=== PATIENT | male | born 1965 | race Caucasian/White ===

== ENCOUNTER → 2016-07-13 | Outpatient (CLI) | payer MEDICARE ==
[2015-09-27 09:08] VITALS: BP 156/98
[~2016-07-13] MED LIST: ALPR2TAB2 PO; CILO100T PO; GABA-586 PO; INSU100I17 SQ; INSU100V13 SQ; LISI1TAB3 PO; insulin
--- NOTE | 2016-07-13 16:10 | RAD ---
Bilateral lower extremity arterial ultrasound with ankle-brachial indices, 07/13/2016: History: Peripheral arterial disease Duplex evaluation of the major arteries in both lower extremities was performed including grayscale, color-flow and spectral Doppler analysis. On the right, the common femoral Doppler waveform is monophasic. There are mild scattered atherosclerotic plaques in the femoral and popliteal arteries. The superficial femoral and popliteal Doppler waveforms are monophasic. No significant focal velocity elevation is seen to suggest high-grade femoral-popliteal stenosis. Patent posterior tibial, anterior tibial and peroneal arteries were identified in the right lower leg demonstrating monophasic Doppler waveforms. The right dorsalis pedis Doppler waveform is also monophasic. Resting VINICIUS measurements were obtained. The right VINICIUS is moderately decreased at 0.7. On the left, the common femoral Doppler waveform is monophasic, similar to that seen on the right. This suggests aortoiliac inflow disease. The superficial femoral Doppler waveforms in the left upper and mid thigh are monophasic. In the distal left thigh the superficial femoral artery appears occluded. A small collateral artery is noted. There is reconstitution of blood flow in the left popliteal artery, although the blood flow is markedly dampened and monophasic. In the left lower leg the anterior tibial, posterior and peroneal arteries are patent demonstrating monophasic Doppler waveforms. The left dorsalis pedis waveform is dampened and monophasic. VINICIUS measurement could not be obtained on the left at this time due to the weak distal pulses. IMPRESSION: 1. Abnormal common femoral Doppler waveforms bilaterally suggesting aortoiliac inflow disease. 2. Occlusion of the left superficial femoral artery in the distal thigh with reconstitution at the popliteal artery level. 3. No evidence of significant occlusive disease in the right femoral or popliteal arteries. 4. Three-vessel runoff in both lower legs demonstrating degraded Doppler waveforms, worse on the left. 5. Abnormal right VINICIUS measurement of 0.7. 6. A left resting VINICIUS measurement could not be obtained due to the poor distal pulses.
== END | disposition home or self-care (01) ==
LOC: US 13:18
PROVIDERS: ATTEND Physician Assistant Medical
DX: I73.9 Peripheral vascular disease, unspecified (principal); I74.3 Embolism and thrombosis of arteries of the lower extremities
CPT/HCPCS: 93922; 93925

== ENCOUNTER 2016-08-08 09:06 | Observation (INO) | payer MEDICARE ==
[2016-08-08] VITALS (17 sets, daily range): BP systolic 140–175; BP diastolic 80–111
[~2016-08-08] VITALS: Ht 177.8 cm; Wt 83.0 kg
[2016-08-08] MEDS ORDERED: ASPIRIN 325 MG TABLET ONE (09:16)
[2016-08-08 09:25] LABS: HEMATOCRIT 41.8 % (39.0-53.0); HEMOGLOBIN 14.4 g/dL (13.0-17.5); RED BLOOD COUNT 4.62 x10^6/uL (4.30-5.70); RED CELL DISTRIBUTION WIDTH 13.7 % (11.5-14.5); WHITE BLOOD COUNT 9.3 x10^3/uL (4.0-11.0)
[2016-08-08 09:35] LABS: INR 0.9 (0.8-1.1); PROTHROMBIN TIME PATIENT 11.5 SEC (11.7-14.0)
[2016-08-08 09:48] LABS: GFR 79.4; POTASSIUM 4.4 mmol/L (3.5-5.1)
[2016-08-08] MEDS ORDERED: LIDOCAINE 2% 20 ML VIAL. ONE (10:31)
[2016-08-08] MEDS ORDERED: IODIXANOL 320 MG/ML 100 ML VIAL. ONE ×2 (10:32→12:34)
[2016-08-08] MEDS ORDERED: LISI-334 PO (11:00)
[2016-08-08] MEDS ORDERED: ONDANSETRON PF 4 MG/2 ML VIAL. ONE (11:05)
[2016-08-08] MEDS ORDERED: fentaNYL PF VIAL 250 MCG/5 ML VIAL ONE (11:06)
[2016-08-08] MEDS ORDERED: MIDAZOLAM HCL/PF 5 MG/5 ML VIAL. ONE (11:06)
[2016-08-08] MEDS ORDERED: HEPARIN for IV BOLUS 10,000 UNIT/10 ML VIAL. ONE (11:29)
[2016-08-08] MEDS ORDERED: MIDAZOLAM HCL/PF 5 MG/5 ML VIAL. IV ONE (11:30)
[2016-08-08] MEDS ORDERED: fentaNYL PF VIAL 250 MCG/5 ML VIAL IV ONE (11:30)
[2016-08-08] MEDS ORDERED: LIDOCAINE 2% 20 ML VIAL. IJ ONE (11:30)
[2016-08-08] MEDS ORDERED: ONDANSETRON PF 4 MG/2 ML VIAL. IV ONE (11:30)
[2016-08-08] MEDS ORDERED: IODIXANOL 320 MG/ML 100 ML VIAL. IART ONE (11:30)
[2016-08-08] MEDS ORDERED: CONTRAST GIVEN MC PRN (11:45)
[2016-08-08] MEDS ORDERED: HEPARIN for IV BOLUS 10,000 UNIT/10 ML VIAL. IV ONE (12:45)
[2016-08-08] MEDS ORDERED: CLOPIDOGREL BISULFATE 75 MG TABLET ONE (12:46)
[2016-08-08] MEDS ORDERED: CLOPIDOGREL BISULFATE 75 MG TABLET PO ONE (13:00)
[2016-08-08] MEDS: GABAPENTIN 400 MG CAPSULE. PO SCH ×2 (16:00→20:57)
[2016-08-08] MEDS ORDERED: NICOTINE 14MG PATCH. TD PRN (16:00)
[2016-08-08] MEDS ORDERED: LISINOPRIL 20 MG TABLET PO ONE (16:30)
[2016-08-08] MEDS: INSULIN ASPART 300 UNITS/3 ML INSULN.PEN SQ SCH (16:35)
--- NOTE | 2016-08-08 17:32 | CARD ---
APPROVED REPORT Patient StatusOUT-PATIENT Charter Coordinator: RT Keyonna (R) Procedure(s) performed: Abdominal aortogram with ileofemoral run-off [employer] REP of the LSFA chronic total occlusion. HISTORY The patient is a 51 year-old male with a history of : diabetes mellitus with treatment, tobacco histo ry() , hypertension, dyslipidemia. INDICATION FOR PROCEDURE The indication(s) include : Bilateral claudication. PROCEDURE NARRATIVE After appropriate informed consent the patient was brought to the catheterization laboratory and laid in the supine position. The right groin was prepped and draped in usual sterile fashion. Under 2% li docaine local anesthesia and after ministration of conscious sedation a 6 Peruvian introducer sheath wa s placed into the right common femoral artery via the modified Seldinger technique using an 18-gauge needle and a J-tipped guidewire. Next a 5 [place]uvian Omni Flush catheter was advanced to the distal abdom inal aorta and digital subtraction angiography images were obtained from the abdominal aorta with yong ofemoral runoff to the feet. Findings: Aorta: No significant disease. RCIA: Mild atherosclerotic plaque of up to 30%. REIA: Mild diffuse disease of up to 40%. RIIA: Moderate diffuse disease. RCFA: No significant disease. RPROF: No significant disease. RSFA: No significant disease with diffuse negative remodeling. RPOP: No significant disease. RTP trunk: No significant disease. RAT: No significant disease. LCIA: No significant disease. GABBY: Mild diffuse disease of up to 30%. LIIA: Moderate diffuse disease. LCFA: No significant disease. LPROF: No significant disease. LSFA: Distal occlusion with diffuse negative remodeling. There are robust collaterals near the adduct or canal. LPOP: No significant disease. LTP trunk: No significant disease. LAT: Moderate diffuse disease of up to 60%. INTERVENTIONAL TECHNIQUE: Based upon the present symptoms of claudication left greater than right and angiographic findings of a distal SFA subtotal occlusion at intervention was planned. Heparin was used for anticoagulation. Th e Omni Flush catheter was used to direct a J-tipped guidewire into the left common femoral artery. Ne xt a 6 Peruvian Phil sheath was inserted and placed in the proximal common femoral artery. Next a Glid ewire and a angled glide catheter were used to navigate the proximal aspect of the occlusion. Subsequ ently at the distal segment of the occlusion a connect 250T wire was used to cross the distal occlusi on. A Fine Cross catheter was then used to cross the lesion and intraluminal placement was confirmed distally with limited contrast injection. Next a [place] core wire was placed in the distal posterior tibial vessel and a 5.0 x 100 mm balloon was used to perform angioplasty for 2 minutes. Next, a 5.0 x 120 mm paclitaxel eluting balloon was used to angioplasty the lesion for 3 minutes. Subsequent post angioplasty angiography revealed excellent flow and 0% residual stenosis. There was no evidence of di ssection. No distal vessel occlusion was noted. In this setting further intervention was deferred and a stent was not placed. The patient tolerated the procedure well and at case completion the right si ded Phil sheath was removed and a Angio-Seal product was placed for hemostasis. The patient received 600 mg of Plavix at case completion. Conclusion 1. Spivey category 3 claudication 2. 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 Recommendations ASA 81mg daily indefinitely Plavix 75mg daily for 3 months Smoking cessation counseling provided.
[2016-08-08] MEDS ORDERED: ACETAMINOPHEN 325 MG TABLET. PO PRN (19:30)
[2016-08-08] MEDS ORDERED: INSULIN DETEMIR 300 UNITS/3 ML INSULN.PEN. SQ SCH (21:00)
[2016-08-08] MEDS ORDERED: oxyCODONE/APAP 5/325 1 TAB TABLET PO PRN ×2 (21:00)
[2016-08-08] MEDS: ALPRAZolam 1 MG TABLET PO PRN (21:08)
[2016-08-08] MEDS ORDERED: ALPRAZolam 1 MG TABLET PO ONE (23:15)
[2016-08-09 03:20] VITALS: BP 127/95
[2016-08-09 07:20] VITALS: BP 145/84
[2016-08-09] MEDS ORDERED: CLOPIDOGREL BISULFATE 75 MG TABLET PO SCH (08:00)
[2016-08-09 08:56] VITALS: BP 145/84
[2016-08-09] MEDS: GABAPENTIN 400 MG CAPSULE. PO SCH (08:56)
[2016-08-09] MEDS: INSULIN ASPART 300 UNITS/3 ML INSULN.PEN SQ SCH ×2 (08:59→11:30)
[2016-08-09] MEDS: ALPRAZolam 1 MG TABLET PO PRN (08:59)
[2016-08-09] MEDS ORDERED: LISINOPRIL 20 MG TABLET PO SCH (09:00)
[2016-08-09] MEDS ORDERED: ASPIRIN 325 MG TABLET PO ONE (09:30)
[2016-08-09] MEDS ORDERED: CLOP75TA PO ×3 (10:38→11:04)
[2016-08-09] MEDS ORDERED: ASPI-612 PO ×2 (10:38→10:55)
--- NOTE | 2016-08-09 10:48 | PDOC3 ---
VALERIANO PINON CHIEF STRATEGY OFFICER 08/09/16 1048: Discharge Summary Visit Information Date of Admission: August 08, 2016 Date of Discharge: August 09, 2016 Admitting Diagnosis Comment: 1. PVD with claudication 2. DM, II with peripheral neuropathy 3. hypertension, benign essential 4. tobacco abuse 5. anxiety and depression Final Diagnosis 1. 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 DM, II with peripheral neuropathy 3. hypertension, benign essential 4. tobacco abuse 5. anxiety and depression Brief Hospital Course Allergies Allergies Coded Allergies Type Severity Reaction Last Updated Verified No Known Drug Allergies 09/05/13 No Vital Signs Vital Signs Date Time Temp Pulse Resp B/P (MAP) Pulse Ox O2 Delivery O2 Flow Rate FiO2 08/09/16 08:56 99 145/84 08/09/16 08:00 Room Air 08/09/16 07:20 97.7 18 99 97.7 Lab Results Laboratory Tests Test 08/08/16 09:20 08/08/16 12:21 08/08/16 16:20 08/08/16 20:45 White Blood Count 9.3 x10^3/uL (4.0-11.0) Red Blood Count 4.62 x10^6/uL (4.30-5.70) Hemoglobin 14.4 g/dL (13.0-17.5) Hematocrit 41.8 % (39.0-53.0) Mean Corpuscular Volume 91 fL (79-100) Mean Corpuscular Hemoglobin 31 pg (25-35) Mean Corpuscular Hemoglobin Concent 35 g/dL (31-37) Red Cell Distribution Width 13.7 % (11.5-14.5) Platelet Count 238 x10^3/uL (140-400) Prothrombin Time 11.5 SEC (11.7-14.0) Prothromb Time International Ratio 0.9 (0.8-1.1) Sodium Level 137 mmol/L (136-145) Potassium Level 4.4 mmol/L (3.5-5.1) Chloride Level 99 mmol/L (98-107) Carbon Dioxide Level 31 mmol/L (21-32) Anion Gap 7 (6-14) Blood Urea Nitrogen 18 mg/dL (8-26) Creatinine 1.0 mg/dL (0.7-1.3) Estimated GFR (Cockcroft-Gault) 79.4 Glucose Level 292 mg/dL (70-99) Calcium Level 9.0 mg/dL (8.5-10.1) Activated Clotting Time 223 sec (92-181) Glucose (Fingerstick) 323 mg/dL (70-99) 277 mg/dL (70-99) Test 08/09/16 07:40 Glucose (Fingerstick) 171 mg/dL (70-99) Laboratory Tests Test 08/08/16 12:21 08/08/16 16:20 08/08/16 20:45 08/09/16 07:40 Activated Clotting Time 223 sec (92-181) Glucose (Fingerstick) 323 mg/dL (70-99) 277 mg/dL (70-99) 171 mg/dL (70-99) Brief Hospital Course Mr. Sharp is a 51 old male who presented with claudication symptoms for years. Diagnosed with Lenoir class 3 symptoms, and without ulcers. Angiography recommended due to DM and tobacco abuse. Underwent angiography on with findings of a chronic total occlusion of the left distal SFA with drug eluting balloon. Monitored overnight without symptoms. Notes resolution of left calf symptoms with walking overnight. DP and PT on left 1+; 2+ on right. Right hospitality manager arteriotomy C/D/I without erythema, edema or ecchymosis; no bruit auscultated at site. Discharge with DAPT X 3 months. Smoking cessation discussed again today and patient encouraged to walk daily gradually increasing distance. Discharge Information Follow Up: Weeks (4 weeks with cardiology; 7-10 days with PCP) Disposition/Orders: D/C to Home Scheduled Clopidogrel Bisulfate (Clopidogrel), 75 MG PO DAILYWBKFT Clopidogrel Bisulfate (Clopidogrel), 75 MG PO DAILYWBKFT Gabapentin (Gabapentin), 1,200 MG PO TID, (Reported) Insulin Aspart (Novolog Flexpen), 10 UNIT SQ TIDAC, (Reported) Insulin Detemir (Levemir), 50 UNIT SQ HS, (Reported) Lisinopril (Lisinopril), 1 TAB PO DAILY, (Reported) Scheduled PRN Alprazolam (Xanax), 1 TAB PO TID PRN for ANXIETY / AGITATION, (Reported) Discontinued Medications Lisinopril/Hydrochlorothiazide (Lisinopril-Hctz 10-12.5 Mg Tab), 1 TAB PO DAILY, (Reported) Patient Instructions Patient Instructions GENERAL INSTRUCTIONS: 1. Your dressing should be removed prior to leaving the hospital. 2. It is OK to shower the day after your procedure. 3. If you received stents, be sure to carry your stent information card with you in your wallet/purse at all times. 4. Call the office immediately at [phone] if you notice any fever or if there is redness, worsening tenderness/pain, increased bruising, or drainage from the puncture site. 5. Should you have bleeding from the site, lie down immediately & put pressure on the site. The pressure should be hard enough to stop the bleeding. Have the nearest person call 911. DO NOT try to drive to the ER with active bleeding. 6. If you notice a change in color, coolness to touch, or loss of feeling in the affected extremity, come to the emergency room. Please have someone drive you or call 911 if no one is available. DO NOT drive yourself. 7. If you normally take glucophage (metformin), please do not take this medicine for 48 hours following your procedure. 8. DO NOT STOP TAKING YOUR PLAVIX OR ASPIRIN UNLESS IT IS CLEARED BY A INFANT TEACHER OF YOUR FUEL CELL DESIGNER AT OUR OFFICE. 9. QUIT SMOKING: the [place] [employer], [employer], & [employer] have cessation resources available on their websites 10. Please have someone available to drive you home from the hospital as you may be limited by sedation medications given during the procedure. Femoral (Groin) access: 1. Do no lifting, pushing, pulling, bending, stooping, or recurrent stair climbing for 3 days following your procedure. 2. Once past the first 3 days, do not do any HEAVY exertion or lifting for one week following the procedure. No gym workouts, running, lifting greater than a gallon of milk, etc 3. Do not submerge in bath or pool for one week. OK to drive 3 days following your procedure, but if going long distance, do not go alone & take hourly breaks to get out of car and walk around. Call the office at [phone] for any questions or concerns. IVETTE ALATORRE MD 08/09/16 1330: Discharge Summary Brief Hospital Course Brief Hospital Course Pt. seen and examined. Agree with above OTR OWNER OPERATOR note. No acute events overnight. This a.m. blood sugar ~42. Will recheck after meals. No groin issues. f/u in 4 weeks. ASA,Plavix for 3 months. Discharge Information Scheduled Clopidogrel Bisulfate (Clopidogrel), 75 MG PO DAILYWBKFT Clopidogrel Bisulfate (Clopidogrel), 75 MG PO DAILYWBKFT Gabapentin (Gabapentin), 1,200 MG PO TID, (Reported) Insulin Aspart (Novolog Flexpen), 10 UNIT SQ TIDAC, (Reported) Insulin Detemir (Levemir), 50 UNIT SQ HS, (Reported) Lisinopril (Lisinopril), 1 TAB PO DAILY, (Reported) Scheduled PRN Alprazolam (Xanax), 1 TAB PO TID PRN for ANXIETY / AGITATION, (Reported) Discontinued Medications Lisinopril/Hydrochlorothiazide (Lisinopril-Hctz 10-12.5 Mg Tab), 1 TAB PO DAILY, (Reported) VALERIANO PINON APRN August 09, 2016 10:48 IVETTE ALATORRE MD August 09, 2016 13:30
== END 2016-08-09 14:00 | disposition home or self-care (01) ==
LOC: CCL 09:06 → INTOOBSV 12:15 → UNDOADMOB 12:15 → 2 SOUTH 12:15
PROVIDERS: ADMIT Internal Medicine Cardiovascular Disease; ATTEND Internal Medicine Cardiovascular Disease
DX: E11.51 Type 2 diabetes mellitus with diabetic peripheral angiopathy without gangrene (principal); F32.9 Major depressive disorder, single episode, unspecified; F41.9 Anxiety disorder, unspecified; I10 Essential (primary) hypertension; Z72.0 Tobacco use
CPT/HCPCS: 36415; 37224; 75630; 80048; 82962; 85027; 85347; 85610; 96372; 96374; 99406; C1725; C1769; C1771; C1892; G0269; G0378; G0379; J1644; J1815; J2250; J2405; J3010; 99152; 99153

== ENCOUNTER → 2018-03-15 | Outpatient (CLI) | payer MEDICARE ==
[2018-03-12 11:12] VITALS: BP 146/78
[~2018-03-15] MED LIST changes: +ALPR1TAB2 PO; +AMLO5TAB7 PO; +ASPI-612 PO; +CLOP75TA PO; +DICL100G18 TP; -GABA-586 PO; +GABA-689 PO; +GABA300C18 PO; +LISI-334 PO; +LISI40TA2 PO; +NICO1PAT25 TP; +OMEP40CA5 PO; +PEG1POWD PO; +POLY17PO29 PO
--- NOTE | 2018-03-15 08:10 | RAD ---
Indication:ABD PAIN TECHNIQUE: Grayscale, color Doppler and spectral waveform is of the abdomen obtained. COMPARISON:CT from 03/12/2018 FINDINGS:Single gallstone is seen measuring 1 cm in longest dimension. No pericholecystic fluid or gallbladder wall thickening. Visualized pancreas is within normal limits. Diffuse atherosclerotic disease of the abdominal aorta without aneurysm. IVC is patent. Liver is mildly enlarged in size measuring 19 cm with normal echogenicity. Trace amount of right pleural effusion. Main portal vein is patent with hepatopedal flow. CBD measures 3 mm in diameter and is within normal limits. Right kidney measures 13.8 cm in length without hydronephrosis. Spleen measures 11 cm in longest dimension and is normal in size. Left kidney measures 12.5 cm in length without hydronephrosis. IMPRESSION: 1. Nonshadowing single stone versus polyp in the gallbladder. No sonographic evidence of acute cholecystitis. 2. Mild hepatomegaly. Electronically signed by: Jt Romero DO (03/15/2018 8:06 AM) [facility]
== END | disposition home or self-care (01) ==
LOC: US 07:25
PROVIDERS: ATTEND Physician Assistant Medical
DX: R16.0 Hepatomegaly, not elsewhere classified (principal); I70.0 Atherosclerosis of aorta; F17.210 Nicotine dependence, cigarettes, uncomplicated; F12.90 Cannabis use, unspecified, uncomplicated
CPT/HCPCS: 76700

== ENCOUNTER 2018-06-12 21:00 | Inpatient (IN) | payer MEDICARE ==
[~2018-06-12] VITALS: Ht 177.8 cm; Wt 66.7 kg
[~2018-06-12 21:00] MED LIST changes: +AMLO10TA8 PO; +AMLO5TAB10 PO; -AMLO5TAB7 PO; +ASPI-630 PO; +ATOR20TA58 PO; +CARV12.5 PO; +CARV25TA PO; +FURO-68 PO; +GABA600T7 PO; +INSU100V12 SQ; +MELA3TAB2 PO; +PANT20TA2 PO; +POTA10TA12 PO; +SPIR25TA5 PO; +SUCR1TAB35 PO; +VARE0.5T PO
[2018-06-12 21:34] LABS: BASO # 0.1 x10^3/uL (0.0-0.2); BASO % 1 % (0-3); EOS # 0.4 x10^3/uL (0.0-0.7); EOS % 4 % (0-3); HEMATOCRIT 35.3 % (39.0-53.0); HEMOGLOBIN 11.8 g/dL (13.0-17.5); LYMPH # 2.3 x10^3/uL (1.0-4.8); LYMPH % 24 % (24-48); MEAN CORPUSCULAR HEMOGLOBIN 29 pg (25-35); MEAN CORPUSCULAR HGB CONC 33 g/dL (31-37); MEAN CORPUSCULAR VOLUME 88 fL (79-100); MONO # 0.7 x10^3/uL (0.0-1.1); MONO % 7 % (0-9); NEUT # 6.4 x10^3uL (1.8-7.7); NEUT % 65 % (31-73); PLATELET COUNT 350 x10^3/uL (140-400); RED BLOOD COUNT 4.02 x10^6/uL (4.30-5.70); RED CELL DISTRIBUTION WIDTH 13.4 % (11.5-14.5); WHITE BLOOD COUNT 9.9 x10^3/uL (4.0-11.0)
[2018-06-12 21:45] LABS: CALCIUM 9.6 mg/dL (8.5-10.1); CREATININE 1.4 mg/dL (0.7-1.3); GFR 53.4; POTASSIUM 3.7 mmol/L (3.5-5.1)
[2018-06-12 21:50] LABS: ALBUMIN 2.6 g/dL (3.4-5.0); ALBUMIN/GLOBULIN RATIO 0.5 (1.0-1.7); MAGNESIUM 1.8 mg/dL (1.8-2.4); TOTAL BILIRUBIN 0.3 mg/dL (0.2-1.0)
[2018-06-12] MEDS ORDERED: ASPIRIN CHEWABLE 81 MG TABLET. PO ONE (22:00)
[2018-06-12] MEDS ORDERED: IV NORMAL SALINE 1000ML BAG 1,000 ML IV SCH (22:00)
[2018-06-12] MEDS ORDERED: ONDANSETRON PF 4 MG/2 ML VIAL. ONE (22:03)
--- NOTE | 2018-06-12 22:07 | PHYS DOC ---
Past Medical History Past Medical History: Diabetes-Type II, Hypertension, Other Additional Past Medical Histor: PAD Past Surgical History: Other Additional Past Surgical Histo: BILATERAL EYES Alcohol Use: Occasionally Drug Use: Marijuana Adult General Chief Complaint Chief Complaint: CHEST PAIN HPI HPI Patient is a 53-year-old male who presents with complaint of chest pain that has been intermittent since around Sunday. He describes pain as sharp in nature at times and sometimes is just like a deep ache. Patient also indicates that he has had abdominal pain and back pain for the last few weeks. Patient states that he was recently diagnosed with esophageal cancer and has not yet seen oncologist. Patient rates his pain to be a 10 out of 10. He states that this pain is not been managed at all. He does indicate the pain is worsened with exertion. He states that nothing improves his pain. Patient does indicate that he has been very nauseated. He also indicates that he has had some vomiting. Patient also reports cough that is been productive of sputum. He denies any fever. Review of Systems Review of Systems Constitutional: Denies fever or chills [] Respiratory: Complains of cough and exertional shortness of breath [] Cardiovascular: No additional information not addressed in HPI [] GI: Complains of abdominal pain with nausea and vomiting. Denies diarrhea [] Musculoskeletal: Complains of mid to lower thoracic back pain [] Integument: Denies rash or skin lesions [] All other systems were reviewed and found to be within normal limits, except as documented in this note. Current Medications Current Medications Current Medications Medications (Trade) Dose Ordered Sig/Adrien Start Time Stop Time Status Last Admin Dose Admin Aspirin (Children'S Aspirin) 324 mg 1X ONCE 06/12/18 22:00 06/12/18 22:01 DC 06/12/18 22:02 324 MG Fentanyl Citrate (Fentanyl 2ml Vial) 50 mcg PRN Q1HR PRN 06/12/18 22:15 06/13/18 22:14 Hydromorphone HCl (Dilaudid) 0.5 mg PRN Q15MIN PRN 06/12/18 21:30 06/13/18 21:29 06/12/18 22:08 0.5 MG Ondansetron HCl (Zofran) 4 mg PRN Q8HRS PRN 06/12/18 22:15 06/13/18 22:14 Sodium Chloride 1,000 ml @ 125 mls/hr Q8H 06/12/18 22:30 06/13/18 22:29 Allergies Allergies Allergies Coded Allergies Type Severity Reaction Last Updated Verified No Known Drug Allergies 09/05/13 No Physical Exam Physical Exam Constitutional: Well developed, well nourished, in mild distress. [] HENT: Normocephalic, atraumatic, bilateral external ears normal, oropharynx moist, no oral exudates, nose normal. [] Eyes: PERRLA, EOMI, conjunctiva normal, no discharge. [] Neck: Normal range of motion, no tenderness, supple, no stridor. [] Cardiovascular: Regular rate and rhythm or[] Lungs & Thorax: Fine rhonchi bilaterally to auscultation [] Abdomen: Bowel sounds normal, soft, with epigastric tenderness. [] Skin: Warm, dry, no erythema, no rash. [] Extremities: No tenderness, no cyanosis, no clubbing, ROM intact, no edema. [] Neurologic: Alert and oriented X 3, normal motor function, normal sensory function, no focal deficits noted. [] Current Patient Data Vital Signs Vital Signs Date Time Temp Pulse Resp B/P (MAP) Pulse Ox O2 Delivery O2 Flow Rate FiO2 06/12/18 22:08 5 95 Room Air Lab Values Laboratory Tests Test 06/12/18 21:15 White Blood Count 9.9 x10^3/uL (4.0-11.0) Red Blood Count 4.02 x10^6/uL (4.30-5.70) L Hemoglobin 11.8 g/dL (13.0-17.5) L Hematocrit 35.3 % (39.0-53.0) L Mean Corpuscular Volume 88 fL (79-100) Mean Corpuscular Hemoglobin 29 pg (25-35) Mean Corpuscular Hemoglobin Concent 33 g/dL (31-37) Red Cell Distribution Width 13.4 % (11.5-14.5) Platelet Count 350 x10^3/uL (140-400) Neutrophils (%) (Auto) 65 % (31-73) Lymphocytes (%) (Auto) 24 % (24-48) Monocytes (%) (Auto) 7 % (0-9) Eosinophils (%) (Auto) 4 % (0-3) H Basophils (%) (Auto) 1 % (0-3) Neutrophils # (Auto) 6.4 x10^3uL (1.8-7.7) Lymphocytes # (Auto) 2.3 x10^3/uL (1.0-4.8) Monocytes # (Auto) 0.7 x10^3/uL (0.0-1.1) Eosinophils # (Auto) 0.4 x10^3/uL (0.0-0.7) Basophils # (Auto) 0.1 x10^3/uL (0.0-0.2) Sodium Level 135 mmol/L (136-145) L Potassium Level 3.7 mmol/L (3.5-5.1) Chloride Level 96 mmol/L (98-107) L Carbon Dioxide Level 32 mmol/L (21-32) Anion Gap 7 (6-14) Blood Urea Nitrogen 14 mg/dL (8-26) Creatinine 1.4 mg/dL (0.7-1.3) H Estimated GFR (Cockcroft-Gault) 53.4 BUN/Creatinine Ratio 10 (6-20) Glucose Level 186 mg/dL (70-99) H Calcium Level 9.6 mg/dL (8.5-10.1) Magnesium Level 1.8 mg/dL (1.8-2.4) Total Bilirubin 0.3 mg/dL (0.2-1.0) Aspartate Amino Transferase (AST) 13 U/L (15-37) L Alanine Aminotransferase (ALT) 15 U/L (16-63) L Alkaline Phosphatase 176 U/L (46-116) H Troponin I Quantitative < 0.017 ng/mL (0.000-0.055) EH-Alp-A-Type Natriuretic Peptide 4458 pg/mL (0-124) H Total Protein 8.0 g/dL (6.4-8.2) Albumin 2.6 g/dL (3.4-5.0) L Albumin/Globulin Ratio 0.5 (1.0-1.7) L Lipase 55 U/L (73-393) L Laboratory Tests 06/12/18 21:15 Laboratory Tests 06/12/18 21:15 EKG EKG [] Interpretation Time: EKG demonstrates normal sinus rhythm with rate of 92. Radiology/Procedures Radiology/Procedures [] Impressions: Chest x-ray demonstrates increased vascularity suggesting mild CHF Course & Med Decision Making Course & Med Decision Making Pertinent Labs and Imaging studies reviewed. (See chart for details) [] Dragon Disclaimer Dragon Disclaimer This electronic medical record was generated, in whole or in part, using a voice recognition dictation system. Departure Departure Impression: Primary Impression: Chest pain Additional Impressions: CHF (congestive heart failure) Intractable abdominal pain Disposition: ADMITTED INPATIENT Admitting Physician: Uma Barry Condition: GOOD Referrals: NATALIO HAYES PA-C (PCP) Problem Qualifiers Primary Impression: Chest pain Chest pain type: unspecified Qualified Codes: R07.9 - Chest pain, unspecified Additional Impressions: CHF (congestive heart failure) Heart failure type: unspecified Heart failure chronicity: unspecified Qualified Codes: I50.9 - Heart failure, unspecified USHA RIVERA Jr. DO Jun 12, 2018 22:07
[2018-06-12] MEDS: HYDROmorphone 2 MG/ML VIAL IV/SQ PRN ×3 (22:08→22:55)
[2018-06-12] MEDS ORDERED: ONDANSETRON PF 4 MG/2 ML VIAL. IV PRN (22:15)
[2018-06-12] MEDS ORDERED: fentaNYL PF VIAL 100 MCG/2 ML VIAL IV PRN (22:15)
[2018-06-12] MEDS ORDERED: ONDANSETRON PF 4 MG/2 ML VIAL. IV ONE (22:30)
[2018-06-13] VITALS (7 sets, daily range): BP systolic 113–148; BP diastolic 65–81
--- NOTE | 2018-06-13 00:11 | RAD ---
Indication:CHEST PAIN TECHNIQUE:Portable AP chest X-ray COMPARISON:05/19/2018 FINDINGS: Heart is normal in size. Lungs are clear. No pneumothorax or pleural effusion. Visualized bony thorax within normal limits. IMPRESSION: No acute pulmonary process. Electronically signed by: Jt Romero DO (06/13/2018 12:08 AM) [facility]
--- NOTE | 2018-06-13 02:36 | EKG ---
[facility] [address] [place] [id number] Test Date: 2018-06-12 Test Time: 21:08:24 Pat Name: DANIELITO MONTANA Department: Room: 250 1 Gender: M Ophthalmic Technician: : 1965 Requested By: USHA RIVERA Order Number: [id number] Reading MD: Sukhdeep Armstrong MD Measurements Intervals [place] Rate: 91 P: 45 OK: 130 QRS: 47 QRSD: 86 T: 36 QT: 338 QTc: 422 Interpretive Statements SINUS RHYTHM Electronically Signed On 06-20-2018 9:50:46 CDT by Sukhdeep Armstrong MD
[2018-06-13] MEDS: HYDROmorphone 2 MG/ML VIAL IV/SQ PRN (02:55)
[2018-06-13 04:48] LABS: BASO # 0.1 x10^3/uL (0.0-0.2); BASO % 1 % (0-3); EOS # 0.4 x10^3/uL (0.0-0.7); EOS % 4 % (0-3); HEMATOCRIT 32.1 % (39.0-53.0); HEMOGLOBIN 10.5 g/dL (13.0-17.5); LYMPH # 2.3 x10^3/uL (1.0-4.8); LYMPH % 20 % (24-48); MEAN CORPUSCULAR HEMOGLOBIN 29 pg (25-35); MEAN CORPUSCULAR HGB CONC 33 g/dL (31-37); MEAN CORPUSCULAR VOLUME 90 fL (79-100); MONO # 0.9 x10^3/uL (0.0-1.1); MONO % 8 % (0-9); NEUT # 7.6 x10^3uL (1.8-7.7); NEUT % 67 % (31-73); PLATELET COUNT 325 x10^3/uL (140-400); RED BLOOD COUNT 3.58 x10^6/uL (4.30-5.70); RED CELL DISTRIBUTION WIDTH 13.6 % (11.5-14.5); WHITE BLOOD COUNT 11.3 x10^3/uL (4.0-11.0)
[2018-06-13 05:08] LABS: CALCIUM 8.9 mg/dL (8.5-10.1); CREATININE 1.5 mg/dL (0.7-1.3); GFR 49.3; POTASSIUM 4.1 mmol/L (3.5-5.1)
[2018-06-13] MEDS: IV NORMAL SALINE 1000ML BAG 1,000 ML IV SCH ×3 (06:01→14:28)
[2018-06-13] MEDS: NICOTINE 21MG PATCH. TD SCH (08:23)
[2018-06-13] MEDS ORDERED: IBUP-1060 PO (08:32)
[2018-06-13] MEDS: GABAPENTIN 300 MG CAPSULE. PO SCH ×3 (09:39→20:47)
[2018-06-13] MEDS: LISINOPRIL 20 MG TABLET PO SCH (09:39)
[2018-06-13] MEDS: SPIRONOLACTONE 25 MG TABLET PO SCH (09:39)
[2018-06-13] MEDS: CARVEDILOL 12.5 MG TABLET. PO SCH ×2 (09:39→17:26)
[2018-06-13] MEDS: amLODIPine BESYLATE 10 MG TABLET PO SCH (09:40)
--- NOTE | 2018-06-13 10:05 | PDOC2 ---
HARPREET HERRERA CNC MACHINE SETTER 06/13/18 1005: CARDIAC CONSULT DATE OF CONSULT Date of Consult DATE: 06/13/18 TIME: 10:00 REASON FOR CONSULT Reason for Consult: CP, CHF REFERRING PHYSICIAN Referring Physician: Hemanth SOURCE Source: Chart review, Patient HISTORY OF PRESENT ILLNESS HISTORY OF PRESENT ILLNESS This is a 53 yo male admitted for complains of nausea and vomiting and abdominal pain. Verbalized chest pain but this mainly more on the epigastric region as sharp started after nausea. He is a poor historian. He told me that he was seen by a specialist yesterday and was told that he may have esophageal CA. Denies any significant SOA and no peripheral edema. No fever or chills or cough and no recent falls or injury. PAST MEDICAL HISTORY Past Medical History Cardiovascular: HTN, PAD, HLP Pulmonary: No pertinent hx CENTRAL NERVOUS SYSTEM: Peripheral neuropathy GI: GERD Heme/Onc: Anemia Hepatobiliary: No pertinent hx Psych: Anxiety, Depression Musculoskeletal: Osteoarthritis Rheumatologic: No pertinent hx Infectious disease: No pertinent hx ENT: No pertinent hx Renal/: L LESLIE Endocrine: Diabetes (2) Dermatology: None PAST SURGICAL HISTORY Past Surgical History LFA surgery, [facility] FAMILY HISTORY Family History Coronary Artery Disease (mother in her 40s) SOCIAL HISTORY Social History Smoke: <1 pack per day (>30 years) ALCOHOL: occasional Drugs: None Lives: alone Domestic Violence: Neg CURRENT MEDICATIONS CURRENT MEDICATIONS Current Medications Medications (Trade) Dose Ordered Sig/Adrien Route PRN Reason Start Time Stop Time Status Last Admin Dose Admin Aspirin (Children'S Aspirin) 324 mg 1X ONCE PO 06/12/18 22:00 06/12/18 22:01 DC 06/12/18 22:02 Hydromorphone HCl (Dilaudid) 0.5 mg PRN Q15MIN PRN IV/SQ PAIN GREATER THAN 06/0906/12/18 21:30 06/13/18 21:29 06/12/18 22:55 Sodium Chloride 1,000 ml @ 1,000 mls/hr Q1H IV 06/12/18 22:00 06/12/18 22:59 DC 06/12/18 22:08 Ondansetron HCl (Zofran) 4 mg 1X ONCE IV 06/12/18 22:30 06/12/18 22:31 DC 06/12/18 22:05 Sodium Chloride 1,000 ml @ 125 mls/hr Q8H IV 06/12/18 22:30 06/13/18 22:29 06/13/18 06:01 Nicotine (Nicoderm Cq 21mg) 1 patch DAILY TD 06/13/18 09:00 06/13/18 08:23 Amlodipine Besylate (Norvasc) 10 mg DAILY PO 06/13/18 10:00 06/13/18 09:40 Carvedilol (Coreg) 12.5 mg BIDWMEALS PO 06/13/18 10:00 06/13/18 09:39 Gabapentin (Neurontin) 900 mg TID PO 06/13/18 10:00 06/13/18 09:39 Lisinopril (Prinivil) 40 mg DAILY PO 06/13/18 10:00 06/13/18 09:39 Spironolactone (Aldactone) 25 mg DAILY PO 06/13/18 10:00 06/13/18 09:39 ALLERGIES ALLERGIES: Coded Allergies: No Known Drug Allergies (Unverified , 09/05/13) ROS Review of System limited, poor historian PHYSICAL EXAM General: Alert, Oriented X3, Cooperative, No acute distress HEENT: Atraumatic, Mucous membr. moist/pink Lungs: Clear to auscultation, Normal air movement Heart: Regular rate (SR), Normal S1, Normal S2, No murmurs Abdomen: Soft, Other (epigastric tenderness) Extremities: No cyanosis, No edema Skin: No breakdown, No significant lesion Neuro: Normal speech, Sensation intact Psych/Mental Status: Mental status NL, Mood NL MUSCULOSKELETAL: Osteoarthritic changes both hands VITALS VITALS Vital Signs Date Time Temp Pulse Resp B/P (MAP) Pulse Ox O2 Delivery O2 Flow Rate FiO2 06/13/18 09:40 95 06/13/18 08:05 Nasal Cannula 2.0 06/13/18 07:00 98.2 18 148/81 (103) 93 98.2 LABS Lab: Laboratory Tests Test 06/12/18 21:15 06/13/18 01:10 06/13/18 04:00 06/13/18 09:11 White Blood Count 9.9 x10^3/uL (4.0-11.0) 11.3 x10^3/uL (4.0-11.0) Red Blood Count 4.02 x10^6/uL (4.30-5.70) 3.58 x10^6/uL (4.30-5.70) Hemoglobin 11.8 g/dL (13.0-17.5) 10.5 g/dL (13.0-17.5) Hematocrit 35.3 % (39.0-53.0) 32.1 % (39.0-53.0) Mean Corpuscular Volume 88 fL (79-100) 90 fL (79-100) Mean Corpuscular Hemoglobin 29 pg (25-35) 29 pg (25-35) Mean Corpuscular Hemoglobin Concent 33 g/dL (31-37) 33 g/dL (31-37) Red Cell Distribution Width 13.4 % (11.5-14.5) 13.6 % (11.5-14.5) Platelet Count 350 x10^3/uL (140-400) 325 x10^3/uL (140-400) Neutrophils (%) (Auto) 65 % (31-73) 67 % (31-73) Lymphocytes (%) (Auto) 24 % (24-48) 20 % (24-48) Monocytes (%) (Auto) 7 % (0-9) 8 % (0-9) Eosinophils (%) (Auto) 4 % (0-3) 4 % (0-3) Basophils (%) (Auto) 1 % (0-3) 1 % (0-3) Neutrophils # (Auto) 6.4 x10^3uL (1.8-7.7) 7.6 x10^3uL (1.8-7.7) Lymphocytes # (Auto) 2.3 x10^3/uL (1.0-4.8) 2.3 x10^3/uL (1.0-4.8) Monocytes # (Auto) 0.7 x10^3/uL (0.0-1.1) 0.9 x10^3/uL (0.0-1.1) Eosinophils # (Auto) 0.4 x10^3/uL (0.0-0.7) 0.4 x10^3/uL (0.0-0.7) Basophils # (Auto) 0.1 x10^3/uL (0.0-0.2) 0.1 x10^3/uL (0.0-0.2) Sodium Level 135 mmol/L (136-145) 138 mmol/L (136-145) Potassium Level 3.7 mmol/L (3.5-5.1) 4.1 mmol/L (3.5-5.1) Chloride Level 96 mmol/L (98-107) 99 mmol/L (98-107) Carbon Dioxide Level 32 mmol/L (21-32) 32 mmol/L (21-32) Anion Gap 7 (6-14) 7 (6-14) Blood Urea Nitrogen 14 mg/dL (8-26) 15 mg/dL (8-26) Creatinine 1.4 mg/dL (0.7-1.3) 1.5 mg/dL (0.7-1.3) Estimated GFR (Cockcroft-Gault) 53.4 49.3 BUN/Creatinine Ratio 10 (6-20) Glucose Level 186 mg/dL (70-99) 183 mg/dL (70-99) Calcium Level 9.6 mg/dL (8.5-10.1) 8.9 mg/dL (8.5-10.1) Magnesium Level 1.8 mg/dL (1.8-2.4) Total Bilirubin 0.3 mg/dL (0.2-1.0) Aspartate Amino Transf (AST/SGOT) 13 U/L (15-37) Alanine Aminotransferase (ALT/SGPT) 15 U/L (16-63) Alkaline Phosphatase 176 U/L (46-116) Troponin I Quantitative < 0.017 ng/mL (0.000-0.055) < 0.017 ng/mL (0.000-0.055) < 0.017 ng/mL (0.000-0.055) VP-Rgy-R-Type Natriuretic Peptide 4458 pg/mL (0-124) Total Protein 8.0 g/dL (6.4-8.2) Albumin 2.6 g/dL (3.4-5.0) Albumin/Globulin Ratio 0.5 (1.0-1.7) Lipase 55 U/L (73-393) Glucose (Fingerstick) 193 mg/dL (70-99) ECHOCARDIOGRAM ECHOCARDIOGRAM <Conclusion> The left ventricle is normal size. The left ventricular systolic function is normal. The ejection fraction is 55-60%. There is mild concentric left ventricular hypertrophy. There is no significant aortic valvular stenosis. Doppler and Color Flow revealed no significant aortic regurgitation. Doppler and Color-flow revealed trace to mild mitral regurgitation. Doppler and Color Flow revealed trace tricuspid regurgitation with an estimated PAP of 40 mmHg. There is a trace pericardial effusion with no hemodynamic significance. DATE: 05/13/18 1603 HEART CATH HEART CATH LEFT VENTRICULOGRAM: Deferred due to CKD and known EF. CORONARY ANGIOGRAPHY: LM is a large caliber vessel with normal angiographic appearance. LAD is a large caliber vessel with ap roximal 50% stenosis that is unchanged from prior. Ramus is a small caliber vessel with mild luminal irregularities. D1 is a small caliber vessel with mild luminal irregularities. LCx is a moderate caliber co-dominant vessel with mild diffuse irregularities of up to 40-50%. OM1 is a small caliber vessel with normal angiographic appearance. LPL is a small caliber vessel with mild luminal irregularities. RCA is a moderate caliber vessel known to be occluded proximally previously, not injected. Robust left to right collaterals noted. Conclusion 1. Mildly elevated left ventricular filling pressures. LVEDP 16 mm Hg 2. Three vessel coronary disease, unchanged from 2017 Recommendations Aggressive Medical Therapy DATE: 05/20/18 1228 ASSESSMENT/PLAN ASSESSMENT/PLAN 1. Abd pain/nausea: Esophageal CA? reported per pt 2. Atypical CP: suspect GI 3. CAD: Recent LHC as noted above no intervention 4. PAD: scheduled for staged PVI of the [facility] next week 5. Chronic diastolic CHF: compensated. 6. HTN: to this point he has not been checking his BP at home, but currently controlled 7. DM2/HLP Recommendations 1. Restart secondary prevention measures. ASA 2. Continue with PVI as planned. Await GI eval. 3. Smoking cessation IVETTE ALATORRE MD 06/13/18 1849: CARDIAC CONSULT ASSESSMENT/PLAN ASSESSMENT/PLAN Pt. seen and examined. Agree with above Manager Recruitment note. 53 y.o presenting with non-cardiac CP. He is euvolemic and has no angina with good BP control. Defer PaD treatment now as if he does have leg intervention, he would need dual anti-platelet therapy and will await until esophageal cancer staging and treatment is done prior to proceeding with elective PAD intervention. thanks Will follow along peripherally. HARPREET HERRERA APRN Jun 13, 2018 10:05 IVETTE ALATORRE MD Jun 13, 2018 22:47
--- NOTE | 2018-06-13 10:49 | PDOC1 ---
History and Physical Date of Admission Date of Admission DATE: 06/13/18 TIME: 10:49 Identification/Chief Complaint Chief Complaint seen in er with complaint of chest pain that has been intermittent since around Sunday. He describes pain as sharp in nature at times 10/10 and sometimes is just like a deep ache. indicates that he has had abdominal pain and back pain for the last few weeks. Patient states that he was recently diagnosed with esophageal cancer and has not yet seen oncologist. Referred to to see Dr. Renner for EUS and Dr. Lorie Nicole YESTERDAY, NOT YET ACCOMPLISHED states he needs phone # for [facility] Past Medical History Past Medical History Past Medical History Past Medical History: Diabetes-Type II, Hypertension, Other Additional Past Medical Histor: PAD Past Surgical History: Other Additional Past Surgical Histo: BILATERAL EYES Alcohol Use: Occasionally Drug Use: Marijuana FAMILY HX HTN Chest pain, elevated troponin related to demand ischemia Uncontrolled DM2 Chronic diastolic CHF HTN Severe PAD with left LESLIE CAD HLD Nicotine dependence Cardiovascular: HTN, Other Pulmonary: No pertinent hx CENTRAL NERVOUS SYSTEM: Periperal neuropathy GI: No pertinent hx Heme/Onc: No pertinent hx Hepatobiliary: No pertinent hx Psych: Anxiety, Depression Musculoskeletal: Osteoarthritis Rheumatologic: No pertinent hx Infectious disease: No pertinent hx Renal/: No pertinent hx Endocrine: Diabetes Past Surgical History Past Surgical History: Other Family History Family History: Coronary Artery Disease, Hypertension Social History Smoke: <1 pack per day ALCOHOL: social Drugs: Marijuana Current Problem List Problem List Problems Medical Problems: (1) Chest pain Status: Acute (2) Intractable abdominal pain Status: Acute Current Medications Current Medications Current Medications Aspirin (Children'S Aspirin) 324 mg 1X ONCE PO Last administered on 06/12/18at 22:02; Start 06/12/18 at 22:00; Stop 06/12/18 at 22:01; Status DC Hydromorphone HCl (Dilaudid) 0.5 mg PRN Q15MIN PRN IV/SQ PAIN GREATER THAN 3/ 10 Last administered on 06/12/18at 22:55; Start 06/12/18 at 21:30; Stop 06/13/18 at 21:29 Sodium Chloride 1,000 ml @ 1,000 mls/hr Q1H IV Last administered on 06/12/18at 22:08; Start 06/12/18 at 22:00; Stop 06/12/18 at 22:59; Status DC Ondansetron HCl (Zofran) 4 mg 1X ONCE IV Last administered on 06/12/18at 22:05 ; Start 06/12/18 at 22:30; Stop 06/12/18 at 22:31; Status DC Ondansetron HCl (Zofran) 4 mg STK-MED ONCE .ROUTE ; Start 06/12/18 at 22:03; Stop 06/12/18 at 22:04; Status DC Ondansetron HCl (Zofran) 4 mg PRN Q8HRS PRN IV NAUSEA/VOMITING 1ST CHOICE; Start 06/12/18 at 22:15; Stop 06/13/18 at 22:14 Fentanyl Citrate (Fentanyl 2ml Vial) 50 mcg PRN Q1HR PRN IV SEVERE PAIN; Start 06/12/18 at 22:15; Stop 06/13/18 at 22:14 Sodium Chloride 1,000 ml @ 125 mls/hr Q8H IV Last administered on 06/13/18at 06 :01; Start 06/12/18 at 22:30; Stop 06/13/18 at 22:29 Nicotine (Nicoderm Cq 21mg) 1 patch DAILY TD Last administered on 06/13/18 08: 23; Start 06/13/18 at 09:00 Amlodipine Besylate (Norvasc) 10 mg DAILY PO Last administered on 06/13/18at 09: 40; Start 06/13/18 at 10:00 Atorvastatin Calcium (Lipitor) 20 mg HS PO ; Start 06/13/18 at 21:00 Carvedilol (Coreg) 12.5 mg BIDWMEALS PO Last administered on 06/13/18at 09:39; Start 06/13/18 at 10:00 Alprazolam (Xanax) 2 mg PRN TID PRN PO ANXIETY / AGITATION; Start 06/13/18 at 09:30 Gabapentin (Neurontin) 900 mg TID PO Last administered on 06/13/18at 09:39; Start 06/13/18 at 10:00 Lisinopril (Prinivil) 40 mg DAILY PO Last administered on 06/13/18at 09:39; Start 06/13/18 at 10:00 Non-Formulary Medication (Melatonin ) 1 tab QHS PO ; Start 06/13/18 at 21:00; Status UNV Spironolactone (Aldactone) 25 mg DAILY PO Last administered on 06/13/18at 09:39 ; Start 06/13/18 at 10:00 Aspirin (Children'S Aspirin) 81 mg DAILY PO ; Start 06/13/18 at 10:00 Active Scripts Active Reported Ibuprofen 800 Mg Tablet 800 Mg PO BID PRN Gabapentin 600 Mg Tablet 900 Mg PO TID Aspirin 81 Mg Tab.chew 81 Mg PO DAILY Spironolactone 25 Mg Tablet 25 Mg PO DAILY Amlodipine Besylate 10 Mg Tablet 10 Mg PO DAILY Coreg (Carvedilol) 12.5 Mg Tablet 12.5 Mg PO BIDWMEALS Atorvastatin Calcium 20 Mg Tablet 20 Mg PO HS Melatonin 3 Mg Tablet 1 Tab PO QHS Novolog Mix 70-30 Vial (Insuln Asp Prt/Insulin Aspart) 100 Unit/1 Ml Vial 0 SQ BIDAC Lisinopril 40 Mg Tablet 40 Mg PO DAILY Xanax (Alprazolam) 2 Mg Tablet 1 Tab PO TID PRN Allergies Allergies: Coded Allergies: No Known Drug Allergies (Unverified , 09/05/13) ROS Review of System Review of Systems Review of Systems Constitutional: Denies fever or chills [] Respiratory: Complains of cough and exertional shortness of breath [] Cardiovascular: No additional information not addressed in HPI [] GI: Complains of abdominal pain with nausea and vomiting. Denies diarrhea [] Musculoskeletal: Complains of mid to lower thoracic back pain [] Integument: Denies rash or skin lesions [] 14 pt systems were reviewed and found to be within normal limits, except as documented PSYCHOLOGICAL ROS: YES: Anxiety Hematological and Lymphatic: No: Bleeding Problems, Blood Clots, Blood Transfusions, Brusing, Night Sweats, Pallor, Swollen Lymph Nodes, Other Gastrointestinal: Yes Nausea, Yes Vomiting, Yes Abdominal Pain Musculoskeletal: Yes Joint Stiffness Skin: No Dry Skin, No Eczema, No Hair Changes, No Lumps, No Mole Changes, No Mottling, No Nail Changes, No Pruritus, No Rash, No Skin Lesion Changes, No Other, No Acne Physical Exam Physical Exam Physical Exam Physical Exam Constitutional: Well developed, well nourished, in mod distress. [] HENT: Normocephalic, atraumatic, bilateral external ears normal, oropharynx moist, no oral exudates, nose normal. [] Eyes: PERRLA, EOMI, conjunctiva normal, no discharge. [] Neck: Normal range of motion, no tenderness, supple, no stridor. [] Cardiovascular: Regular rate and rhythm or[] Lungs & Thorax: Fine rhonchi bilaterally to auscultation [] Abdomen: Bowel sounds normal, soft, with epigastric tenderness. [] Skin: Warm, dry, no erythema, no rash. [] Extremities: No tenderness, no cyanosis, no clubbing, ROM intact, no edema. [] Neurologic: Alert and oriented X 3, normal motor function, normal sensory function, no focal deficits noted. [] General: Alert, Oriented X3, Cooperative, moderate distress HEENT: Atraumatic, PERRLA, EOMI Heart: RRR, no thrills, no rubs Cardiovascular: S1 Abdomen: Normal bowel sounds, Soft Rectal Exam: not examined PELVIC: Examination not indicated Neuro: Normal speech, Cranial nerves 3-12 NL Psych/Mental Status: Mental status NL, Mood NL Vitals Vitals Vital Signs Date Time Temp Pulse Resp B/P (MAP) Pulse Ox O2 Delivery O2 Flow Rate FiO2 06/13/18 09:40 95 06/13/18 08:05 Nasal Cannula 2.0 06/13/18 07:00 98.2 18 148/81 (103) 93 98.2 Labs Labs Laboratory Tests Test 06/12/18 21:15 06/13/18 01:10 06/13/18 04:00 06/13/18 09:11 White Blood Count 9.9 x10^3/uL (4.0-11.0) 11.3 x10^3/uL (4.0-11.0) Red Blood Count 4.02 x10^6/uL (4.30-5.70) 3.58 x10^6/uL (4.30-5.70) Hemoglobin 11.8 g/dL (13.0-17.5) 10.5 g/dL (13.0-17.5) Hematocrit 35.3 % (39.0-53.0) 32.1 % (39.0-53.0) Mean Corpuscular Volume 88 fL (79-100) 90 fL (79-100) Mean Corpuscular Hemoglobin 29 pg (25-35) 29 pg (25-35) Mean Corpuscular Hemoglobin Concent 33 g/dL (31-37) 33 g/dL (31-37) Red Cell Distribution Width 13.4 % (11.5-14.5) 13.6 % (11.5-14.5) Platelet Count 350 x10^3/uL (140-400) 325 x10^3/uL (140-400) Neutrophils (%) (Auto) 65 % (31-73) 67 % (31-73) Lymphocytes (%) (Auto) 24 % (24-48) 20 % (24-48) Monocytes (%) (Auto) 7 % (0-9) 8 % (0-9) Eosinophils (%) (Auto) 4 % (0-3) 4 % (0-3) Basophils (%) (Auto) 1 % (0-3) 1 % (0-3) Neutrophils # (Auto) 6.4 x10^3uL (1.8-7.7) 7.6 x10^3uL (1.8-7.7) Lymphocytes # (Auto) 2.3 x10^3/uL (1.0-4.8) 2.3 x10^3/uL (1.0-4.8) Monocytes # (Auto) 0.7 x10^3/uL (0.0-1.1) 0.9 x10^3/uL (0.0-1.1) Eosinophils # (Auto) 0.4 x10^3/uL (0.0-0.7) 0.4 x10^3/uL (0.0-0.7) Basophils # (Auto) 0.1 x10^3/uL (0.0-0.2) 0.1 x10^3/uL (0.0-0.2) Sodium Level 135 mmol/L (136-145) 138 mmol/L (136-145) Potassium Level 3.7 mmol/L (3.5-5.1) 4.1 mmol/L (3.5-5.1) Chloride Level 96 mmol/L (98-107) 99 mmol/L (98-107) Carbon Dioxide Level 32 mmol/L (21-32) 32 mmol/L (21-32) Anion Gap 7 (6-14) 7 (6-14) Blood Urea Nitrogen 14 mg/dL (8-26) 15 mg/dL (8-26) Creatinine 1.4 mg/dL (0.7-1.3) 1.5 mg/dL (0.7-1.3) Estimated GFR (Cockcroft-Gault) 53.4 49.3 BUN/Creatinine Ratio 10 (6-20) Glucose Level 186 mg/dL (70-99) 183 mg/dL (70-99) Calcium Level 9.6 mg/dL (8.5-10.1) 8.9 mg/dL (8.5-10.1) Magnesium Level 1.8 mg/dL (1.8-2.4) Total Bilirubin 0.3 mg/dL (0.2-1.0) Aspartate Amino Transf (AST/SGOT) 13 U/L (15-37) Alanine Aminotransferase (ALT/SGPT) 15 U/L (16-63) Alkaline Phosphatase 176 U/L (46-116) Troponin I Quantitative < 0.017 ng/mL (0.000-0.055) < 0.017 ng/mL (0.000-0.055) < 0.017 ng/mL (0.000-0.055) QP-Jod-L-Type Natriuretic Peptide 4458 pg/mL (0-124) Total Protein 8.0 g/dL (6.4-8.2) Albumin 2.6 g/dL (3.4-5.0) Albumin/Globulin Ratio 0.5 (1.0-1.7) Lipase 55 U/L (73-393) Glucose (Fingerstick) 193 mg/dL (70-99) Laboratory Tests Test 06/12/18 21:15 06/13/18 01:10 06/13/18 04:00 06/13/18 09:11 White Blood Count 9.9 x10^3/uL (4.0-11.0) 11.3 x10^3/uL (4.0-11.0) Red Blood Count 4.02 x10^6/uL (4.30-5.70) 3.58 x10^6/uL (4.30-5.70) Hemoglobin 11.8 g/dL (13.0-17.5) 10.5 g/dL (13.0-17.5) Hematocrit 35.3 % (39.0-53.0) 32.1 % (39.0-53.0) Mean Corpuscular Volume 88 fL (79-100) 90 fL (79-100) Mean Corpuscular Hemoglobin 29 pg (25-35) 29 pg (25-35) Mean Corpuscular Hemoglobin Concent 33 g/dL (31-37) 33 g/dL (31-37) Red Cell Distribution Width 13.4 % (11.5-14.5) 13.6 % (11.5-14.5) Platelet Count 350 x10^3/uL (140-400) 325 x10^3/uL (140-400) Neutrophils (%) (Auto) 65 % (31-73) 67 % (31-73) Lymphocytes (%) (Auto) 24 % (24-48) 20 % (24-48) Monocytes (%) (Auto) 7 % (0-9) 8 % (0-9) Eosinophils (%) (Auto) 4 % (0-3) 4 % (0-3) Basophils (%) (Auto) 1 % (0-3) 1 % (0-3) Neutrophils # (Auto) 6.4 x10^3uL (1.8-7.7) 7.6 x10^3uL (1.8-7.7) Lymphocytes # (Auto) 2.3 x10^3/uL (1.0-4.8) 2.3 x10^3/uL (1.0-4.8) Monocytes # (Auto) 0.7 x10^3/uL (0.0-1.1) 0.9 x10^3/uL (0.0-1.1) Eosinophils # (Auto) 0.4 x10^3/uL (0.0-0.7) 0.4 x10^3/uL (0.0-0.7) Basophils # (Auto) 0.1 x10^3/uL (0.0-0.2) 0.1 x10^3/uL (0.0-0.2) Sodium Level 135 mmol/L (136-145) 138 mmol/L (136-145) Potassium Level 3.7 mmol/L (3.5-5.1) 4.1 mmol/L (3.5-5.1) Chloride Level 96 mmol/L (98-107) 99 mmol/L (98-107) Carbon Dioxide Level 32 mmol/L (21-32) 32 mmol/L (21-32) Anion Gap 7 (6-14) 7 (6-14) Blood Urea Nitrogen 14 mg/dL (8-26) 15 mg/dL (8-26) Creatinine 1.4 mg/dL (0.7-1.3) 1.5 mg/dL (0.7-1.3) Estimated GFR (Cockcroft-Gault) 53.4 49.3 BUN/Creatinine Ratio 10 (6-20) Glucose Level 186 mg/dL (70-99) 183 mg/dL (70-99) Calcium Level 9.6 mg/dL (8.5-10.1) 8.9 mg/dL (8.5-10.1) Magnesium Level 1.8 mg/dL (1.8-2.4) Total Bilirubin 0.3 mg/dL (0.2-1.0) Aspartate Amino Transf (AST/SGOT) 13 U/L (15-37) Alanine Aminotransferase (ALT/SGPT) 15 U/L (16-63) Alkaline Phosphatase 176 U/L (46-116) Troponin I Quantitative < 0.017 ng/mL (0.000-0.055) < 0.017 ng/mL (0.000-0.055) < 0.017 ng/mL (0.000-0.055) LV-Etw-G-Type Natriuretic Peptide 4458 pg/mL (0-124) Total Protein 8.0 g/dL (6.4-8.2) Albumin 2.6 g/dL (3.4-5.0) Albumin/Globulin Ratio 0.5 (1.0-1.7) Lipase 55 U/L (73-393) Glucose (Fingerstick) 193 mg/dL (70-99) Images Images PATIENT: DANIELITO MONTANA ACCOUNT: [id number] : 1965 LOCATION: [address] [place] [address] AGE: 52 SEX: M EXAM STATUS: ADM IN ORD. PHYSICIAN: TERRELL MCCALL APRN REASON: femoral arteriotomy site bleeding/nurse will bring later when stable PROCEDURE: CT ABDOMEN PELVIS WO CONTRAST CT of the abdomen and pelvis without contrast, 05/20/2018: HISTORY: Bleeding at femoral artery arteriotomy site Noncontrast scans were obtained as requested. Comparison is made to a study from 03/12/2018. There are small to moderate sized bilateral pleural effusions, right greater than left which have increased in size. There is mild underlying atelectasis posteriorly in both lower lobes. A trace amount of pericardial fluid is present. Coronary artery calcifications are present. There is a persistent mass effect in the region of the distal esophagus. While this may represent a hiatal hernia containing medium density fluid and debris, mural thickening due to tumor cannot be excluded. A similar appearance was present on the previous study. The unopacified liver is unremarkable. There is radiopaque material within the gallbladder. This is likely due to vicarious excretion of IV contrast, although gallstones cannot be excluded. No pancreatic abnormality is seen. The spleen is of normal size. The kidneys show no evidence of obstruction. A 1.2 cm low-density lesion in the posterior aspect of the left kidney demonstrates a higher CT number than a simple cyst. This is likely a complicated cyst. A solid mass is less likely. There is moderate calcific plaquing of the abdominal aorta and its branches without evidence of aneurysm. Prominent calcifications are seen in both renal artery origins. Small periaortic lymph nodes are seen without evidence of pathologic enlargement. No iliac adenopathy is seen. No significant hematoma is seen in either groin level or the retroperitoneum. A Aparicio catheter is present in the collapsed urinary bladder. The bowel loops are not dilated. There is a moderate amount stool throughout colon. No free fluid or free air is evident in the abdomen or pelvis. IMPRESSION: 1. Increasing small to moderate size bilateral pleural effusions, right greater than left with mild underlying bibasilar atelectasis. 2. Possible mural thickening involving the distal esophagus or a hiatal hernia. A neoplastic etiology cannot be excluded. 3. Stable small left renal mass, likely a complicated cyst. Sonographic evaluation may be useful for confirmation. 4. No evidence of groin or pelvic hemorrhage. PQRS Compliance Statement: One or more of the following individualized dose reduction techniques were utilized for this examination: 1. Automated exposure control 2. Adjustment of the mA and/or kV according to patient size 3. Use of iterative reconstruction technique Electronically signed by: Jas Loya MD (05/21/2018 8:14 AM) [facility] Indication:CHEST PAIN TECHNIQUE:Portable AP chest X-ray COMPARISON:05/19/2018 FINDINGS: Heart is normal in size. Lungs are clear. No pneumothorax or pleural effusion. Visualized bony thorax within normal limits. IMPRESSION: No acute pulmonary process. 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 Mural thickening involving the distal esophagus or a hiatal hernia. A neoplastic etiology cannot be excluded. There is a persistent mass effect in the region of the distal esophagus. Chest pain, Uncontrolled DM2 Chronic diastolic CHF HTN Severe PAD with left LESLIE CAD HLD Nicotine dependence plan cvc admit cardiology consult GI CONSULT SERIAL TROPONIN I DVT PROPHYLAXIS IV PROTONIX HOME MEDS GI COCTAIL FULL LIQ DIET SONALI MARTINEZ MD Jun 13, 2018 10:49
[2018-06-13] MEDS: ASPIRIN CHEWABLE 81 MG TABLET. PO SCH (12:22)
--- NOTE | 2018-06-13 12:59 | NUR ---
SS following for discharge planning. SS reviewed pt chart. Pt is from home. SS received referral stating pt unable to afford food and Chantix. Pt has Medicare A&B insurance. SS will follow up with pt and provide resources.
--- NOTE | 2018-06-13 13:49 | PDOC ---
Subjective: Subjective: Please see GI consult from 05/14/18. EGD for dysphagia on 05/15/18 for GERD, dysphagia, and weight loss showed esophagitis, retained food in the esophagus, and gastritis. Distal esophageal biopsies showed high grade dysplasia with focal changes highly suspicious for invasive adenocarcinoma. He saw Dr. Rivera in the office yesterday. Outpt CT chest/abd/pelv was ordered and he was referred to [facility] to see Dr. Renner for EUS and Dr. Lorie Nicole (oncology). CT A/P w/o contrast on 05/20/18 showed possible mural thickening involving the distal esophagus or a hiatal hernia. CT A/P w/o contrast on 03/19/18 showed circumferential wall thickening of the stomach. He came to the ER last night for chest/abd/back pain and dysphagia/vomiting. Tried to eat jello - it went down but came back up - no vomiting, just wouldn't stay down. Currently w/o pain. Objective: Vital Signs: Vital Signs Date Time Temp Pulse Resp B/P (MAP) Pulse Ox O2 Delivery O2 Flow Rate FiO2 06/13/18 11:00 98.0 90 18 147/75 (99) 95 Room Air 98.0 06/13/18 08:05 2.0 Labs: Laboratory Tests Test 06/12/18 21:15 06/13/18 01:10 06/13/18 04:00 06/13/18 09:11 White Blood Count 9.9 x10^3/uL 11.3 x10^3/uL Red Blood Count 4.02 x10^6/uL 3.58 x10^6/uL Hemoglobin 11.8 g/dL 10.5 g/dL Hematocrit 35.3 % 32.1 % Mean Corpuscular Volume 88 fL 90 fL Mean Corpuscular Hemoglobin 29 pg 29 pg Mean Corpuscular Hemoglobin Concent 33 g/dL 33 g/dL Red Cell Distribution Width 13.4 % 13.6 % Platelet Count 350 x10^3/uL 325 x10^3/uL Neutrophils (%) (Auto) 65 % 67 % Lymphocytes (%) (Auto) 24 % 20 % Monocytes (%) (Auto) 7 % 8 % Eosinophils (%) (Auto) 4 % 4 % Basophils (%) (Auto) 1 % 1 % Neutrophils # (Auto) 6.4 x10^3uL 7.6 x10^3uL Lymphocytes # (Auto) 2.3 x10^3/uL 2.3 x10^3/uL Monocytes # (Auto) 0.7 x10^3/uL 0.9 x10^3/uL Eosinophils # (Auto) 0.4 x10^3/uL 0.4 x10^3/uL Basophils # (Auto) 0.1 x10^3/uL 0.1 x10^3/uL Sodium Level 135 mmol/L 138 mmol/L Potassium Level 3.7 mmol/L 4.1 mmol/L Chloride Level 96 mmol/L 99 mmol/L Carbon Dioxide Level 32 mmol/L 32 mmol/L Anion Gap 7 7 Blood Urea Nitrogen 14 mg/dL 15 mg/dL Creatinine 1.4 mg/dL 1.5 mg/dL Estimated GFR (Cockcroft-Gault) 53.4 49.3 BUN/Creatinine Ratio 10 Glucose Level 186 mg/dL 183 mg/dL Calcium Level 9.6 mg/dL 8.9 mg/dL Magnesium Level 1.8 mg/dL Total Bilirubin 0.3 mg/dL Aspartate Amino Transf (AST/SGOT) 13 U/L Alanine Aminotransferase (ALT/SGPT) 15 U/L Alkaline Phosphatase 176 U/L Troponin I Quantitative < 0.017 ng/mL < 0.017 ng/mL < 0.017 ng/mL [id number]-Type Natriuretic Peptide 4458 pg/mL Total Protein 8.0 g/dL Albumin 2.6 g/dL Albumin/Globulin Ratio 0.5 Lipase 55 U/L Glucose (Fingerstick) 193 mg/dL Test 06/13/18 12:11 Glucose (Fingerstick) 281 mg/dL Imaging: CXR IMPRESSION: No acute pulmonary process. PE: GEN: pale LUNGS: clear anteriorly HEART: RRR ABD: S/ND/NT NEURO/PSYCH: A & O 3 A/P: Dysphagia/regurg, abd/chest/back pain - recent biopsies from the distal esophageal w/ high grade dysplasia highly suspicious for invasive adenocarcinoma CAD, CHF, CKD, PAD, left LESLIE Anemia - iron, B12, retic ok 05/2018 Elevated Alk Phos CRC screen - none -- CT chest/abd/pelv. Will ask Dr. Nicole to see. Referral done for EUS at [facility]. EDE SCHMIDT Jun 13, 2018 13:49
[2018-06-13] MEDS: ALPRAZolam 1 MG TABLET PO PRN ×2 (14:26→20:47)
[2018-06-13] MEDS ORDERED: IOHEXOL 240 MG/ML 50ML VIAL. PO ONE (14:30)
[2018-06-13] MEDS ORDERED: CONTRAST GIVEN. MC PRN (14:30)
[2018-06-13] MEDS ORDERED: IOHEXOL 300 MG/ML 100ML VIAL. IV ONE (14:30)
[2018-06-13] MEDS: LIDO:MAALOX 1:1 20 ML SINGLE DOSE. PO PRN ×2 (15:01→20:48)
[2018-06-13] MEDS ORDERED: DEXTROSE 50% 25 GM / 50ML DISP.SYRIN. IV PRN (16:00)
[2018-06-13] MEDS ORDERED: INSULIN LISPRO 300 UNITS/3 ML INSULN.PEN. SQ SCH (17:00)
--- NOTE | 2018-06-13 17:05 | RAD ---
CT of the chest, abdomen and pelvis with contrast, 06/13/2018: HISTORY: Esophageal cancer Multidetector CT imaging was performed following oral and IV administration of contrast. Comparison is made to a CT abdomen and pelvis exam from 05/20/2018. The upper and mid esophagus are distended and contain a moderate amount retained food as well as some of the ingested oral contrast. There is diffuse mural thickening involving the distal esophagus extending over a distance of approximately 9 cm. Several small mediastinal lymph nodes are seen without definite evidence of pathologic enlargement. There is calcific plaquing of the thoracic aorta without evidence of aneurysm. Moderate scattered coronary artery calcifications are present. The heart is not enlarged. There is a small pericardial effusion which has increased in size since the previous study. There is a moderate volume of right-sided pleural fluid similar to that seen on the previous exam. There is mild underlying atelectasis posteriorly in the right lower lobe. There is a small left pleural effusion which has decreased in size since the previous study. There is mild residual atelectasis posteriorly in the left lower lobe. A calcified granuloma is present in the left lower lobe. No pulmonary mass is seen. Contrast was injected into the right arm. Multiple chest wall and lower neck collateral veins are opacified. The appearance suggests right subclavian vein narrowing or occlusion. No hepatic mass is identified. A tiny radiopacity along the posterior wall of the gallbladder could be a small calculus. The pancreas is unremarkable. There are calcified splenic granulomata. A calcification at the right renal hilar level is probably vascular. There is a small unchanged low-density lesion in the posterior aspect of the left kidney which may be a cyst. It cannot be definitively characterized on these scans. The kidneys show no evidence of obstruction. No adrenal abnormality is detected. There is moderate aortoiliac calcific plaquing without evidence of aneurysm. Several small periaortic and pericaval lymph nodes are seen without definite pathologic enlargement. No abdominal or pelvic adenopathy is seen. There is mild diffuse bladder wall thickening, probably related to borderline prostatic enlargement. The bowel loops are not dilated. No free fluid or free air is evident in the abdomen or pelvis. Scattered degenerative changes are present in the spine. IMPRESSION: 1. Diffuse mural thickening involving the distal esophagus compatible with the history of esophageal malignancy. 2. Dilatation of the thoracic esophagus superior to this level, with a moderate amount retained food in the esophagus. 3. Unchanged moderate sized right pleural effusion with underlying right basilar atelectasis. 4. Decreasing small left pleural effusion. 5. Increasing small pericardial effusion. 6. Additional chronic findings as described above. PQRS Compliance Statement: One or more of the following individualized dose reduction techniques were utilized for this examination: 1. Automated exposure control 2. Adjustment of the mA and/or kV according to patient size 3. Use of iterative reconstruction technique Electronically signed by: Jas Loya MD (06/13/2018 5:02 PM) [facility]
[2018-06-13] MEDS: ENOXAPARIN 40 MG/0.4 ML SYRINGE. SQ SCH (17:25)
[2018-06-13] MEDS: PANTOPRAZOLE IV PUSH 40 MG VIAL. IVP SCH (17:26)
[2018-06-13] MEDS: SUCRALFATE 1 GM/10 ML ORAL.SUSP. PEG SCH (20:46)
[2018-06-13] MEDS: ATORVASTATIN CALCIUM 20 MG TABLET PO SCH (20:48)
[2018-06-13] MEDS ORDERED: NON FORMULARY ITEM (Melatonin 1 TAB) PO SCH (21:00)
[2018-06-14] MEDS ORDERED: DEXTROSE 50% 25 GM / 50ML DISP.SYRIN. IV PRN ×3 (00:15→00:30)
[2018-06-14] MEDS ORDERED: BENZOCAINE/MENTHOL LOZENGE. PO PRN (00:45)
[2018-06-14] MEDS: fentaNYL PF VIAL 100 MCG/2 ML VIAL IV PRN ×3 (00:53→19:47)
[2018-06-14] MEDS: INSULIN LISPRO 300 UNITS/3 ML INSULN.PEN. SQ SCH ×8 (00:57→21:17)
[2018-06-14] MEDS ORDERED: INSULIN GLARGINE 300 UNITS/3 ML INSULN.PEN. SQ ONE (01:00)
[2018-06-14 03:10] VITALS: BP 135/67
[2018-06-14 07:00] VITALS: BP 137/75
[2018-06-14 07:01] LABS: BASO % 0 % (0-3); EOS # 0.2 x10^3/uL (0.0-0.7); EOS % 3 % (0-3); HEMATOCRIT 28.9 % (39.0-53.0); HEMOGLOBIN 9.4 g/dL (13.0-17.5); LYMPH # 1.3 x10^3/uL (1.0-4.8); LYMPH % 15 % (24-48); MEAN CORPUSCULAR HEMOGLOBIN 29 pg (25-35); MEAN CORPUSCULAR HGB CONC 33 g/dL (31-37); MEAN CORPUSCULAR VOLUME 90 fL (79-100); MONO # 0.6 x10^3/uL (0.0-1.1); MONO % 7 % (0-9); NEUT # 6.7 x10^3uL (1.8-7.7); NEUT % 75 % (31-73); PLATELET COUNT 262 x10^3/uL (140-400); RED BLOOD COUNT 3.22 x10^6/uL (4.30-5.70); RED CELL DISTRIBUTION WIDTH 13.2 % (11.5-14.5); WHITE BLOOD COUNT 8.9 x10^3/uL (4.0-11.0)
[2018-06-14 07:28] LABS: ALBUMIN/GLOBULIN RATIO 0.4 (1.0-1.7); CALCIUM 8.3 mg/dL (8.5-10.1); CREATININE 1.5 mg/dL (0.7-1.3); GFR 49.3; POTASSIUM 3.9 mmol/L (3.5-5.1); TOTAL BILIRUBIN 0.2 mg/dL (0.2-1.0); TOTAL PROTEIN 6.5 g/dL (6.4-8.2)
[2018-06-14] MEDS: CARVEDILOL 12.5 MG TABLET. PO SCH ×2 (07:47→17:36)
[2018-06-14] MEDS: amLODIPine BESYLATE 10 MG TABLET PO SCH (07:47)
[2018-06-14] MEDS: ASPIRIN CHEWABLE 81 MG TABLET. PO SCH (07:47)
[2018-06-14] MEDS: SPIRONOLACTONE 25 MG TABLET PO SCH (07:47)
[2018-06-14] MEDS: GABAPENTIN 300 MG CAPSULE. PO SCH ×3 (07:47→20:20)
[2018-06-14] MEDS: LISINOPRIL 20 MG TABLET PO SCH (07:48)
[2018-06-14] MEDS: PANTOPRAZOLE IV PUSH 40 MG VIAL. IVP SCH (07:48)
[2018-06-14] MEDS: NICOTINE 21MG PATCH. TD SCH (07:49)
[2018-06-14] MEDS: ENOXAPARIN 40 MG/0.4 ML SYRINGE. SQ SCH (07:49)
[2018-06-14] MEDS ORDERED: INSULIN LISPRO 300 UNITS/3 ML INSULN.PEN. SQ SCH (08:00)
[2018-06-14] MEDS: SUCRALFATE 1 GM/10 ML ORAL.SUSP. PEG SCH ×2 (08:01→21:14)
[2018-06-14] MEDS ORDERED: POLYETHYLENE GLYCOL 3350 17 GM PACKET. PO PRN (09:45)
[2018-06-14] MEDS ORDERED: DOCUSATE SODIUM 100 MG CAPSULE. PO PRN (09:45)
--- NOTE | 2018-06-14 09:47 | PDOC2 ---
CONSULT Date of Consult Date of Consult DATE: 06/14/18 TIME: 09:34 Reason for consultation: Clinical esophageal cancer Consult: Hematology oncology, Dr. Corey Nicole History of present illness: He is a 53-year-old male admitted with chest and abdominal and back pain with nausea and vomiting and dysphagia, also with weight loss, on disability due to depression and anxiety, peripheral artery disease and other comorbidities, EGD showed biopsies reported consistent with high-grade dysplasia suspicious for adenocarcinoma, and on CT scan he is noted to have diffuse mild thickening of the distal esophagus with right pleural effusion and pain is chronic, worsening over time, up to 10/10, constant, initially noted before Thanksgiving, associated with dysphagia and weight loss, and improved with fentanyl and at the epigastric region radiating up the esophagus. Past medical history: Retinal detachment Dysphagia GERD, gastritis Weight loss Diabetes mellitus 2 Hypertension hyperlipidemia Peripheral arterial disease Coronary artery disease Diastolic CHF Peripheral neuropathy Osteoarthritis Reported history of seizures Left renal artery stenosis COPD Clinical esophageal cancer Past surgical history: EGD Left knee surgery Left forearm surgery Cardiac catheterization Cataract surgery Allergies: No known drug allergies, states him and morphine don't get along well Medications: See attached list Social history: On disability, does have Medicare, less than one pack per day tobacco, positive marijuana and social alcohol Family history: Hypertension and coronary artery disease Review of systems: Cough, shortness of breath, anxiety, depression, arthralgias , urinary retention, left eye blindness, numbness, constipation, abdominal pain and chest pain and back pain and nausea and vomiting and GERD otherwise 10 pt review of systems is negative. Physical exam: Vitals reviewed Gen.: Thin man looks older than stated age in no acute distress HEENT: mucous membranes dry, head normocephalic atraumatic Neck: Supple, no lymphadenopathy Lymph nodes: No palpable lymphadenopathy neck or axilla Lungs: Breathing comfortably, no evidence of respiratory distress Heart: Regular rate and rhythm Abdomen: Soft, tender to palp epigastric, no rebound, slight guarding Extremities: No cyanosis or edema Skin: No obvious rashes or skin breakdown Neuro: Alert and oriented 3 Psych: Normal mood and affect Lab reviewed: Hemoglobin 9.4 otherwise CBC normal with creatinine 1.5 Rads reviewed: CT chest abdomen and pelvis 13 June diffuse mural thickening of distal esophagus, right pleural effusion moderate, decreased left pleural effusion, increased small pericardial effusion Case discussed with: Pt, records reviewed in [facility], including labs and radiology, please see note for summary details. Assessment and Plan: He is a 53-year-old male with clinical esophageal cancer, bx was suspicious for but not diagnostic based on EGD, pending EUS, admitted for pain Pain: Improved with fentanyl, will begin OxyContin twice a day, can add OxyIR as needed as outpt, currently has fentanyl when necessary as well, with bowel regimen as needed, also on GI cocktail, PPI, GI cardiology are involved, liquid diet as well Concern for esophageal cancer: Pending EUS, also has a moderate right pleural effusion visible on CT, will see if we can potentially get cytology, IR consult placed for thoracentesis today as able, if cytology positive for cancer would not need PET, if too small to tap or cytology is negative could consider PET scan and further treatment recommendations would be made after potential PET scan and EUS substance abuse: Recommend no tobacco, alcohol, marijuana, or any other substance abuse at this time Peripheral arterial disease: Consider elective intervention after treatment of esophagus Prophylaxis: Lovenox Dysphagia: Consider feeding tube prior to potential treatment as needed? dispo: per others, will f/u as outpt prn Thank you kindly for this consultation, and please don't hesitate to call with any further questions. Past Medical History Cardiovascular: HTN, Other Pulmonary: No pertinent hx CENTRAL NERVOUS SYSTEM: Periperal neuropathy GI: No pertinent hx Heme/Onc: No pertinent hx Hepatobiliary: No pertinent hx Psych: Anxiety, Depression Musculoskeletal: Osteoarthritis Rheumatologic: No pertinent hx Infectious disease: No pertinent hx Renal/: No pertinent hx Endocrine: Diabetes Past Surgical History Past Surgical History: Other Family History Family History: Coronary Artery Disease, Hypertension Social History <1 pack per day ALCOHOL: social Drugs: Marijuana Lives: with Family Domestic Violence: Neg Current Problem List Problem List Problems Medical Problems: (1) Chest pain Status: Acute (2) Intractable abdominal pain Status: Acute Current Medications Current Medications Current Medications Aspirin (Children'S Aspirin) 324 mg 1X ONCE PO Last administered on 06/12/18at 22:02; Start 06/12/18 at 22:00; Stop 06/12/18 at 22:01; Status DC Hydromorphone HCl (Dilaudid) 0.5 mg PRN Q15MIN PRN IV/SQ PAIN GREATER THAN 3/ 10 Last administered on 06/12/18at 22:55; Start 06/12/18 at 21:30; Stop 06/13/18 at 12:44; Status DC Sodium Chloride 1,000 ml @ 1,000 mls/hr Q1H IV Last administered on 06/12/18at 22:08; Start 06/12/18 at 22:00; Stop 06/12/18 at 22:59; Status DC Ondansetron HCl (Zofran) 4 mg 1X ONCE IV Last administered on 06/12/18at 22:05 ; Start 06/12/18 at 22:30; Stop 06/12/18 at 22:31; Status DC Ondansetron HCl (Zofran) 4 mg STK-MED ONCE .ROUTE ; Start 06/12/18 at 22:03; Stop 06/12/18 at 22:04; Status DC Ondansetron HCl (Zofran) 4 mg PRN Q8HRS PRN IV NAUSEA/VOMITING 1ST CHOICE Last administered on 06/13/18at 12:24; Start 06/12/18 at 22:15; Stop 06/13/18 at 18:17 ; Status DC Fentanyl Citrate (Fentanyl 2ml Vial) 50 mcg PRN Q1HR PRN IV SEVERE PAIN Last administered on 06/13/18 17:37; Start 06/12/18 at 22:15; Stop 06/13/18 at 18:17 ; Status DC Sodium Chloride 1,000 ml @ 125 mls/hr Q8H IV Last administered on 06/13/18 14 :28; Start 06/12/18 at 22:30; Stop 06/13/18 at 22:29; Status DC Nicotine (Nicoderm Cq 21mg) 1 patch DAILY TD Last administered on 06/14/18 07: 49; Start 06/13/18 at 09:00 Amlodipine Besylate (Norvasc) 10 mg DAILY PO Last administered on 06/14/18 07: 47; Start 06/13/18 at 10:00 Atorvastatin Calcium (Lipitor) 20 mg HS PO Last administered on 06/13/18at 20:48 ; Start 06/13/18 at 21:00 Carvedilol (Coreg) 12.5 mg BIDWMEALS PO Last administered on 06/14/18 07:47; Start 06/13/18 at 10:00 Alprazolam (Xanax) 2 mg PRN TID PRN PO ANXIETY / AGITATION Last administered on 06/13/18 20:47; Start 06/13/18 at 09:30 Gabapentin (Neurontin) 900 mg TID PO Last administered on 06/14/18 07:47; Start 06/13/18 at 10:00 Lisinopril (Prinivil) 40 mg DAILY PO Last administered on 06/14/18 07:48; Start 06/13/18 at 10:00 Non-Formulary Medication (Melatonin ) 1 tab QHS PO ; Start 06/13/18 at 21:00; Status UNV Spironolactone (Aldactone) 25 mg DAILY PO Last administered on 06/14/18 07:47 ; Start 06/13/18 at 10:00 Aspirin (Children'S Aspirin) 81 mg DAILY PO Last administered on 06/14/18 07: 47; Start 06/13/18 at 10:00 Pantoprazole Sodium (PROTONIX VIAL for IV PUSH) 40 mg DAILYAC IVP Last administered on 06/14/18 07:48; Start 06/13/18 at 16:30 Multi-Ingredient Mouthwash/Gargle (Gi Cocktail) 20 ml PRN QID PRN PO CHEST PAIN Last administered on 06/13/18 20:48; Start 06/13/18 at 13:45 Sucralfate (Carafate) 1 gm BID PEG Last administered on 06/14/18 08:01; Start 06/13/18 at 21:00 Iohexol (Omnipaque 300 Mg/ml) 60 ml 1X ONCE IV Last administered on 06/13/18 15:23; Start 06/13/18 at 14:30; Stop 06/13/18 at 14:31; Status DC Iohexol (Omnipaque 240 Mg/ml) 30 ml 1X ONCE PO Last administered on 06/13/18 14:30; Start 06/13/18 at 14:30; Stop 06/13/18 at 14:31; Status DC Info (CONTRAST GIVEN -- Rx MONITORING) 1 each PRN DAILY PRN MC SEE COMMENTS; Start 06/13/18 at 14:30; Stop 06/15/18 at 14:29 Enoxaparin Sodium (Lovenox 40mg Syringe) 40 mg Q24H SQ Last administered on 3/ 15/19at 07:49; Start 06/13/18 at 16:00 Insulin Human Lispro (HumaLOG) 0-5 UNITS TIDWMEALS SQ Last administered on 06/13at 17:33; Start 06/13/18 at 17:00; Stop 06/14/18 at 00:14; Status DC Dextrose (Dextrose 50%-Water Syringe) 12.5 gm PRN Q15MIN PRN IV SEE COMMENTS; Start 06/13/18 at 16:00; Stop 06/14/18 at 00:16; Status DC Fentanyl Citrate (Fentanyl 2ml Vial) 50 mcg PRN Q2HR PRN IV PAIN Last administered on 06/14/18at 07:48; Start 06/13/18 at 18:15 Ondansetron HCl (Zofran) 4 mg PRN Q6HRS PRN IV NAUSEA/VOMITING; Start 06/13/18 at 18:15 Insulin Human Lispro (HumaLOG) 0-9 UNITS TIDWMEALHC SQ ; Start 06/14/18 at 08:00 ; Status Cancel Dextrose (Dextrose 50%-Water Syringe) 12.5 gm PRN Q15MIN PRN IV SEE COMMENTS; Start 06/14/18 at 00:15; Stop 06/14/18 at 00:35; Status DC Dextrose (Dextrose 50%-Water Syringe) 12.5 gm PRN Q15MIN PRN IV SEE COMMENTS; Start 06/14/18 at 00:15; Status UNV Insulin Human Lispro (HumaLOG) 0-9 UNITS TIDWMEALHC SQ Last administered on at 08:00; Start 06/14/18 at 01:00 Dextrose (Dextrose 50%-Water Syringe) 12.5 gm PRN Q15MIN PRN IV SEE COMMENTS; Start 06/14/18 at 00:30 Insulin Human Lispro (HumaLOG) 5 units TIDAC SQ ; Start 06/14/18 at 07:30 Throat Lozenges (Cepacol Sore Throat Lozenge) 1 josé miguel PRN Q2HRS PRN PO SORE THROAT Last administered on 06/14/18at 00:52; Start 06/14/18 at 00:45 Insulin Glargine (Lantus) 5 units 1X ONCE SQ Last administered on 06/14/18at 00 :58; Start 06/14/18 at 01:00; Stop 06/14/18 at 01:01; Status DC Active Scripts Active Reported Ibuprofen 800 Mg Tablet 800 Mg PO BID PRN Gabapentin 600 Mg Tablet 900 Mg PO TID Aspirin 81 Mg Tab.chew 81 Mg PO DAILY Spironolactone 25 Mg Tablet 25 Mg PO DAILY Amlodipine Besylate 10 Mg Tablet 10 Mg PO DAILY Coreg (Carvedilol) 12.5 Mg Tablet 12.5 Mg PO BIDWMEALS Atorvastatin Calcium 20 Mg Tablet 20 Mg PO HS Melatonin 3 Mg Tablet 1 Tab PO QHS Novolog Mix 70-30 Vial (Insuln Asp Prt/Insulin Aspart) 100 Unit/1 Ml Vial 0 SQ BIDAC Lisinopril 40 Mg Tablet 40 Mg PO DAILY Xanax (Alprazolam) 2 Mg Tablet 1 Tab PO TID PRN Allergies Allergies: Coded Allergies: No Known Drug Allergies (Unverified , 09/05/13) Vitals VITALS Vital Signs Date Time Temp Pulse Resp B/P (MAP) Pulse Ox O2 Delivery O2 Flow Rate FiO2 06/14/18 07:48 95 06/14/18 07:00 98.3 18 137/75 (95) 97 Room Air 98.3 06/13/18 23:10 2.0 Labs Labs Laboratory Tests Test 06/12/18 21:15 06/13/18 01:10 06/13/18 04:00 06/13/18 09:11 White Blood Count 9.9 x10^3/uL (4.0-11.0) 11.3 x10^3/uL (4.0-11.0) Red Blood Count 4.02 x10^6/uL (4.30-5.70) 3.58 x10^6/uL (4.30-5.70) Hemoglobin 11.8 g/dL (13.0-17.5) 10.5 g/dL (13.0-17.5) Hematocrit 35.3 % (39.0-53.0) 32.1 % (39.0-53.0) Mean Corpuscular Volume 88 fL (79-100) 90 fL (79-100) Mean Corpuscular Hemoglobin 29 pg (25-35) 29 pg (25-35) Mean Corpuscular Hemoglobin Concent 33 g/dL (31-37) 33 g/dL (31-37) Red Cell Distribution Width 13.4 % (11.5-14.5) 13.6 % (11.5-14.5) Platelet Count 350 x10^3/uL (140-400) 325 x10^3/uL (140-400) Neutrophils (%) (Auto) 65 % (31-73) 67 % (31-73) Lymphocytes (%) (Auto) 24 % (24-48) 20 % (24-48) Monocytes (%) (Auto) 7 % (0-9) 8 % (0-9) Eosinophils (%) (Auto) 4 % (0-3) 4 % (0-3) Basophils (%) (Auto) 1 % (0-3) 1 % (0-3) Neutrophils # (Auto) 6.4 x10^3uL (1.8-7.7) 7.6 x10^3uL (1.8-7.7) Lymphocytes # (Auto) 2.3 x10^3/uL (1.0-4.8) 2.3 x10^3/uL (1.0-4.8) Monocytes # (Auto) 0.7 x10^3/uL (0.0-1.1) 0.9 x10^3/uL (0.0-1.1) Eosinophils # (Auto) 0.4 x10^3/uL (0.0-0.7) 0.4 x10^3/uL (0.0-0.7) Basophils # (Auto) 0.1 x10^3/uL (0.0-0.2) 0.1 x10^3/uL (0.0-0.2) Sodium Level 135 mmol/L (136-145) 138 mmol/L (136-145) Potassium Level 3.7 mmol/L (3.5-5.1) 4.1 mmol/L (3.5-5.1) Chloride Level 96 mmol/L (98-107) 99 mmol/L (98-107) Carbon Dioxide Level 32 mmol/L (21-32) 32 mmol/L (21-32) Anion Gap 7 (6-14) 7 (6-14) Blood Urea Nitrogen 14 mg/dL (8-26) 15 mg/dL (8-26) Creatinine 1.4 mg/dL (0.7-1.3) 1.5 mg/dL (0.7-1.3) Estimated GFR (Cockcroft-Gault) 53.4 49.3 BUN/Creatinine Ratio 10 (6-20) Glucose Level 186 mg/dL (70-99) 183 mg/dL (70-99) Calcium Level 9.6 mg/dL (8.5-10.1) 8.9 mg/dL (8.5-10.1) Magnesium Level 1.8 mg/dL (1.8-2.4) Total Bilirubin 0.3 mg/dL (0.2-1.0) Aspartate Amino Transf (AST/SGOT) 13 U/L (15-37) Alanine Aminotransferase (ALT/SGPT) 15 U/L (16-63) Alkaline Phosphatase 176 U/L (46-116) Troponin I Quantitative < 0.017 ng/mL (0.000-0.055) < 0.017 ng/mL (0.000-0.055) < 0.017 ng/mL (0.000-0.055) XQ-Pmg-Z-Type Natriuretic Peptide 4458 pg/mL (0-124) Total Protein 8.0 g/dL (6.4-8.2) Albumin 2.6 g/dL (3.4-5.0) Albumin/Globulin Ratio 0.5 (1.0-1.7) Lipase 55 U/L (73-393) Glucose (Fingerstick) 193 mg/dL (70-99) Test 06/13/18 12:11 06/13/18 16:14 06/13/18 20:55 06/14/18 06:15 Glucose (Fingerstick) 281 mg/dL (70-99) 310 mg/dL (70-99) 289 mg/dL (70-99) White Blood Count 8.9 x10^3/uL (4.0-11.0) Red Blood Count 3.22 x10^6/uL (4.30-5.70) Hemoglobin 9.4 g/dL (13.0-17.5) Hematocrit 28.9 % (39.0-53.0) Mean Corpuscular Volume 90 fL (79-100) Mean Corpuscular Hemoglobin 29 pg (25-35) Mean Corpuscular Hemoglobin Concent 33 g/dL (31-37) Red Cell Distribution Width 13.2 % (11.5-14.5) Platelet Count 262 x10^3/uL (140-400) Neutrophils (%) (Auto) 75 % (31-73) Lymphocytes (%) (Auto) 15 % (24-48) Monocytes (%) (Auto) 7 % (0-9) Eosinophils (%) (Auto) 3 % (0-3) Basophils (%) (Auto) 0 % (0-3) Neutrophils # (Auto) 6.7 x10^3uL (1.8-7.7) Lymphocytes # (Auto) 1.3 x10^3/uL (1.0-4.8) Monocytes # (Auto) 0.6 x10^3/uL (0.0-1.1) Eosinophils # (Auto) 0.2 x10^3/uL (0.0-0.7) Basophils # (Auto) 0.0 x10^3/uL (0.0-0.2) Sodium Level 136 mmol/L (136-145) Potassium Level 3.9 mmol/L (3.5-5.1) Chloride Level 99 mmol/L (98-107) Carbon Dioxide Level 29 mmol/L (21-32) Anion Gap 8 (6-14) Blood Urea Nitrogen 19 mg/dL (8-26) Creatinine 1.5 mg/dL (0.7-1.3) Estimated GFR (Cockcroft-Gault) 49.3 BUN/Creatinine Ratio 13 (6-20) Glucose Level 363 mg/dL (70-99) Calcium Level 8.3 mg/dL (8.5-10.1) Total Bilirubin 0.2 mg/dL (0.2-1.0) Aspartate Amino Transf (AST/SGOT) 14 U/L (15-37) Alanine Aminotransferase (ALT/SGPT) 14 U/L (16-63) Alkaline Phosphatase 143 U/L (46-116) Total Protein 6.5 g/dL (6.4-8.2) Albumin 2.0 g/dL (3.4-5.0) Albumin/Globulin Ratio 0.4 (1.0-1.7) Test 06/14/18 07:20 Glucose (Fingerstick) 339 mg/dL (70-99) Laboratory Tests Test 06/13/18 12:11 06/13/18 16:14 06/13/18 20:55 06/14/18 06:15 Glucose (Fingerstick) 281 mg/dL (70-99) 310 mg/dL (70-99) 289 mg/dL (70-99) White Blood Count 8.9 x10^3/uL (4.0-11.0) Red Blood Count 3.22 x10^6/uL (4.30-5.70) Hemoglobin 9.4 g/dL (13.0-17.5) Hematocrit 28.9 % (39.0-53.0) Mean Corpuscular Volume 90 fL (79-100) Mean Corpuscular Hemoglobin 29 pg (25-35) Mean Corpuscular Hemoglobin Concent 33 g/dL (31-37) Red Cell Distribution Width 13.2 % (11.5-14.5) Platelet Count 262 x10^3/uL (140-400) Neutrophils (%) (Auto) 75 % (31-73) Lymphocytes (%) (Auto) 15 % (24-48) Monocytes (%) (Auto) 7 % (0-9) Eosinophils (%) (Auto) 3 % (0-3) Basophils (%) (Auto) 0 % (0-3) Neutrophils # (Auto) 6.7 x10^3uL (1.8-7.7) Lymphocytes # (Auto) 1.3 x10^3/uL (1.0-4.8) Monocytes # (Auto) 0.6 x10^3/uL (0.0-1.1) Eosinophils # (Auto) 0.2 x10^3/uL (0.0-0.7) Basophils # (Auto) 0.0 x10^3/uL (0.0-0.2) Sodium Level 136 mmol/L (136-145) Potassium Level 3.9 mmol/L (3.5-5.1) Chloride Level 99 mmol/L (98-107) Carbon Dioxide Level 29 mmol/L (21-32) Anion Gap 8 (6-14) Blood Urea Nitrogen 19 mg/dL (8-26) Creatinine 1.5 mg/dL (0.7-1.3) Estimated GFR (Cockcroft-Gault) 49.3 BUN/Creatinine Ratio 13 (6-20) Glucose Level 363 mg/dL (70-99) Calcium Level 8.3 mg/dL (8.5-10.1) Total Bilirubin 0.2 mg/dL (0.2-1.0) Aspartate Amino Transf (AST/SGOT) 14 U/L (15-37) Alanine Aminotransferase (ALT/SGPT) 14 U/L (16-63) Alkaline Phosphatase 143 U/L (46-116) Total Protein 6.5 g/dL (6.4-8.2) Albumin 2.0 g/dL (3.4-5.0) Albumin/Globulin Ratio 0.4 (1.0-1.7) Test 06/14/18 07:20 Glucose (Fingerstick) 339 mg/dL (70-99) COREY NICOLE MD Jun 14, 2018 09:47
[2018-06-14] MEDS: oxyCODONE ER 10 MG TAB.ER.12H PO SCH ×2 (10:25→20:21)
--- NOTE | 2018-06-14 10:53 | PDOC ---
PROGRESS NOTES History of Present Illness History of Present Illness Assessment/Plan Assessment/Plan IMPRESSION INTRACTABLE SEVERE PAIN Distal esophageal biopsies showed high grade dysplasia with focal changes highly suspicious for invasive adenocarcinoma. Mural thickening involving the distal esophagus or a hiatal hernia. A neoplastic etiology cannot be excluded. There is a persistent mass effect in the region of the distal esophagus. Diffuse mural thickening involving the distal esophagus compatible with the history of esophageal malignancy. Dilatation of the thoracic esophagus superior to this level, with a moderate amount retained food in the esophagus. Unchanged moderate sized right pleural effusion with underlying right basilar atelectasis. Decreasing small left pleural effusion. Increasing small pericardial effusion., NEW Chest pain, Uncontrolled DM2 Chronic diastolic CHF HTN Severe PAD with left LESLIE CAD HLD Nicotine dependence anemia with drop in hgb 06/14 plan cvc admit cardiology consult GI FOLLOWING SERIAL TROPONIN I DVT PROPHYLAXIS IV PROTONIX HOME MEDS GI COCTAIL FULL LIQ DIET PULM CONSULT HIGH RISK OF COMPLICATIONS DUE TO noncompliance per my chart review Vitals Vitals Vital Signs Date Time Temp Pulse Resp B/P (MAP) Pulse Ox O2 Delivery O2 Flow Rate FiO2 06/14/18 08:05 Nasal Cannula 2.0 06/14/18 07:48 95 06/14/18 07:00 98.3 18 137/75 (95) 97 98.3 Physical Exam General: Alert, Oriented X3, Cooperative, mild distress, moderate distress Heart: Regular rate (SR), Normal S1, Normal S2, No murmurs Abdomen: Normal bowel sounds, Soft Extremities: No cyanosis, No edema Skin: No breakdown, No significant lesion Labs LABS CT of the chest, abdomen and pelvis with contrast, 06/13/2018: HISTORY: Esophageal cancer Multidetector CT imaging was performed following oral and IV administration of contrast. Comparison is made to a CT abdomen and pelvis exam from 05/20/2018. The upper and mid esophagus are distended and contain a moderate amount retained food as well as some of the ingested oral contrast. There is diffuse mural thickening involving the distal esophagus extending over a distance of approximately 9 cm. Several small mediastinal lymph nodes are seen without definite evidence of pathologic enlargement. There is calcific plaquing of the thoracic aorta without evidence of aneurysm. Moderate scattered coronary artery calcifications are present. The heart is not enlarged. There is a small pericardial effusion which has increased in size since the previous study. There is a moderate volume of right-sided pleural fluid similar to that seen on the previous exam. There is mild underlying atelectasis posteriorly in the right lower lobe. There is a small left pleural effusion which has decreased in size since the previous study. There is mild residual atelectasis posteriorly in the left lower lobe. A calcified granuloma is present in the left lower lobe. No pulmonary mass is seen. Contrast was injected into the right arm. Multiple chest wall and lower neck collateral veins are opacified. The appearance suggests right subclavian vein narrowing or occlusion. No hepatic mass is identified. A tiny radiopacity along the posterior wall of the gallbladder could be a small calculus. The pancreas is unremarkable. There are calcified splenic granulomata. A calcification at the right renal hilar level is probably vascular. There is a small unchanged low-density lesion in the posterior aspect of the left kidney which may be a cyst. It cannot be definitively characterized on these scans. The kidneys show no evidence of obstruction. No adrenal abnormality is detected. There is moderate aortoiliac calcific plaquing without evidence of aneurysm. Several small periaortic and pericaval lymph nodes are seen without definite pathologic enlargement. No abdominal or pelvic adenopathy is seen. There is mild diffuse bladder wall thickening, probably related to borderline prostatic enlargement. The bowel loops are not dilated. No free fluid or free air is evident in the abdomen or pelvis. Scattered degenerative changes are present in the spine. IMPRESSION: 1. Diffuse mural thickening involving the distal esophagus compatible with the history of esophageal malignancy. 2. Dilatation of the thoracic esophagus superior to this level, with a moderate amount retained food in the esophagus. 3. Unchanged moderate sized right pleural effusion with underlying right basilar atelectasis. 4. Decreasing small left pleural effusion. 5. Increasing small pericardial effusion. 6. Additional chronic findings as described above. Laboratory Tests Test 06/13/18 12:11 06/13/18 16:14 06/13/18 20:55 06/14/18 06:15 Glucose (Fingerstick) 281 mg/dL (70-99) 310 mg/dL (70-99) 289 mg/dL (70-99) White Blood Count 8.9 x10^3/uL (4.0-11.0) Red Blood Count 3.22 x10^6/uL (4.30-5.70) Hemoglobin 9.4 g/dL (13.0-17.5) Hematocrit 28.9 % (39.0-53.0) Mean Corpuscular Volume 90 fL (79-100) Mean Corpuscular Hemoglobin 29 pg (25-35) Mean Corpuscular Hemoglobin Concent 33 g/dL (31-37) Red Cell Distribution Width 13.2 % (11.5-14.5) Platelet Count 262 x10^3/uL (140-400) Neutrophils (%) (Auto) 75 % (31-73) Lymphocytes (%) (Auto) 15 % (24-48) Monocytes (%) (Auto) 7 % (0-9) Eosinophils (%) (Auto) 3 % (0-3) Basophils (%) (Auto) 0 % (0-3) Neutrophils # (Auto) 6.7 x10^3uL (1.8-7.7) Lymphocytes # (Auto) 1.3 x10^3/uL (1.0-4.8) Monocytes # (Auto) 0.6 x10^3/uL (0.0-1.1) Eosinophils # (Auto) 0.2 x10^3/uL (0.0-0.7) Basophils # (Auto) 0.0 x10^3/uL (0.0-0.2) Sodium Level 136 mmol/L (136-145) Potassium Level 3.9 mmol/L (3.5-5.1) Chloride Level 99 mmol/L (98-107) Carbon Dioxide Level 29 mmol/L (21-32) Anion Gap 8 (6-14) Blood Urea Nitrogen 19 mg/dL (8-26) Creatinine 1.5 mg/dL (0.7-1.3) Estimated GFR (Cockcroft-Gault) 49.3 BUN/Creatinine Ratio 13 (6-20) Glucose Level 363 mg/dL (70-99) Calcium Level 8.3 mg/dL (8.5-10.1) Total Bilirubin 0.2 mg/dL (0.2-1.0) Aspartate Amino Transf (AST/SGOT) 14 U/L (15-37) Alanine Aminotransferase (ALT/SGPT) 14 U/L (16-63) Alkaline Phosphatase 143 U/L (46-116) Total Protein 6.5 g/dL (6.4-8.2) Albumin 2.0 g/dL (3.4-5.0) Albumin/Globulin Ratio 0.4 (1.0-1.7) Test 06/14/18 07:20 Glucose (Fingerstick) 339 mg/dL (70-99) Assessment and Plan Assessmemt and Plan Problems Medical Problems: (1) Chest pain Status: Acute (2) Intractable abdominal pain Status: Acute Comment Review of Relevant I have reviewed the following items tasneem (where applicable) has been applied. Labs Laboratory Tests Test 06/12/18 21:15 06/13/18 01:10 06/13/18 04:00 06/13/18 09:11 White Blood Count 9.9 x10^3/uL (4.0-11.0) 11.3 x10^3/uL (4.0-11.0) Red Blood Count 4.02 x10^6/uL (4.30-5.70) 3.58 x10^6/uL (4.30-5.70) Hemoglobin 11.8 g/dL (13.0-17.5) 10.5 g/dL (13.0-17.5) Hematocrit 35.3 % (39.0-53.0) 32.1 % (39.0-53.0) Mean Corpuscular Volume 88 fL (79-100) 90 fL (79-100) Mean Corpuscular Hemoglobin 29 pg (25-35) 29 pg (25-35) Mean Corpuscular Hemoglobin Concent 33 g/dL (31-37) 33 g/dL (31-37) Red Cell Distribution Width 13.4 % (11.5-14.5) 13.6 % (11.5-14.5) Platelet Count 350 x10^3/uL (140-400) 325 x10^3/uL (140-400) Neutrophils (%) (Auto) 65 % (31-73) 67 % (31-73) Lymphocytes (%) (Auto) 24 % (24-48) 20 % (24-48) Monocytes (%) (Auto) 7 % (0-9) 8 % (0-9) Eosinophils (%) (Auto) 4 % (0-3) 4 % (0-3) Basophils (%) (Auto) 1 % (0-3) 1 % (0-3) Neutrophils # (Auto) 6.4 x10^3uL (1.8-7.7) 7.6 x10^3uL (1.8-7.7) Lymphocytes # (Auto) 2.3 x10^3/uL (1.0-4.8) 2.3 x10^3/uL (1.0-4.8) Monocytes # (Auto) 0.7 x10^3/uL (0.0-1.1) 0.9 x10^3/uL (0.0-1.1) Eosinophils # (Auto) 0.4 x10^3/uL (0.0-0.7) 0.4 x10^3/uL (0.0-0.7) Basophils # (Auto) 0.1 x10^3/uL (0.0-0.2) 0.1 x10^3/uL (0.0-0.2) Sodium Level 135 mmol/L (136-145) 138 mmol/L (136-145) Potassium Level 3.7 mmol/L (3.5-5.1) 4.1 mmol/L (3.5-5.1) Chloride Level 96 mmol/L (98-107) 99 mmol/L (98-107) Carbon Dioxide Level 32 mmol/L (21-32) 32 mmol/L (21-32) Anion Gap 7 (6-14) 7 (6-14) Blood Urea Nitrogen 14 mg/dL (8-26) 15 mg/dL (8-26) Creatinine 1.4 mg/dL (0.7-1.3) 1.5 mg/dL (0.7-1.3) Estimated GFR (Cockcroft-Gault) 53.4 49.3 BUN/Creatinine Ratio 10 (6-20) Glucose Level 186 mg/dL (70-99) 183 mg/dL (70-99) Calcium Level 9.6 mg/dL (8.5-10.1) 8.9 mg/dL (8.5-10.1) Magnesium Level 1.8 mg/dL (1.8-2.4) Total Bilirubin 0.3 mg/dL (0.2-1.0) Aspartate Amino Transf (AST/SGOT) 13 U/L (15-37) Alanine Aminotransferase (ALT/SGPT) 15 U/L (16-63) Alkaline Phosphatase 176 U/L (46-116) Troponin I Quantitative < 0.017 ng/mL (0.000-0.055) < 0.017 ng/mL (0.000-0.055) < 0.017 ng/mL (0.000-0.055) IU-Qrp-F-Type Natriuretic Peptide 4458 pg/mL (0-124) Total Protein 8.0 g/dL (6.4-8.2) Albumin 2.6 g/dL (3.4-5.0) Albumin/Globulin Ratio 0.5 (1.0-1.7) Lipase 55 U/L (73-393) Glucose (Fingerstick) 193 mg/dL (70-99) Test 06/13/18 12:11 06/13/18 16:14 06/13/18 20:55 06/14/18 06:15 Glucose (Fingerstick) 281 mg/dL (70-99) 310 mg/dL (70-99) 289 mg/dL (70-99) White Blood Count 8.9 x10^3/uL (4.0-11.0) Red Blood Count 3.22 x10^6/uL (4.30-5.70) Hemoglobin 9.4 g/dL (13.0-17.5) Hematocrit 28.9 % (39.0-53.0) Mean Corpuscular Volume 90 fL (79-100) Mean Corpuscular Hemoglobin 29 pg (25-35) Mean Corpuscular Hemoglobin Concent 33 g/dL (31-37) Red Cell Distribution Width 13.2 % (11.5-14.5) Platelet Count 262 x10^3/uL (140-400) Neutrophils (%) (Auto) 75 % (31-73) Lymphocytes (%) (Auto) 15 % (24-48) Monocytes (%) (Auto) 7 % (0-9) Eosinophils (%) (Auto) 3 % (0-3) Basophils (%) (Auto) 0 % (0-3) Neutrophils # (Auto) 6.7 x10^3uL (1.8-7.7) Lymphocytes # (Auto) 1.3 x10^3/uL (1.0-4.8) Monocytes # (Auto) 0.6 x10^3/uL (0.0-1.1) Eosinophils # (Auto) 0.2 x10^3/uL (0.0-0.7) Basophils # (Auto) 0.0 x10^3/uL (0.0-0.2) Sodium Level 136 mmol/L (136-145) Potassium Level 3.9 mmol/L (3.5-5.1) Chloride Level 99 mmol/L (98-107) Carbon Dioxide Level 29 mmol/L (21-32) Anion Gap 8 (6-14) Blood Urea Nitrogen 19 mg/dL (8-26) Creatinine 1.5 mg/dL (0.7-1.3) Estimated GFR (Cockcroft-Gault) 49.3 BUN/Creatinine Ratio 13 (6-20) Glucose Level 363 mg/dL (70-99) Calcium Level 8.3 mg/dL (8.5-10.1) Total Bilirubin 0.2 mg/dL (0.2-1.0) Aspartate Amino Transf (AST/SGOT) 14 U/L (15-37) Alanine Aminotransferase (ALT/SGPT) 14 U/L (16-63) Alkaline Phosphatase 143 U/L (46-116) Total Protein 6.5 g/dL (6.4-8.2) Albumin 2.0 g/dL (3.4-5.0) Albumin/Globulin Ratio 0.4 (1.0-1.7) Test 06/14/18 07:20 Glucose (Fingerstick) 339 mg/dL (70-99) Laboratory Tests Test 06/13/18 12:11 06/13/18 16:14 06/13/18 20:55 06/14/18 06:15 Glucose (Fingerstick) 281 mg/dL (70-99) 310 mg/dL (70-99) 289 mg/dL (70-99) White Blood Count 8.9 x10^3/uL (4.0-11.0) Red Blood Count 3.22 x10^6/uL (4.30-5.70) Hemoglobin 9.4 g/dL (13.0-17.5) Hematocrit 28.9 % (39.0-53.0) Mean Corpuscular Volume 90 fL (79-100) Mean Corpuscular Hemoglobin 29 pg (25-35) Mean Corpuscular Hemoglobin Concent 33 g/dL (31-37) Red Cell Distribution Width 13.2 % (11.5-14.5) Platelet Count 262 x10^3/uL (140-400) Neutrophils (%) (Auto) 75 % (31-73) Lymphocytes (%) (Auto) 15 % (24-48) Monocytes (%) (Auto) 7 % (0-9) Eosinophils (%) (Auto) 3 % (0-3) Basophils (%) (Auto) 0 % (0-3) Neutrophils # (Auto) 6.7 x10^3uL (1.8-7.7) Lymphocytes # (Auto) 1.3 x10^3/uL (1.0-4.8) Monocytes # (Auto) 0.6 x10^3/uL (0.0-1.1) Eosinophils # (Auto) 0.2 x10^3/uL (0.0-0.7) Basophils # (Auto) 0.0 x10^3/uL (0.0-0.2) Sodium Level 136 mmol/L (136-145) Potassium Level 3.9 mmol/L (3.5-5.1) Chloride Level 99 mmol/L (98-107) Carbon Dioxide Level 29 mmol/L (21-32) Anion Gap 8 (6-14) Blood Urea Nitrogen 19 mg/dL (8-26) Creatinine 1.5 mg/dL (0.7-1.3) Estimated GFR (Cockcroft-Gault) 49.3 BUN/Creatinine Ratio 13 (6-20) Glucose Level 363 mg/dL (70-99) Calcium Level 8.3 mg/dL (8.5-10.1) Total Bilirubin 0.2 mg/dL (0.2-1.0) Aspartate Amino Transf (AST/SGOT) 14 U/L (15-37) Alanine Aminotransferase (ALT/SGPT) 14 U/L (16-63) Alkaline Phosphatase 143 U/L (46-116) Total Protein 6.5 g/dL (6.4-8.2) Albumin 2.0 g/dL (3.4-5.0) Albumin/Globulin Ratio 0.4 (1.0-1.7) Test 06/14/18 07:20 Glucose (Fingerstick) 339 mg/dL (70-99) Medications Current Medications Aspirin (Children'S Aspirin) 324 mg 1X ONCE PO Last administered on 06/12/18 22:02; Start 06/12/18 at 22:00; Stop 06/12/18 at 22:01; Status DC Hydromorphone HCl (Dilaudid) 0.5 mg PRN Q15MIN PRN IV/SQ PAIN GREATER THAN 3/ 10 Last administered on 06/12/18at 22:55; Start 06/12/18 at 21:30; Stop 06/13/18 at 12:44; Status DC Sodium Chloride 1,000 ml @ 1,000 mls/hr Q1H IV Last administered on 06/12/18at 22:08; Start 06/12/18 at 22:00; Stop 06/12/18 at 22:59; Status DC Ondansetron HCl (Zofran) 4 mg 1X ONCE IV Last administered on 06/12/18at 22:05 ; Start 06/12/18 at 22:30; Stop 06/12/18 at 22:31; Status DC Ondansetron HCl (Zofran) 4 mg STK-MED ONCE .ROUTE ; Start 06/12/18 at 22:03; Stop 06/12/18 at 22:04; Status DC Ondansetron HCl (Zofran) 4 mg PRN Q8HRS PRN IV NAUSEA/VOMITING 1ST CHOICE Last administered on 06/13/18at 12:24; Start 06/12/18 at 22:15; Stop 06/13/18 at 18:17 ; Status DC Fentanyl Citrate (Fentanyl 2ml Vial) 50 mcg PRN Q1HR PRN IV SEVERE PAIN Last administered on 06/13/18at 17:37; Start 06/12/18 at 22:15; Stop 06/13/18 at 18:17 ; Status DC Sodium Chloride 1,000 ml @ 125 mls/hr Q8H IV Last administered on 06/13/18at 14 :28; Start 06/12/18 at 22:30; Stop 06/13/18 at 22:29; Status DC Nicotine (Nicoderm Cq 21mg) 1 patch DAILY TD Last administered on 06/14/18at 07: 49; Start 06/13/18 at 09:00 Amlodipine Besylate (Norvasc) 10 mg DAILY PO Last administered on 06/14/18 07: 47; Start 06/13/18 at 10:00 Atorvastatin Calcium (Lipitor) 20 mg HS PO Last administered on 06/13/18 20:48 ; Start 06/13/18 at 21:00 Carvedilol (Coreg) 12.5 mg BIDWMEALS PO Last administered on 06/14/18 07:47; Start 06/13/18 at 10:00 Alprazolam (Xanax) 2 mg PRN TID PRN PO ANXIETY / AGITATION Last administered on 06/13/18 20:47; Start 06/13/18 at 09:30 Gabapentin (Neurontin) 900 mg TID PO Last administered on 06/14/18 07:47; Start 06/13/18 at 10:00 Lisinopril (Prinivil) 40 mg DAILY PO Last administered on 06/14/18 07:48; Start 06/13/18 at 10:00 Non-Formulary Medication (Melatonin ) 1 tab QHS PO ; Start 06/13/18 at 21:00; Status UNV Spironolactone (Aldactone) 25 mg DAILY PO Last administered on 06/14/18 07:47 ; Start 06/13/18 at 10:00 Aspirin (Children'S Aspirin) 81 mg DAILY PO Last administered on 06/14/18 07: 47; Start 06/13/18 at 10:00 Pantoprazole Sodium (PROTONIX VIAL for IV PUSH) 40 mg DAILYAC IVP Last administered on 06/14/18 07:48; Start 06/13/18 at 16:30 Multi-Ingredient Mouthwash/Gargle (Gi Cocktail) 20 ml PRN QID PRN PO CHEST PAIN Last administered on 06/13/18 20:48; Start 06/13/18 at 13:45 Sucralfate (Carafate) 1 gm BID PEG Last administered on 06/14/18 08:01; Start 06/13/18 at 21:00 Iohexol (Omnipaque 300 Mg/ml) 60 ml 1X ONCE IV Last administered on 06/13/18 15:23; Start 06/13/18 at 14:30; Stop 06/13/18 at 14:31; Status DC Iohexol (Omnipaque 240 Mg/ml) 30 ml 1X ONCE PO Last administered on 06/13/18at 14:30; Start 06/13/18 at 14:30; Stop 06/13/18 at 14:31; Status DC Info (CONTRAST GIVEN -- Rx MONITORING) 1 each PRN DAILY PRN MC SEE COMMENTS; Start 06/13/18 at 14:30; Stop 06/15/18 at 14:29 Enoxaparin Sodium (Lovenox 40mg Syringe) 40 mg Q24H SQ Last administered on at 07:49; Start 06/13/18 at 16:00 Insulin Human Lispro (HumaLOG) 0-5 UNITS TIDWMEALS SQ Last administered on 06/13at 17:33; Start 06/13/18 at 17:00; Stop 06/14/18 at 00:14; Status DC Dextrose (Dextrose 50%-Water Syringe) 12.5 gm PRN Q15MIN PRN IV SEE COMMENTS; Start 06/13/18 at 16:00; Stop 06/14/18 at 00:16; Status DC Fentanyl Citrate (Fentanyl 2ml Vial) 50 mcg PRN Q2HR PRN IV PAIN Last administered on 06/14/18at 07:48; Start 06/13/18 at 18:15 Ondansetron HCl (Zofran) 4 mg PRN Q6HRS PRN IV NAUSEA/VOMITING; Start 06/13/18 at 18:15 Insulin Human Lispro (HumaLOG) 0-9 UNITS TIDWMEALHC SQ ; Start 06/14/18 at 08:00 ; Status Cancel Dextrose (Dextrose 50%-Water Syringe) 12.5 gm PRN Q15MIN PRN IV SEE COMMENTS; Start 06/14/18 at 00:15; Stop 06/14/18 at 00:35; Status DC Dextrose (Dextrose 50%-Water Syringe) 12.5 gm PRN Q15MIN PRN IV SEE COMMENTS; Start 06/14/18 at 00:15; Status UNV Insulin Human Lispro (HumaLOG) 0-9 UNITS TIDWMEALHC SQ Last administered on at 08:00; Start 06/14/18 at 01:00 Dextrose (Dextrose 50%-Water Syringe) 12.5 gm PRN Q15MIN PRN IV SEE COMMENTS; Start 06/14/18 at 00:30 Insulin Human Lispro (HumaLOG) 5 units TIDAC SQ ; Start 06/14/18 at 07:30 Throat Lozenges (Cepacol Sore Throat Lozenge) 1 josé miguel PRN Q2HRS PRN PO SORE THROAT Last administered on 06/14/18at 00:52; Start 06/14/18 at 00:45 Insulin Glargine (Lantus) 5 units 1X ONCE SQ Last administered on 06/14/18at 00 :58; Start 06/14/18 at 01:00; Stop 06/14/18 at 01:01; Status DC Oxycodone HCl (OxyCONTIN) 10 mg Q12HR PO Last administered on 06/14/18at 10:25; Start 06/14/18 at 10:00 Docusate Sodium (Colace) 100 mg PRN DAILY PRN PO HARD STOOLS; Start 06/14/18 at 09:45 Polyethylene Glycol (miraLAX PACKET) 17 gm PRN DAILY PRN PO CONSTIPATION; Start 06/14/18 at 09:45 Active Scripts Active Reported Ibuprofen 800 Mg Tablet 800 Mg PO BID PRN Gabapentin 600 Mg Tablet 900 Mg PO TID Aspirin 81 Mg Tab.chew 81 Mg PO DAILY Spironolactone 25 Mg Tablet 25 Mg PO DAILY Amlodipine Besylate 10 Mg Tablet 10 Mg PO DAILY Coreg (Carvedilol) 12.5 Mg Tablet 12.5 Mg PO BIDWMEALS Atorvastatin Calcium 20 Mg Tablet 20 Mg PO HS Melatonin 3 Mg Tablet 1 Tab PO QHS Novolog Mix 70-30 Vial (Insuln Asp Prt/Insulin Aspart) 100 Unit/1 Ml Vial 0 SQ BIDAC Lisinopril 40 Mg Tablet 40 Mg PO DAILY Xanax (Alprazolam) 2 Mg Tablet 1 Tab PO TID PRN Vitals/I & O Vital Sign - Last 24 Hours 06/13/18 06/13/18 06/13/18 06/13/18 11:00 15:00 17:26 19:35 Temp 98.0 98.2 97.9 98.0 98.2 97.9 Pulse 90 91 89 84 Resp 18 18 18 B/P (MAP) 147/75 (99) 132/72 (92) 145/77 (99) Pulse Ox 95 96 96 O2 Delivery Room Air Room Air Room Air 06/13/18 06/13/18 06/14/1819 20:00 23:10 03:10 07:00 Temp 97.9 98.1 98.3 97.9 98.1 98.3 Pulse 84 86 90 Resp 17 17 18 B/P (MAP) 136/65 (88) 135/67 (89) 137/75 (95) Pulse Ox 96 94 97 O2 Delivery Room Air Nasal Cannula Room Air Room Air O2 Flow Rate 2.0 06/14/18 06/14/18 06/14/18 06/14/18 07:47 07:47 07:48 08:05 Pulse 92 95 95 O2 Delivery Nasal Cannula O2 Flow Rate 2.0 Intake and Output 06/13/18 06/13/18 06/14/18 15:00 23:00 07:00 Intake Total 300 ml Output Total 300 ml 400 ml Balance -300 ml -100 ml Nutrition Consultation Dietary Evaluation: Recommendations by RD: Increase Calorie Intake, Protein supplementation Comments: ensure clear tid while on clear liquids Expected Outcomes/Goals: diet adv/ tolerance to meet > 75% est nutr needs Interpretation of weight loss: >7.5% in 3 months Malnutrition Findings: Food and Nutrition Intake (Sev: <50% est energy req 5days Body Fat Depletion (Non Severe: Mild Depletion Weight Status: Underweight SONALI MARTINEZ MD Jun 14, 2018 10:53
[2018-06-14 11:00] VITALS: BP 128/72
--- NOTE | 2018-06-14 11:39 | PDOC ---
Subjective: Subjective: Hangin' in there. Able to swallow liquids, would like to try pudding. Objective: Objective: Reviewed chart - plans for thoracentesis. Vital Signs: Vital Signs Date Time Temp Pulse Resp B/P (MAP) Pulse Ox O2 Delivery O2 Flow Rate FiO2 06/14/18 11:00 98.4 87 18 128/72 (90) 96 Room Air 98.4 06/14/18 08:05 2.0 Labs: Laboratory Tests Test 06/13/18 12:11 06/13/18 16:14 06/13/18 20:55 06/14/18 06:15 Glucose (Fingerstick) 281 mg/dL 310 mg/dL 289 mg/dL White Blood Count 8.9 x10^3/uL Red Blood Count 3.22 x10^6/uL Hemoglobin 9.4 g/dL Hematocrit 28.9 % Mean Corpuscular Volume 90 fL Mean Corpuscular Hemoglobin 29 pg Mean Corpuscular Hemoglobin Concent 33 g/dL Red Cell Distribution Width 13.2 % Platelet Count 262 x10^3/uL Neutrophils (%) (Auto) 75 % Lymphocytes (%) (Auto) 15 % Monocytes (%) (Auto) 7 % Eosinophils (%) (Auto) 3 % Basophils (%) (Auto) 0 % Neutrophils # (Auto) 6.7 x10^3uL Lymphocytes # (Auto) 1.3 x10^3/uL Monocytes # (Auto) 0.6 x10^3/uL Eosinophils # (Auto) 0.2 x10^3/uL Basophils # (Auto) 0.0 x10^3/uL Sodium Level 136 mmol/L Potassium Level 3.9 mmol/L Chloride Level 99 mmol/L Carbon Dioxide Level 29 mmol/L Anion Gap 8 Blood Urea Nitrogen 19 mg/dL Creatinine 1.5 mg/dL Estimated GFR (Cockcroft-Gault) 49.3 BUN/Creatinine Ratio 13 Glucose Level 363 mg/dL Calcium Level 8.3 mg/dL Total Bilirubin 0.2 mg/dL Aspartate Amino Transf (AST/SGOT) 14 U/L Alanine Aminotransferase (ALT/SGPT) 14 U/L Alkaline Phosphatase 143 U/L Total Protein 6.5 g/dL Albumin 2.0 g/dL Albumin/Globulin Ratio 0.4 Test 06/14/18 07:20 Glucose (Fingerstick) 339 mg/dL Imaging: C/A/P CT IMPRESSION: 1. Diffuse mural thickening involving the distal esophagus compatible with the history of esophageal malignancy. 2. Dilatation of the thoracic esophagus superior to this level, with a moderate amount retained food in the esophagus. 3. Unchanged moderate sized right pleural effusion with underlying right basilar atelectasis. 4. Decreasing small left pleural effusion. 5. Increasing small pericardial effusion. 6. Additional chronic findings. PE: GEN: pale LUNGS: NC HEART: RRR ABD: S/ND/NT NEURO/PSYCH: A & O 3 A/P: Suspected esophageal cancer, dysphagia Pleural effusion Anemia -- Oncology following, plans for EUS at . Supportive care. EDE SCHMIDT Jun 14, 2018 11:39
--- NOTE | 2018-06-14 14:11 | CONS ---
DATE OF CONSULTATION: PULMONARY CONSULTATION ATTENDING PHYSICIAN: Dr. Barry. REASON FOR CONSULTATION: Pleural effusion, suspected esophageal cancer. HISTORY OF PRESENT ILLNESS: The patient is a 53-year-old male who has been a smoker for 30 years. He has dysphagia and ongoing weight loss for quite some time. He has multiple comorbid conditions including peripheral vascular disease, depression, anxiety, COPD. His previous EGD showed high-grade dysplasia and suspicious for adenocarcinoma. The patient underwent CT of the chest, abdomen and pelvis, which was reviewed by me. He has a moderate unchanged right lower lobe pleural effusion. He has diffuse mural thickening involving the distal esophagus compatible with esophageal malignancy. There was also dilatation of thoracic esophagus as well with moderate amount of retained food in the esophagus. The patient has a small left pleural effusion, which is less than before. I have been asked to see him for further evaluation. He does have a mild cough. He does have nausea and has vomiting. No diarrhea. PAST MEDICAL HISTORY: Significant for history of dysphagia, ongoing weight loss, retinal detachment, GERD, type 2 diabetes, hypertension, hyperlipidemia, suspected COPD with ongoing tobaccoism, diastolic CHF, peripheral neuropathy, history of seizures, left renal artery stenosis and clinical esophageal cancer. PAST SURGICAL HISTORY: Left knee surgery, EGD, cardiac catheterization and cataract surgery. REVIEW OF SYSTEMS: Twelve-point system obtained. Pertinent positives discussed in my history of present illness, otherwise noncontributory. All systems that were negative were reviewed as well. ALLERGIES: None. MEDICATIONS: All reviewed as listed in the [facility]AD. FAMILY HISTORY: Noncontributory to lungs. PHYSICAL EXAMINATION: VITAL SIGNS: Reviewed. Blood pressure stable, pulse ox 96% on room air, afebrile. NECK: Supple. LUNGS: Clear. CARDIOVASCULAR: Regular rate. ABDOMEN: Soft, nontender. EXTREMITIES: With no pitting edema. LABORATORY DATA: Reviewed. White cell count 8.9, hemoglobin 9.4 and platelets are 262. BUN 19 and creatinine of 1.5. IMPRESSION: 1. The patient with progressive dysphagia and ongoing weight loss and abnormal CT chest, suggesting esophageal malignancy. His previous EGD showed high-grade dysplasia suspicious for adenocarcinoma. He now has unchanged moderate right pleural effusion and a small left pleural effusion. This could be related to malignancy versus related to low oncotic pressure from hypoalbuminemia. He would benefit from thoracentesis for diagnosis. 2. Ongoing tobaccoism, suspect underlying chronic obstructive pulmonary disease. 3. Abnormal CT chest with moderate stable right lower lobe pleural effusion along with diffuse mural thickening involving the distal esophagus compatible with esophageal malignancy and dilatation of the thoracic esophagus. He has a small left pleural effusion. 4. Mild renal insufficiency. 5. Severe protein-calorie malnutrition. Albumin level is 2.0. RECOMMENDATIONS: 1. I would recommend to have IR-guided right thoracentesis for diagnosis. 2. If the effusion is not malignant, then he would require another EGD or EUS to confirm a diagnosis of esophageal cancer. 3. Follow Oncology recommendations. 4. Follow GI recommendations. 5. Smoking cessation counseling provided. 6. P.r.n. oxygen. 7. P.r.n. bronchodilators. 8. Discussed with RN and the patient's and we will follow along with you. JULITO BLOOM MD DR: JOSH/jennifer JOB#: [id number] / [id number]
[2018-06-14] MEDS: ALPRAZolam 1 MG TABLET PO PRN ×2 (14:30→21:19)
[2018-06-14 15:00] VITALS: BP 140/90
[2018-06-14 19:15] VITALS: BP 136/74
[2018-06-14] MEDS: ATORVASTATIN CALCIUM 20 MG TABLET PO SCH (20:21)
[2018-06-14 23:18] VITALS: BP 129/66
[2018-06-15] VITALS (7 sets, daily range): BP systolic 97–141; BP diastolic 56–81
[2018-06-15 06:00] LABS: CREATININE 1.8 mg/dL (0.7-1.3); POTASSIUM 4.1 mmol/L (3.5-5.1)
[2018-06-15 07:18] LABS: BASO # 0.1 x10^3/uL (0.0-0.2); BASO % 1 % (0-3); EOS # 0.2 x10^3/uL (0.0-0.7); EOS % 2 % (0-3); HEMATOCRIT 26.2 % (39.0-53.0); HEMOGLOBIN 8.6 g/dL (13.0-17.5); LYMPH # 1.8 x10^3/uL (1.0-4.8); LYMPH % 17 % (24-48); MEAN CORPUSCULAR HEMOGLOBIN 29 pg (25-35); MEAN CORPUSCULAR HGB CONC 33 g/dL (31-37); MEAN CORPUSCULAR VOLUME 89 fL (79-100); MONO # 0.8 x10^3/uL (0.0-1.1); MONO % 7 % (0-9); NEUT # 8.1 x10^3uL (1.8-7.7); NEUT % 74 % (31-73); PLATELET COUNT 246 x10^3/uL (140-400); RED BLOOD COUNT 2.96 x10^6/uL (4.30-5.70); RED CELL DISTRIBUTION WIDTH 13.5 % (11.5-14.5)
--- NOTE | 2018-06-15 07:38 | PDOC ---
PULMONARY PROGRESS NOTES Subjective has sob, cough, no cp Vitals Vital Signs Date Time Temp Pulse Resp B/P (MAP) Pulse Ox O2 Delivery O2 Flow Rate FiO2 06/15/18 05:10 99.4 99.4 06/15/18 03:59 92 22 141/70 (93) 92 Nasal Cannula 3.0 ROS: No Nausea General: Alert HEENT: Other (nc at perrl) Lungs: Other (a few end exp wheezing, dull r base) Cardiovascular: S1, S2 Abdomen: Soft, Non-tender Neuro Exam: Alert Extremities: No Edema Skin: Warm Labs Laboratory Tests Test 06/13/18 09:11 06/13/18 12:11 06/13/18 16:14 06/13/18 20:55 Glucose (Fingerstick) 193 mg/dL (70-99) 281 mg/dL (70-99) 310 mg/dL (70-99) 289 mg/dL (70-99) Test 06/14/18 06:15 06/14/18 07:20 06/14/18 12:07 06/14/18 16:59 White Blood Count 8.9 x10^3/uL (4.0-11.0) Red Blood Count 3.22 x10^6/uL (4.30-5.70) Hemoglobin 9.4 g/dL (13.0-17.5) Hematocrit 28.9 % (39.0-53.0) Mean Corpuscular Volume 90 fL (79-100) Mean Corpuscular Hemoglobin 29 pg (25-35) Mean Corpuscular Hemoglobin Concent 33 g/dL (31-37) Red Cell Distribution Width 13.2 % (11.5-14.5) Platelet Count 262 x10^3/uL (140-400) Neutrophils (%) (Auto) 75 % (31-73) Lymphocytes (%) (Auto) 15 % (24-48) Monocytes (%) (Auto) 7 % (0-9) Eosinophils (%) (Auto) 3 % (0-3) Basophils (%) (Auto) 0 % (0-3) Neutrophils # (Auto) 6.7 x10^3uL (1.8-7.7) Lymphocytes # (Auto) 1.3 x10^3/uL (1.0-4.8) Monocytes # (Auto) 0.6 x10^3/uL (0.0-1.1) Eosinophils # (Auto) 0.2 x10^3/uL (0.0-0.7) Basophils # (Auto) 0.0 x10^3/uL (0.0-0.2) Sodium Level 136 mmol/L (136-145) Potassium Level 3.9 mmol/L (3.5-5.1) Chloride Level 99 mmol/L (98-107) Carbon Dioxide Level 29 mmol/L (21-32) Anion Gap 8 (6-14) Blood Urea Nitrogen 19 mg/dL (8-26) Creatinine 1.5 mg/dL (0.7-1.3) Estimated GFR (Cockcroft-Gault) 49.3 BUN/Creatinine Ratio 13 (6-20) Glucose Level 363 mg/dL (70-99) Calcium Level 8.3 mg/dL (8.5-10.1) Total Bilirubin 0.2 mg/dL (0.2-1.0) Aspartate Amino Transf (AST/SGOT) 14 U/L (15-37) Alanine Aminotransferase (ALT/SGPT) 14 U/L (16-63) Alkaline Phosphatase 143 U/L (46-116) Total Protein 6.5 g/dL (6.4-8.2) Albumin 2.0 g/dL (3.4-5.0) Albumin/Globulin Ratio 0.4 (1.0-1.7) Glucose (Fingerstick) 339 mg/dL (70-99) 322 mg/dL (70-99) 64 mg/dL (70-99) Test 06/14/18 20:15 06/15/18 04:55 06/15/18 06:00 Glucose (Fingerstick) 235 mg/dL (70-99) Sodium Level 131 mmol/L (136-145) Potassium Level 4.1 mmol/L (3.5-5.1) Chloride Level 97 mmol/L (98-107) Carbon Dioxide Level 26 mmol/L (21-32) Anion Gap 8 (6-14) Blood Urea Nitrogen 17 mg/dL (8-26) Creatinine 1.8 mg/dL (0.7-1.3) Estimated GFR (Cockcroft-Gault) 40.0 Glucose Level 275 mg/dL (70-99) Calcium Level 8.0 mg/dL (8.5-10.1) White Blood Count 11.0 x10^3/uL (4.0-11.0) Red Blood Count 2.96 x10^6/uL (4.30-5.70) Hemoglobin 8.6 g/dL (13.0-17.5) Hematocrit 26.2 % (39.0-53.0) Mean Corpuscular Volume 89 fL (79-100) Mean Corpuscular Hemoglobin 29 pg (25-35) Mean Corpuscular Hemoglobin Concent 33 g/dL (31-37) Red Cell Distribution Width 13.5 % (11.5-14.5) Platelet Count 246 x10^3/uL (140-400) Neutrophils (%) (Auto) 74 % (31-73) Lymphocytes (%) (Auto) 17 % (24-48) Monocytes (%) (Auto) 7 % (0-9) Eosinophils (%) (Auto) 2 % (0-3) Basophils (%) (Auto) 1 % (0-3) Neutrophils # (Auto) 8.1 x10^3uL (1.8-7.7) Lymphocytes # (Auto) 1.8 x10^3/uL (1.0-4.8) Monocytes # (Auto) 0.8 x10^3/uL (0.0-1.1) Eosinophils # (Auto) 0.2 x10^3/uL (0.0-0.7) Basophils # (Auto) 0.1 x10^3/uL (0.0-0.2) Laboratory Tests Test 06/14/18 12:07 06/14/18 16:59 06/14/18 20:15 06/15/18 04:55 Glucose (Fingerstick) 322 mg/dL (70-99) 64 mg/dL (70-99) 235 mg/dL (70-99) Sodium Level 131 mmol/L (136-145) Potassium Level 4.1 mmol/L (3.5-5.1) Chloride Level 97 mmol/L (98-107) Carbon Dioxide Level 26 mmol/L (21-32) Anion Gap 8 (6-14) Blood Urea Nitrogen 17 mg/dL (8-26) Creatinine 1.8 mg/dL (0.7-1.3) Estimated GFR (Cockcroft-Gault) 40.0 Glucose Level 275 mg/dL (70-99) Calcium Level 8.0 mg/dL (8.5-10.1) Test 06/15/18 06:00 White Blood Count 11.0 x10^3/uL (4.0-11.0) Red Blood Count 2.96 x10^6/uL (4.30-5.70) Hemoglobin 8.6 g/dL (13.0-17.5) Hematocrit 26.2 % (39.0-53.0) Mean Corpuscular Volume 89 fL (79-100) Mean Corpuscular Hemoglobin 29 pg (25-35) Mean Corpuscular Hemoglobin Concent 33 g/dL (31-37) Red Cell Distribution Width 13.5 % (11.5-14.5) Platelet Count 246 x10^3/uL (140-400) Neutrophils (%) (Auto) 74 % (31-73) Lymphocytes (%) (Auto) 17 % (24-48) Monocytes (%) (Auto) 7 % (0-9) Eosinophils (%) (Auto) 2 % (0-3) Basophils (%) (Auto) 1 % (0-3) Neutrophils # (Auto) 8.1 x10^3uL (1.8-7.7) Lymphocytes # (Auto) 1.8 x10^3/uL (1.0-4.8) Monocytes # (Auto) 0.8 x10^3/uL (0.0-1.1) Eosinophils # (Auto) 0.2 x10^3/uL (0.0-0.7) Basophils # (Auto) 0.1 x10^3/uL (0.0-0.2) Medications Active Scripts Medications Dose Route/Sig Max Daily Dose Days Date Category Ibuprofen 800 Mg Tablet 800 Mg PO BID PRN 06/13/18 Reported Gabapentin 600 Mg Tablet 900 Mg PO TID 05/16/18 Reported Aspirin 81 Mg Tab.chew 81 Mg PO DAILY 05/16/18 Reported Spironolactone 25 Mg Tablet 25 Mg PO DAILY 05/16/18 Reported Amlodipine Besylate 10 Mg Tablet 10 Mg PO DAILY 05/16/18 Reported Coreg (Carvedilol) 12.5 Mg Tablet 12.5 Mg PO BIDWMEALS 05/16/18 Reported Atorvastatin Calcium 20 Mg Tablet 20 Mg PO HS 05/16/18 Reported Melatonin 3 Mg Tablet 1 Tab PO QHS 05/13/18 Reported Novolog Mix 70-30 Vial (Insuln Asp Prt/Insulin Aspart) 100 Unit/1 Ml Vial 0 SQ BIDAC 05/13/18 Reported Lisinopril 40 Mg Tablet 40 Mg PO DAILY 03/12/18 Reported Xanax (Alprazolam) 2 Mg Tablet 1 Tab PO TID PRN 04/04/14 Reported Impression . IMPRESSION: 1. The patient with progressive dysphagia and ongoing weight loss and abnormal CT chest, suggesting esophageal malignancy. His previous EGD showed high-grade dysplasia suspicious for adenocarcinoma. He now has unchanged moderate right pleural effusion and a small left pleural effusion. This could be related to malignancy versus related to low oncotic pressure from hypoalbuminemia. He would benefit from thoracentesis for diagnosis. 2. Ongoing tobaccoism, suspect underlying chronic obstructive pulmonary disease. 3. Abnormal CT chest with moderate stable right lower lobe pleural effusion along with diffuse mural thickening involving the distal esophagus compatible with esophageal malignancy and dilatation of the thoracic esophagus. He has a small left pleural effusion. 4. Mild renal insufficiency. 5. Severe protein-calorie malnutrition. Albumin level is 2.0. Plan . RECOMMENDATIONS: 1. recommend to have IR-guided right thoracentesis for diagnosis. will be done 06/17 2. If the effusion is not malignant, then he would require another EGD or EUS to confirm a diagnosis of esophageal cancer. 3. Follow Oncology recommendations. 4. Follow GI recommendations. 5. Smoking cessation counseling provided. 6. oxygen titration 7. start bronchodilators. discussed w BRANDO Pompa MD Jun 15, 2018 07:38
[2018-06-15] MEDS: IPRATRPIUM/ALBUTEROL 0.5/2.5MG 3 ML NEBU. NEB SCH ×5 (08:00→22:55)
[2018-06-15] MEDS: GABAPENTIN 300 MG CAPSULE. PO SCH ×3 (08:24→20:55)
[2018-06-15] MEDS: PANTOPRAZOLE IV PUSH 40 MG VIAL. IVP SCH (08:24)
[2018-06-15] MEDS: SUCRALFATE 1 GM/10 ML ORAL.SUSP. PEG SCH ×2 (08:24→20:58)
[2018-06-15] MEDS: ASPIRIN CHEWABLE 81 MG TABLET. PO SCH (08:24)
[2018-06-15] MEDS: SPIRONOLACTONE 25 MG TABLET PO SCH (08:25)
[2018-06-15] MEDS: CARVEDILOL 12.5 MG TABLET. PO SCH ×2 (08:25→17:13)
[2018-06-15] MEDS: NICOTINE 21MG PATCH. TD SCH (08:26)
[2018-06-15] MEDS: amLODIPine BESYLATE 10 MG TABLET PO SCH (08:26)
[2018-06-15] MEDS: LISINOPRIL 20 MG TABLET PO SCH (08:27)
[2018-06-15] MEDS: oxyCODONE ER 10 MG TAB.ER.12H PO SCH ×2 (08:28→20:56)
[2018-06-15] MEDS: INSULIN LISPRO 300 UNITS/3 ML INSULN.PEN. SQ SCH ×7 (08:39→21:00)
[2018-06-15] MEDS: ONDANSETRON PF 4 MG/2 ML VIAL. IV PRN (10:32)
--- NOTE | 2018-06-15 11:11 | PDOC ---
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 Mural thickening involving the distal esophagus or a hiatal hernia. A neoplastic etiology cannot be excluded. There is a persistent mass effect in the region of the distal esophagus. Diffuse mural thickening involving the distal esophagus compatible with the history of esophageal malignancy. Dilatation of the thoracic esophagus superior to this level, with a moderate amount retained food in the esophagus. Unchanged moderate sized right pleural effusion with underlying right basilar atelectasis. Decreasing small left pleural effusion. Increasing small pericardial effusion., NEW Chest pain, Uncontrolled DM2 Chronic diastolic CHF HTN Severe PAD with left LESLIE ckd/ ARF CAD HLD Nicotine dependence anemia with drop in hgb 06/14/ 06/15 CONT TO MONITOR plan cvc admit cardiology consult GI FOLLOWING SERIAL TROPONIN I DVT PROPHYLAXIS IV PROTONIX HOME MEDS GI COCTAIL FULL LIQ DIET PULM CONSULT CONSIDER [employer] TRANSFER SOON PO NUTRITION ss insulin 06/15. NOT ABLE TO TAKE SOLIDS PO DUE TO PERSISTENT REGURGITATION, is trying soups and ensure HIGH RISK OF COMPLICATIONS DUE TO noncompliance per my chart review Vitals Vitals Vital Signs Date Time Temp Pulse Resp B/P (MAP) Pulse Ox O2 Delivery O2 Flow Rate FiO2 06/15/18 08:28 18 92 Nasal Cannula 3.0 06/15/18 08:27 96 123/66 06/15/18 07:00 99.4 99.4 Physical Exam General: Alert, Oriented X3, Cooperative, mild distress Heart: Regular rate (SR), Normal S1, Normal S2, No murmurs Lungs: Clear, Other (a few end exp wheezing, dull r base) Abdomen: Normal bowel sounds, Soft Extremities: No cyanosis, No edema Skin: No breakdown, No significant lesion Labs LABS Laboratory Tests Test 06/14/18 12:07 06/14/18 16:59 06/14/18 20:15 06/15/18 04:55 Glucose (Fingerstick) 322 mg/dL (70-99) 64 mg/dL (70-99) 235 mg/dL (70-99) Sodium Level 131 mmol/L (136-145) Potassium Level 4.1 mmol/L (3.5-5.1) Chloride Level 97 mmol/L (98-107) Carbon Dioxide Level 26 mmol/L (21-32) Anion Gap 8 (6-14) Blood Urea Nitrogen 17 mg/dL (8-26) Creatinine 1.8 mg/dL (0.7-1.3) Estimated GFR (Cockcroft-Gault) 40.0 Glucose Level 275 mg/dL (70-99) Calcium Level 8.0 mg/dL (8.5-10.1) Test 06/15/18 06:00 White Blood Count 11.0 x10^3/uL (4.0-11.0) Red Blood Count 2.96 x10^6/uL (4.30-5.70) Hemoglobin 8.6 g/dL (13.0-17.5) Hematocrit 26.2 % (39.0-53.0) Mean Corpuscular Volume 89 fL (79-100) Mean Corpuscular Hemoglobin 29 pg (25-35) Mean Corpuscular Hemoglobin Concent 33 g/dL (31-37) Red Cell Distribution Width 13.5 % (11.5-14.5) Platelet Count 246 x10^3/uL (140-400) Neutrophils (%) (Auto) 74 % (31-73) Lymphocytes (%) (Auto) 17 % (24-48) Monocytes (%) (Auto) 7 % (0-9) Eosinophils (%) (Auto) 2 % (0-3) Basophils (%) (Auto) 1 % (0-3) Neutrophils # (Auto) 8.1 x10^3uL (1.8-7.7) Lymphocytes # (Auto) 1.8 x10^3/uL (1.0-4.8) Monocytes # (Auto) 0.8 x10^3/uL (0.0-1.1) Eosinophils # (Auto) 0.2 x10^3/uL (0.0-0.7) Basophils # (Auto) 0.1 x10^3/uL (0.0-0.2) Assessment and Plan Assessmemt and Plan Problems Medical Problems: (1) Chest pain Status: Acute (2) Intractable abdominal pain Status: Acute Comment Review of Relevant I have reviewed the following items tasneem (where applicable) has been applied. Labs Laboratory Tests Test 06/13/18 12:11 06/13/18 16:14 06/13/18 20:55 06/14/18 06:15 Glucose (Fingerstick) 281 mg/dL (70-99) 310 mg/dL (70-99) 289 mg/dL (70-99) White Blood Count 8.9 x10^3/uL (4.0-11.0) Red Blood Count 3.22 x10^6/uL (4.30-5.70) Hemoglobin 9.4 g/dL (13.0-17.5) Hematocrit 28.9 % (39.0-53.0) Mean Corpuscular Volume 90 fL (79-100) Mean Corpuscular Hemoglobin 29 pg (25-35) Mean Corpuscular Hemoglobin Concent 33 g/dL (31-37) Red Cell Distribution Width 13.2 % (11.5-14.5) Platelet Count 262 x10^3/uL (140-400) Neutrophils (%) (Auto) 75 % (31-73) Lymphocytes (%) (Auto) 15 % (24-48) Monocytes (%) (Auto) 7 % (0-9) Eosinophils (%) (Auto) 3 % (0-3) Basophils (%) (Auto) 0 % (0-3) Neutrophils # (Auto) 6.7 x10^3uL (1.8-7.7) Lymphocytes # (Auto) 1.3 x10^3/uL (1.0-4.8) Monocytes # (Auto) 0.6 x10^3/uL (0.0-1.1) Eosinophils # (Auto) 0.2 x10^3/uL (0.0-0.7) Basophils # (Auto) 0.0 x10^3/uL (0.0-0.2) Sodium Level 136 mmol/L (136-145) Potassium Level 3.9 mmol/L (3.5-5.1) Chloride Level 99 mmol/L (98-107) Carbon Dioxide Level 29 mmol/L (21-32) Anion Gap 8 (6-14) Blood Urea Nitrogen 19 mg/dL (8-26) Creatinine 1.5 mg/dL (0.7-1.3) Estimated GFR (Cockcroft-Gault) 49.3 BUN/Creatinine Ratio 13 (6-20) Glucose Level 363 mg/dL (70-99) Calcium Level 8.3 mg/dL (8.5-10.1) Total Bilirubin 0.2 mg/dL (0.2-1.0) Aspartate Amino Transf (AST/SGOT) 14 U/L (15-37) Alanine Aminotransferase (ALT/SGPT) 14 U/L (16-63) Alkaline Phosphatase 143 U/L (46-116) Total Protein 6.5 g/dL (6.4-8.2) Albumin 2.0 g/dL (3.4-5.0) Albumin/Globulin Ratio 0.4 (1.0-1.7) Test 06/14/18 07:20 06/14/18 12:07 06/14/18 16:59 06/14/18 20:15 Glucose (Fingerstick) 339 mg/dL (70-99) 322 mg/dL (70-99) 64 mg/dL (70-99) 235 mg/dL (70-99) Test 06/15/18 04:55 06/15/18 06:00 Sodium Level 131 mmol/L (136-145) Potassium Level 4.1 mmol/L (3.5-5.1) Chloride Level 97 mmol/L (98-107) Carbon Dioxide Level 26 mmol/L (21-32) Anion Gap 8 (6-14) Blood Urea Nitrogen 17 mg/dL (8-26) Creatinine 1.8 mg/dL (0.7-1.3) Estimated GFR (Cockcroft-Gault) 40.0 Glucose Level 275 mg/dL (70-99) Calcium Level 8.0 mg/dL (8.5-10.1) White Blood Count 11.0 x10^3/uL (4.0-11.0) Red Blood Count 2.96 x10^6/uL (4.30-5.70) Hemoglobin 8.6 g/dL (13.0-17.5) Hematocrit 26.2 % (39.0-53.0) Mean Corpuscular Volume 89 fL (79-100) Mean Corpuscular Hemoglobin 29 pg (25-35) Mean Corpuscular Hemoglobin Concent 33 g/dL (31-37) Red Cell Distribution Width 13.5 % (11.5-14.5) Platelet Count 246 x10^3/uL (140-400) Neutrophils (%) (Auto) 74 % (31-73) Lymphocytes (%) (Auto) 17 % (24-48) Monocytes (%) (Auto) 7 % (0-9) Eosinophils (%) (Auto) 2 % (0-3) Basophils (%) (Auto) 1 % (0-3) Neutrophils # (Auto) 8.1 x10^3uL (1.8-7.7) Lymphocytes # (Auto) 1.8 x10^3/uL (1.0-4.8) Monocytes # (Auto) 0.8 x10^3/uL (0.0-1.1) Eosinophils # (Auto) 0.2 x10^3/uL (0.0-0.7) Basophils # (Auto) 0.1 x10^3/uL (0.0-0.2) Laboratory Tests Test 06/14/18 12:07 06/14/18 16:59 06/14/18 20:15 06/15/18 04:55 Glucose (Fingerstick) 322 mg/dL (70-99) 64 mg/dL (70-99) 235 mg/dL (70-99) Sodium Level 131 mmol/L (136-145) Potassium Level 4.1 mmol/L (3.5-5.1) Chloride Level 97 mmol/L (98-107) Carbon Dioxide Level 26 mmol/L (21-32) Anion Gap 8 (6-14) Blood Urea Nitrogen 17 mg/dL (8-26) Creatinine 1.8 mg/dL (0.7-1.3) Estimated GFR (Cockcroft-Gault) 40.0 Glucose Level 275 mg/dL (70-99) Calcium Level 8.0 mg/dL (8.5-10.1) Test 06/15/18 06:00 White Blood Count 11.0 x10^3/uL (4.0-11.0) Red Blood Count 2.96 x10^6/uL (4.30-5.70) Hemoglobin 8.6 g/dL (13.0-17.5) Hematocrit 26.2 % (39.0-53.0) Mean Corpuscular Volume 89 fL (79-100) Mean Corpuscular Hemoglobin 29 pg (25-35) Mean Corpuscular Hemoglobin Concent 33 g/dL (31-37) Red Cell Distribution Width 13.5 % (11.5-14.5) Platelet Count 246 x10^3/uL (140-400) Neutrophils (%) (Auto) 74 % (31-73) Lymphocytes (%) (Auto) 17 % (24-48) Monocytes (%) (Auto) 7 % (0-9) Eosinophils (%) (Auto) 2 % (0-3) Basophils (%) (Auto) 1 % (0-3) Neutrophils # (Auto) 8.1 x10^3uL (1.8-7.7) Lymphocytes # (Auto) 1.8 x10^3/uL (1.0-4.8) Monocytes # (Auto) 0.8 x10^3/uL (0.0-1.1) Eosinophils # (Auto) 0.2 x10^3/uL (0.0-0.7) Basophils # (Auto) 0.1 x10^3/uL (0.0-0.2) Medications Current Medications Aspirin (Children'S Aspirin) 324 mg 1X ONCE PO Last administered on 06/12/18at 22:02; Start 06/12/18 at 22:00; Stop 06/12/18 at 22:01; Status DC Hydromorphone HCl (Dilaudid) 0.5 mg PRN Q15MIN PRN IV/SQ PAIN GREATER THAN 3/ 10 Last administered on 06/12/18at 22:55; Start 06/12/18 at 21:30; Stop 06/13/18 at 12:44; Status DC Sodium Chloride 1,000 ml @ 1,000 mls/hr Q1H IV Last administered on 06/12/18at 22:08; Start 06/12/18 at 22:00; Stop 06/12/18 at 22:59; Status DC Ondansetron HCl (Zofran) 4 mg 1X ONCE IV Last administered on 06/12/18at 22:05 ; Start 06/12/18 at 22:30; Stop 06/12/18 at 22:31; Status DC Ondansetron HCl (Zofran) 4 mg STK-MED ONCE .ROUTE ; Start 06/12/18 at 22:03; Stop 06/12/18 at 22:04; Status DC Ondansetron HCl (Zofran) 4 mg PRN Q8HRS PRN IV NAUSEA/VOMITING 1ST CHOICE Last administered on 06/13/18 12:24; Start 06/12/18 at 22:15; Stop 06/13/18 at 18:17 ; Status DC Fentanyl Citrate (Fentanyl 2ml Vial) 50 mcg PRN Q1HR PRN IV SEVERE PAIN Last administered on 06/13/18 17:37; Start 06/12/18 at 22:15; Stop 06/13/18 at 18:17 ; Status DC Sodium Chloride 1,000 ml @ 125 mls/hr Q8H IV Last administered on 06/13/18 14 :28; Start 06/12/18 at 22:30; Stop 06/13/18 at 22:29; Status DC Nicotine (Nicoderm Cq 21mg) 1 patch DAILY TD Last administered on 06/15/18 08: 26; Start 06/13/18 at 09:00 Amlodipine Besylate (Norvasc) 10 mg DAILY PO Last administered on 06/15/18 08: 26; Start 06/13/18 at 10:00 Atorvastatin Calcium (Lipitor) 20 mg HS PO Last administered on 06/14/18 20:21 ; Start 06/13/18 at 21:00 Carvedilol (Coreg) 12.5 mg BIDWMEALS PO Last administered on 06/15/18 08:25; Start 06/13/18 at 10:00 Alprazolam (Xanax) 2 mg PRN TID PRN PO ANXIETY / AGITATION Last administered on 06/14/18 21:19; Start 06/13/18 at 09:30 Gabapentin (Neurontin) 900 mg TID PO Last administered on 06/15/18 08:24; Start 06/13/18 at 10:00 Lisinopril (Prinivil) 40 mg DAILY PO Last administered on 06/15/18 08:27; Start 06/13/18 at 10:00 Non-Formulary Medication (Melatonin ) 1 tab QHS PO ; Start 06/13/18 at 21:00; Status UNV Spironolactone (Aldactone) 25 mg DAILY PO Last administered on 06/15/18 08:25 ; Start 06/13/18 at 10:00 Aspirin (Children'S Aspirin) 81 mg DAILY PO Last administered on 06/15/18 08: 24; Start 06/13/18 at 10:00 Pantoprazole Sodium (PROTONIX VIAL for IV PUSH) 40 mg DAILYAC IVP Last administered on 06/15/18 08:24; Start 06/13/18 at 16:30 Multi-Ingredient Mouthwash/Gargle (Gi Cocktail) 20 ml PRN QID PRN PO CHEST PAIN Last administered on 06/13/18 20:48; Start 06/13/18 at 13:45 Sucralfate (Carafate) 1 gm BID PEG Last administered on 06/15/18 08:24; Start 06/13/18 at 21:00 Iohexol (Omnipaque 300 Mg/ml) 60 ml 1X ONCE IV Last administered on 06/13/18 15:23; Start 06/13/18 at 14:30; Stop 06/13/18 at 14:31; Status DC Iohexol (Omnipaque 240 Mg/ml) 30 ml 1X ONCE PO Last administered on 06/13/18 14:30; Start 06/13/18 at 14:30; Stop 06/13/18 at 14:31; Status DC Info (CONTRAST GIVEN -- Rx MONITORING) 1 each PRN DAILY PRN MC SEE COMMENTS; Start 06/13/18 at 14:30; Stop 06/15/18 at 14:29 Enoxaparin Sodium (Lovenox 40mg Syringe) 40 mg Q24H SQ Last administered on 07:49; Start 06/13/18 at 16:00 Insulin Human Lispro (HumaLOG) 0-5 UNITS TIDWMEALS SQ Last administered on 06/13 17:33; Start 06/13/18 at 17:00; Stop 06/14/18 at 00:14; Status DC Dextrose (Dextrose 50%-Water Syringe) 12.5 gm PRN Q15MIN PRN IV SEE COMMENTS; Start 06/13/18 at 16:00; Stop 06/14/18 at 00:16; Status DC Fentanyl Citrate (Fentanyl 2ml Vial) 50 mcg PRN Q2HR PRN IV PAIN Last administered on 06/14/18 19:47; Start 06/13/18 at 18:15 Ondansetron HCl (Zofran) 4 mg PRN Q6HRS PRN IV NAUSEA/VOMITING Last administered on 06/15/18at 10:32; Start 06/13/18 at 18:15 Insulin Human Lispro (HumaLOG) 0-9 UNITS TIDWMEALHC SQ ; Start 06/14/18 at 08:00 ; Status Cancel Dextrose (Dextrose 50%-Water Syringe) 12.5 gm PRN Q15MIN PRN IV SEE COMMENTS; Start 06/14/18 at 00:15; Stop 06/14/18 at 00:35; Status DC Dextrose (Dextrose 50%-Water Syringe) 12.5 gm PRN Q15MIN PRN IV SEE COMMENTS; Start 06/14/18 at 00:15; Status UNV Insulin Human Lispro (HumaLOG) 0-9 UNITS TIDWMEALHC SQ Last administered on at 08:41; Start 06/14/18 at 01:00 Dextrose (Dextrose 50%-Water Syringe) 12.5 gm PRN Q15MIN PRN IV SEE COMMENTS; Start 06/14/18 at 00:30 Insulin Human Lispro (HumaLOG) 5 units TIDAC SQ Last administered on 06/15/18at 08:39; Start 06/14/18 at 07:30 Throat Lozenges (Cepacol Sore Throat Lozenge) 1 josé miguel PRN Q2HRS PRN PO SORE THROAT Last administered on 06/14/18at 00:52; Start 06/14/18 at 00:45 Insulin Glargine (Lantus) 5 units 1X ONCE SQ Last administered on 06/14/18at 00 :58; Start 06/14/18 at 01:00; Stop 06/14/18 at 01:01; Status DC Oxycodone HCl (OxyCONTIN) 10 mg Q12HR PO Last administered on 06/15/18at 08:28; Start 06/14/18 at 10:00 Docusate Sodium (Colace) 100 mg PRN DAILY PRN PO HARD STOOLS; Start 06/14/18 at 09:45 Polyethylene Glycol (miraLAX PACKET) 17 gm PRN DAILY PRN PO CONSTIPATION; Start 06/14/18 at 09:45 Albuterol/ Ipratropium (Duoneb) 3 ml RTQID NEB ; Start 06/15/18 at 08:00 Active Scripts Active Reported Ibuprofen 800 Mg Tablet 800 Mg PO BID PRN Gabapentin 600 Mg Tablet 900 Mg PO TID Aspirin 81 Mg Tab.chew 81 Mg PO DAILY Spironolactone 25 Mg Tablet 25 Mg PO DAILY Amlodipine Besylate 10 Mg Tablet 10 Mg PO DAILY Coreg (Carvedilol) 12.5 Mg Tablet 12.5 Mg PO BIDWMEALS Atorvastatin Calcium 20 Mg Tablet 20 Mg PO HS Melatonin 3 Mg Tablet 1 Tab PO QHS Novolog Mix 70-30 Vial (Insuln Asp Prt/Insulin Aspart) 100 Unit/1 Ml Vial 0 SQ BIDAC Lisinopril 40 Mg Tablet 40 Mg PO DAILY Xanax (Alprazolam) 2 Mg Tablet 1 Tab PO TID PRN Vitals/I & O Vital Sign - Last 24 Hours 06/14/18 06/14/18 06/14/18 06/14/18 15:00 17:36 19:15 19:20 Temp 98.8 98.2 98.8 98.2 Pulse 92 100 92 Resp B/P (MAP) 140/90 (107) 136/74 (94) Pulse Ox 97 91 O2 Delivery Room Air Room Air Nasal Cannula O2 Flow Rate 3.0 06/14/18 06/14/18 06/14/18 06/14/18 19:47 20:17 20:21 23:18 Temp 100.1 100.1 Pulse 86 Resp 24 B/P (MAP) 129/66 (87) Pulse Ox 96 O2 Delivery Nasal Cannula Room Air Room Air Nasal Cannula O2 Flow Rate 2.0 3.0 06/15/18 06/15/18 06/15/18 06/15/18 00:21 03:59 05:10 07:00 Temp 100.6 99.4 99.4 100.6 99.4 99.4 Pulse 92 93 Resp 16 B/P (MAP) 141/70 (93) 123/66 (85) Pulse Ox 96 92 93 O2 Delivery Nasal Cannula Nasal Cannula Nasal Cannula O2 Flow Rate 3.0 3.0 3.0 06/15/18 06/15/18 06/15/18 06/15/18 08:25 08:26 08:27 08:28 Pulse 96 96 96 Resp 18 B/P (MAP) 123/66 123/66 123/66 Pulse Ox 92 O2 Delivery Nasal Cannula O2 Flow Rate 3.0 Intake and Output 06/14/18 06/14/18 06/15/18 15:00 23:00 07:00 Intake Total 1080 ml 240 ml 740 ml Output Total 250 ml 250 ml Balance 830 ml -10 ml 740 ml Nutrition Consultation Dietary Evaluation: Recommendations by RD: Increase Calorie Intake, Protein supplementation Comments: ensure clear tid while on clear liquids Expected Outcomes/Goals: diet adv/ tolerance to meet > 75% est nutr needs Interpretation of weight loss: >7.5% in 3 months Malnutrition Findings: Food and Nutrition Intake (Sev: <50% est energy req 5days Body Fat Depletion (Non Severe: Mild Depletion Weight Status: Underweight SONALI MARTINEZ MD Jun 15, 2018 11:11
--- NOTE | 2018-06-15 13:14 | PDOC ---
Subjective: Subjective: Tolerating soup and yogurt Objective: Vital Signs: Vital Signs Date Time Temp Pulse Resp B/P (MAP) Pulse Ox O2 Delivery O2 Flow Rate FiO2 06/15/18 12:35 95 Nasal Cannula 3.0 06/15/18 11:55 98.5 91 16 118/61 (80) 98.5 Labs: Laboratory Tests Test 06/14/18 16:59 06/14/18 20:15 06/15/18 04:55 06/15/18 06:00 Glucose (Fingerstick) 64 mg/dL (70-99) 235 mg/dL (70-99) Sodium Level 131 mmol/L (136-145) Potassium Level 4.1 mmol/L (3.5-5.1) Chloride Level 97 mmol/L (98-107) Carbon Dioxide Level 26 mmol/L (21-32) Anion Gap 8 (6-14) Blood Urea Nitrogen 17 mg/dL (8-26) Creatinine 1.8 mg/dL (0.7-1.3) Estimated GFR (Cockcroft-Gault) 40.0 Glucose Level 275 mg/dL (70-99) Calcium Level 8.0 mg/dL (8.5-10.1) White Blood Count 11.0 x10^3/uL (4.0-11.0) Red Blood Count 2.96 x10^6/uL (4.30-5.70) Hemoglobin 8.6 g/dL (13.0-17.5) Hematocrit 26.2 % (39.0-53.0) Mean Corpuscular Volume 89 fL (79-100) Mean Corpuscular Hemoglobin 29 pg (25-35) Mean Corpuscular Hemoglobin Concent 33 g/dL (31-37) Red Cell Distribution Width 13.5 % (11.5-14.5) Platelet Count 246 x10^3/uL (140-400) Neutrophils (%) (Auto) 74 % (31-73) Lymphocytes (%) (Auto) 17 % (24-48) Monocytes (%) (Auto) 7 % (0-9) Eosinophils (%) (Auto) 2 % (0-3) Basophils (%) (Auto) 1 % (0-3) Neutrophils # (Auto) 8.1 x10^3uL (1.8-7.7) Lymphocytes # (Auto) 1.8 x10^3/uL (1.0-4.8) Monocytes # (Auto) 0.8 x10^3/uL (0.0-1.1) Eosinophils # (Auto) 0.2 x10^3/uL (0.0-0.7) Basophils # (Auto) 0.1 x10^3/uL (0.0-0.2) Test 06/15/18 08:13 06/15/18 10:57 Glucose (Fingerstick) 298 mg/dL (70-99) 179 mg/dL (70-99) Physical Exam: Physical Exam: E: GEN: pale LUNGS: NC HEART: RRR ABD: S/ND/NT NEURO/PSYCH: A & O 3 Assessment & Plan: Assessment : A/P: Suspected esophageal cancer, dysphagia Pleural effusion Anemia Plan: -- Oncology following, plans for EUS at . Supportive care. ID HERNADEZ MD Jun 15, 2018 13:13
[2018-06-15] MEDS: ENOXAPARIN 40 MG/0.4 ML SYRINGE. SQ SCH (15:17)
[2018-06-15] MEDS: LIDO:MAALOX 1:1 20 ML SINGLE DOSE. PO PRN (15:18)
[2018-06-15] MEDS: ATORVASTATIN CALCIUM 20 MG TABLET PO SCH (20:56)
[2018-06-15] MEDS ORDERED: PIP/TAZO PER PHARMACY MC PRN (22:00)
[2018-06-15] MEDS ORDERED: BUDESONIDE 0.5 MG/2 ML NEBU. NEB ONE (22:00)
[2018-06-15] MEDS ORDERED: ACET325T9 PO (22:11)
--- NOTE | 2018-06-15 22:36 | RAD ---
Chest AP portable at 2210: Reason for examination: Sepsis with infection and fever. Comparison is made to previous study dated 06/12/2018 and 05/19/2018. The heart size is normal. Mediastinum is unremarkable. Lung mirza show presence of bibasilar infiltrates, left greater than right. There is suggestion of some blunting of the right costophrenic angle consistent with a small pleural effusion. No acute bony abnormalities are seen. IMPRESSION: Bibasilar infiltrates, left greater than right. Probable small right pleural effusion. Electronically signed by: Darling Adkins MD (06/15/2018 10:33 PM) [facility] [id number]
[2018-06-15] MEDS: ACETAMINOPHEN 325 MG TABLET. PO PRN (22:39)
[2018-06-15 22:42] LABS: INFLUENZA A PATIENT NEGATIVE (NEGATIVE); INFLUENZA B PATIENT NEGATIVE (NEGATIVE)
[2018-06-15] MEDS: PIPERACILLIN/TAZOBACTAM 3.375 GM in IV NORMAL SALINE 50ML 50 ML IV SCH (22:47)
[2018-06-15 22:48] LABS: BASO % 1 % (0-3); EOS % 1 % (0-3); HEMATOCRIT 27.7 % (39.0-53.0); HEMOGLOBIN 9.2 g/dL (13.0-17.5); LYMPH # 0.6 x10^3/uL (1.0-4.8); LYMPH % 7 % (24-48); MEAN CORPUSCULAR HEMOGLOBIN 29 pg (25-35); MEAN CORPUSCULAR HGB CONC 33 g/dL (31-37); MEAN CORPUSCULAR VOLUME 88 fL (79-100); MONO # 0.4 x10^3/uL (0.0-1.1); MONO % 5 % (0-9); NEUT % 88 % (31-73); PLATELET COUNT 246 x10^3/uL (140-400); RED BLOOD COUNT 3.15 x10^6/uL (4.30-5.70); RED CELL DISTRIBUTION WIDTH 13.5 % (11.5-14.5); WHITE BLOOD COUNT 9.1 x10^3/uL (4.0-11.0)
[2018-06-15 22:49] LABS: BILIRUBIN,URINE NEGATIVE (NEG); CLARITY,URINE CLEAR; COLOR,URINE YELLOW; NITRITE,URINE NEGATIVE (NEG); PH,URINE 5.5; PROTEIN,URINE 100 mg/dL (NEG-TRACE); UROBILINOGEN,URINE 0.2 mg/dL (0.2 mg/dL)
[2018-06-15 22:56] LABS: BACTERIA,URINE 0 /HPF (0-FEW)
[2018-06-15 22:57] LABS: AMORPHOUS SEDIMENT,UR PRESENT /HPF; CALCIUM 7.9 mg/dL (8.5-10.1); CREATININE 2.1 mg/dL (0.7-1.3); GFR 33.5; HYALINE CASTS, URINE MANY /HPF; POTASSIUM 4.7 mmol/L (3.5-5.1)
[2018-06-15] MEDS ORDERED: VANCOMYCIN 1.75 GM in IV NORMAL SALINE 500ML BAG 500 ML IV ONE (23:00)
[2018-06-15 23:13] LABS: BASE EXCESS COOX -3 mmol/L (-3-3); CORRECTED PCO2 COOX 42 mmHg; CORRECTED PH COOX 7.35; CORRECTED PO2 COOX 72 mmHg; HCO3 COOX 22 mmol/L (21-28); METHEMOGLOBIN 0.5 % (0.0-1.9); SAT O2 COOX 90 % (92-99)
[2018-06-15 23:14] LABS: PCO2 COOX 38 mmHg (35-46); PO2 COOX 61 mmHg (75-108)
[2018-06-16] MEDS: VANCOMYCIN PER PHARMACY MC PRN ×2 (00:01→00:03)
--- NOTE | 2018-06-16 00:01 | NUR ---
Pharmacy Vancomycin Dosing Note S:Consulted to monitor and dose vancomycin started 06/15/18. O:DANIELITO MONTANA is a 53 year old M with Sepsis . Height: 5 feet, 10 inches Weight: 68.066721 kg [place] Body Weight: 73.00 Adjusted Body Weight: 71.32 Dosing Weight: Actual Other Antibiotics: ZOSYN 3.375 GM Q6H LABS: Last BUN: 25 Last Creatinine: 2.1 Creatinine Clearance: 40 mL/min Last WBC: 9.1 Last Procalcitonin: Tmax (past 24 hours): Microbiology: I/O: Drug Levels: Last level: on at Last dose given 06/15/18 at 2300 Vancomycin Dosing: Loading Dose: 1750 mg x1 Dosing Weight: Actual Target Trough: 15-20 A: Based on: WT AND CRCL P: 1. Begin Vancomycin 1000 mg IV q24h 2. Follow up Trough level on 06/17/18 at 2230 3. Pharmacy will continue to monitor, follow and adjust therapy as needed. KACI CONNELL RPH, 06/16/18 0001 Signed: 06/16/18 at 0001 by KACI CONNELL RPH PHA
--- NOTE | 2018-06-16 00:09 | NUR ---
At approx 2114, this nurse rechecked on pt VS due to pt HR increasing from 90's the last few days to 110. Pt temp was 103.6, all blankets removed from pt, temp in room turned down. Pt SPO2 was 70% on 1L NC, R 26. Pt increased to 6L NC sating 90%. Dayshift nurse reported to this nurse that pt had become more drowsy today and thought it was due to new pain medication added. Pt stated "my butt hurts, it's from playing baseball yesterday and falling on the ball" (admit since 06/12). Pt coccyx assessed by this nurse and was noted to be red blanchable. Q2 turns will be started to prevent breakdown. Pt asked many repeat questions and couldn't hold phone and speak to on the phone. This nurse updated pt's and family on condition. Dr. Barry was in house and orders were received. Labs were drawn including cultures, lactic, and antibiotics started. Tylenol was given for fever. A medellin cath was inserted for strict I/O. Pt put out approx 700ml of clear/yellow urine. Sample was drawn. ABG's were drawn by respiratory. Pt currently on 50% venti-mask sating 90%. Pt sleeping. ICU was called for possible (+) sepsis screen. Will continue to monitor this pt very closely and continue his plan of care.
[2018-06-16 02:13] VITALS: BP 101/58
[2018-06-16 04:49] LABS: BASO % 0 % (0-3); EOS % 0 % (0-3); HEMATOCRIT 24.2 % (39.0-53.0); LYMPH % 8 % (24-48); MEAN CORPUSCULAR HEMOGLOBIN 30 pg (25-35); MEAN CORPUSCULAR HGB CONC 33 g/dL (31-37); MEAN CORPUSCULAR VOLUME 90 fL (79-100); MONO # 0.7 x10^3/uL (0.0-1.1); MONO % 5 % (0-9); NEUT # 11.3 x10^3uL (1.8-7.7); NEUT % 87 % (31-73); PLATELET COUNT 233 x10^3/uL (140-400); RED CELL DISTRIBUTION WIDTH 13.2 % (11.5-14.5)
[2018-06-16] MEDS: ACETAMINOPHEN 325 MG TABLET. PO PRN ×2 (05:03→20:50)
[2018-06-16] MEDS: PIPERACILLIN/TAZOBACTAM 3.375 GM in IV NORMAL SALINE 50ML 50 ML IV SCH ×4 (05:05→23:46)
[2018-06-16 05:12] LABS: ALBUMIN 1.7 g/dL (3.4-5.0); ALBUMIN/GLOBULIN RATIO 0.4 (1.0-1.7); CALCIUM 7.6 mg/dL (8.5-10.1); CREATININE 2.6 mg/dL (0.7-1.3); GFR 26.2; POTASSIUM 4.7 mmol/L (3.5-5.1); TOTAL BILIRUBIN 0.3 mg/dL (0.2-1.0); TOTAL PROTEIN 5.8 g/dL (6.4-8.2)
[2018-06-16 05:37] LABS: % BANDS 30 % (0-9); % LYMPHS 6 % (24-48); % MONOS 3 % (0-10); % SEGS 61 % (35-66); PLT ESTIMATE ADEQUATE (ADEQUATE)
[2018-06-16] MEDS: fentaNYL PF VIAL 100 MCG/2 ML VIAL IV PRN (05:47)
[2018-06-16 07:00] VITALS: BP 91/52
--- NOTE | 2018-06-16 07:10 | PDOC ---
PULMONARY PROGRESS NOTES Subjective need more 02, t max, 103.6, on abx. weak. no pain, has cough Vitals Vital Signs Date Time Temp Pulse Resp B/P (MAP) Pulse Ox O2 Delivery O2 Flow Rate FiO2 06/16/18 05:52 90 Venturi Mask 06/16/18 05:47 22 06/16/18 05:27 4.0 06/16/18 05:00 98.1 85 98.1 06/16/18 02:13 101/58 (72) ROS: No Nausea General: Alert HEENT: Other (nc at perrl) Lungs: Crackles, Other (dull r base) Cardiovascular: S1, S2 Abdomen: Soft, Non-tender Neuro Exam: Alert Extremities: No Edema Skin: Warm Labs Laboratory Tests Test 06/14/18 07:20 06/14/18 12:07 06/14/18 16:59 06/14/18 20:15 Glucose (Fingerstick) 339 mg/dL (70-99) 322 mg/dL (70-99) 64 mg/dL (70-99) 235 mg/dL (70-99) Test 06/15/18 04:55 06/15/18 06:00 06/15/18 08:13 06/15/18 10:57 Sodium Level 131 mmol/L (136-145) Potassium Level 4.1 mmol/L (3.5-5.1) Chloride Level 97 mmol/L (98-107) Carbon Dioxide Level 26 mmol/L (21-32) Anion Gap 8 (6-14) Blood Urea Nitrogen 17 mg/dL (8-26) Creatinine 1.8 mg/dL (0.7-1.3) Estimated GFR (Cockcroft-Gault) 40.0 Glucose Level 275 mg/dL (70-99) Calcium Level 8.0 mg/dL (8.5-10.1) White Blood Count 11.0 x10^3/uL (4.0-11.0) Red Blood Count 2.96 x10^6/uL (4.30-5.70) Hemoglobin 8.6 g/dL (13.0-17.5) Hematocrit 26.2 % (39.0-53.0) Mean Corpuscular Volume 89 fL (79-100) Mean Corpuscular Hemoglobin 29 pg (25-35) Mean Corpuscular Hemoglobin Concent 33 g/dL (31-37) Red Cell Distribution Width 13.5 % (11.5-14.5) Platelet Count 246 x10^3/uL (140-400) Neutrophils (%) (Auto) 74 % (31-73) Lymphocytes (%) (Auto) 17 % (24-48) Monocytes (%) (Auto) 7 % (0-9) Eosinophils (%) (Auto) 2 % (0-3) Basophils (%) (Auto) 1 % (0-3) Neutrophils # (Auto) 8.1 x10^3uL (1.8-7.7) Lymphocytes # (Auto) 1.8 x10^3/uL (1.0-4.8) Monocytes # (Auto) 0.8 x10^3/uL (0.0-1.1) Eosinophils # (Auto) 0.2 x10^3/uL (0.0-0.7) Basophils # (Auto) 0.1 x10^3/uL (0.0-0.2) Glucose (Fingerstick) 298 mg/dL (70-99) 179 mg/dL (70-99) Test 06/15/18 17:15 06/15/18 20:44 06/15/18 21:55 06/15/18 22:30 Glucose (Fingerstick) 123 mg/dL (70-99) 197 mg/dL (70-99) Influenza Type A Antigen Negative (NEGATIVE) Influenza Type B Antigen Negative (NEGATIVE) White Blood Count 9.1 x10^3/uL (4.0-11.0) Red Blood Count 3.15 x10^6/uL (4.30-5.70) Hemoglobin 9.2 g/dL (13.0-17.5) Hematocrit 27.7 % (39.0-53.0) Mean Corpuscular Volume 88 fL (79-100) Mean Corpuscular Hemoglobin 29 pg (25-35) Mean Corpuscular Hemoglobin Concent 33 g/dL (31-37) Red Cell Distribution Width 13.5 % (11.5-14.5) Platelet Count 246 x10^3/uL (140-400) Neutrophils (%) (Auto) 88 % (31-73) Lymphocytes (%) (Auto) 7 % (24-48) Monocytes (%) (Auto) 5 % (0-9) Eosinophils (%) (Auto) 1 % (0-3) Basophils (%) (Auto) 1 % (0-3) Neutrophils # (Auto) 8.0 x10^3uL (1.8-7.7) Lymphocytes # (Auto) 0.6 x10^3/uL (1.0-4.8) Monocytes # (Auto) 0.4 x10^3/uL (0.0-1.1) Eosinophils # (Auto) 0.0 x10^3/uL (0.0-0.7) Basophils # (Auto) 0.0 x10^3/uL (0.0-0.2) Urine Collection Type U cath Urine Color Yellow Urine Clarity Clear Urine pH 5.5 Urine Specific [place] 1.020 Urine Protein 100 mg/dL (NEG-TRACE) Urine Glucose (UA) 250 mg/dL (NEG) Urine Ketones (Stick) Negative mg/dL (NEG) Urine Blood Small (NEG) Urine Nitrite Negative (NEG) Urine Bilirubin Negative (NEG) Urine Urobilinogen Dipstick 0.2 mg/dL (0.2 mg/dL) Urine Leukocyte Esterase Moderate (NEG) Urine RBC 3-5 /HPF (0-2) Urine WBC 11-20 /HPF (0-4) Urine Squamous Epithelial Cells None /LPF Urine Amorphous Sediment Present /HPF Urine Bacteria 0 /HPF (0-FEW) Urine Hyaline Casts Many /HPF Urine Mucus Marked /LPF Sodium Level 129 mmol/L (136-145) Potassium Level 4.7 mmol/L (3.5-5.1) Chloride Level 94 mmol/L (98-107) Carbon Dioxide Level 26 mmol/L (21-32) Anion Gap 9 (6-14) Blood Urea Nitrogen 25 mg/dL (8-26) Creatinine 2.1 mg/dL (0.7-1.3) Estimated GFR (Cockcroft-Gault) 33.5 Glucose Level 245 mg/dL (70-99) Lactic Acid Level 0.9 mmol/L (0.4-2.0) Calcium Level 7.9 mg/dL (8.5-10.1) Test 06/15/18 22:48 06/16/18 04:20 O2 Saturation 90 % (92-99) Arterial Blood pH 7.38 (7.35-7.45) Arterial Blood pH (Temp corrected) 7.35 Arterial Blood pCO2 at Patient Temp 38 mmHg (35-46) Arterial Blood pCO2 (Temp correct) 42 mmHg Arterial Blood pO2 at Patient Temp 61 mmHg (75-108) Arterial Blood pO2 (Temp corrected) 72 mmHg Arterial Blood HCO3 22 mmol/L (21-28) Arterial Blood Base Excess -3 mmol/L (-3-3) Methemoglobin 0.5 % (0.0-1.9) Carbon Monoxide, Quantitative 0.4 % (0.0-1.9) FiO2 48 White Blood Count 13.0 x10^3/uL (4.0-11.0) Red Blood Count 2.70 x10^6/uL (4.30-5.70) Hemoglobin 8.0 g/dL (13.0-17.5) Hematocrit 24.2 % (39.0-53.0) Mean Corpuscular Volume 90 fL (79-100) Mean Corpuscular Hemoglobin 30 pg (25-35) Mean Corpuscular Hemoglobin Concent 33 g/dL (31-37) Red Cell Distribution Width 13.2 % (11.5-14.5) Platelet Count 233 x10^3/uL (140-400) Neutrophils (%) (Auto) 87 % (31-73) Lymphocytes (%) (Auto) 8 % (24-48) Monocytes (%) (Auto) 5 % (0-9) Eosinophils (%) (Auto) 0 % (0-3) Basophils (%) (Auto) 0 % (0-3) Neutrophils # (Auto) 11.3 x10^3uL (1.8-7.7) Lymphocytes # (Auto) 1.0 x10^3/uL (1.0-4.8) Monocytes # (Auto) 0.7 x10^3/uL (0.0-1.1) Eosinophils # (Auto) 0.0 x10^3/uL (0.0-0.7) Basophils # (Auto) 0.0 x10^3/uL (0.0-0.2) Segmented Neutrophils % 61 % (35-66) Band Neutrophils % 30 % (0-9) Lymphocytes % 6 % (24-48) Monocytes % 3 % (0-10) Platelet Estimate Adequate (ADEQUATE) Sodium Level 130 mmol/L (136-145) Potassium Level 4.7 mmol/L (3.5-5.1) Chloride Level 96 mmol/L (98-107) Carbon Dioxide Level 22 mmol/L (21-32) Anion Gap 12 (6-14) Blood Urea Nitrogen 26 mg/dL (8-26) Creatinine 2.6 mg/dL (0.7-1.3) Estimated GFR (Cockcroft-Gault) 26.2 BUN/Creatinine Ratio 10 (6-20) Glucose Level 290 mg/dL (70-99) Calcium Level 7.6 mg/dL (8.5-10.1) Total Bilirubin 0.3 mg/dL (0.2-1.0) Aspartate Amino Transf (AST/SGOT) 12 U/L (15-37) Alanine Aminotransferase (ALT/SGPT) 11 U/L (16-63) Alkaline Phosphatase 114 U/L (46-116) Total Protein 5.8 g/dL (6.4-8.2) Albumin 1.7 g/dL (3.4-5.0) Albumin/Globulin Ratio 0.4 (1.0-1.7) Laboratory Tests Test 06/15/18 08:13 06/15/18 10:57 06/15/18 17:15 06/15/18 20:44 Glucose (Fingerstick) 298 mg/dL (70-99) 179 mg/dL (70-99) 123 mg/dL (70-99) 197 mg/dL (70-99) Test 06/15/18 21:55 06/15/18 22:30 06/15/18 22:48 06/16/18 04:20 Influenza Type A Antigen Negative (NEGATIVE) Influenza Type B Antigen Negative (NEGATIVE) White Blood Count 9.1 x10^3/uL (4.0-11.0) 13.0 x10^3/uL (4.0-11.0) Red Blood Count 3.15 x10^6/uL (4.30-5.70) 2.70 x10^6/uL (4.30-5.70) Hemoglobin 9.2 g/dL (13.0-17.5) 8.0 g/dL (13.0-17.5) Hematocrit 27.7 % (39.0-53.0) 24.2 % (39.0-53.0) Mean Corpuscular Volume 88 fL (79-100) 90 fL (79-100) Mean Corpuscular Hemoglobin 29 pg (25-35) 30 pg (25-35) Mean Corpuscular Hemoglobin Concent 33 g/dL (31-37) 33 g/dL (31-37) Red Cell Distribution Width 13.5 % (11.5-14.5) 13.2 % (11.5-14.5) Platelet Count 246 x10^3/uL (140-400) 233 x10^3/uL (140-400) Neutrophils (%) (Auto) 88 % (31-73) 87 % (31-73) Lymphocytes (%) (Auto) 7 % (24-48) 8 % (24-48) Monocytes (%) (Auto) 5 % (0-9) 5 % (0-9) Eosinophils (%) (Auto) 1 % (0-3) 0 % (0-3) Basophils (%) (Auto) 1 % (0-3) 0 % (0-3) Neutrophils # (Auto) 8.0 x10^3uL (1.8-7.7) 11.3 x10^3uL (1.8-7.7) Lymphocytes # (Auto) 0.6 x10^3/uL (1.0-4.8) 1.0 x10^3/uL (1.0-4.8) Monocytes # (Auto) 0.4 x10^3/uL (0.0-1.1) 0.7 x10^3/uL (0.0-1.1) Eosinophils # (Auto) 0.0 x10^3/uL (0.0-0.7) 0.0 x10^3/uL (0.0-0.7) Basophils # (Auto) 0.0 x10^3/uL (0.0-0.2) 0.0 x10^3/uL (0.0-0.2) Urine Collection Type U cath Urine Color Yellow Urine Clarity Clear Urine pH 5.5 Urine Specific [place] 1.020 Urine Protein 100 mg/dL (NEG-TRACE) Urine Glucose (UA) 250 mg/dL (NEG) Urine Ketones (Stick) Negative mg/dL (NEG) Urine Blood Small (NEG) Urine Nitrite Negative (NEG) Urine Bilirubin Negative (NEG) Urine Urobilinogen Dipstick 0.2 mg/dL (0.2 mg/dL) Urine Leukocyte Esterase Moderate (NEG) Urine RBC 3-5 /HPF (0-2) Urine WBC 11-20 /HPF (0-4) Urine Squamous Epithelial Cells None /LPF Urine Amorphous Sediment Present /HPF Urine Bacteria 0 /HPF (0-FEW) Urine Hyaline Casts Many /HPF Urine Mucus Marked /LPF Sodium Level 129 mmol/L (136-145) 130 mmol/L (136-145) Potassium Level 4.7 mmol/L (3.5-5.1) 4.7 mmol/L (3.5-5.1) Chloride Level 94 mmol/L (98-107) 96 mmol/L (98-107) Carbon Dioxide Level 26 mmol/L (21-32) 22 mmol/L (21-32) Anion Gap 9 (6-14) 12 (6-14) Blood Urea Nitrogen 25 mg/dL (8-26) 26 mg/dL (8-26) Creatinine 2.1 mg/dL (0.7-1.3) 2.6 mg/dL (0.7-1.3) Estimated GFR (Cockcroft-Gault) 33.5 26.2 Glucose Level 245 mg/dL (70-99) 290 mg/dL (70-99) Lactic Acid Level 0.9 mmol/L (0.4-2.0) Calcium Level 7.9 mg/dL (8.5-10.1) 7.6 mg/dL (8.5-10.1) O2 Saturation 90 % (92-99) Arterial Blood pH 7.38 (7.35-7.45) Arterial Blood pH (Temp corrected) 7.35 Arterial Blood pCO2 at Patient Temp 38 mmHg (35-46) Arterial Blood pCO2 (Temp correct) 42 mmHg Arterial Blood pO2 at Patient Temp 61 mmHg (75-108) Arterial Blood pO2 (Temp corrected) 72 mmHg Arterial Blood HCO3 22 mmol/L (21-28) Arterial Blood Base Excess -3 mmol/L (-3-3) Methemoglobin 0.5 % (0.0-1.9) Carbon Monoxide, Quantitative 0.4 % (0.0-1.9) FiO2 48 Segmented Neutrophils % 61 % (35-66) Band Neutrophils % 30 % (0-9) Lymphocytes % 6 % (24-48) Monocytes % 3 % (0-10) Platelet Estimate Adequate (ADEQUATE) BUN/Creatinine Ratio 10 (6-20) Total Bilirubin 0.3 mg/dL (0.2-1.0) Aspartate Amino Transf (AST/SGOT) 12 U/L (15-37) Alanine Aminotransferase (ALT/SGPT) 11 U/L (16-63) Alkaline Phosphatase 114 U/L (46-116) Total Protein 5.8 g/dL (6.4-8.2) Albumin 1.7 g/dL (3.4-5.0) Albumin/Globulin Ratio 0.4 (1.0-1.7) Medications Active Scripts Medications Dose Route/Sig Max Daily Dose Days Date Category Ibuprofen 800 Mg Tablet 800 Mg PO BID PRN 06/13/18 Reported Gabapentin 600 Mg Tablet 900 Mg PO TID 05/16/18 Reported Aspirin 81 Mg Tab.chew 81 Mg PO DAILY 05/16/18 Reported Spironolactone 25 Mg Tablet 25 Mg PO DAILY 05/16/18 Reported Amlodipine Besylate 10 Mg Tablet 10 Mg PO DAILY 05/16/18 Reported Coreg (Carvedilol) 12.5 Mg Tablet 12.5 Mg PO BIDWMEALS 05/16/18 Reported Atorvastatin Calcium 20 Mg Tablet 20 Mg PO HS 05/16/18 Reported Melatonin 3 Mg Tablet 1 Tab PO QHS 05/13/18 Reported Novolog Mix 70-30 Vial (Insuln Asp Prt/Insulin Aspart) 100 Unit/1 Ml Vial 0 SQ BIDAC 05/13/18 Reported Lisinopril 40 Mg Tablet 40 Mg PO DAILY 03/12/18 Reported Xanax (Alprazolam) 2 Mg Tablet 1 Tab PO TID PRN 04/04/14 Reported Comments reviewed cxr, Bibasilar infiltrates, left greater than right. small right pleural effusion. Impression . IMPRESSION: 1. The patient with progressive dysphagia and ongoing weight loss and abnormal CT chest, suggesting esophageal malignancy. His previous EGD showed high-grade dysplasia suspicious for adenocarcinoma. He now has unchanged moderate right pleural effusion and a small left pleural effusion. This could be related to malignancy versus related to low oncotic pressure from hypoalbuminemia. He would benefit from thoracentesis for diagnosis. 2. Ongoing tobaccoism, suspect underlying chronic obstructive pulmonary disease. 3. Abnormal CT chest, cxr, has new infilt, fever, hypoxemia, suspect pneumonia , aspiration. has dysphagia 4. Mild renal insufficiency. 5. Severe protein-calorie malnutrition. Albumin level is 2.0. 6. sepsis Plan . RECOMMENDATIONS: 1. us-guided right thoracentesis for diagnosis. will be done 06/17 2. If the effusion is not malignant, then he would require another EGD or EUS to confirm a diagnosis of esophageal cancer. 3. Follow Oncology recommendations. 4. Follow GI recommendations. 5. Smoking cessation counseling provided. 6. oxygen titration 7. bronchodilators. cont abx, fu blood cx, aspiration precaution discussed w BRANDO Díaz MD Jun 16, 2018 07:10
[2018-06-16] MEDS: BUDESONIDE 0.5 MG/2 ML NEBU. NEB SCH ×2 (07:43→20:13)
[2018-06-16] MEDS: IPRATRPIUM/ALBUTEROL 0.5/2.5MG 3 ML NEBU. NEB SCH ×4 (07:43→20:12)
[2018-06-16] MEDS: NICOTINE 21MG PATCH. TD SCH (07:50)
[2018-06-16] MEDS: PANTOPRAZOLE IV PUSH 40 MG VIAL. IVP SCH (07:50)
[2018-06-16] MEDS: SUCRALFATE 1 GM/10 ML ORAL.SUSP. PEG SCH ×2 (07:50→23:46)
[2018-06-16] MEDS: oxyCODONE ER 10 MG TAB.ER.12H PO SCH ×2 (07:51→20:59)
[2018-06-16] MEDS: ASPIRIN CHEWABLE 81 MG TABLET. PO SCH (07:51)
[2018-06-16] MEDS: SPIRONOLACTONE 25 MG TABLET PO SCH (07:52)
[2018-06-16] MEDS: CARVEDILOL 12.5 MG TABLET. PO SCH ×2 (08:00→15:46)
[2018-06-16] MEDS: INSULIN LISPRO 300 UNITS/3 ML INSULN.PEN. SQ SCH ×7 (08:03→20:59)
[2018-06-16] MEDS: LISINOPRIL 20 MG TABLET PO SCH (09:00)
[2018-06-16] MEDS: amLODIPine BESYLATE 10 MG TABLET PO SCH (09:00)
--- NOTE | 2018-06-16 10:12 | PDOC ---
Infectious Disease Note Vital Sign Vital Signs Vital Signs Date Time Temp Pulse Resp B/P (MAP) Pulse Ox O2 Delivery O2 Flow Rate FiO2 06/16/18 07:45 90 Venturi Mask 15.0 06/16/18 07:00 97.5 79 18 91/52 (65) 97.5 Labs Lab Laboratory Tests Test 06/15/18 10:57 06/15/18 17:15 06/15/18 20:44 06/15/18 21:55 Glucose (Fingerstick) 179 mg/dL (70-99) 123 mg/dL (70-99) 197 mg/dL (70-99) Influenza Type A Antigen Negative (NEGATIVE) Influenza Type B Antigen Negative (NEGATIVE) Test 06/15/18 22:30 06/15/18 22:48 06/16/18 04:20 06/16/18 07:26 White Blood Count 9.1 x10^3/uL (4.0-11.0) 13.0 x10^3/uL (4.0-11.0) Red Blood Count 3.15 x10^6/uL (4.30-5.70) 2.70 x10^6/uL (4.30-5.70) Hemoglobin 9.2 g/dL (13.0-17.5) 8.0 g/dL (13.0-17.5) Hematocrit 27.7 % (39.0-53.0) 24.2 % (39.0-53.0) Mean Corpuscular Volume 88 fL (79-100) 90 fL (79-100) Mean Corpuscular Hemoglobin 29 pg (25-35) 30 pg (25-35) Mean Corpuscular Hemoglobin Concent 33 g/dL (31-37) 33 g/dL (31-37) Red Cell Distribution Width 13.5 % (11.5-14.5) 13.2 % (11.5-14.5) Platelet Count 246 x10^3/uL (140-400) 233 x10^3/uL (140-400) Neutrophils (%) (Auto) 88 % (31-73) 87 % (31-73) Lymphocytes (%) (Auto) 7 % (24-48) 8 % (24-48) Monocytes (%) (Auto) 5 % (0-9) 5 % (0-9) Eosinophils (%) (Auto) 1 % (0-3) 0 % (0-3) Basophils (%) (Auto) 1 % (0-3) 0 % (0-3) Neutrophils # (Auto) 8.0 x10^3uL (1.8-7.7) 11.3 x10^3uL (1.8-7.7) Lymphocytes # (Auto) 0.6 x10^3/uL (1.0-4.8) 1.0 x10^3/uL (1.0-4.8) Monocytes # (Auto) 0.4 x10^3/uL (0.0-1.1) 0.7 x10^3/uL (0.0-1.1) Eosinophils # (Auto) 0.0 x10^3/uL (0.0-0.7) 0.0 x10^3/uL (0.0-0.7) Basophils # (Auto) 0.0 x10^3/uL (0.0-0.2) 0.0 x10^3/uL (0.0-0.2) Urine Collection Type U cath Urine Color Yellow Urine Clarity Clear Urine pH 5.5 Urine Specific [place] 1.020 Urine Protein 100 mg/dL (NEG-TRACE) Urine Glucose (UA) 250 mg/dL (NEG) Urine Ketones (Stick) Negative mg/dL (NEG) Urine Blood Small (NEG) Urine Nitrite Negative (NEG) Urine Bilirubin Negative (NEG) Urine Urobilinogen Dipstick 0.2 mg/dL (0.2 mg/dL) Urine Leukocyte Esterase Moderate (NEG) Urine RBC 3-5 /HPF (0-2) Urine WBC 11-20 /HPF (0-4) Urine Squamous Epithelial Cells None /LPF Urine Amorphous Sediment Present /HPF Urine Bacteria 0 /HPF (0-FEW) Urine Hyaline Casts Many /HPF Urine Mucus Marked /LPF Sodium Level 129 mmol/L (136-145) 130 mmol/L (136-145) Potassium Level 4.7 mmol/L (3.5-5.1) 4.7 mmol/L (3.5-5.1) Chloride Level 94 mmol/L (98-107) 96 mmol/L (98-107) Carbon Dioxide Level 26 mmol/L (21-32) 22 mmol/L (21-32) Anion Gap 9 (6-14) 12 (6-14) Blood Urea Nitrogen 25 mg/dL (8-26) 26 mg/dL (8-26) Creatinine 2.1 mg/dL (0.7-1.3) 2.6 mg/dL (0.7-1.3) Estimated GFR (Cockcroft-Gault) 33.5 26.2 Glucose Level 245 mg/dL (70-99) 290 mg/dL (70-99) Lactic Acid Level 0.9 mmol/L (0.4-2.0) Calcium Level 7.9 mg/dL (8.5-10.1) 7.6 mg/dL (8.5-10.1) O2 Saturation 90 % (92-99) Arterial Blood pH 7.38 (7.35-7.45) Arterial Blood pH (Temp corrected) 7.35 Arterial Blood pCO2 at Patient Temp 38 mmHg (35-46) Arterial Blood pCO2 (Temp correct) 42 mmHg Arterial Blood pO2 at Patient Temp 61 mmHg (75-108) Arterial Blood pO2 (Temp corrected) 72 mmHg Arterial Blood HCO3 22 mmol/L (21-28) Arterial Blood Base Excess -3 mmol/L (-3-3) Methemoglobin 0.5 % (0.0-1.9) Carbon Monoxide, Quantitative 0.4 % (0.0-1.9) FiO2 48 Segmented Neutrophils % 61 % (35-66) Band Neutrophils % 30 % (0-9) Lymphocytes % 6 % (24-48) Monocytes % 3 % (0-10) Platelet Estimate Adequate (ADEQUATE) BUN/Creatinine Ratio 10 (6-20) Total Bilirubin 0.3 mg/dL (0.2-1.0) Aspartate Amino Transf (AST/SGOT) 12 U/L (15-37) Alanine Aminotransferase (ALT/SGPT) 11 U/L (16-63) Alkaline Phosphatase 114 U/L (46-116) Total Protein 5.8 g/dL (6.4-8.2) Albumin 1.7 g/dL (3.4-5.0) Albumin/Globulin Ratio 0.4 (1.0-1.7) Glucose (Fingerstick) 343 mg/dL (70-99) Objective Assessment Sepsis Fever Tmax 103.6,,,influenza neg Right pleural effusion LENNOX on CKD Dysphagia, s/p EGD 05/15 w/bx concerning for invasive adenocarcinoma of esophagus CAD s/p cardiac cath on 05/30/2018 Chronic diastolic HF Type 2 DM Tobacco dependency Plan Plan of Care D/c vancomycin, last dose 06/15 Continue Zosyn, dose adjusted for renal function, d/w pharmacy add Sputum culture Urine and blood cultures pending Repeat labs in am Supportive care d/w nursing Thank you [id number] Patient seen and examined. Chart reviewed in detail. 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 Agree with above plan. GALLO HIGH APRN Jun 16, 2018 10:12 AYAKA ZURITA MD Jun 16, 2018 21:00
--- NOTE | 2018-06-16 10:27 | PDOC ---
PROGRESS NOTES Chief Complaint Chief Complaint 1. 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 2. Ongoing tobaccoism, suspect underlying chronic obstructive pulmonary disease. 3. sepsis, fevers 4. Mild renal insufficiency. 5. Severe protein-calorie malnutrition. Albumin level is 2.0. 6. Right pleural effusion 7. CAD s/p cardiac cath on 05/30/2018 8. Chronic diastolic HF 9. Type 2 DM 10. 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 For IR thoracentesis tomorrow Discussed with RN Vitals Vitals Vital Signs Date Time Temp Pulse Resp B/P (MAP) Pulse Ox O2 Delivery O2 Flow Rate FiO2 06/16/18 07:45 90 Venturi Mask 15.0 06/16/18 07:00 97.5 79 18 91/52 (65) 97.5 Physical Exam General: Alert, Oriented X3, Cooperative, mild distress Heart: Regular rate (SR), Normal S1, Normal S2, No murmurs Lungs: Clear, Crackles, Other (dull r base) Abdomen: Normal bowel sounds, Soft Extremities: No cyanosis, No edema Skin: No breakdown, No significant lesion Labs LABS Laboratory Tests Test 06/15/18 10:57 06/15/18 17:15 06/15/18 20:44 06/15/18 21:55 Glucose (Fingerstick) 179 mg/dL (70-99) 123 mg/dL (70-99) 197 mg/dL (70-99) Influenza Type A Antigen Negative (NEGATIVE) Influenza Type B Antigen Negative (NEGATIVE) Test 06/15/18 22:30 06/15/18 22:48 06/16/18 04:20 06/16/18 07:26 White Blood Count 9.1 x10^3/uL (4.0-11.0) 13.0 x10^3/uL (4.0-11.0) Red Blood Count 3.15 x10^6/uL (4.30-5.70) 2.70 x10^6/uL (4.30-5.70) Hemoglobin 9.2 g/dL (13.0-17.5) 8.0 g/dL (13.0-17.5) Hematocrit 27.7 % (39.0-53.0) 24.2 % (39.0-53.0) Mean Corpuscular Volume 88 fL (79-100) 90 fL (79-100) Mean Corpuscular Hemoglobin 29 pg (25-35) 30 pg (25-35) Mean Corpuscular Hemoglobin Concent 33 g/dL (31-37) 33 g/dL (31-37) Red Cell Distribution Width 13.5 % (11.5-14.5) 13.2 % (11.5-14.5) Platelet Count 246 x10^3/uL (140-400) 233 x10^3/uL (140-400) Neutrophils (%) (Auto) 88 % (31-73) 87 % (31-73) Lymphocytes (%) (Auto) 7 % (24-48) 8 % (24-48) Monocytes (%) (Auto) 5 % (0-9) 5 % (0-9) Eosinophils (%) (Auto) 1 % (0-3) 0 % (0-3) Basophils (%) (Auto) 1 % (0-3) 0 % (0-3) Neutrophils # (Auto) 8.0 x10^3uL (1.8-7.7) 11.3 x10^3uL (1.8-7.7) Lymphocytes # (Auto) 0.6 x10^3/uL (1.0-4.8) 1.0 x10^3/uL (1.0-4.8) Monocytes # (Auto) 0.4 x10^3/uL (0.0-1.1) 0.7 x10^3/uL (0.0-1.1) Eosinophils # (Auto) 0.0 x10^3/uL (0.0-0.7) 0.0 x10^3/uL (0.0-0.7) Basophils # (Auto) 0.0 x10^3/uL (0.0-0.2) 0.0 x10^3/uL (0.0-0.2) Urine Collection Type U cath Urine Color Yellow Urine Clarity Clear Urine pH 5.5 Urine Specific [place] 1.020 Urine Protein 100 mg/dL (NEG-TRACE) Urine Glucose (UA) 250 mg/dL (NEG) Urine Ketones (Stick) Negative mg/dL (NEG) Urine Blood Small (NEG) Urine Nitrite Negative (NEG) Urine Bilirubin Negative (NEG) Urine Urobilinogen Dipstick 0.2 mg/dL (0.2 mg/dL) Urine Leukocyte Esterase Moderate (NEG) Urine RBC 3-5 /HPF (0-2) Urine WBC 11-20 /HPF (0-4) Urine Squamous Epithelial Cells None /LPF Urine Amorphous Sediment Present /HPF Urine Bacteria 0 /HPF (0-FEW) Urine Hyaline Casts Many /HPF Urine Mucus Marked /LPF Sodium Level 129 mmol/L (136-145) 130 mmol/L (136-145) Potassium Level 4.7 mmol/L (3.5-5.1) 4.7 mmol/L (3.5-5.1) Chloride Level 94 mmol/L (98-107) 96 mmol/L (98-107) Carbon Dioxide Level 26 mmol/L (21-32) 22 mmol/L (21-32) Anion Gap 9 (6-14) 12 (6-14) Blood Urea Nitrogen 25 mg/dL (8-26) 26 mg/dL (8-26) Creatinine 2.1 mg/dL (0.7-1.3) 2.6 mg/dL (0.7-1.3) Estimated GFR (Cockcroft-Gault) 33.5 26.2 Glucose Level 245 mg/dL (70-99) 290 mg/dL (70-99) Lactic Acid Level 0.9 mmol/L (0.4-2.0) Calcium Level 7.9 mg/dL (8.5-10.1) 7.6 mg/dL (8.5-10.1) O2 Saturation 90 % (92-99) Arterial Blood pH 7.38 (7.35-7.45) Arterial Blood pH (Temp corrected) 7.35 Arterial Blood pCO2 at Patient Temp 38 mmHg (35-46) Arterial Blood pCO2 (Temp correct) 42 mmHg Arterial Blood pO2 at Patient Temp 61 mmHg (75-108) Arterial Blood pO2 (Temp corrected) 72 mmHg Arterial Blood HCO3 22 mmol/L (21-28) Arterial Blood Base Excess -3 mmol/L (-3-3) Methemoglobin 0.5 % (0.0-1.9) Carbon Monoxide, Quantitative 0.4 % (0.0-1.9) FiO2 48 Segmented Neutrophils % 61 % (35-66) Band Neutrophils % 30 % (0-9) Lymphocytes % 6 % (24-48) Monocytes % 3 % (0-10) Platelet Estimate Adequate (ADEQUATE) BUN/Creatinine Ratio 10 (6-20) Total Bilirubin 0.3 mg/dL (0.2-1.0) Aspartate Amino Transf (AST/SGOT) 12 U/L (15-37) Alanine Aminotransferase (ALT/SGPT) 11 U/L (16-63) Alkaline Phosphatase 114 U/L (46-116) Total Protein 5.8 g/dL (6.4-8.2) Albumin 1.7 g/dL (3.4-5.0) Albumin/Globulin Ratio 0.4 (1.0-1.7) Glucose (Fingerstick) 343 mg/dL (70-99) Review of Systems Review of Systems positive only for weakness, weight loss, rest of 14 negative Assessment and Plan Assessmemt and Plan Problems Medical Problems: (1) Chest pain Status: Acute (2) Intractable abdominal pain Status: Acute Comment Review of Relevant I have reviewed the following items tasneem (where applicable) has been applied. Labs Laboratory Tests Test 06/14/18 12:07 06/14/18 16:59 06/14/18 20:15 06/15/18 04:55 Glucose (Fingerstick) 322 mg/dL (70-99) 64 mg/dL (70-99) 235 mg/dL (70-99) Sodium Level 131 mmol/L (136-145) Potassium Level 4.1 mmol/L (3.5-5.1) Chloride Level 97 mmol/L (98-107) Carbon Dioxide Level 26 mmol/L (21-32) Anion Gap 8 (6-14) Blood Urea Nitrogen 17 mg/dL (8-26) Creatinine 1.8 mg/dL (0.7-1.3) Estimated GFR (Cockcroft-Gault) 40.0 Glucose Level 275 mg/dL (70-99) Calcium Level 8.0 mg/dL (8.5-10.1) Test 06/15/18 06:00 06/15/18 08:13 06/15/18 10:57 06/15/18 17:15 White Blood Count 11.0 x10^3/uL (4.0-11.0) Red Blood Count 2.96 x10^6/uL (4.30-5.70) Hemoglobin 8.6 g/dL (13.0-17.5) Hematocrit 26.2 % (39.0-53.0) Mean Corpuscular Volume 89 fL (79-100) Mean Corpuscular Hemoglobin 29 pg (25-35) Mean Corpuscular Hemoglobin Concent 33 g/dL (31-37) Red Cell Distribution Width 13.5 % (11.5-14.5) Platelet Count 246 x10^3/uL (140-400) Neutrophils (%) (Auto) 74 % (31-73) Lymphocytes (%) (Auto) 17 % (24-48) Monocytes (%) (Auto) 7 % (0-9) Eosinophils (%) (Auto) 2 % (0-3) Basophils (%) (Auto) 1 % (0-3) Neutrophils # (Auto) 8.1 x10^3uL (1.8-7.7) Lymphocytes # (Auto) 1.8 x10^3/uL (1.0-4.8) Monocytes # (Auto) 0.8 x10^3/uL (0.0-1.1) Eosinophils # (Auto) 0.2 x10^3/uL (0.0-0.7) Basophils # (Auto) 0.1 x10^3/uL (0.0-0.2) Glucose (Fingerstick) 298 mg/dL (70-99) 179 mg/dL (70-99) 123 mg/dL (70-99) Test 06/15/18 20:44 06/15/18 21:55 06/15/18 22:30 06/15/18 22:48 Glucose (Fingerstick) 197 mg/dL (70-99) Influenza Type A Antigen Negative (NEGATIVE) Influenza Type B Antigen Negative (NEGATIVE) White Blood Count 9.1 x10^3/uL (4.0-11.0) Red Blood Count 3.15 x10^6/uL (4.30-5.70) Hemoglobin 9.2 g/dL (13.0-17.5) Hematocrit 27.7 % (39.0-53.0) Mean Corpuscular Volume 88 fL (79-100) Mean Corpuscular Hemoglobin 29 pg (25-35) Mean Corpuscular Hemoglobin Concent 33 g/dL (31-37) Red Cell Distribution Width 13.5 % (11.5-14.5) Platelet Count 246 x10^3/uL (140-400) Neutrophils (%) (Auto) 88 % (31-73) Lymphocytes (%) (Auto) 7 % (24-48) Monocytes (%) (Auto) 5 % (0-9) Eosinophils (%) (Auto) 1 % (0-3) Basophils (%) (Auto) 1 % (0-3) Neutrophils # (Auto) 8.0 x10^3uL (1.8-7.7) Lymphocytes # (Auto) 0.6 x10^3/uL (1.0-4.8) Monocytes # (Auto) 0.4 x10^3/uL (0.0-1.1) Eosinophils # (Auto) 0.0 x10^3/uL (0.0-0.7) Basophils # (Auto) 0.0 x10^3/uL (0.0-0.2) Urine Collection Type U cath Urine Color Yellow Urine Clarity Clear Urine pH 5.5 Urine Specific [place] 1.020 Urine Protein 100 mg/dL (NEG-TRACE) Urine Glucose (UA) 250 mg/dL (NEG) Urine Ketones (Stick) Negative mg/dL (NEG) Urine Blood Small (NEG) Urine Nitrite Negative (NEG) Urine Bilirubin Negative (NEG) Urine Urobilinogen Dipstick 0.2 mg/dL (0.2 mg/dL) Urine Leukocyte Esterase Moderate (NEG) Urine RBC 3-5 /HPF (0-2) Urine WBC 11-20 /HPF (0-4) Urine Squamous Epithelial Cells None /LPF Urine Amorphous Sediment Present /HPF Urine Bacteria 0 /HPF (0-FEW) Urine Hyaline Casts Many /HPF Urine Mucus Marked /LPF Sodium Level 129 mmol/L (136-145) Potassium Level 4.7 mmol/L (3.5-5.1) Chloride Level 94 mmol/L (98-107) Carbon Dioxide Level 26 mmol/L (21-32) Anion Gap 9 (6-14) Blood Urea Nitrogen 25 mg/dL (8-26) Creatinine 2.1 mg/dL (0.7-1.3) Estimated GFR (Cockcroft-Gault) 33.5 Glucose Level 245 mg/dL (70-99) Lactic Acid Level 0.9 mmol/L (0.4-2.0) Calcium Level 7.9 mg/dL (8.5-10.1) O2 Saturation 90 % (92-99) Arterial Blood pH 7.38 (7.35-7.45) Arterial Blood pH (Temp corrected) 7.35 Arterial Blood pCO2 at Patient Temp 38 mmHg (35-46) Arterial Blood pCO2 (Temp correct) 42 mmHg Arterial Blood pO2 at Patient Temp 61 mmHg (75-108) Arterial Blood pO2 (Temp corrected) 72 mmHg Arterial Blood HCO3 22 mmol/L (21-28) Arterial Blood Base Excess -3 mmol/L (-3-3) Methemoglobin 0.5 % (0.0-1.9) Carbon Monoxide, Quantitative 0.4 % (0.0-1.9) FiO2 48 Test 06/16/18 04:20 06/16/18 07:26 White Blood Count 13.0 x10^3/uL (4.0-11.0) Red Blood Count 2.70 x10^6/uL (4.30-5.70) Hemoglobin 8.0 g/dL (13.0-17.5) Hematocrit 24.2 % (39.0-53.0) Mean Corpuscular Volume 90 fL (79-100) Mean Corpuscular Hemoglobin 30 pg (25-35) Mean Corpuscular Hemoglobin Concent 33 g/dL (31-37) Red Cell Distribution Width 13.2 % (11.5-14.5) Platelet Count 233 x10^3/uL (140-400) Neutrophils (%) (Auto) 87 % (31-73) Lymphocytes (%) (Auto) 8 % (24-48) Monocytes (%) (Auto) 5 % (0-9) Eosinophils (%) (Auto) 0 % (0-3) Basophils (%) (Auto) 0 % (0-3) Neutrophils # (Auto) 11.3 x10^3uL (1.8-7.7) Lymphocytes # (Auto) 1.0 x10^3/uL (1.0-4.8) Monocytes # (Auto) 0.7 x10^3/uL (0.0-1.1) Eosinophils # (Auto) 0.0 x10^3/uL (0.0-0.7) Basophils # (Auto) 0.0 x10^3/uL (0.0-0.2) Segmented Neutrophils % 61 % (35-66) Band Neutrophils % 30 % (0-9) Lymphocytes % 6 % (24-48) Monocytes % 3 % (0-10) Platelet Estimate Adequate (ADEQUATE) Sodium Level 130 mmol/L (136-145) Potassium Level 4.7 mmol/L (3.5-5.1) Chloride Level 96 mmol/L (98-107) Carbon Dioxide Level 22 mmol/L (21-32) Anion Gap 12 (6-14) Blood Urea Nitrogen 26 mg/dL (8-26) Creatinine 2.6 mg/dL (0.7-1.3) Estimated GFR (Cockcroft-Gault) 26.2 BUN/Creatinine Ratio 10 (6-20) Glucose Level 290 mg/dL (70-99) Calcium Level 7.6 mg/dL (8.5-10.1) Total Bilirubin 0.3 mg/dL (0.2-1.0) Aspartate Amino Transf (AST/SGOT) 12 U/L (15-37) Alanine Aminotransferase (ALT/SGPT) 11 U/L (16-63) Alkaline Phosphatase 114 U/L (46-116) Total Protein 5.8 g/dL (6.4-8.2) Albumin 1.7 g/dL (3.4-5.0) Albumin/Globulin Ratio 0.4 (1.0-1.7) Glucose (Fingerstick) 343 mg/dL (70-99) Laboratory Tests Test 06/15/18 10:57 06/15/18 17:15 06/15/18 20:44 06/15/18 21:55 Glucose (Fingerstick) 179 mg/dL (70-99) 123 mg/dL (70-99) 197 mg/dL (70-99) Influenza Type A Antigen Negative (NEGATIVE) Influenza Type B Antigen Negative (NEGATIVE) Test 06/15/18 22:30 06/15/18 22:48 06/16/18 04:20 06/16/18 07:26 White Blood Count 9.1 x10^3/uL (4.0-11.0) 13.0 x10^3/uL (4.0-11.0) Red Blood Count 3.15 x10^6/uL (4.30-5.70) 2.70 x10^6/uL (4.30-5.70) Hemoglobin 9.2 g/dL (13.0-17.5) 8.0 g/dL (13.0-17.5) Hematocrit 27.7 % (39.0-53.0) 24.2 % (39.0-53.0) Mean Corpuscular Volume 88 fL (79-100) 90 fL (79-100) Mean Corpuscular Hemoglobin 29 pg (25-35) 30 pg (25-35) Mean Corpuscular Hemoglobin Concent 33 g/dL (31-37) 33 g/dL (31-37) Red Cell Distribution Width 13.5 % (11.5-14.5) 13.2 % (11.5-14.5) Platelet Count 246 x10^3/uL (140-400) 233 x10^3/uL (140-400) Neutrophils (%) (Auto) 88 % (31-73) 87 % (31-73) Lymphocytes (%) (Auto) 7 % (24-48) 8 % (24-48) Monocytes (%) (Auto) 5 % (0-9) 5 % (0-9) Eosinophils (%) (Auto) 1 % (0-3) 0 % (0-3) Basophils (%) (Auto) 1 % (0-3) 0 % (0-3) Neutrophils # (Auto) 8.0 x10^3uL (1.8-7.7) 11.3 x10^3uL (1.8-7.7) Lymphocytes # (Auto) 0.6 x10^3/uL (1.0-4.8) 1.0 x10^3/uL (1.0-4.8) Monocytes # (Auto) 0.4 x10^3/uL (0.0-1.1) 0.7 x10^3/uL (0.0-1.1) Eosinophils # (Auto) 0.0 x10^3/uL (0.0-0.7) 0.0 x10^3/uL (0.0-0.7) Basophils # (Auto) 0.0 x10^3/uL (0.0-0.2) 0.0 x10^3/uL (0.0-0.2) Urine Collection Type U cath Urine Color Yellow Urine Clarity Clear Urine pH 5.5 Urine Specific [place] 1.020 Urine Protein 100 mg/dL (NEG-TRACE) Urine Glucose (UA) 250 mg/dL (NEG) Urine Ketones (Stick) Negative mg/dL (NEG) Urine Blood Small (NEG) Urine Nitrite Negative (NEG) Urine Bilirubin Negative (NEG) Urine Urobilinogen Dipstick 0.2 mg/dL (0.2 mg/dL) Urine Leukocyte Esterase Moderate (NEG) Urine RBC 3-5 /HPF (0-2) Urine WBC 11-20 /HPF (0-4) Urine Squamous Epithelial Cells None /LPF Urine Amorphous Sediment Present /HPF Urine Bacteria 0 /HPF (0-FEW) Urine Hyaline Casts Many /HPF Urine Mucus Marked /LPF Sodium Level 129 mmol/L (136-145) 130 mmol/L (136-145) Potassium Level 4.7 mmol/L (3.5-5.1) 4.7 mmol/L (3.5-5.1) Chloride Level 94 mmol/L (98-107) 96 mmol/L (98-107) Carbon Dioxide Level 26 mmol/L (21-32) 22 mmol/L (21-32) Anion Gap 9 (6-14) 12 (6-14) Blood Urea Nitrogen 25 mg/dL (8-26) 26 mg/dL (8-26) Creatinine 2.1 mg/dL (0.7-1.3) 2.6 mg/dL (0.7-1.3) Estimated GFR (Cockcroft-Gault) 33.5 26.2 Glucose Level 245 mg/dL (70-99) 290 mg/dL (70-99) Lactic Acid Level 0.9 mmol/L (0.4-2.0) Calcium Level 7.9 mg/dL (8.5-10.1) 7.6 mg/dL (8.5-10.1) O2 Saturation 90 % (92-99) Arterial Blood pH 7.38 (7.35-7.45) Arterial Blood pH (Temp corrected) 7.35 Arterial Blood pCO2 at Patient Temp 38 mmHg (35-46) Arterial Blood pCO2 (Temp correct) 42 mmHg Arterial Blood pO2 at Patient Temp 61 mmHg (75-108) Arterial Blood pO2 (Temp corrected) 72 mmHg Arterial Blood HCO3 22 mmol/L (21-28) Arterial Blood Base Excess -3 mmol/L (-3-3) Methemoglobin 0.5 % (0.0-1.9) Carbon Monoxide, Quantitative 0.4 % (0.0-1.9) FiO2 48 Segmented Neutrophils % 61 % (35-66) Band Neutrophils % 30 % (0-9) Lymphocytes % 6 % (24-48) Monocytes % 3 % (0-10) Platelet Estimate Adequate (ADEQUATE) BUN/Creatinine Ratio 10 (6-20) Total Bilirubin 0.3 mg/dL (0.2-1.0) Aspartate Amino Transf (AST/SGOT) 12 U/L (15-37) Alanine Aminotransferase (ALT/SGPT) 11 U/L (16-63) Alkaline Phosphatase 114 U/L (46-116) Total Protein 5.8 g/dL (6.4-8.2) Albumin 1.7 g/dL (3.4-5.0) Albumin/Globulin Ratio 0.4 (1.0-1.7) Glucose (Fingerstick) 343 mg/dL (70-99) Medications Current Medications Aspirin (Children'S Aspirin) 324 mg 1X ONCE PO Last administered on 06/12/18at 22:02; Start 06/12/18 at 22:00; Stop 06/12/18 at 22:01; Status DC Hydromorphone HCl (Dilaudid) 0.5 mg PRN Q15MIN PRN IV/SQ PAIN GREATER THAN 3/ 10 Last administered on 06/12/18at 22:55; Start 06/12/18 at 21:30; Stop 06/13/18 at 12:44; Status DC Sodium Chloride 1,000 ml @ 1,000 mls/hr Q1H IV Last administered on 06/12/18 22:08; Start 06/12/18 at 22:00; Stop 06/12/18 at 22:59; Status DC Ondansetron HCl (Zofran) 4 mg 1X ONCE IV Last administered on 06/12/18at 22:05 ; Start 06/12/18 at 22:30; Stop 06/12/18 at 22:31; Status DC Ondansetron HCl (Zofran) 4 mg STK-MED ONCE .ROUTE ; Start 06/12/18 at 22:03; Stop 06/12/18 at 22:04; Status DC Ondansetron HCl (Zofran) 4 mg PRN Q8HRS PRN IV NAUSEA/VOMITING 1ST CHOICE Last administered on 06/13/18 12:24; Start 06/12/18 at 22:15; Stop 06/13/18 at 18:17 ; Status DC Fentanyl Citrate (Fentanyl 2ml Vial) 50 mcg PRN Q1HR PRN IV SEVERE PAIN Last administered on 06/13/18 17:37; Start 06/12/18 at 22:15; Stop 06/13/18 at 18:17 ; Status DC Sodium Chloride 1,000 ml @ 125 mls/hr Q8H IV Last administered on 06/13/18 14 :28; Start 06/12/18 at 22:30; Stop 06/13/18 at 22:29; Status DC Nicotine (Nicoderm Cq 21mg) 1 patch DAILY TD Last administered on 06/16/18at 07: 50; Start 06/13/18 at 09:00 Amlodipine Besylate (Norvasc) 10 mg DAILY PO Last administered on 06/15/18 08: 26; Start 06/13/18 at 10:00 Atorvastatin Calcium (Lipitor) 20 mg HS PO Last administered on 06/15/18 20:56 ; Start 06/13/18 at 21:00 Carvedilol (Coreg) 12.5 mg BIDWMEALS PO Last administered on 06/15/18 17:13; Start 06/13/18 at 10:00 Alprazolam (Xanax) 2 mg PRN TID PRN PO ANXIETY / AGITATION Last administered on 06/14/18 21:19; Start 06/13/18 at 09:30 Gabapentin (Neurontin) 900 mg TID PO Last administered on 06/15/18at 20:55; Start 06/13/18 at 10:00 Lisinopril (Prinivil) 40 mg DAILY PO Last administered on 06/15/18at 08:27; Start 06/13/18 at 10:00 Non-Formulary Medication (Melatonin ) 1 tab QHS PO ; Start 06/13/18 at 21:00; Status UNV Spironolactone (Aldactone) 25 mg DAILY PO Last administered on 06/16/18at 07:52 ; Start 06/13/18 at 10:00 Aspirin (Children'S Aspirin) 81 mg DAILY PO Last administered on 06/16/18 07: 51; Start 06/13/18 at 10:00 Pantoprazole Sodium (PROTONIX VIAL for IV PUSH) 40 mg DAILYAC IVP Last administered on 06/16/18at 07:50; Start 06/13/18 at 16:30 Multi-Ingredient Mouthwash/Gargle (Gi Cocktail) 20 ml PRN QID PRN PO CHEST PAIN Last administered on 06/15/18at 15:18; Start 06/13/18 at 13:45 Sucralfate (Carafate) 1 gm BID PEG Last administered on 06/16/18 07:50; Start 06/13/18 at 21:00 Iohexol (Omnipaque 300 Mg/ml) 60 ml 1X ONCE IV Last administered on 06/13/18at 15:23; Start 06/13/18 at 14:30; Stop 06/13/18 at 14:31; Status DC Iohexol (Omnipaque 240 Mg/ml) 30 ml 1X ONCE PO Last administered on 06/13/18at 14:30; Start 06/13/18 at 14:30; Stop 06/13/18 at 14:31; Status DC Info (CONTRAST GIVEN -- Rx MONITORING) 1 each PRN DAILY PRN MC SEE COMMENTS; Start 06/13/18 at 14:30; Stop 06/15/18 at 14:29; Status DC Enoxaparin Sodium (Lovenox 40mg Syringe) 40 mg Q24H SQ Last administered on at 15:17; Start 06/13/18 at 16:00 Insulin Human Lispro (HumaLOG) 0-5 UNITS TIDWMEALS SQ Last administered on 06/13at 17:33; Start 06/13/18 at 17:00; Stop 06/14/18 at 00:14; Status DC Dextrose (Dextrose 50%-Water Syringe) 12.5 gm PRN Q15MIN PRN IV SEE COMMENTS; Start 06/13/18 at 16:00; Stop 06/14/18 at 00:16; Status DC Fentanyl Citrate (Fentanyl 2ml Vial) 50 mcg PRN Q2HR PRN IV PAIN Last administered on 06/16/18at 05:47; Start 06/13/18 at 18:15 Ondansetron HCl (Zofran) 4 mg PRN Q6HRS PRN IV NAUSEA/VOMITING Last administered on 06/15/18at 10:32; Start 06/13/18 at 18:15 Insulin Human Lispro (HumaLOG) 0-9 UNITS TIDWMEALHC SQ ; Start 06/14/18 at 08:00 ; Status Cancel Dextrose (Dextrose 50%-Water Syringe) 12.5 gm PRN Q15MIN PRN IV SEE COMMENTS; Start 06/14/18 at 00:15; Stop 06/14/18 at 00:35; Status DC Dextrose (Dextrose 50%-Water Syringe) 12.5 gm PRN Q15MIN PRN IV SEE COMMENTS; Start 06/14/18 at 00:15; Status UNV Insulin Human Lispro (HumaLOG) 0-9 UNITS TIDWMEALHC SQ Last administered on at 08:04; Start 06/14/18 at 01:00 Dextrose (Dextrose 50%-Water Syringe) 12.5 gm PRN Q15MIN PRN IV SEE COMMENTS; Start 06/14/18 at 00:30 Insulin Human Lispro (HumaLOG) 5 units TIDAC SQ Last administered on 06/16/18at 08:03; Start 06/14/18 at 07:30 Throat Lozenges (Cepacol Sore Throat Lozenge) 1 josé miguel PRN Q2HRS PRN PO SORE THROAT Last administered on 06/14/18at 00:52; Start 06/14/18 at 00:45 Insulin Glargine (Lantus) 5 units 1X ONCE SQ Last administered on 06/14/18at 00 :58; Start 06/14/18 at 01:00; Stop 06/14/18 at 01:01; Status DC Oxycodone HCl (OxyCONTIN) 10 mg Q12HR PO Last administered on 06/15/18at 20:56; Start 06/14/18 at 10:00 Docusate Sodium (Colace) 100 mg PRN DAILY PRN PO HARD STOOLS; Start 06/14/18 at 09:45 Polyethylene Glycol (miraLAX PACKET) 17 gm PRN DAILY PRN PO CONSTIPATION; Start 06/14/18 at 09:45 Albuterol/ Ipratropium (Duoneb) 3 ml RTQID NEB Last administered on 06/15/18at 20:18; Start 06/15/18 at 08:00; Stop 06/15/18 at 21:51; Status DC Albuterol/ Ipratropium (Duoneb) 3 ml Q4HRS W/A NEB Last administered on at 07:43; Start 06/15/18 at 22:00 Vancomycin HCl (Vanco Per Pharmacy) 1 each PRN DAILY PRN MC SEE COMMENTS Last administered on 06/16/18at 00:03; Start 06/15/18 at 22:00; Stop 06/16/18 at 09:36 ; Status DC Piperacillin Sod/ Tazobactam Sod (Zosyn Per Pharmacy) 1 each PRN DAILY PRN MC SEE COMMENTS; Start 06/15/18 at 22:00 Budesonide (Pulmicort) 0.5 mg RTBID NEB Last administered on 06/16/18at 07:43; Start 06/16/18 at 08:00 Budesonide (Pulmicort) 0.5 mg 1X ONCE NEB ; Start 06/15/18 at 22:00; Stop 06/15 at 22:01; Status DC Piperacillin Sod/ Tazobactam Sod 3.375 gm/Sodium Chloride 50 ml @ 100 mls/hr Q6HRS IV Last administered on 06/16/18at 05:05; Start 06/15/18 at 22:00 Vancomycin HCl 1.75 gm/Sodium Chloride 500 ml @ 250 mls/hr 1X ONCE IV Last administered on 06/15/18at 22:49; Start 06/15/18 at 23:00; Stop 06/16/18 at 00:59 ; Status DC Acetaminophen (Tylenol) 650 mg PRN Q6HRS PRN PO temp Last administered on at 05:03; Start 06/15/18 at 22:15 Vancomycin HCl 1 gm/Sodium Chloride 250 ml @ 250 mls/hr Q24H IV ; Start at 23:00; Stop 06/16/18 at 23:00; Status DC Vancomycin HCl (Vancomycin Trough Level) 1 each 1X ONCE MC ; Start 06/17/18 at 22:30; Stop 06/17/18 at 22:30; Status DC Active Scripts Active Reported Tylenol (Acetaminophen) 325 Mg Tablet 650 Mg PO Q6HRS PRN Ibuprofen 800 Mg Tablet 800 Mg PO BID PRN Gabapentin 600 Mg Tablet 900 Mg PO TID Aspirin 81 Mg Tab.chew 81 Mg PO DAILY Spironolactone 25 Mg Tablet 25 Mg PO DAILY Amlodipine Besylate 10 Mg Tablet 10 Mg PO DAILY Coreg (Carvedilol) 12.5 Mg Tablet 12.5 Mg PO BIDWMEALS Atorvastatin Calcium 20 Mg Tablet 20 Mg PO HS Melatonin 3 Mg Tablet 1 Tab PO QHS Novolog Mix 70-30 Vial (Insuln Asp Prt/Insulin Aspart) 100 Unit/1 Ml Vial 0 SQ BIDAC Lisinopril 40 Mg Tablet 40 Mg PO DAILY Xanax (Alprazolam) 2 Mg Tablet 1 Tab PO TID PRN Vitals/I & O Vital Sign - Last 24 Hours 06/15/18 06/15/18 06/15/18 06/15/18 11:55 12:25 12:35 15:00 Temp 98.5 99.7 98.5 99.7 Pulse 91 86 Resp 16 16 B/P (MAP) 118/61 (80) 97/56 (70) Pulse Ox 90 95 95 O2 Delivery Nasal Cannula Room Air Nasal Cannula Room Air O2 Flow Rate 3.0 3.0 06/15/18 06/15/18 06/15/18 06/15/18 15:58 17:13 19:05 19:15 Temp 99.4 99.4 Pulse 91 105 Resp 18 B/P (MAP) 119/61 134/62 (86) Pulse Ox 95 O2 Delivery Nasal Cannula Nasal Cannula Nasal Cannula O2 Flow Rate 2.0 3.0 1.0 06/15/18 06/15/18 06/15/18 06/15/18 20:18 20:56 21:34 21:45 Temp 103.6 103.6 Pulse 114 Resp 24 26 B/P (MAP) 124/81 (95) Pulse Ox 96 70 90 O2 Delivery Nasal Cannula Nasal Cannula Nasal Cannula Nasal Cannula O2 Flow Rate 1.0 1.0 1.0 6.0 06/15/18 06/15/18 06/15/18 06/15/18 22:45 22:55 23:00 23:45 Temp 103.0 103.0 Pulse 105 Resp 24 B/P (MAP) 124/62 (82) Pulse Ox 88 90 92 O2 Delivery Nasal Cannula Nasal Cannula Nasal Cannula O2 Flow Rate 7.0 12.0 5.0 06/15/18 06/16/18 06/16/18 06/16/18 23:48 00:30 01:33 02:13 Temp 99.3 99.3 Pulse 98 96 92 Resp 22 B/P (MAP) 101/58 (72) Pulse Ox 91 92 89 O2 Delivery Venturi Mask Venturi Mask Nasal Cannula Venturi Mask O2 Flow Rate 5.0 06/16/18 06/16/18 06/16/18 06/16/18 05:00 05:27 05:38 05:47 Temp 98.1 98.1 Pulse 85 Resp 22 Pulse Ox 91 85 83 91 O2 Delivery Venturi Mask Nasal Cannula Venturi Mask Venturi Mask O2 Flow Rate 4.0 06/16/18 06/16/18 06/16/18 06/16/18 05:52 06:17 07:00 07:45 Temp 97.5 97.5 Pulse 79 Resp 18 B/P (MAP) 91/52 (65) Pulse Ox 90 90 94 90 O2 Delivery Venturi Mask Venturi Mask Venturi Mask Venturi Mask O2 Flow Rate 15.0 15.0 Intake and Output 06/15/18 06/15/18 06/16/18 15:00 23:00 07:00 Intake Total 0 ml 0 ml Output Total 700 ml Balance 0 ml -700 ml Nutrition Consultation Dietary Evaluation: Recommendations by RD: Increase Calorie Intake, Protein supplementation Comments: ensure clear tid while on clear liquids Expected Outcomes/Goals: diet adv/ tolerance to meet > 75% est nutr needs Interpretation of weight loss: >7.5% in 3 months Malnutrition Findings: Food and Nutrition Intake (Sev: <50% est energy req 5days Body Fat Depletion (Non Severe: Mild Depletion Weight Status: Underweight TERMULO,BENSON Y MD Jun 16, 2018 10:27
[2018-06-16 10:53] VITALS: BP 90/52
[2018-06-16] MEDS: GABAPENTIN 300 MG CAPSULE. PO SCH ×3 (10:59→20:49)
--- NOTE | 2018-06-16 11:00 | NUR ---
Per Dr. Johnson held pain meds this morning
--- NOTE | 2018-06-16 11:13 | PDOC2 ---
CONSULT Date of Consult Date of Consult DATE: 06/16/18 TIME: 11:05 History of Present Illness Reason for Visit: THIS IS A 53 YR OLD WITH CHEST DISCOMFORT AND POOR PO INTAKE. ALSO HAS HAD SOME ABD PAIN FOR A FEW WEEKS. NOTED TO HAVE A RECENT DX OF ESOPHAGEAL CANCER. HE WAS SCHEDULED TO GO TO [facility] TO SEE GI BUT HAD NOT MADE IT YET. STATED THAT HE HAS NOT BEEN ABLE TO EAT MUCH SINCE ABOUT . HAS SOME UNQUANTIFIED WEIGHT LOSS ALSO. CR OF 2.6 NOW. RECORDS SHOWED CKD STAGE 3 WITH CR IN THE 1.3- 1.7 RANGE IN THE PAST. NO NEPHROTOXINS OR HEMODYNAMIC INSTABILITY NOTED. NO OTHER HX REPORTED Past Medical History Cardiovascular: HTN, Other Pulmonary: No pertinent hx CENTRAL NERVOUS SYSTEM: Periperal neuropathy GI: No pertinent hx Heme/Onc: No pertinent hx Hepatobiliary: No pertinent hx Psych: Anxiety, Depression Musculoskeletal: Osteoarthritis Rheumatologic: No pertinent hx Infectious disease: No pertinent hx Renal/: No pertinent hx Endocrine: Diabetes Past Surgical History Past Surgical History: Other Family History Family History: Coronary Artery Disease, Hypertension Social History <1 pack per day ALCOHOL: social Drugs: Marijuana Lives: with Family Domestic Violence: Neg Current Problem List Problem List Problems Medical Problems: (1) Chest pain Status: Acute (2) Intractable abdominal pain Status: Acute Current Medications Current Medications Current Medications Aspirin (Children'S Aspirin) 324 mg 1X ONCE PO Last administered on 06/12/18at 22:02; Start 06/12/18 at 22:00; Stop 06/12/18 at 22:01; Status DC Hydromorphone HCl (Dilaudid) 0.5 mg PRN Q15MIN PRN IV/SQ PAIN GREATER THAN 3/ 10 Last administered on 06/12/18at 22:55; Start 06/12/18 at 21:30; Stop 06/13/18 at 12:44; Status DC Sodium Chloride 1,000 ml @ 1,000 mls/hr Q1H IV Last administered on 06/12/18at 22:08; Start 06/12/18 at 22:00; Stop 06/12/18 at 22:59; Status DC Ondansetron HCl (Zofran) 4 mg 1X ONCE IV Last administered on 06/12/18at 22:05 ; Start 06/12/18 at 22:30; Stop 06/12/18 at 22:31; Status DC Ondansetron HCl (Zofran) 4 mg STK-MED ONCE .ROUTE ; Start 06/12/18 at 22:03; Stop 06/12/18 at 22:04; Status DC Ondansetron HCl (Zofran) 4 mg PRN Q8HRS PRN IV NAUSEA/VOMITING 1ST CHOICE Last administered on 06/13/18 12:24; Start 06/12/18 at 22:15; Stop 06/13/18 at 18:17 ; Status DC Fentanyl Citrate (Fentanyl 2ml Vial) 50 mcg PRN Q1HR PRN IV SEVERE PAIN Last administered on 06/13/18 17:37; Start 06/12/18 at 22:15; Stop 06/13/18 at 18:17 ; Status DC Sodium Chloride 1,000 ml @ 125 mls/hr Q8H IV Last administered on 06/13/18 14 :28; Start 06/12/18 at 22:30; Stop 06/13/18 at 22:29; Status DC Nicotine (Nicoderm Cq 21mg) 1 patch DAILY TD Last administered on 06/16/18 07: 50; Start 06/13/18 at 09:00 Amlodipine Besylate (Norvasc) 10 mg DAILY PO Last administered on 06/15/18 08: 26; Start 06/13/18 at 10:00 Atorvastatin Calcium (Lipitor) 20 mg HS PO Last administered on 06/15/18 20:56 ; Start 06/13/18 at 21:00 Carvedilol (Coreg) 12.5 mg BIDWMEALS PO Last administered on 06/15/18 17:13; Start 06/13/18 at 10:00 Alprazolam (Xanax) 2 mg PRN TID PRN PO ANXIETY / AGITATION Last administered on 06/14/18 21:19; Start 06/13/18 at 09:30 Gabapentin (Neurontin) 900 mg TID PO Last administered on 06/16/18 10:59; Start 06/13/18 at 10:00 Lisinopril (Prinivil) 40 mg DAILY PO Last administered on 06/15/18 08:27; Start 06/13/18 at 10:00 Non-Formulary Medication (Melatonin ) 1 tab QHS PO ; Start 06/13/18 at 21:00; Status UNV Spironolactone (Aldactone) 25 mg DAILY PO Last administered on 06/16/18at 07:52 ; Start 06/13/18 at 10:00 Aspirin (Children'S Aspirin) 81 mg DAILY PO Last administered on 06/16/18at 07: 51; Start 06/13/18 at 10:00 Pantoprazole Sodium (PROTONIX VIAL for IV PUSH) 40 mg DAILYAC IVP Last administered on 06/16/18at 07:50; Start 06/13/18 at 16:30 Multi-Ingredient Mouthwash/Gargle (Gi Cocktail) 20 ml PRN QID PRN PO CHEST PAIN Last administered on 06/15/18at 15:18; Start 06/13/18 at 13:45 Sucralfate (Carafate) 1 gm BID PEG Last administered on 06/16/18at 07:50; Start 06/13/18 at 21:00 Iohexol (Omnipaque 300 Mg/ml) 60 ml 1X ONCE IV Last administered on 06/13/18at 15:23; Start 06/13/18 at 14:30; Stop 06/13/18 at 14:31; Status DC Iohexol (Omnipaque 240 Mg/ml) 30 ml 1X ONCE PO Last administered on 06/13/18at 14:30; Start 06/13/18 at 14:30; Stop 06/13/18 at 14:31; Status DC Info (CONTRAST GIVEN -- Rx MONITORING) 1 each PRN DAILY PRN MC SEE COMMENTS; Start 06/13/18 at 14:30; Stop 06/15/18 at 14:29; Status DC Enoxaparin Sodium (Lovenox 40mg Syringe) 40 mg Q24H SQ Last administered on at 15:17; Start 06/13/18 at 16:00 Insulin Human Lispro (HumaLOG) 0-5 UNITS TIDWMEALS SQ Last administered on 06/13at 17:33; Start 06/13/18 at 17:00; Stop 06/14/18 at 00:14; Status DC Dextrose (Dextrose 50%-Water Syringe) 12.5 gm PRN Q15MIN PRN IV SEE COMMENTS; Start 06/13/18 at 16:00; Stop 06/14/18 at 00:16; Status DC Fentanyl Citrate (Fentanyl 2ml Vial) 50 mcg PRN Q2HR PRN IV PAIN Last administered on 06/16/18at 05:47; Start 06/13/18 at 18:15 Ondansetron HCl (Zofran) 4 mg PRN Q6HRS PRN IV NAUSEA/VOMITING Last administered on 06/15/18at 10:32; Start 06/13/18 at 18:15 Insulin Human Lispro (HumaLOG) 0-9 UNITS TIDWMEALHC SQ ; Start 06/14/18 at 08:00 ; Status Cancel Dextrose (Dextrose 50%-Water Syringe) 12.5 gm PRN Q15MIN PRN IV SEE COMMENTS; Start 06/14/18 at 00:15; Stop 06/14/18 at 00:35; Status DC Dextrose (Dextrose 50%-Water Syringe) 12.5 gm PRN Q15MIN PRN IV SEE COMMENTS; Start 06/14/18 at 00:15; Status UNV Insulin Human Lispro (HumaLOG) 0-9 UNITS TIDWMEALHC SQ Last administered on at 08:04; Start 06/14/18 at 01:00 Dextrose (Dextrose 50%-Water Syringe) 12.5 gm PRN Q15MIN PRN IV SEE COMMENTS; Start 06/14/18 at 00:30 Insulin Human Lispro (HumaLOG) 5 units TIDAC SQ Last administered on 06/16/18at 08:03; Start 06/14/18 at 07:30 Throat Lozenges (Cepacol Sore Throat Lozenge) 1 josé miguel PRN Q2HRS PRN PO SORE THROAT Last administered on 06/14/18at 00:52; Start 06/14/18 at 00:45 Insulin Glargine (Lantus) 5 units 1X ONCE SQ Last administered on 06/14/18at 00 :58; Start 06/14/18 at 01:00; Stop 06/14/18 at 01:01; Status DC Oxycodone HCl (OxyCONTIN) 10 mg Q12HR PO Last administered on 06/15/18at 20:56; Start 06/14/18 at 10:00 Docusate Sodium (Colace) 100 mg PRN DAILY PRN PO HARD STOOLS; Start 06/14/18 at 09:45 Polyethylene Glycol (miraLAX PACKET) 17 gm PRN DAILY PRN PO CONSTIPATION; Start 06/14/18 at 09:45 Albuterol/ Ipratropium (Duoneb) 3 ml RTQID NEB Last administered on 06/15/18at 20:18; Start 06/15/18 at 08:00; Stop 06/15/18 at 21:51; Status DC Albuterol/ Ipratropium (Duoneb) 3 ml Q4HRS W/A NEB Last administered on at 07:43; Start 06/15/18 at 22:00 Vancomycin HCl (Vanco Per Pharmacy) 1 each PRN DAILY PRN MC SEE COMMENTS Last administered on 06/16/18at 00:03; Start 06/15/18 at 22:00; Stop 06/16/18 at 09:36 ; Status DC Piperacillin Sod/ Tazobactam Sod (Zosyn Per Pharmacy) 1 each PRN DAILY PRN MC SEE COMMENTS; Start 06/15/18 at 22:00 Budesonide (Pulmicort) 0.5 mg RTBID NEB Last administered on 06/16/18at 07:43; Start 06/16/18 at 08:00 Budesonide (Pulmicort) 0.5 mg 1X ONCE NEB ; Start 06/15/18 at 22:00; Stop 06/15 at 22:01; Status DC Piperacillin Sod/ Tazobactam Sod 3.375 gm/Sodium Chloride 50 ml @ 100 mls/hr Q6HRS IV Last administered on 06/16/18at 05:05; Start 06/15/18 at 22:00 Vancomycin HCl 1.75 gm/Sodium Chloride 500 ml @ 250 mls/hr 1X ONCE IV Last administered on 06/15/18at 22:49; Start 06/15/18 at 23:00; Stop 06/16/18 at 00:59 ; Status DC Acetaminophen (Tylenol) 650 mg PRN Q6HRS PRN PO temp Last administered on at 05:03; Start 06/15/18 at 22:15 Vancomycin HCl 1 gm/Sodium Chloride 250 ml @ 250 mls/hr Q24H IV ; Start at 23:00; Stop 06/16/18 at 23:00; Status DC Vancomycin HCl (Vancomycin Trough Level) 1 each 1X ONCE MC ; Start 06/17/18 at 22:30; Stop 06/17/18 at 22:30; Status DC Active Scripts Active Reported Tylenol (Acetaminophen) 325 Mg Tablet 650 Mg PO Q6HRS PRN Ibuprofen 800 Mg Tablet 800 Mg PO BID PRN Gabapentin 600 Mg Tablet 900 Mg PO TID Aspirin 81 Mg Tab.chew 81 Mg PO DAILY Spironolactone 25 Mg Tablet 25 Mg PO DAILY Amlodipine Besylate 10 Mg Tablet 10 Mg PO DAILY Coreg (Carvedilol) 12.5 Mg Tablet 12.5 Mg PO BIDWMEALS Atorvastatin Calcium 20 Mg Tablet 20 Mg PO HS Melatonin 3 Mg Tablet 1 Tab PO QHS Novolog Mix 70-30 Vial (Insuln Asp Prt/Insulin Aspart) 100 Unit/1 Ml Vial 0 SQ BIDAC Lisinopril 40 Mg Tablet 40 Mg PO DAILY Xanax (Alprazolam) 2 Mg Tablet 1 Tab PO TID PRN Allergies Allergies: Coded Allergies: No Known Drug Allergies (Unverified , 09/05/13) ROS General: YES: Fatigue, Appetite PSYCHOLOGICAL ROS: YES: Anxiety, Depression Eyes: Yes Decreased vision HEENT: YES: Heacaches Respiratory: YES: Cough Cardiovascular: yes Chest Pain Gastrointestinal: Yes Nausea, Yes Abdominal Pain Genitourinary: YES Other (NOCTURIA) Musculoskeletal: Yes Muscular Weakness Neurological: Yes Weakness Skin: Yes Dry Skin Physical Exam General: Alert, Oriented X3, Cooperative, No acute distress HEENT: Atraumatic, PERRLA, EOMI, Mucous membr. moist/pink Lungs: Clear to auscultation Heart: Regular rate, Normal S1, Normal S2 Abdomen: Normal bowel sounds, Soft Extremities: No clubbing, No cyanosis Skin: No breakdown Neuro: Normal speech, Sensation intact, Cranial nerves 3-12 NL Psych/Mental Status: Mental status NL, Mood NL MUSCULOSKELETAL: No joint tenderness, No deformity Vitals VITALS Vital Signs Date Time Temp Pulse Resp B/P (MAP) Pulse Ox O2 Delivery O2 Flow Rate FiO2 06/16/18 10:53 97.9 75 16 90/52 (65) 97 Room Air 97.9 06/16/18 07:45 15.0 Labs Labs Laboratory Tests Test 06/14/18 12:07 06/14/18 16:59 06/14/18 20:15 06/15/18 04:55 Glucose (Fingerstick) 322 mg/dL (70-99) 64 mg/dL (70-99) 235 mg/dL (70-99) Sodium Level 131 mmol/L (136-145) Potassium Level 4.1 mmol/L (3.5-5.1) Chloride Level 97 mmol/L (98-107) Carbon Dioxide Level 26 mmol/L (21-32) Anion Gap 8 (6-14) Blood Urea Nitrogen 17 mg/dL (8-26) Creatinine 1.8 mg/dL (0.7-1.3) Estimated GFR (Cockcroft-Gault) 40.0 Glucose Level 275 mg/dL (70-99) Calcium Level 8.0 mg/dL (8.5-10.1) Test 06/15/18 06:00 06/15/18 08:13 06/15/18 10:57 06/15/18 17:15 White Blood Count 11.0 x10^3/uL (4.0-11.0) Red Blood Count 2.96 x10^6/uL (4.30-5.70) Hemoglobin 8.6 g/dL (13.0-17.5) Hematocrit 26.2 % (39.0-53.0) Mean Corpuscular Volume 89 fL (79-100) Mean Corpuscular Hemoglobin 29 pg (25-35) Mean Corpuscular Hemoglobin Concent 33 g/dL (31-37) Red Cell Distribution Width 13.5 % (11.5-14.5) Platelet Count 246 x10^3/uL (140-400) Neutrophils (%) (Auto) 74 % (31-73) Lymphocytes (%) (Auto) 17 % (24-48) Monocytes (%) (Auto) 7 % (0-9) Eosinophils (%) (Auto) 2 % (0-3) Basophils (%) (Auto) 1 % (0-3) Neutrophils # (Auto) 8.1 x10^3uL (1.8-7.7) Lymphocytes # (Auto) 1.8 x10^3/uL (1.0-4.8) Monocytes # (Auto) 0.8 x10^3/uL (0.0-1.1) Eosinophils # (Auto) 0.2 x10^3/uL (0.0-0.7) Basophils # (Auto) 0.1 x10^3/uL (0.0-0.2) Glucose (Fingerstick) 298 mg/dL (70-99) 179 mg/dL (70-99) 123 mg/dL (70-99) Test 06/15/18 20:44 06/15/18 21:55 06/15/18 22:30 06/15/18 22:48 Glucose (Fingerstick) 197 mg/dL (70-99) Influenza Type A Antigen Negative (NEGATIVE) Influenza Type B Antigen Negative (NEGATIVE) White Blood Count 9.1 x10^3/uL (4.0-11.0) Red Blood Count 3.15 x10^6/uL (4.30-5.70) Hemoglobin 9.2 g/dL (13.0-17.5) Hematocrit 27.7 % (39.0-53.0) Mean Corpuscular Volume 88 fL (79-100) Mean Corpuscular Hemoglobin 29 pg (25-35) Mean Corpuscular Hemoglobin Concent 33 g/dL (31-37) Red Cell Distribution Width 13.5 % (11.5-14.5) Platelet Count 246 x10^3/uL (140-400) Neutrophils (%) (Auto) 88 % (31-73) Lymphocytes (%) (Auto) 7 % (24-48) Monocytes (%) (Auto) 5 % (0-9) Eosinophils (%) (Auto) 1 % (0-3) Basophils (%) (Auto) 1 % (0-3) Neutrophils # (Auto) 8.0 x10^3uL (1.8-7.7) Lymphocytes # (Auto) 0.6 x10^3/uL (1.0-4.8) Monocytes # (Auto) 0.4 x10^3/uL (0.0-1.1) Eosinophils # (Auto) 0.0 x10^3/uL (0.0-0.7) Basophils # (Auto) 0.0 x10^3/uL (0.0-0.2) Urine Collection Type U cath Urine Color Yellow Urine Clarity Clear Urine pH 5.5 Urine Specific [place] 1.020 Urine Protein 100 mg/dL (NEG-TRACE) Urine Glucose (UA) 250 mg/dL (NEG) Urine Ketones (Stick) Negative mg/dL (NEG) Urine Blood Small (NEG) Urine Nitrite Negative (NEG) Urine Bilirubin Negative (NEG) Urine Urobilinogen Dipstick 0.2 mg/dL (0.2 mg/dL) Urine Leukocyte Esterase Moderate (NEG) Urine RBC 3-5 /HPF (0-2) Urine WBC 11-20 /HPF (0-4) Urine Squamous Epithelial Cells None /LPF Urine Amorphous Sediment Present /HPF Urine Bacteria 0 /HPF (0-FEW) Urine Hyaline Casts Many /HPF Urine Mucus Marked /LPF Sodium Level 129 mmol/L (136-145) Potassium Level 4.7 mmol/L (3.5-5.1) Chloride Level 94 mmol/L (98-107) Carbon Dioxide Level 26 mmol/L (21-32) Anion Gap 9 (6-14) Blood Urea Nitrogen 25 mg/dL (8-26) Creatinine 2.1 mg/dL (0.7-1.3) Estimated GFR (Cockcroft-Gault) 33.5 Glucose Level 245 mg/dL (70-99) Lactic Acid Level 0.9 mmol/L (0.4-2.0) Calcium Level 7.9 mg/dL (8.5-10.1) O2 Saturation 90 % (92-99) Arterial Blood pH 7.38 (7.35-7.45) Arterial Blood pH (Temp corrected) 7.35 Arterial Blood pCO2 at Patient Temp 38 mmHg (35-46) Arterial Blood pCO2 (Temp correct) 42 mmHg Arterial Blood pO2 at Patient Temp 61 mmHg (75-108) Arterial Blood pO2 (Temp corrected) 72 mmHg Arterial Blood HCO3 22 mmol/L (21-28) Arterial Blood Base Excess -3 mmol/L (-3-3) Methemoglobin 0.5 % (0.0-1.9) Carbon Monoxide, Quantitative 0.4 % (0.0-1.9) FiO2 48 Test 06/16/18 04:20 06/16/18 07:26 06/16/18 11:00 White Blood Count 13.0 x10^3/uL (4.0-11.0) Red Blood Count 2.70 x10^6/uL (4.30-5.70) Hemoglobin 8.0 g/dL (13.0-17.5) Hematocrit 24.2 % (39.0-53.0) Mean Corpuscular Volume 90 fL (79-100) Mean Corpuscular Hemoglobin 30 pg (25-35) Mean Corpuscular Hemoglobin Concent 33 g/dL (31-37) Red Cell Distribution Width 13.2 % (11.5-14.5) Platelet Count 233 x10^3/uL (140-400) Neutrophils (%) (Auto) 87 % (31-73) Lymphocytes (%) (Auto) 8 % (24-48) Monocytes (%) (Auto) 5 % (0-9) Eosinophils (%) (Auto) 0 % (0-3) Basophils (%) (Auto) 0 % (0-3) Neutrophils # (Auto) 11.3 x10^3uL (1.8-7.7) Lymphocytes # (Auto) 1.0 x10^3/uL (1.0-4.8) Monocytes # (Auto) 0.7 x10^3/uL (0.0-1.1) Eosinophils # (Auto) 0.0 x10^3/uL (0.0-0.7) Basophils # (Auto) 0.0 x10^3/uL (0.0-0.2) Segmented Neutrophils % 61 % (35-66) Band Neutrophils % 30 % (0-9) Lymphocytes % 6 % (24-48) Monocytes % 3 % (0-10) Platelet Estimate Adequate (ADEQUATE) Sodium Level 130 mmol/L (136-145) Potassium Level 4.7 mmol/L (3.5-5.1) Chloride Level 96 mmol/L (98-107) Carbon Dioxide Level 22 mmol/L (21-32) Anion Gap 12 (6-14) Blood Urea Nitrogen 26 mg/dL (8-26) Creatinine 2.6 mg/dL (0.7-1.3) Estimated GFR (Cockcroft-Gault) 26.2 BUN/Creatinine Ratio 10 (6-20) Glucose Level 290 mg/dL (70-99) Calcium Level 7.6 mg/dL (8.5-10.1) Total Bilirubin 0.3 mg/dL (0.2-1.0) Aspartate Amino Transf (AST/SGOT) 12 U/L (15-37) Alanine Aminotransferase (ALT/SGPT) 11 U/L (16-63) Alkaline Phosphatase 114 U/L (46-116) Total Protein 5.8 g/dL (6.4-8.2) Albumin 1.7 g/dL (3.4-5.0) Albumin/Globulin Ratio 0.4 (1.0-1.7) Glucose (Fingerstick) 343 mg/dL (70-99) 284 mg/dL (70-99) Laboratory Tests Test 06/15/18 17:15 06/15/18 20:44 06/15/18 21:55 06/15/18 22:30 Glucose (Fingerstick) 123 mg/dL (70-99) 197 mg/dL (70-99) Influenza Type A Antigen Negative (NEGATIVE) Influenza Type B Antigen Negative (NEGATIVE) White Blood Count 9.1 x10^3/uL (4.0-11.0) Red Blood Count 3.15 x10^6/uL (4.30-5.70) Hemoglobin 9.2 g/dL (13.0-17.5) Hematocrit 27.7 % (39.0-53.0) Mean Corpuscular Volume 88 fL (79-100) Mean Corpuscular Hemoglobin 29 pg (25-35) Mean Corpuscular Hemoglobin Concent 33 g/dL (31-37) Red Cell Distribution Width 13.5 % (11.5-14.5) Platelet Count 246 x10^3/uL (140-400) Neutrophils (%) (Auto) 88 % (31-73) Lymphocytes (%) (Auto) 7 % (24-48) Monocytes (%) (Auto) 5 % (0-9) Eosinophils (%) (Auto) 1 % (0-3) Basophils (%) (Auto) 1 % (0-3) Neutrophils # (Auto) 8.0 x10^3uL (1.8-7.7) Lymphocytes # (Auto) 0.6 x10^3/uL (1.0-4.8) Monocytes # (Auto) 0.4 x10^3/uL (0.0-1.1) Eosinophils # (Auto) 0.0 x10^3/uL (0.0-0.7) Basophils # (Auto) 0.0 x10^3/uL (0.0-0.2) Urine Collection Type U cath Urine Color Yellow Urine Clarity Clear Urine pH 5.5 Urine Specific [place] 1.020 Urine Protein 100 mg/dL (NEG-TRACE) Urine Glucose (UA) 250 mg/dL (NEG) Urine Ketones (Stick) Negative mg/dL (NEG) Urine Blood Small (NEG) Urine Nitrite Negative (NEG) Urine Bilirubin Negative (NEG) Urine Urobilinogen Dipstick 0.2 mg/dL (0.2 mg/dL) Urine Leukocyte Esterase Moderate (NEG) Urine RBC 3-5 /HPF (0-2) Urine WBC 11-20 /HPF (0-4) Urine Squamous Epithelial Cells None /LPF Urine Amorphous Sediment Present /HPF Urine Bacteria 0 /HPF (0-FEW) Urine Hyaline Casts Many /HPF Urine Mucus Marked /LPF Sodium Level 129 mmol/L (136-145) Potassium Level 4.7 mmol/L (3.5-5.1) Chloride Level 94 mmol/L (98-107) Carbon Dioxide Level 26 mmol/L (21-32) Anion Gap 9 (6-14) Blood Urea Nitrogen 25 mg/dL (8-26) Creatinine 2.1 mg/dL (0.7-1.3) Estimated GFR (Cockcroft-Gault) 33.5 Glucose Level 245 mg/dL (70-99) Lactic Acid Level 0.9 mmol/L (0.4-2.0) Calcium Level 7.9 mg/dL (8.5-10.1) Test 06/15/18 22:48 06/16/18 04:20 06/16/18 07:26 06/16/18 11:00 O2 Saturation 90 % (92-99) Arterial Blood pH 7.38 (7.35-7.45) Arterial Blood pH (Temp corrected) 7.35 Arterial Blood pCO2 at Patient Temp 38 mmHg (35-46) Arterial Blood pCO2 (Temp correct) 42 mmHg Arterial Blood pO2 at Patient Temp 61 mmHg (75-108) Arterial Blood pO2 (Temp corrected) 72 mmHg Arterial Blood HCO3 22 mmol/L (21-28) Arterial Blood Base Excess -3 mmol/L (-3-3) Methemoglobin 0.5 % (0.0-1.9) Carbon Monoxide, Quantitative 0.4 % (0.0-1.9) FiO2 48 White Blood Count 13.0 x10^3/uL (4.0-11.0) Red Blood Count 2.70 x10^6/uL (4.30-5.70) Hemoglobin 8.0 g/dL (13.0-17.5) Hematocrit 24.2 % (39.0-53.0) Mean Corpuscular Volume 90 fL (79-100) Mean Corpuscular Hemoglobin 30 pg (25-35) Mean Corpuscular Hemoglobin Concent 33 g/dL (31-37) Red Cell Distribution Width 13.2 % (11.5-14.5) Platelet Count 233 x10^3/uL (140-400) Neutrophils (%) (Auto) 87 % (31-73) Lymphocytes (%) (Auto) 8 % (24-48) Monocytes (%) (Auto) 5 % (0-9) Eosinophils (%) (Auto) 0 % (0-3) Basophils (%) (Auto) 0 % (0-3) Neutrophils # (Auto) 11.3 x10^3uL (1.8-7.7) Lymphocytes # (Auto) 1.0 x10^3/uL (1.0-4.8) Monocytes # (Auto) 0.7 x10^3/uL (0.0-1.1) Eosinophils # (Auto) 0.0 x10^3/uL (0.0-0.7) Basophils # (Auto) 0.0 x10^3/uL (0.0-0.2) Segmented Neutrophils % 61 % (35-66) Band Neutrophils % 30 % (0-9) Lymphocytes % 6 % (24-48) Monocytes % 3 % (0-10) Platelet Estimate Adequate (ADEQUATE) Sodium Level 130 mmol/L (136-145) Potassium Level 4.7 mmol/L (3.5-5.1) Chloride Level 96 mmol/L (98-107) Carbon Dioxide Level 22 mmol/L (21-32) Anion Gap 12 (6-14) Blood Urea Nitrogen 26 mg/dL (8-26) Creatinine 2.6 mg/dL (0.7-1.3) Estimated GFR (Cockcroft-Gault) 26.2 BUN/Creatinine Ratio 10 (6-20) Glucose Level 290 mg/dL (70-99) Calcium Level 7.6 mg/dL (8.5-10.1) Total Bilirubin 0.3 mg/dL (0.2-1.0) Aspartate Amino Transf (AST/SGOT) 12 U/L (15-37) Alanine Aminotransferase (ALT/SGPT) 11 U/L (16-63) Alkaline Phosphatase 114 U/L (46-116) Total Protein 5.8 g/dL (6.4-8.2) Albumin 1.7 g/dL (3.4-5.0) Albumin/Globulin Ratio 0.4 (1.0-1.7) Glucose (Fingerstick) 343 mg/dL (70-99) 284 mg/dL (70-99) Images Images CT ABD/PELVIS IMPRESSION: 1. Diffuse mural thickening involving the distal esophagus compatible with the history of esophageal malignancy. 2. Dilatation of the thoracic esophagus superior to this level, with a moderate amount retained food in the esophagus. 3. Unchanged moderate sized right pleural effusion with underlying right basilar atelectasis. 4. Decreasing small left pleural effusion. 5. Increasing small pericardial effusion. 6. Additional chronic findings as described above. Assessment/Plan Assessment/Plan IMP CHEST PAIN-MOST LIKELY ESOPHAGEAL IN NATURE ESOPHAGEAL CANCER CKD STAGE 3 WITH CR OF 1.3-1.7 RELATED TO DM II DM II LENNOX WITH CR OF 2.7 DEHYDRATION ANEMIA LEUCOCYTOSIS HYPONATREMIA MALNUTRITION PLAN HYDRATION PPN FOR NOW MAY NEED TPN HOLD HOME ALDACTONE HOLD IBUPROFEN HOLD LISINOPRIL URINE LYTES AND [facility] LABS IN AM NIRMAL HILLMAN MD Jun 16, 2018 11:13
[2018-06-16] MEDS: ONDANSETRON PF 4 MG/2 ML VIAL. IV PRN (12:34)
--- NOTE | 2018-06-16 13:16 | PDOC ---
Subjective: Subjective: Ate grilled cheese Objective: Vital Signs: Vital Signs Date Time Temp Pulse Resp B/P (MAP) Pulse Ox O2 Delivery O2 Flow Rate FiO2 06/16/18 11:26 90 Nasal Cannula 6.5 06/16/18 10:53 97.9 75 16 90/52 (65) 97.9 Labs: Laboratory Tests Test 06/15/18 17:15 06/15/18 20:44 06/15/18 21:55 06/15/18 22:30 Glucose (Fingerstick) 123 mg/dL (70-99) 197 mg/dL (70-99) Influenza Type A Antigen Negative (NEGATIVE) Influenza Type B Antigen Negative (NEGATIVE) White Blood Count 9.1 x10^3/uL (4.0-11.0) Red Blood Count 3.15 x10^6/uL (4.30-5.70) Hemoglobin 9.2 g/dL (13.0-17.5) Hematocrit 27.7 % (39.0-53.0) Mean Corpuscular Volume 88 fL (79-100) Mean Corpuscular Hemoglobin 29 pg (25-35) Mean Corpuscular Hemoglobin Concent 33 g/dL (31-37) Red Cell Distribution Width 13.5 % (11.5-14.5) Platelet Count 246 x10^3/uL (140-400) Neutrophils (%) (Auto) 88 % (31-73) Lymphocytes (%) (Auto) 7 % (24-48) Monocytes (%) (Auto) 5 % (0-9) Eosinophils (%) (Auto) 1 % (0-3) Basophils (%) (Auto) 1 % (0-3) Neutrophils # (Auto) 8.0 x10^3uL (1.8-7.7) Lymphocytes # (Auto) 0.6 x10^3/uL (1.0-4.8) Monocytes # (Auto) 0.4 x10^3/uL (0.0-1.1) Eosinophils # (Auto) 0.0 x10^3/uL (0.0-0.7) Basophils # (Auto) 0.0 x10^3/uL (0.0-0.2) Urine Collection Type U cath Urine Color Yellow Urine Clarity Clear Urine pH 5.5 Urine Specific [place] 1.020 Urine Protein 100 mg/dL (NEG-TRACE) Urine Glucose (UA) 250 mg/dL (NEG) Urine Ketones (Stick) Negative mg/dL (NEG) Urine Blood Small (NEG) Urine Nitrite Negative (NEG) Urine Bilirubin Negative (NEG) Urine Urobilinogen Dipstick 0.2 mg/dL (0.2 mg/dL) Urine Leukocyte Esterase Moderate (NEG) Urine RBC 3-5 /HPF (0-2) Urine WBC 11-20 /HPF (0-4) Urine Squamous Epithelial Cells None /LPF Urine Amorphous Sediment Present /HPF Urine Bacteria 0 /HPF (0-FEW) Urine Hyaline Casts Many /HPF Urine Mucus Marked /LPF Sodium Level 129 mmol/L (136-145) Potassium Level 4.7 mmol/L (3.5-5.1) Chloride Level 94 mmol/L (98-107) Carbon Dioxide Level 26 mmol/L (21-32) Anion Gap 9 (6-14) Blood Urea Nitrogen 25 mg/dL (8-26) Creatinine 2.1 mg/dL (0.7-1.3) Estimated GFR (Cockcroft-Gault) 33.5 Glucose Level 245 mg/dL (70-99) Lactic Acid Level 0.9 mmol/L (0.4-2.0) Calcium Level 7.9 mg/dL (8.5-10.1) Test 06/15/18 22:48 06/16/18 04:20 06/16/18 07:26 06/16/18 11:00 O2 Saturation 90 % (92-99) Arterial Blood pH 7.38 (7.35-7.45) Arterial Blood pH (Temp corrected) 7.35 Arterial Blood pCO2 at Patient Temp 38 mmHg (35-46) Arterial Blood pCO2 (Temp correct) 42 mmHg Arterial Blood pO2 at Patient Temp 61 mmHg (75-108) Arterial Blood pO2 (Temp corrected) 72 mmHg Arterial Blood HCO3 22 mmol/L (21-28) Arterial Blood Base Excess -3 mmol/L (-3-3) Methemoglobin 0.5 % (0.0-1.9) Carbon Monoxide, Quantitative 0.4 % (0.0-1.9) FiO2 48 White Blood Count 13.0 x10^3/uL (4.0-11.0) Red Blood Count 2.70 x10^6/uL (4.30-5.70) Hemoglobin 8.0 g/dL (13.0-17.5) Hematocrit 24.2 % (39.0-53.0) Mean Corpuscular Volume 90 fL (79-100) Mean Corpuscular Hemoglobin 30 pg (25-35) Mean Corpuscular Hemoglobin Concent 33 g/dL (31-37) Red Cell Distribution Width 13.2 % (11.5-14.5) Platelet Count 233 x10^3/uL (140-400) Neutrophils (%) (Auto) 87 % (31-73) Lymphocytes (%) (Auto) 8 % (24-48) Monocytes (%) (Auto) 5 % (0-9) Eosinophils (%) (Auto) 0 % (0-3) Basophils (%) (Auto) 0 % (0-3) Neutrophils # (Auto) 11.3 x10^3uL (1.8-7.7) Lymphocytes # (Auto) 1.0 x10^3/uL (1.0-4.8) Monocytes # (Auto) 0.7 x10^3/uL (0.0-1.1) Eosinophils # (Auto) 0.0 x10^3/uL (0.0-0.7) Basophils # (Auto) 0.0 x10^3/uL (0.0-0.2) Segmented Neutrophils % 61 % (35-66) Band Neutrophils % 30 % (0-9) Lymphocytes % 6 % (24-48) Monocytes % 3 % (0-10) Platelet Estimate Adequate (ADEQUATE) Sodium Level 130 mmol/L (136-145) Potassium Level 4.7 mmol/L (3.5-5.1) Chloride Level 96 mmol/L (98-107) Carbon Dioxide Level 22 mmol/L (21-32) Anion Gap 12 (6-14) Blood Urea Nitrogen 26 mg/dL (8-26) Creatinine 2.6 mg/dL (0.7-1.3) Estimated GFR (Cockcroft-Gault) 26.2 BUN/Creatinine Ratio 10 (6-20) Glucose Level 290 mg/dL (70-99) Calcium Level 7.6 mg/dL (8.5-10.1) Total Bilirubin 0.3 mg/dL (0.2-1.0) Aspartate Amino Transf (AST/SGOT) 12 U/L (15-37) Alanine Aminotransferase (ALT/SGPT) 11 U/L (16-63) Alkaline Phosphatase 114 U/L (46-116) Total Protein 5.8 g/dL (6.4-8.2) Albumin 1.7 g/dL (3.4-5.0) Albumin/Globulin Ratio 0.4 (1.0-1.7) Glucose (Fingerstick) 343 mg/dL (70-99) 284 mg/dL (70-99) Physical Exam: Physical Exam: GEN: NAD HEENT: OP clear CV: S1S2 without murmurs, rubs, or gallops RESP: CTAB without wheezing, rhonchi, or crackles ABD: NABS, SNT/ND EXT: No edema NEURO: AAO x 3 Assessment & Plan: Assessment : A/P: Suspected esophageal cancer, dysphagia Pleural effusion Anemia Plan: -- Oncology following, plans for EUS at [facility]. Thoracentesis tomorrow Supportive care. DI HERNADEZ MD Jun 16, 2018 13:16
[2018-06-16] MEDS: ENOXAPARIN 40 MG/0.4 ML SYRINGE. SQ SCH (14:57)
[2018-06-16 15:00] VITALS: BP 87/50
[2018-06-16] MEDS: AMINO AC 3%/ELECTROLYTE/GLYCER 1,000 ML IV SCH (15:46)
[2018-06-16 19:00] VITALS: BP 91/54
[2018-06-16] MEDS: ATORVASTATIN CALCIUM 20 MG TABLET PO SCH (20:49)
[2018-06-16] MEDS: LACTOBACILLUS RHAMNOSUS GG 1 CAPSULE. PO SCH (20:49)
[2018-06-16] MEDS: ALPRAZolam 1 MG TABLET PO PRN (20:54)
--- NOTE | 2018-06-16 21:47 | CONS ---
DATE OF CONSULTATION: 06/16/2018 REFERRING PHYSICIAN: Dr. Barry. REASON FOR CONSULTATION: Sepsis. HISTORY OF PRESENT ILLNESS: This patient is a 53-year-old male with a past medical history of COPD, ongoing tobaccoism, coronary artery disease, type 2 diabetes and peripheral vascular disease, who reports having a 40-pound weight loss and difficulty swallowing since around 2017. He was evaluated by GI and underwent an EGD on 05/15/2018. Biopsy showed high-grade dysplasia with focal changes suspicious for invasive adenocarcinoma. An abdominal/pelvis CT from 05/20 showed mural thickening involving the distal esophagus as well as increasing small to moderate sized bilateral pleural effusions, right greater than left. He was readmitted on 06/12 with complaints of worsening pain involving chest, abdomen and back areas associated with nausea, vomiting and productive cough. Repeat CT imaging showed diffuse mural thickening involving the distal esophagus compatible with history of esophageal malignancy; dilatation of the thoracic esophagus appeared to this level with moderate amount of retained food in the esophagus; unchanged moderate size right pleural effusion with underlying right basilar atelectasis; and increasing small pericardial effusion. He is scheduled to undergo an IR-guided thoracentesis tomorrow. Since admission, he developed a fever of 103.6 with chills and an increased WBC count of 13,000; segs 61% and bands 30%. His renal function worsened. Influenza screen was negative. He was dosed with vancomycin and Zosyn per primary. ID has been asked to consult for further evaluation and antibiotic management. The patient says he was "out of that last night." He is feeling better this morning and a little hungry. He denies headache, nasal/sinus congestion or sore throat. Denies nausea, vomiting or diarrhea. A Aparicio catheter was placed recently. He does not have any central lines. He reports a mild cough with phlegm production with some shortness of air. He is requiring 6 liters of supplemental oxygen. PAST MEDICAL HISTORY: Peripheral vascular disease, COPD, tobaccoism, type 2 diabetes mellitus, coronary artery disease, hyperlipidemia, chronic diastolic heart failure, depression, anxiety, history of seizures, retinopathy, gastroesophageal reflux, left renal artery stenosis, osteoarthritis, chronic kidney disease. PAST SURGICAL HISTORY: Left lower extremity angioplasty. Cardiac catheterization on 05/20/2018. Cataract extraction. Left knee and left forearm surgery. SOCIAL HISTORY: The patient is currently . He lives at home by himself. He is a smoker along with marijuana use. He is on disability. FAMILY HISTORY: Positive for hypertension and coronary artery disease. ALLERGIES: No known drug allergies. MEDICATIONS: Vancomycin, Zosyn. Other medications are available and have been reviewed on the MAR. REVIEW OF SYSTEMS: Per HPI, otherwise all other review of systems are negative. PHYSICAL EXAMINATION: VITAL SIGNS: Temperature is 97.5, T-max 103.6, blood pressure 91/52, heart rate 79, respiratory rate 18, pulse oximetry 90% on Ventimask, now on 6 liters O2. GENERAL APPEARANCE: The patient is propped up in bed, alert, in no apparent distress. HEENT: Normal conjunctivae. Oral cavity: Pharynx pink and dry. No lesions. In dentures. NECK: Supple. LUNGS: Diminished aeration in the bases. Nonlabored. HEART: S1, S2. ABDOMEN: Nondistended, soft and nontender with bowel sounds present. GENITOURINARY: Aparicio in place. EXTREMITIES: No gross edema or cyanosis. SKIN: Warm without rash. Multiple tattoos. NEUROLOGIC: Alert. Responds appropriately. LINES: Peripheral IV. LABORATORY DATA: Today's WBC 13.0 from 9.1; hemoglobin 8.0; platelets 233,000; segs 61%; bands 30%. Sodium 130, potassium 4.7, creatinine 2.6, BUN 26, glucose 290. Total bilirubin 0.3, AST 12, ALT 11, albumin 1.7. From 05/18, urinalysis showed wbc's 11-20, moderate leukocyte esterase without bacteria seen. Urine and blood cultures pending. Influenza screen negative. CT imaging per HPI. Recent chest x-ray showed bibasilar infiltrates, left greater than right. IMPRESSION: 1. Sepsis. 2. Fever. 3. Right pleural effusion. 4. Acute kidney injury on chronic kidney disease. 5. 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 6. Coronary artery disease status post cardiac catheterization on 05/30/2018. 7. Chronic diastolic heart failure. 8. Type 2 diabetes mellitus. 9. Tobacco dependency. PLAN: Given acute kidney injury, we will discontinue the vancomycin. His last dose was last night. Continue the Zosyn, but adjust the dosage. We will add a sputum culture and repeat labs in the morning. Supportive care. Nephrology has been consulted. Thank you, Dr. Barry for asking us to participate in this patient's care. Should you have further questions or concerns, please call. AYAKA ZURITA MD DR: JUWAN/jennifer JOB#: [id number] / [id number]
--- NOTE | 2018-06-16 22:02 | NUR ---
At [facility], oxycodone held in light of recent sepsis diagnosis and lower blood pressure and increased oxygen demands recently. Also, decreased dose of xanax given- one tab instead of two tabs to reduce risk of altered respiration. Patient was insistent on taking the xanax tonight. Pt on oxygen sat probe, will monitor.
[2018-06-16] MEDS ORDERED: VANCOMYCIN 1 GM in IV NORMAL SALINE 250ML 250 ML IV SCH (23:00)
[2018-06-16 23:55] VITALS: BP 112/60
[2018-06-17] VITALS (10 sets, daily range): BP systolic 92–155; BP diastolic 54–68
[2018-06-17] MEDS: AMINO AC 3%/ELECTROLYTE/GLYCER 1,000 ML IV SCH ×2 (03:00→20:43)
[2018-06-17 04:36] LABS: BASO % 0 % (0-3); EOS # 0.2 x10^3/uL (0.0-0.7); EOS % 1 % (0-3); HEMATOCRIT 26.4 % (39.0-53.0); HEMOGLOBIN 8.8 g/dL (13.0-17.5); LYMPH # 1.3 x10^3/uL (1.0-4.8); LYMPH % 9 % (24-48); MEAN CORPUSCULAR HEMOGLOBIN 30 pg (25-35); MEAN CORPUSCULAR HGB CONC 33 g/dL (31-37); MEAN CORPUSCULAR VOLUME 89 fL (79-100); MONO # 0.8 x10^3/uL (0.0-1.1); MONO % 6 % (0-9); NEUT # 11.6 x10^3uL (1.8-7.7); NEUT % 84 % (31-73); PLATELET COUNT 276 x10^3/uL (140-400); RED BLOOD COUNT 2.97 x10^6/uL (4.30-5.70); RED CELL DISTRIBUTION WIDTH 13.5 % (11.5-14.5); WHITE BLOOD COUNT 13.8 x10^3/uL (4.0-11.0)
[2018-06-17 05:09] LABS: ALBUMIN 1.5 g/dL (3.4-5.0); ALBUMIN/GLOBULIN RATIO 0.4 (1.0-1.7); CALCIUM 7.5 mg/dL (8.5-10.1); CREATININE 2.8 mg/dL (0.7-1.3); MAGNESIUM 2.2 mg/dL (1.8-2.4); POTASSIUM 5.3 mmol/L (3.5-5.1); TOTAL BILIRUBIN 0.2 mg/dL (0.2-1.0); TOTAL PROTEIN 5.6 g/dL (6.4-8.2)
[2018-06-17] MEDS: PIPERACILLIN/TAZOBACTAM 3.375 GM in IV NORMAL SALINE 50ML 50 ML IV SCH ×4 (06:04→23:19)
[2018-06-17] MEDS: INSULIN LISPRO 300 UNITS/3 ML INSULN.PEN. SQ SCH ×7 (07:21→20:46)
[2018-06-17] MEDS: IPRATRPIUM/ALBUTEROL 0.5/2.5MG 3 ML NEBU. NEB SCH ×5 (07:30→22:00)
[2018-06-17] MEDS: BUDESONIDE 0.5 MG/2 ML NEBU. NEB SCH ×2 (07:30→19:37)
[2018-06-17] MEDS: CARVEDILOL 12.5 MG TABLET. PO SCH ×3 (08:00→17:00)
--- NOTE | 2018-06-17 08:03 | PDOC ---
Infectious Disease Note Subjective Subjective pt is feeling better ROS ROS no n/v/d/ breathing is better Vital Sign Vital Signs Vital Signs Date Time Temp Pulse Resp B/P (MAP) Pulse Ox O2 Delivery O2 Flow Rate FiO2 06/17/18 07:50 97.8 91 20 116/59 (78) 92 Nasal Cannula 6.0 97.8 Physical Exam PHYSICAL EXAM GENERAL APPEARANCE: The patient is propped up in bed, alert, in no apparent distress. HEENT: Normal conjunctivae. Oral cavity: Pharynx pink and dry. No lesions. In dentures. NECK: Supple. LUNGS: Diminished aeration in the bases. Nonlabored. HEART: S1, S2. ABDOMEN: Nondistended, soft and nontender with bowel sounds present. GENITOURINARY: Aparicio in place. EXTREMITIES: No gross edema or cyanosis. SKIN: Warm without rash. Multiple tattoos. NEUROLOGIC: Alert. Responds appropriately. LINES: Peripheral IV. Labs Lab Laboratory Tests Test 06/16/18 11:00 06/16/18 15:28 06/16/18 16:29 06/16/18 20:56 Glucose (Fingerstick) 284 mg/dL (70-99) 227 mg/dL (70-99) 231 mg/dL (70-99) 281 mg/dL (70-99) Test 06/17/18 04:05 White Blood Count 13.8 x10^3/uL (4.0-11.0) Red Blood Count 2.97 x10^6/uL (4.30-5.70) Hemoglobin 8.8 g/dL (13.0-17.5) Hematocrit 26.4 % (39.0-53.0) Mean Corpuscular Volume 89 fL (79-100) Mean Corpuscular Hemoglobin 30 pg (25-35) Mean Corpuscular Hemoglobin Concent 33 g/dL (31-37) Red Cell Distribution Width 13.5 % (11.5-14.5) Platelet Count 276 x10^3/uL (140-400) Neutrophils (%) (Auto) 84 % (31-73) Lymphocytes (%) (Auto) 9 % (24-48) Monocytes (%) (Auto) 6 % (0-9) Eosinophils (%) (Auto) 1 % (0-3) Basophils (%) (Auto) 0 % (0-3) Neutrophils # (Auto) 11.6 x10^3uL (1.8-7.7) Lymphocytes # (Auto) 1.3 x10^3/uL (1.0-4.8) Monocytes # (Auto) 0.8 x10^3/uL (0.0-1.1) Eosinophils # (Auto) 0.2 x10^3/uL (0.0-0.7) Basophils # (Auto) 0.0 x10^3/uL (0.0-0.2) Sodium Level 125 mmol/L (136-145) Potassium Level 5.3 mmol/L (3.5-5.1) Chloride Level 93 mmol/L (98-107) Carbon Dioxide Level 24 mmol/L (21-32) Anion Gap 8 (6-14) Blood Urea Nitrogen 40 mg/dL (8-26) Creatinine 2.8 mg/dL (0.7-1.3) Estimated GFR (Cockcroft-Gault) 24.0 BUN/Creatinine Ratio 14 (6-20) Glucose Level 479 mg/dL (70-99) Calcium Level 7.5 mg/dL (8.5-10.1) Phosphorus Level 4.0 mg/dL (2.6-4.7) Magnesium Level 2.2 mg/dL (1.8-2.4) Total Bilirubin 0.2 mg/dL (0.2-1.0) Aspartate Amino Transf (AST/SGOT) 11 U/L (15-37) Alanine Aminotransferase (ALT/SGPT) 11 U/L (16-63) Alkaline Phosphatase 99 U/L (46-116) Total Protein 5.6 g/dL (6.4-8.2) Albumin 1.5 g/dL (3.4-5.0) Albumin/Globulin Ratio 0.4 (1.0-1.7) Micro Microbiology 06/15/18 Blood Culture - Preliminary, Resulted NO GROWTH AFTER 1 DAY Objective Assessment 1. Sepsis. 2. Fever. 3. Right pleural effusion. 4. Acute kidney injury on chronic kidney disease. 5. 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 6. Coronary artery disease status post cardiac catheterization on 05/30/2018. 7. Chronic diastolic heart failure. 8. Type 2 diabetes mellitus. 9. Tobacco dependency. Plan Plan of Care Continue Zosyn, dose adjusted for renal function, d/w pharmacy add Sputum culture Urine and blood cultures pending Repeat labs in am Supportive care d/w nursing d/w JULIAN HUBBARD MD Jun 17, 2018 08:03
[2018-06-17] MEDS: fentaNYL PF VIAL 100 MCG/2 ML VIAL IV PRN (08:34)
[2018-06-17] MEDS: PANTOPRAZOLE IV PUSH 40 MG VIAL. IVP SCH (08:35)
[2018-06-17] MEDS: LACTOBACILLUS RHAMNOSUS GG 1 CAPSULE. PO SCH ×2 (08:35→20:42)
[2018-06-17] MEDS: GABAPENTIN 300 MG CAPSULE. PO SCH ×3 (08:35→20:42)
[2018-06-17] MEDS: NICOTINE 21MG PATCH. TD SCH (08:35)
[2018-06-17] MEDS: amLODIPine BESYLATE 10 MG TABLET PO SCH ×2 (08:36→09:00)
[2018-06-17] MEDS: SUCRALFATE 1 GM/10 ML ORAL.SUSP. PEG SCH ×2 (08:36→20:43)
[2018-06-17] MEDS: ASPIRIN CHEWABLE 81 MG TABLET. PO SCH (08:36)
--- NOTE | 2018-06-17 08:57 | PDOC ---
SUBJECTIVE Subjective S: Fever and mental status changes, with sepsis over the weekend, on antibiotics , feels like he is quite a bit better, though with hypotension some of his pain meds were held and he is in pain, pending thoracentesis today for pleural effusion. O: Physical exam: Gen.: well-developed, resting in bed Lungs: Breathing comfortably Psychiatric: Pleasant mood and affect Labs: Reviewed Rads: Chest x-ray with bibasilar infiltrates and right effusion Assessment and Plan: He is a 53-year-old male with clinical esophageal cancer, bx was suspicious for but not diagnostic based on EGD, pending EUS, admitted for pain and diagnosed with sepsis and pneumonia over the weekend on antibiotics and improving, had some hypertension and pain meds were held, pending thoracentesis today Pain: Improved with fentanyl prn, cont OxyContin twice a day as able if BP ok, can add OxyIR as needed as outpt, cont bowel regimen as needed, also on GI cocktail, PPI, GI cardiology are involved Concern for esophageal cancer: Pending EUS, also has a moderate right pleural effusion visible on CT, pending thoracentesis for cytology, based on results may consider PET scan and further treatment recommendations would be made after potential PET scan and EUS substance abuse: Recommend no tobacco, alcohol, marijuana, or any other substance abuse at this time Peripheral arterial disease: Consider elective intervention after treatment of esophagus Prophylaxis: Lovenox, held for procedure Dysphagia: Consider feeding tube prior to potential treatment as needed? dispo: per others, will f/u as outpt prn Thank you kindly and please do not hesitate to call with questions. OBJECTIVE Vital Signs Vital Signs Date Time Temp Pulse Resp B/P (MAP) Pulse Ox O2 Delivery O2 Flow Rate FiO2 06/17/18 08:36 91 06/17/18 08:36 91 06/17/18 08:00 Nasal Cannula 6.0 06/17/18 07:50 97.8 91 20 116/59 (78) 92 Nasal Cannula 6.0 97.8 06/17/18 07:30 92 Nasal Cannula 6.0 06/17/18 03:23 98.5 82 20 113/62 (79) 95 Nasal Cannula 6.0 98.5 06/16/18 23:55 98.1 83 20 112/60 (77) 97 6.0 98.1 3/17/19 20:59 20 98 Nasal Cannula 6.0 06/16/18 20:14 98 Nasal Cannula 6.0 06/16/18 20:14 98 Nasal Cannula 6.0 06/16/18 20:03 Nasal Cannula 6.0 06/16/18 19:25 Nasal Cannula 6.0 06/16/18 19:00 97.5 95 18 91/54 (66) 98 Nasal Cannula 6.0 97.5 06/16/18 15:43 96 Nasal Cannula 6.0 06/16/18 15:00 98.1 72 17 87/50 (62) 98 Nasal Cannula 6.0 98.1 06/16/18 11:26 90 Nasal Cannula 6.5 06/16/18 10:53 97.9 75 16 90/52 (65) 97 Room Air 97.9 06/16/18 09:00 75 90/52 06/16/18 09:00 75 90/52 I & O Intake and Output 06/17/18 07:00 Intake Total 971 ml Output Total 600 ml Balance 371 ml IV Total 971 ml Output Urine Total 600 ml # Bowel Movements 1 COMMENT Lab Laboratory Tests Test 06/16/18 11:00 06/16/18 15:28 06/16/18 16:29 06/16/18 20:56 Glucose (Fingerstick) 284 mg/dL (70-99) 227 mg/dL (70-99) 231 mg/dL (70-99) 281 mg/dL (70-99) Test 06/17/18 04:05 06/17/18 07:03 06/17/18 08:26 White Blood Count 13.8 x10^3/uL (4.0-11.0) Red Blood Count 2.97 x10^6/uL (4.30-5.70) Hemoglobin 8.8 g/dL (13.0-17.5) Hematocrit 26.4 % (39.0-53.0) Mean Corpuscular Volume 89 fL (79-100) Mean Corpuscular Hemoglobin 30 pg (25-35) Mean Corpuscular Hemoglobin Concent 33 g/dL (31-37) Red Cell Distribution Width 13.5 % (11.5-14.5) Platelet Count 276 x10^3/uL (140-400) Neutrophils (%) (Auto) 84 % (31-73) Lymphocytes (%) (Auto) 9 % (24-48) Monocytes (%) (Auto) 6 % (0-9) Eosinophils (%) (Auto) 1 % (0-3) Basophils (%) (Auto) 0 % (0-3) Neutrophils # (Auto) 11.6 x10^3uL (1.8-7.7) Lymphocytes # (Auto) 1.3 x10^3/uL (1.0-4.8) Monocytes # (Auto) 0.8 x10^3/uL (0.0-1.1) Eosinophils # (Auto) 0.2 x10^3/uL (0.0-0.7) Basophils # (Auto) 0.0 x10^3/uL (0.0-0.2) Sodium Level 125 mmol/L (136-145) Potassium Level 5.3 mmol/L (3.5-5.1) Chloride Level 93 mmol/L (98-107) Carbon Dioxide Level 24 mmol/L (21-32) Anion Gap 8 (6-14) Blood Urea Nitrogen 40 mg/dL (8-26) Creatinine 2.8 mg/dL (0.7-1.3) Estimated GFR (Cockcroft-Gault) 24.0 BUN/Creatinine Ratio 14 (6-20) Glucose Level 479 mg/dL (70-99) Calcium Level 7.5 mg/dL (8.5-10.1) Phosphorus Level 4.0 mg/dL (2.6-4.7) Magnesium Level 2.2 mg/dL (1.8-2.4) Total Bilirubin 0.2 mg/dL (0.2-1.0) Aspartate Amino Transf (AST/SGOT) 11 U/L (15-37) Alanine Aminotransferase (ALT/SGPT) 11 U/L (16-63) Alkaline Phosphatase 99 U/L (46-116) Total Protein 5.6 g/dL (6.4-8.2) Albumin 1.5 g/dL (3.4-5.0) Albumin/Globulin Ratio 0.4 (1.0-1.7) Glucose (Fingerstick) 516 mg/dL (70-99) 450 mg/dL (70-99) Nutrition Consultation Dietary Evaluation: Recommendations by RD: Increase Calorie Intake, Protein supplementation Comments: ensure clear tid while on clear liquids Expected Outcomes/Goals: diet adv/ tolerance to meet > 75% est nutr needs Interpretation of weight loss: >7.5% in 3 months Malnutrition Findings: Food and Nutrition Intake (Sev: <50% est energy req 5days Body Fat Depletion (Non Severe: Mild Depletion Weight Status: Underweight COREY BRITTON MD Jun 17, 2018 08:57
[2018-06-17] MEDS: oxyCODONE ER 10 MG TAB.ER.12H PO SCH ×3 (09:00→20:43)
[2018-06-17 09:35] LABS: PROTHROMBIN TIME PATIENT 14.6 SEC (11.7-14.0)
[2018-06-17] MEDS ORDERED: INSULIN LISPRO 300 UNITS/3 ML INSULN.PEN. SQ ONE (09:45)
--- NOTE | 2018-06-17 09:56 | PDOC ---
Subjective: Subjective: Awaiting thoracentesis, hungry. Says swallowed without issue over the weekend. Objective: Objective: D/w Dr. Negron. Vital Signs: Vital Signs Date Time Temp Pulse Resp B/P (MAP) Pulse Ox O2 Delivery O2 Flow Rate FiO2 06/17/18 08:00 Nasal Cannula 6.0 06/17/18 07:50 97.8 91 20 116/59 (78) 92 97.8 Labs: Laboratory Tests Test 06/16/18 11:00 06/16/18 15:28 06/16/18 16:29 06/16/18 20:56 Glucose (Fingerstick) 284 mg/dL 227 mg/dL 231 mg/dL 281 mg/dL Test 06/17/18 04:05 06/17/18 07:03 06/17/18 08:26 06/17/18 08:28 White Blood Count 13.8 x10^3/uL Red Blood Count 2.97 x10^6/uL Hemoglobin 8.8 g/dL Hematocrit 26.4 % Mean Corpuscular Volume 89 fL Mean Corpuscular Hemoglobin 30 pg Mean Corpuscular Hemoglobin Concent 33 g/dL Red Cell Distribution Width 13.5 % Platelet Count 276 x10^3/uL Neutrophils (%) (Auto) 84 % Lymphocytes (%) (Auto) 9 % Monocytes (%) (Auto) 6 % Eosinophils (%) (Auto) 1 % Basophils (%) (Auto) 0 % Neutrophils # (Auto) 11.6 x10^3uL Lymphocytes # (Auto) 1.3 x10^3/uL Monocytes # (Auto) 0.8 x10^3/uL Eosinophils # (Auto) 0.2 x10^3/uL Basophils # (Auto) 0.0 x10^3/uL Sodium Level 125 mmol/L Potassium Level 5.3 mmol/L Chloride Level 93 mmol/L Carbon Dioxide Level 24 mmol/L Anion Gap 8 Blood Urea Nitrogen 40 mg/dL Creatinine 2.8 mg/dL Estimated GFR (Cockcroft-Gault) 24.0 BUN/Creatinine Ratio 14 Glucose Level 479 mg/dL Calcium Level 7.5 mg/dL Phosphorus Level 4.0 mg/dL Magnesium Level 2.2 mg/dL Total Bilirubin 0.2 mg/dL Aspartate Amino Transf (AST/SGOT) 11 U/L Alanine Aminotransferase (ALT/SGPT) 11 U/L Alkaline Phosphatase 99 U/L Total Protein 5.6 g/dL Albumin 1.5 g/dL Albumin/Globulin Ratio 0.4 Glucose (Fingerstick) 516 mg/dL 450 mg/dL Prothrombin Time 14.6 SEC Prothromb Time International Ratio 1.2 Activated Partial Thromboplast Time 39 SEC BLOOD CULTURE Preliminary NO GROWTH AFTER 1 DAY Imaging: CXR 06/15 IMPRESSION: Bibasilar infiltrates, left greater than right. Probable small right pleural effusion. PE: GEN: NAD LUNGS: NC 6L HEART: RRR ABD: S/ND/NT NEURO/PSYCH: A & O 3 A/P: Suspected esophageal cancer - tolerating PO Pleural effusion - thoracentesis planned Leukocytosis, anemia, CKD, DM -- Await thoracentesis. Plans for outpt EUS at . EDE SCHMIDT Jun 17, 2018 09:56
[2018-06-17 10:15] LABS: SODIUM, URINE <60 mmol/L (Not Estab.); UR POTASSIUM 63.2 mmol/L (Not Estab.)
--- NOTE | 2018-06-17 11:50 | NUR ---
SS following up with discharge planning. Pt is from home and is currently on five liters nasal cannula. No PT/OT evaluations at this time. SS will continue to follow for discharge planning.
--- NOTE | 2018-06-17 12:10 | PDOC ---
SUBJECTIVE ROS no soa, stable OBJECTIVE Vital Signs Vital Signs Date Time Temp Pulse Resp B/P (MAP) Pulse Ox O2 Delivery O2 Flow Rate FiO2 06/17/18 11:38 99 Nasal Cannula 5.0 06/17/18 10:59 89 18 92/54 (67) 06/17/18 10:38 98.1 98.1 I & 0 Intake and Output 06/17/18 06:59 Intake Total 971 ml Output Total 600 ml Balance 371 ml IV Total 971 ml Output Urine Total 600 ml # Bowel Movements 1 PHYSICAL EXAM Physical Exam General: Alert, No acute distress HEENT: Other (nc at perrl) Lungs: Other (dull r base) Cardiovascular: S1, S2 Abdomen: Soft, Non-tender Neuro Exam: Alert Extremities: No Edema Skin: Warm Aparicio + DIAGNOSIS/ASSESSMENT Assessment & Plan LENNOX - gradually getting worse Dehydration --> ATN Holding home Aldactone, Ibuprofen and Lisinopril UOP Good, has Aparicio Now CKD STAGE 3- Cr OF 1.3-1.7 likely sec to Diab nephrosclerosis ESOPHAGEAL CANCER- Pending EUS DM II- High Blood Sugars- 200's to 500's As per primary ANEMIA- Hgb stable HYPONATREMIA- Corrected for Glucose Mildly Low Pleyral effusion- s/p Thoracentesis 1050 ml removed MALNUTRITION- On PPN Monitor, Discuss with RN COMMENT/RELEVANT DATA Meds Current Medications Medications (Trade) Dose Ordered Sig/Adrien Start Time Stop Time Status Last Admin Dose Admin Acetaminophen (Tylenol) 650 mg PRN Q6HRS PRN 06/15/18 22:15 06/16/18 20:50 650 MG Albuterol/ Ipratropium (Duoneb) 3 ml Q4HRS W/A 06/15/18 22:00 06/17/18 11:38 3 ML Alprazolam (Xanax) 2 mg PRN TID PRN 06/13/18 09:30 06/16/18 20:54 1 MG Amino Acids/ Glycerin/ Electrolytes 1,000 ml @ 80 mls/hr [id number] 06/16/18 14:00 06/17/18 03:00 80 MLS/HR Amlodipine Besylate (Norvasc) 10 mg DAILY 06/13/18 10:00 06/15/18 08:26 10 MG Aspirin (Children'S Aspirin) 81 mg DAILY 06/13/18 10:00 06/17/18 08:36 81 MG Atorvastatin Calcium (Lipitor) 20 mg HS 06/13/18 21:00 06/16/18 20:49 20 MG Budesonide (Pulmicort) 0.5 mg 1X ONCE 06/15/18 22:00 06/15/18 22:01 DC Carvedilol (Coreg) 12.5 mg BIDWMEALS 06/13/18 10:00 06/15/18 17:13 12.5 MG Dextrose (Dextrose 50%-Water Syringe) 12.5 gm PRN Q15MIN PRN 06/14/18 00:30 Docusate Sodium (Colace) 100 mg PRN DAILY PRN 06/14/18 09:45 06/16/18 20:50 100 MG Enoxaparin Sodium (Lovenox 40mg Syringe) 40 mg Q24H 06/13/18 16:00 06/15/18 15:17 40 MG Fentanyl Citrate (Fentanyl 2ml Vial) 50 mcg PRN Q2HR PRN 06/13/18 18:15 06/17/18 08:34 50 MCG Gabapentin (Neurontin) 900 mg TID 06/13/18 10:00 06/17/18 08:35 900 MG Hydromorphone HCl (Dilaudid) 0.5 mg PRN Q15MIN PRN 06/12/18 21:30 06/13/18 12:44 DC 06/12/18 22:55 0.5 MG Info (CONTRAST GIVEN -- Rx MONITORING) 1 each PRN DAILY PRN 06/13/18 14:30 06/15/18 14:29 DC Insulin Glargine (Lantus) 5 units 1X ONCE 06/14/18 01:00 06/14/18 01:01 DC 06/14/18 00:58 5 UNITS Insulin Human Lispro (HumaLOG) 6 units 1X ONCE 06/17/18 09:45 06/17/18 09:46 DC 06/17/18 09:46 6 UNITS Iohexol (Omnipaque 240 Mg/ml) 30 ml 1X ONCE 06/13/18 14:30 06/13/18 14:31 DC 06/13/18 14:30 30 ML Iohexol (Omnipaque 300 Mg/ml) 60 ml 1X ONCE 06/13/18 14:30 06/13/18 14:31 DC 06/13/18 15:23 60 ML Lactobacillus Rhamnosus (Culturelle) 1 cap BID 06/16/18 21:00 06/17/18 08:35 1 CAP Lisinopril (Prinivil) 40 mg DAILY 06/13/18 10:00 06/16/18 11:15 DC 06/15/18 08:27 40 MG Multi-Ingredient Mouthwash/Gargle (Gi Cocktail) 20 ml PRN QID PRN 06/13/18 13:45 06/15/18 15:18 20 ML Nicotine (Nicoderm Cq 21mg) 1 patch DAILY 06/13/18 09:00 06/17/18 08:35 1 PATCH Non-Formulary Medication (Melatonin ) 1 tab QHS 06/13/18 21:00 UNV Ondansetron HCl (Zofran) 4 mg PRN Q6HRS PRN 06/13/18 18:15 06/16/18 12:34 4 MG Oxycodone HCl (OxyCONTIN) 10 mg Q12HR 06/14/18 10:00 06/15/18 20:56 10 MG Pantoprazole Sodium (PROTONIX VIAL for IV PUSH) 40 mg DAILYAC 06/13/18 16:30 06/17/18 08:35 40 MG Piperacillin Sod/ Tazobactam Sod (Zosyn Per Pharmacy) 1 each PRN DAILY PRN 06/15/18 22:00 Piperacillin Sod/ Tazobactam Sod 3.375 gm/Sodium Chloride 50 ml @ 100 mls/hr Q6HRS 06/15/18 22:00 06/17/18 06:04 100 MLS/HR Polyethylene Glycol (miraLAX PACKET) 17 gm PRN DAILY PRN 06/14/18 09:45 Sodium Chloride 1,000 ml @ 125 mls/hr Q8H 06/12/18 22:30 06/13/18 22:29 DC 06/13/18 14:28 125 MLS/HR Spironolactone (Aldactone) 25 mg DAILY 06/13/18 10:00 06/16/18 11:15 DC 06/16/18 07:52 25 MG Sucralfate (Carafate) 1 gm BID 06/13/18 21:00 06/17/18 08:36 1 GM Throat Lozenges (Cepacol Sore Throat Lozenge) 1 sarabjit PRN Q2HRS PRN 06/14/18 00:45 06/14/18 00:52 1 SARABJIT Vancomycin HCl (Vanco Per Pharmacy) 1 each PRN DAILY PRN 06/15/18 22:00 06/16/18 09:36 DC 06/16/18 00:03 1 EACH Vancomycin HCl (Vancomycin Trough Level) 1 each 1X ONCE 06/17/18 22:30 06/17/18 22:30 DC Vancomycin HCl 1.75 gm/Sodium Chloride 500 ml @ 250 mls/hr 1X ONCE 06/15/18 23:00 06/16/18 00:59 DC 06/15/18 22:49 250 MLS/HR Vancomycin HCl 1 gm/Sodium Chloride 250 ml @ 250 mls/hr Q24H 06/16/18 23:00 06/16/18 23:00 DC Lab Laboratory Tests Test 06/16/18 15:28 06/16/18 16:29 06/16/18 17:42 06/16/18 20:56 Glucose (Fingerstick) 227 mg/dL (70-99) 231 mg/dL (70-99) 281 mg/dL (70-99) Urine Sodium <60 mmol/L (Not Estab.) Urine Potassium 63.2 mmol/L (Not Estab.) Urine Chloride <60 mmol/L (Not Estab.) Test 06/17/18 04:05 06/17/18 07:03 06/17/18 08:26 06/17/18 08:28 White Blood Count 13.8 x10^3/uL (4.0-11.0) Red Blood Count 2.97 x10^6/uL (4.30-5.70) Hemoglobin 8.8 g/dL (13.0-17.5) Hematocrit 26.4 % (39.0-53.0) Mean Corpuscular Volume 89 fL (79-100) Mean Corpuscular Hemoglobin 30 pg (25-35) Mean Corpuscular Hemoglobin Concent 33 g/dL (31-37) Red Cell Distribution Width 13.5 % (11.5-14.5) Platelet Count 276 x10^3/uL (140-400) Neutrophils (%) (Auto) 84 % (31-73) Lymphocytes (%) (Auto) 9 % (24-48) Monocytes (%) (Auto) 6 % (0-9) Eosinophils (%) (Auto) 1 % (0-3) Basophils (%) (Auto) 0 % (0-3) Neutrophils # (Auto) 11.6 x10^3uL (1.8-7.7) Lymphocytes # (Auto) 1.3 x10^3/uL (1.0-4.8) Monocytes # (Auto) 0.8 x10^3/uL (0.0-1.1) Eosinophils # (Auto) 0.2 x10^3/uL (0.0-0.7) Basophils # (Auto) 0.0 x10^3/uL (0.0-0.2) Sodium Level 125 mmol/L (136-145) Potassium Level 5.3 mmol/L (3.5-5.1) Chloride Level 93 mmol/L (98-107) Carbon Dioxide Level 24 mmol/L (21-32) Anion Gap 8 (6-14) Blood Urea Nitrogen 40 mg/dL (8-26) Creatinine 2.8 mg/dL (0.7-1.3) Estimated GFR (Cockcroft-Gault) 24.0 BUN/Creatinine Ratio 14 (6-20) Glucose Level 479 mg/dL (70-99) Calcium Level 7.5 mg/dL (8.5-10.1) Phosphorus Level 4.0 mg/dL (2.6-4.7) Magnesium Level 2.2 mg/dL (1.8-2.4) Total Bilirubin 0.2 mg/dL (0.2-1.0) Aspartate Amino Transf (AST/SGOT) 11 U/L (15-37) Alanine Aminotransferase (ALT/SGPT) 11 U/L (16-63) Alkaline Phosphatase 99 U/L (46-116) Total Protein 5.6 g/dL (6.4-8.2) Albumin 1.5 g/dL (3.4-5.0) Albumin/Globulin Ratio 0.4 (1.0-1.7) Glucose (Fingerstick) 516 mg/dL (70-99) 450 mg/dL (70-99) Prothrombin Time 14.6 SEC (11.7-14.0) Prothromb Time International Ratio 1.2 (0.8-1.1) Activated Partial Thromboplast Time 39 SEC (24-38) Test 06/17/18 11:23 Glucose (Fingerstick) 336 mg/dL (70-99) Results All relevant outside records, renal labs, imaging studies, telemetry/EKG's were reviewed. VELMA UPTON MD Jun 17, 2018 12:10
--- NOTE | 2018-06-17 12:37 | PDOC ---
PULMONARY PROGRESS NOTES Subjective no soa no more fever Vitals Vital Signs Date Time Temp Pulse Resp B/P (MAP) Pulse Ox O2 Delivery O2 Flow Rate FiO2 06/17/18 11:38 99 Nasal Cannula 5.0 06/17/18 10:59 89 18 92/54 (67) 06/17/18 10:38 98.1 98.1 ROS: No Nausea General: Alert, No acute distress HEENT: Other (nc at perrl) Lungs: Other (dull r base) Cardiovascular: S1, S2 Abdomen: Soft, Non-tender Neuro Exam: Alert Extremities: No Edema Skin: Warm Labs Laboratory Tests Test 06/15/18 17:15 06/15/18 20:44 06/15/18 21:55 06/15/18 22:30 Glucose (Fingerstick) 123 mg/dL (70-99) 197 mg/dL (70-99) Influenza Type A Antigen Negative (NEGATIVE) Influenza Type B Antigen Negative (NEGATIVE) White Blood Count 9.1 x10^3/uL (4.0-11.0) Red Blood Count 3.15 x10^6/uL (4.30-5.70) Hemoglobin 9.2 g/dL (13.0-17.5) Hematocrit 27.7 % (39.0-53.0) Mean Corpuscular Volume 88 fL (79-100) Mean Corpuscular Hemoglobin 29 pg (25-35) Mean Corpuscular Hemoglobin Concent 33 g/dL (31-37) Red Cell Distribution Width 13.5 % (11.5-14.5) Platelet Count 246 x10^3/uL (140-400) Neutrophils (%) (Auto) 88 % (31-73) Lymphocytes (%) (Auto) 7 % (24-48) Monocytes (%) (Auto) 5 % (0-9) Eosinophils (%) (Auto) 1 % (0-3) Basophils (%) (Auto) 1 % (0-3) Neutrophils # (Auto) 8.0 x10^3uL (1.8-7.7) Lymphocytes # (Auto) 0.6 x10^3/uL (1.0-4.8) Monocytes # (Auto) 0.4 x10^3/uL (0.0-1.1) Eosinophils # (Auto) 0.0 x10^3/uL (0.0-0.7) Basophils # (Auto) 0.0 x10^3/uL (0.0-0.2) Urine Collection Type U cath Urine Color Yellow Urine Clarity Clear Urine pH 5.5 Urine Specific [place] 1.020 Urine Protein 100 mg/dL (NEG-TRACE) Urine Glucose (UA) 250 mg/dL (NEG) Urine Ketones (Stick) Negative mg/dL (NEG) Urine Blood Small (NEG) Urine Nitrite Negative (NEG) Urine Bilirubin Negative (NEG) Urine Urobilinogen Dipstick 0.2 mg/dL (0.2 mg/dL) Urine Leukocyte Esterase Moderate (NEG) Urine RBC 3-5 /HPF (0-2) Urine WBC 11-20 /HPF (0-4) Urine Squamous Epithelial Cells None /LPF Urine Amorphous Sediment Present /HPF Urine Bacteria 0 /HPF (0-FEW) Urine Hyaline Casts Many /HPF Urine Mucus Marked /LPF Sodium Level 129 mmol/L (136-145) Potassium Level 4.7 mmol/L (3.5-5.1) Chloride Level 94 mmol/L (98-107) Carbon Dioxide Level 26 mmol/L (21-32) Anion Gap 9 (6-14) Blood Urea Nitrogen 25 mg/dL (8-26) Creatinine 2.1 mg/dL (0.7-1.3) Estimated GFR (Cockcroft-Gault) 33.5 Glucose Level 245 mg/dL (70-99) Lactic Acid Level 0.9 mmol/L (0.4-2.0) Calcium Level 7.9 mg/dL (8.5-10.1) Test 06/15/18 22:48 06/16/18 04:20 06/16/18 07:26 06/16/18 11:00 O2 Saturation 90 % (92-99) Arterial Blood pH 7.38 (7.35-7.45) Arterial Blood pH (Temp corrected) 7.35 Arterial Blood pCO2 at Patient Temp 38 mmHg (35-46) Arterial Blood pCO2 (Temp correct) 42 mmHg Arterial Blood pO2 at Patient Temp 61 mmHg (75-108) Arterial Blood pO2 (Temp corrected) 72 mmHg Arterial Blood HCO3 22 mmol/L (21-28) Arterial Blood Base Excess -3 mmol/L (-3-3) Methemoglobin 0.5 % (0.0-1.9) Carbon Monoxide, Quantitative 0.4 % (0.0-1.9) FiO2 48 White Blood Count 13.0 x10^3/uL (4.0-11.0) Red Blood Count 2.70 x10^6/uL (4.30-5.70) Hemoglobin 8.0 g/dL (13.0-17.5) Hematocrit 24.2 % (39.0-53.0) Mean Corpuscular Volume 90 fL (79-100) Mean Corpuscular Hemoglobin 30 pg (25-35) Mean Corpuscular Hemoglobin Concent 33 g/dL (31-37) Red Cell Distribution Width 13.2 % (11.5-14.5) Platelet Count 233 x10^3/uL (140-400) Neutrophils (%) (Auto) 87 % (31-73) Lymphocytes (%) (Auto) 8 % (24-48) Monocytes (%) (Auto) 5 % (0-9) Eosinophils (%) (Auto) 0 % (0-3) Basophils (%) (Auto) 0 % (0-3) Neutrophils # (Auto) 11.3 x10^3uL (1.8-7.7) Lymphocytes # (Auto) 1.0 x10^3/uL (1.0-4.8) Monocytes # (Auto) 0.7 x10^3/uL (0.0-1.1) Eosinophils # (Auto) 0.0 x10^3/uL (0.0-0.7) Basophils # (Auto) 0.0 x10^3/uL (0.0-0.2) Segmented Neutrophils % 61 % (35-66) Band Neutrophils % 30 % (0-9) Lymphocytes % 6 % (24-48) Monocytes % 3 % (0-10) Platelet Estimate Adequate (ADEQUATE) Sodium Level 130 mmol/L (136-145) Potassium Level 4.7 mmol/L (3.5-5.1) Chloride Level 96 mmol/L (98-107) Carbon Dioxide Level 22 mmol/L (21-32) Anion Gap 12 (6-14) Blood Urea Nitrogen 26 mg/dL (8-26) Creatinine 2.6 mg/dL (0.7-1.3) Estimated GFR (Cockcroft-Gault) 26.2 BUN/Creatinine Ratio 10 (6-20) Glucose Level 290 mg/dL (70-99) Calcium Level 7.6 mg/dL (8.5-10.1) Total Bilirubin 0.3 mg/dL (0.2-1.0) Aspartate Amino Transf (AST/SGOT) 12 U/L (15-37) Alanine Aminotransferase (ALT/SGPT) 11 U/L (16-63) Alkaline Phosphatase 114 U/L (46-116) Total Protein 5.8 g/dL (6.4-8.2) Albumin 1.7 g/dL (3.4-5.0) Albumin/Globulin Ratio 0.4 (1.0-1.7) Glucose (Fingerstick) 343 mg/dL (70-99) 284 mg/dL (70-99) Test 06/16/18 15:28 06/16/18 16:29 06/16/18 17:42 06/16/18 20:56 Glucose (Fingerstick) 227 mg/dL (70-99) 231 mg/dL (70-99) 281 mg/dL (70-99) Urine Sodium <60 mmol/L (Not Estab.) Urine Potassium 63.2 mmol/L (Not Estab.) Urine Chloride <60 mmol/L (Not Estab.) Test 06/17/18 04:05 06/17/18 07:03 06/17/18 08:26 06/17/18 08:28 White Blood Count 13.8 x10^3/uL (4.0-11.0) Red Blood Count 2.97 x10^6/uL (4.30-5.70) Hemoglobin 8.8 g/dL (13.0-17.5) Hematocrit 26.4 % (39.0-53.0) Mean Corpuscular Volume 89 fL (79-100) Mean Corpuscular Hemoglobin 30 pg (25-35) Mean Corpuscular Hemoglobin Concent 33 g/dL (31-37) Red Cell Distribution Width 13.5 % (11.5-14.5) Platelet Count 276 x10^3/uL (140-400) Neutrophils (%) (Auto) 84 % (31-73) Lymphocytes (%) (Auto) 9 % (24-48) Monocytes (%) (Auto) 6 % (0-9) Eosinophils (%) (Auto) 1 % (0-3) Basophils (%) (Auto) 0 % (0-3) Neutrophils # (Auto) 11.6 x10^3uL (1.8-7.7) Lymphocytes # (Auto) 1.3 x10^3/uL (1.0-4.8) Monocytes # (Auto) 0.8 x10^3/uL (0.0-1.1) Eosinophils # (Auto) 0.2 x10^3/uL (0.0-0.7) Basophils # (Auto) 0.0 x10^3/uL (0.0-0.2) Sodium Level 125 mmol/L (136-145) Potassium Level 5.3 mmol/L (3.5-5.1) Chloride Level 93 mmol/L (98-107) Carbon Dioxide Level 24 mmol/L (21-32) Anion Gap 8 (6-14) Blood Urea Nitrogen 40 mg/dL (8-26) Creatinine 2.8 mg/dL (0.7-1.3) Estimated GFR (Cockcroft-Gault) 24.0 BUN/Creatinine Ratio 14 (6-20) Glucose Level 479 mg/dL (70-99) Calcium Level 7.5 mg/dL (8.5-10.1) Phosphorus Level 4.0 mg/dL (2.6-4.7) Magnesium Level 2.2 mg/dL (1.8-2.4) Total Bilirubin 0.2 mg/dL (0.2-1.0) Aspartate Amino Transf (AST/SGOT) 11 U/L (15-37) Alanine Aminotransferase (ALT/SGPT) 11 U/L (16-63) Alkaline Phosphatase 99 U/L (46-116) Total Protein 5.6 g/dL (6.4-8.2) Albumin 1.5 g/dL (3.4-5.0) Albumin/Globulin Ratio 0.4 (1.0-1.7) Glucose (Fingerstick) 516 mg/dL (70-99) 450 mg/dL (70-99) Prothrombin Time 14.6 SEC (11.7-14.0) Prothromb Time International Ratio 1.2 (0.8-1.1) Activated Partial Thromboplast Time 39 SEC (24-38) Test 06/17/18 11:23 Glucose (Fingerstick) 336 mg/dL (70-99) Laboratory Tests Test 06/16/18 15:28 06/16/18 16:29 06/16/18 17:42 06/16/18 20:56 Glucose (Fingerstick) 227 mg/dL (70-99) 231 mg/dL (70-99) 281 mg/dL (70-99) Urine Sodium <60 mmol/L (Not Estab.) Urine Potassium 63.2 mmol/L (Not Estab.) Urine Chloride <60 mmol/L (Not Estab.) Test 06/17/18 04:05 06/17/18 07:03 06/17/18 08:26 06/17/18 08:28 White Blood Count 13.8 x10^3/uL (4.0-11.0) Red Blood Count 2.97 x10^6/uL (4.30-5.70) Hemoglobin 8.8 g/dL (13.0-17.5) Hematocrit 26.4 % (39.0-53.0) Mean Corpuscular Volume 89 fL (79-100) Mean Corpuscular Hemoglobin 30 pg (25-35) Mean Corpuscular Hemoglobin Concent 33 g/dL (31-37) Red Cell Distribution Width 13.5 % (11.5-14.5) Platelet Count 276 x10^3/uL (140-400) Neutrophils (%) (Auto) 84 % (31-73) Lymphocytes (%) (Auto) 9 % (24-48) Monocytes (%) (Auto) 6 % (0-9) Eosinophils (%) (Auto) 1 % (0-3) Basophils (%) (Auto) 0 % (0-3) Neutrophils # (Auto) 11.6 x10^3uL (1.8-7.7) Lymphocytes # (Auto) 1.3 x10^3/uL (1.0-4.8) Monocytes # (Auto) 0.8 x10^3/uL (0.0-1.1) Eosinophils # (Auto) 0.2 x10^3/uL (0.0-0.7) Basophils # (Auto) 0.0 x10^3/uL (0.0-0.2) Sodium Level 125 mmol/L (136-145) Potassium Level 5.3 mmol/L (3.5-5.1) Chloride Level 93 mmol/L (98-107) Carbon Dioxide Level 24 mmol/L (21-32) Anion Gap 8 (6-14) Blood Urea Nitrogen 40 mg/dL (8-26) Creatinine 2.8 mg/dL (0.7-1.3) Estimated GFR (Cockcroft-Gault) 24.0 BUN/Creatinine Ratio 14 (6-20) Glucose Level 479 mg/dL (70-99) Calcium Level 7.5 mg/dL (8.5-10.1) Phosphorus Level 4.0 mg/dL (2.6-4.7) Magnesium Level 2.2 mg/dL (1.8-2.4) Total Bilirubin 0.2 mg/dL (0.2-1.0) Aspartate Amino Transf (AST/SGOT) 11 U/L (15-37) Alanine Aminotransferase (ALT/SGPT) 11 U/L (16-63) Alkaline Phosphatase 99 U/L (46-116) Total Protein 5.6 g/dL (6.4-8.2) Albumin 1.5 g/dL (3.4-5.0) Albumin/Globulin Ratio 0.4 (1.0-1.7) Glucose (Fingerstick) 516 mg/dL (70-99) 450 mg/dL (70-99) Prothrombin Time 14.6 SEC (11.7-14.0) Prothromb Time International Ratio 1.2 (0.8-1.1) Activated Partial Thromboplast Time 39 SEC (24-38) Test 06/17/18 11:23 Glucose (Fingerstick) 336 mg/dL (70-99) Medications Active Scripts Medications Dose Route/Sig Max Daily Dose Days Date Category Ibuprofen 800 Mg Tablet 800 Mg PO BID PRN 06/13/18 Reported Gabapentin 600 Mg Tablet 900 Mg PO TID 05/16/18 Reported Aspirin 81 Mg Tab.chew 81 Mg PO DAILY 05/16/18 Reported Spironolactone 25 Mg Tablet 25 Mg PO DAILY 05/16/18 Reported Amlodipine Besylate 10 Mg Tablet 10 Mg PO DAILY 05/16/18 Reported Coreg (Carvedilol) 12.5 Mg Tablet 12.5 Mg PO BIDWMEALS 05/16/18 Reported Atorvastatin Calcium 20 Mg Tablet 20 Mg PO HS 05/16/18 Reported Melatonin 3 Mg Tablet 1 Tab PO QHS 05/13/18 Reported Novolog Mix 70-30 Vial (Insuln Asp Prt/Insulin Aspart) 100 Unit/1 Ml Vial 0 SQ BIDAC 05/13/18 Reported Lisinopril 40 Mg Tablet 40 Mg PO DAILY 03/12/18 Reported Xanax (Alprazolam) 2 Mg Tablet 1 Tab PO TID PRN 04/04/14 Reported Comments reviewed cxr, Bibasilar infiltrates, left greater than right. small right pleural effusion. Impression . IMPRESSION: 1. The patient with progressive dysphagia and ongoing weight loss and abnormal CT chest, suggesting esophageal malignancy. His previous EGD showed high-grade dysplasia suspicious for adenocarcinoma. He now has unchanged moderate right pleural effusion and a small left pleural effusion. This could be related to malignancy versus related to low oncotic pressure from hypoalbuminemia. He is now s/p thoracentesis 2. Ongoing tobaccoism, suspect underlying chronic obstructive pulmonary disease. 3. Abnormal CT chest, cxr, has new infilt, fever, hypoxemia, suspect pneumonia , aspiration. has dysphagia 4. Mild renal insufficiency. 5. Severe protein-calorie malnutrition. Albumin level is 2.0. 6. High grade dysplasia on EGD, ? adeno Ca Plan . RECOMMENDATIONS: 1. us-guided right thoracentesis for diagnosis. done 06/17 2. If the effusion is not malignant, then he would require another EGD or EUS to confirm a diagnosis of esophageal cancer. will need to go to for EUS 3. Follow Oncology recommendations. 4. Follow GI recommendations. 5. Smoking cessation counseling provided. 6. oxygen titration 7. bronchodilators. cont abx, fu blood cx, aspiration precaution 8. No further fever, BC no growth so far ok with dc pulmonary desai. follow results of pleural cytology discussed w JULITO Everett MD Jun 17, 2018 12:37
[2018-06-17] MEDS: LIDO:MAALOX 1:1 20 ML SINGLE DOSE. PO PRN (13:25)
--- NOTE | 2018-06-17 13:58 | RAD ---
Ultrasound-guided right-sided thoracentesis 06/17/2018 1:54 PM Indication: 53 yo man, history of esophageal cancer. Moderate right pleural effusion., Requested for diagnostic thoracentesis. Procedure: Informed consent was obtained. A timeout procedure was performed. Sonographic evaluation of the right chest was performed demonstrating moderate pleural effusion. The right posterior chest was prepped and draped in sterile fashion. 1% lidocaine without epinephrine was administered for local anesthesia. Real-time ultrasonographic guidance was used in passing a 5 [employer] catheter into the right pleural space. 1.0 L of serosanguineous pleural fluid was removed. Samples of fluid were sent to the lab for further evaluation per ordering physician request. The catheter was removed and pressure held to achieve hemostasis. A sterile dressing was applied. No immediate complications were identified. The patient tolerated the procedure well. Impression: Right sided ultrasound-guided thoracentesis
--- NOTE | 2018-06-17 16:24 | RAD ---
Single view of the chest. 06/17/2018 1:52 PM Indication: 2 HOURS POST RT SIDE THORACENTESIS Comparison: Chest radiograph June 16, 1999 and Findings: Interval resolution of the layering right pleural effusion. No pneumothorax is seen. Left basilar infiltrate appears similar to prior exam. Possible small left pleural effusion noted. Heart size appears normal. No acute osseous changes are seen. IMPRESSION: 1.Resolution of layering right-sided pleural effusion following thoracentesis 2. Persistent left basilar infiltrate. Probable small left pleural effusion. Electronically signed by: Enmanuel Melgar MD (06/17/2018 4:21 PM) [id number]
[2018-06-17] MEDS ORDERED: DICL100G18 TP (16:53)
[2018-06-17] MEDS: ENOXAPARIN 40 MG/0.4 ML SYRINGE. SQ SCH (18:13)
[2018-06-17] MEDS: ATORVASTATIN CALCIUM 20 MG TABLET PO SCH (20:42)
[2018-06-17] MEDS: DICLOFENAC SODIUM 1% TOPICAL GEL 100GM TUBE. TP PRN (20:43)
[2018-06-18] MEDS: ALPRAZolam 1 MG TABLET PO PRN ×2 (00:56→18:11)
--- NOTE | 2018-06-18 00:58 | PDOC ---
PROGRESS NOTES Chief Complaint Chief Complaint 1. 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 2. Ongoing tobaccoism, suspect underlying chronic obstructive pulmonary disease. 3. sepsis, fevers 4. Mild renal insufficiency. 5. Severe protein-calorie malnutrition. Albumin level is 2.0. 6. Right pleural effusion 7. CAD s/p cardiac cath on 05/30/2018 8. Chronic diastolic HF 9. Type 2 DM 10. Tobacco dependency History of Present Illness History of Present Illness No acute events reported overnight GI has him on liquid diet so far no orders of advance diet as tolerated He is plan for thoracentesis right pleural effusion rule out malignancy today - adenoCA on EGD esophagus, highly suspicious Also plan for endoscopic ultrasound [facility] by oncology Plan Advance diet as tolerated NPO post MN. For IR thoracentesis today Discussed with RN Vitals Vitals Vital Signs Date Time Temp Pulse Resp B/P (MAP) Pulse Ox O2 Delivery O2 Flow Rate FiO2 06/17/18 22:07 98.0 100 18 155/68 (97) 98 Nasal Cannula 4.0 98.0 Physical Exam Physical Exam GENERAL APPEARANCE: The patient is propped up in bed, alert, in no apparent distress. HEENT: Normal conjunctivae. Oral cavity: Pharynx pink and dry. No lesions. In dentures. NECK: Supple. LUNGS: Diminished aeration in the bases. Nonlabored. HEART: S1, S2. ABDOMEN: Nondistended, soft and nontender with bowel sounds present. GENITOURINARY: Aparicio in place. EXTREMITIES: No gross edema or cyanosis. SKIN: Warm without rash. Multiple tattoos. NEUROLOGIC: Alert. Responds appropriately. LINES: Peripheral IV. General: Alert, Oriented X3, Cooperative, No acute distress Heart: Regular rate, Normal S1, Normal S2 Lungs: Other (dull r base) Abdomen: Normal bowel sounds, Soft Extremities: No clubbing, No cyanosis Skin: No breakdown Labs LABS Laboratory Tests Test 06/17/18 04:05 06/17/18 07:03 06/17/18 08:26 06/17/18 08:28 White Blood Count 13.8 x10^3/uL (4.0-11.0) Red Blood Count 2.97 x10^6/uL (4.30-5.70) Hemoglobin 8.8 g/dL (13.0-17.5) Hematocrit 26.4 % (39.0-53.0) Mean Corpuscular Volume 89 fL (79-100) Mean Corpuscular Hemoglobin 30 pg (25-35) Mean Corpuscular Hemoglobin Concent 33 g/dL (31-37) Red Cell Distribution Width 13.5 % (11.5-14.5) Platelet Count 276 x10^3/uL (140-400) Neutrophils (%) (Auto) 84 % (31-73) Lymphocytes (%) (Auto) 9 % (24-48) Monocytes (%) (Auto) 6 % (0-9) Eosinophils (%) (Auto) 1 % (0-3) Basophils (%) (Auto) 0 % (0-3) Neutrophils # (Auto) 11.6 x10^3uL (1.8-7.7) Lymphocytes # (Auto) 1.3 x10^3/uL (1.0-4.8) Monocytes # (Auto) 0.8 x10^3/uL (0.0-1.1) Eosinophils # (Auto) 0.2 x10^3/uL (0.0-0.7) Basophils # (Auto) 0.0 x10^3/uL (0.0-0.2) Sodium Level 125 mmol/L (136-145) Potassium Level 5.3 mmol/L (3.5-5.1) Chloride Level 93 mmol/L (98-107) Carbon Dioxide Level 24 mmol/L (21-32) Anion Gap 8 (6-14) Blood Urea Nitrogen 40 mg/dL (8-26) Creatinine 2.8 mg/dL (0.7-1.3) Estimated GFR (Cockcroft-Gault) 24.0 BUN/Creatinine Ratio 14 (6-20) Glucose Level 479 mg/dL (70-99) Calcium Level 7.5 mg/dL (8.5-10.1) Phosphorus Level 4.0 mg/dL (2.6-4.7) Magnesium Level 2.2 mg/dL (1.8-2.4) Total Bilirubin 0.2 mg/dL (0.2-1.0) Aspartate Amino Transf (AST/SGOT) 11 U/L (15-37) Alanine Aminotransferase (ALT/SGPT) 11 U/L (16-63) Alkaline Phosphatase 99 U/L (46-116) Total Protein 5.6 g/dL (6.4-8.2) Albumin 1.5 g/dL (3.4-5.0) Albumin/Globulin Ratio 0.4 (1.0-1.7) Glucose (Fingerstick) 516 mg/dL (70-99) 450 mg/dL (70-99) Prothrombin Time 14.6 SEC (11.7-14.0) Prothromb Time International Ratio 1.2 (0.8-1.1) Activated Partial Thromboplast Time 39 SEC (24-38) Test 06/17/18 11:23 06/17/18 16:35 06/17/18 20:25 06/17/18 21:25 Glucose (Fingerstick) 336 mg/dL (70-99) 167 mg/dL (70-99) 262 mg/dL (70-99) 290 mg/dL (70-99) Assessment and Plan Assessmemt and Plan Problems Medical Problems: (1) Chest pain Status: Acute (2) Intractable abdominal pain Status: Acute Comment Review of Relevant I have reviewed the following items tasneem (where applicable) has been applied. Labs Laboratory Tests Test 06/16/18 04:20 06/16/18 07:26 06/16/18 11:00 06/16/18 15:28 White Blood Count 13.0 x10^3/uL (4.0-11.0) Red Blood Count 2.70 x10^6/uL (4.30-5.70) Hemoglobin 8.0 g/dL (13.0-17.5) Hematocrit 24.2 % (39.0-53.0) Mean Corpuscular Volume 90 fL (79-100) Mean Corpuscular Hemoglobin 30 pg (25-35) Mean Corpuscular Hemoglobin Concent 33 g/dL (31-37) Red Cell Distribution Width 13.2 % (11.5-14.5) Platelet Count 233 x10^3/uL (140-400) Neutrophils (%) (Auto) 87 % (31-73) Lymphocytes (%) (Auto) 8 % (24-48) Monocytes (%) (Auto) 5 % (0-9) Eosinophils (%) (Auto) 0 % (0-3) Basophils (%) (Auto) 0 % (0-3) Neutrophils # (Auto) 11.3 x10^3uL (1.8-7.7) Lymphocytes # (Auto) 1.0 x10^3/uL (1.0-4.8) Monocytes # (Auto) 0.7 x10^3/uL (0.0-1.1) Eosinophils # (Auto) 0.0 x10^3/uL (0.0-0.7) Basophils # (Auto) 0.0 x10^3/uL (0.0-0.2) Segmented Neutrophils % 61 % (35-66) Band Neutrophils % 30 % (0-9) Lymphocytes % 6 % (24-48) Monocytes % 3 % (0-10) Platelet Estimate Adequate (ADEQUATE) Sodium Level 130 mmol/L (136-145) Potassium Level 4.7 mmol/L (3.5-5.1) Chloride Level 96 mmol/L (98-107) Carbon Dioxide Level 22 mmol/L (21-32) Anion Gap 12 (6-14) Blood Urea Nitrogen 26 mg/dL (8-26) Creatinine 2.6 mg/dL (0.7-1.3) Estimated GFR (Cockcroft-Gault) 26.2 BUN/Creatinine Ratio 10 (6-20) Glucose Level 290 mg/dL (70-99) Calcium Level 7.6 mg/dL (8.5-10.1) Total Bilirubin 0.3 mg/dL (0.2-1.0) Aspartate Amino Transf (AST/SGOT) 12 U/L (15-37) Alanine Aminotransferase (ALT/SGPT) 11 U/L (16-63) Alkaline Phosphatase 114 U/L (46-116) Total Protein 5.8 g/dL (6.4-8.2) Albumin 1.7 g/dL (3.4-5.0) Albumin/Globulin Ratio 0.4 (1.0-1.7) Glucose (Fingerstick) 343 mg/dL (70-99) 284 mg/dL (70-99) 227 mg/dL (70-99) Test 06/16/18 16:29 06/16/18 17:42 06/16/18 20:56 06/17/18 04:05 Glucose (Fingerstick) 231 mg/dL (70-99) 281 mg/dL (70-99) Urine Sodium <60 mmol/L (Not Estab.) Urine Potassium 63.2 mmol/L (Not Estab.) Urine Chloride <60 mmol/L (Not Estab.) White Blood Count 13.8 x10^3/uL (4.0-11.0) Red Blood Count 2.97 x10^6/uL (4.30-5.70) Hemoglobin 8.8 g/dL (13.0-17.5) Hematocrit 26.4 % (39.0-53.0) Mean Corpuscular Volume 89 fL (79-100) Mean Corpuscular Hemoglobin 30 pg (25-35) Mean Corpuscular Hemoglobin Concent 33 g/dL (31-37) Red Cell Distribution Width 13.5 % (11.5-14.5) Platelet Count 276 x10^3/uL (140-400) Neutrophils (%) (Auto) 84 % (31-73) Lymphocytes (%) (Auto) 9 % (24-48) Monocytes (%) (Auto) 6 % (0-9) Eosinophils (%) (Auto) 1 % (0-3) Basophils (%) (Auto) 0 % (0-3) Neutrophils # (Auto) 11.6 x10^3uL (1.8-7.7) Lymphocytes # (Auto) 1.3 x10^3/uL (1.0-4.8) Monocytes # (Auto) 0.8 x10^3/uL (0.0-1.1) Eosinophils # (Auto) 0.2 x10^3/uL (0.0-0.7) Basophils # (Auto) 0.0 x10^3/uL (0.0-0.2) Sodium Level 125 mmol/L (136-145) Potassium Level 5.3 mmol/L (3.5-5.1) Chloride Level 93 mmol/L (98-107) Carbon Dioxide Level 24 mmol/L (21-32) Anion Gap 8 (6-14) Blood Urea Nitrogen 40 mg/dL (8-26) Creatinine 2.8 mg/dL (0.7-1.3) Estimated GFR (Cockcroft-Gault) 24.0 BUN/Creatinine Ratio 14 (6-20) Glucose Level 479 mg/dL (70-99) Calcium Level 7.5 mg/dL (8.5-10.1) Phosphorus Level 4.0 mg/dL (2.6-4.7) Magnesium Level 2.2 mg/dL (1.8-2.4) Total Bilirubin 0.2 mg/dL (0.2-1.0) Aspartate Amino Transf (AST/SGOT) 11 U/L (15-37) Alanine Aminotransferase (ALT/SGPT) 11 U/L (16-63) Alkaline Phosphatase 99 U/L (46-116) Total Protein 5.6 g/dL (6.4-8.2) Albumin 1.5 g/dL (3.4-5.0) Albumin/Globulin Ratio 0.4 (1.0-1.7) Test 06/17/18 07:03 06/17/18 08:26 06/17/18 08:28 06/17/18 11:23 Glucose (Fingerstick) 516 mg/dL (70-99) 450 mg/dL (70-99) 336 mg/dL (70-99) Prothrombin Time 14.6 SEC (11.7-14.0) Prothromb Time International Ratio 1.2 (0.8-1.1) Activated Partial Thromboplast Time 39 SEC (24-38) Test 06/17/18 16:35 06/17/18 20:25 06/17/18 21:25 Glucose (Fingerstick) 167 mg/dL (70-99) 262 mg/dL (70-99) 290 mg/dL (70-99) Laboratory Tests Test 06/17/18 04:05 06/17/18 07:03 06/17/18 08:26 06/17/18 08:28 White Blood Count 13.8 x10^3/uL (4.0-11.0) Red Blood Count 2.97 x10^6/uL (4.30-5.70) Hemoglobin 8.8 g/dL (13.0-17.5) Hematocrit 26.4 % (39.0-53.0) Mean Corpuscular Volume 89 fL (79-100) Mean Corpuscular Hemoglobin 30 pg (25-35) Mean Corpuscular Hemoglobin Concent 33 g/dL (31-37) Red Cell Distribution Width 13.5 % (11.5-14.5) Platelet Count 276 x10^3/uL (140-400) Neutrophils (%) (Auto) 84 % (31-73) Lymphocytes (%) (Auto) 9 % (24-48) Monocytes (%) (Auto) 6 % (0-9) Eosinophils (%) (Auto) 1 % (0-3) Basophils (%) (Auto) 0 % (0-3) Neutrophils # (Auto) 11.6 x10^3uL (1.8-7.7) Lymphocytes # (Auto) 1.3 x10^3/uL (1.0-4.8) Monocytes # (Auto) 0.8 x10^3/uL (0.0-1.1) Eosinophils # (Auto) 0.2 x10^3/uL (0.0-0.7) Basophils # (Auto) 0.0 x10^3/uL (0.0-0.2) Sodium Level 125 mmol/L (136-145) Potassium Level 5.3 mmol/L (3.5-5.1) Chloride Level 93 mmol/L (98-107) Carbon Dioxide Level 24 mmol/L (21-32) Anion Gap 8 (6-14) Blood Urea Nitrogen 40 mg/dL (8-26) Creatinine 2.8 mg/dL (0.7-1.3) Estimated GFR (Cockcroft-Gault) 24.0 BUN/Creatinine Ratio 14 (6-20) Glucose Level 479 mg/dL (70-99) Calcium Level 7.5 mg/dL (8.5-10.1) Phosphorus Level 4.0 mg/dL (2.6-4.7) Magnesium Level 2.2 mg/dL (1.8-2.4) Total Bilirubin 0.2 mg/dL (0.2-1.0) Aspartate Amino Transf (AST/SGOT) 11 U/L (15-37) Alanine Aminotransferase (ALT/SGPT) 11 U/L (16-63) Alkaline Phosphatase 99 U/L (46-116) Total Protein 5.6 g/dL (6.4-8.2) Albumin 1.5 g/dL (3.4-5.0) Albumin/Globulin Ratio 0.4 (1.0-1.7) Glucose (Fingerstick) 516 mg/dL (70-99) 450 mg/dL (70-99) Prothrombin Time 14.6 SEC (11.7-14.0) Prothromb Time International Ratio 1.2 (0.8-1.1) Activated Partial Thromboplast Time 39 SEC (24-38) Test 06/17/18 11:23 06/17/18 16:35 06/17/18 20:25 06/17/18 21:25 Glucose (Fingerstick) 336 mg/dL (70-99) 167 mg/dL (70-99) 262 mg/dL (70-99) 290 mg/dL (70-99) Microbiology 06/15/18 Blood Culture - Preliminary, Resulted NO GROWTH AFTER 2 DAYS 06/15/18 Urine Culture - Final, Complete 06/15/18 Urine Culture Result 1 (ESTELITA) - Final, Complete Medications Current Medications Aspirin (Children'S Aspirin) 324 mg 1X ONCE PO Last administered on 06/12/18 22:02; Start 06/12/18 at 22:00; Stop 06/12/18 at 22:01; Status DC Hydromorphone HCl (Dilaudid) 0.5 mg PRN Q15MIN PRN IV/SQ PAIN GREATER THAN 3/ 10 Last administered on 06/12/18at 22:55; Start 06/12/18 at 21:30; Stop 06/13/18 at 12:44; Status DC Sodium Chloride 1,000 ml @ 1,000 mls/hr Q1H IV Last administered on 06/12/18at 22:08; Start 06/12/18 at 22:00; Stop 06/12/18 at 22:59; Status DC Ondansetron HCl (Zofran) 4 mg 1X ONCE IV Last administered on 06/12/18at 22:05 ; Start 06/12/18 at 22:30; Stop 06/12/18 at 22:31; Status DC Ondansetron HCl (Zofran) 4 mg STK-MED ONCE .ROUTE ; Start 06/12/18 at 22:03; Stop 06/12/18 at 22:04; Status DC Ondansetron HCl (Zofran) 4 mg PRN Q8HRS PRN IV NAUSEA/VOMITING 1ST CHOICE Last administered on 06/13/18at 12:24; Start 06/12/18 at 22:15; Stop 06/13/18 at 18:17 ; Status DC Fentanyl Citrate (Fentanyl 2ml Vial) 50 mcg PRN Q1HR PRN IV SEVERE PAIN Last administered on 06/13/18 17:37; Start 06/12/18 at 22:15; Stop 06/13/18 at 18:17 ; Status DC Sodium Chloride 1,000 ml @ 125 mls/hr Q8H IV Last administered on 06/13/18 14 :28; Start 06/12/18 at 22:30; Stop 06/13/18 at 22:29; Status DC Nicotine (Nicoderm Cq 21mg) 1 patch DAILY TD Last administered on 06/17/18 08: 35; Start 06/13/18 at 09:00 Amlodipine Besylate (Norvasc) 10 mg DAILY PO Last administered on 06/15/18 08: 26; Start 06/13/18 at 10:00 Atorvastatin Calcium (Lipitor) 20 mg HS PO Last administered on 06/17/18 20:42 ; Start 06/13/18 at 21:00 Carvedilol (Coreg) 12.5 mg BIDWMEALS PO Last administered on 06/15/18 17:13; Start 06/13/18 at 10:00 Alprazolam (Xanax) 2 mg PRN TID PRN PO ANXIETY / AGITATION Last administered on 06/18/18 00:56; Start 06/13/18 at 09:30 Gabapentin (Neurontin) 900 mg TID PO Last administered on 06/17/18 20:42; Start 06/13/18 at 10:00 Lisinopril (Prinivil) 40 mg DAILY PO Last administered on 06/15/18 08:27; Start 06/13/18 at 10:00; Stop 06/16/18 at 11:15; Status DC Non-Formulary Medication (Melatonin ) 1 tab QHS PO ; Start 06/13/18 at 21:00; Status UNV Spironolactone (Aldactone) 25 mg DAILY PO Last administered on 06/16/18 07:52 ; Start 06/13/18 at 10:00; Stop 06/16/18 at 11:15; Status DC Aspirin (Children'S Aspirin) 81 mg DAILY PO Last administered on 06/17/18 08: 36; Start 06/13/18 at 10:00 Pantoprazole Sodium (PROTONIX VIAL for IV PUSH) 40 mg DAILYAC IVP Last administered on 06/17/18 08:35; Start 06/13/18 at 16:30 Multi-Ingredient Mouthwash/Gargle (Gi Cocktail) 20 ml PRN QID PRN PO CHEST PAIN Last administered on 06/17/18 13:25; Start 06/13/18 at 13:45 Sucralfate (Carafate) 1 gm BID PEG Last administered on 06/17/18 20:43; Start 06/13/18 at 21:00 Iohexol (Omnipaque 300 Mg/ml) 60 ml 1X ONCE IV Last administered on 06/13/18 15:23; Start 06/13/18 at 14:30; Stop 06/13/18 at 14:31; Status DC Iohexol (Omnipaque 240 Mg/ml) 30 ml 1X ONCE PO Last administered on 06/13/18 14:30; Start 06/13/18 at 14:30; Stop 06/13/18 at 14:31; Status DC Info (CONTRAST GIVEN -- Rx MONITORING) 1 each PRN DAILY PRN MC SEE COMMENTS; Start 06/13/18 at 14:30; Stop 06/15/18 at 14:29; Status DC Enoxaparin Sodium (Lovenox 40mg Syringe) 40 mg Q24H SQ Last administered on 18:13; Start 06/13/18 at 16:00 Insulin Human Lispro (HumaLOG) 0-5 UNITS TIDWMEALS SQ Last administered on 06/13 17:33; Start 06/13/18 at 17:00; Stop 06/14/18 at 00:14; Status DC Dextrose (Dextrose 50%-Water Syringe) 12.5 gm PRN Q15MIN PRN IV SEE COMMENTS; Start 06/13/18 at 16:00; Stop 06/14/18 at 00:16; Status DC Fentanyl Citrate (Fentanyl 2ml Vial) 50 mcg PRN Q2HR PRN IV PAIN Last administered on 06/17/18 08:34; Start 06/13/18 at 18:15 Ondansetron HCl (Zofran) 4 mg PRN Q6HRS PRN IV NAUSEA/VOMITING Last administered on 06/16/18 12:34; Start 06/13/18 at 18:15 Insulin Human Lispro (HumaLOG) 0-9 UNITS TIDWMEALHC SQ ; Start 06/14/18 at 08:00 ; Status Cancel Dextrose (Dextrose 50%-Water Syringe) 12.5 gm PRN Q15MIN PRN IV SEE COMMENTS; Start 06/14/18 at 00:15; Stop 06/14/18 at 00:35; Status DC Dextrose (Dextrose 50%-Water Syringe) 12.5 gm PRN Q15MIN PRN IV SEE COMMENTS; Start 06/14/18 at 00:15; Status UNV Insulin Human Lispro (HumaLOG) 0-9 UNITS TIDWMEALHC SQ Last administered on at 20:46; Start 06/14/18 at 01:00 Dextrose (Dextrose 50%-Water Syringe) 12.5 gm PRN Q15MIN PRN IV SEE COMMENTS; Start 06/14/18 at 00:30 Insulin Human Lispro (HumaLOG) 5 units TIDAC SQ Last administered on 06/17/18at 18:20; Start 06/14/18 at 07:30 Throat Lozenges (Cepacol Sore Throat Lozenge) 1 josé miguel PRN Q2HRS PRN PO SORE THROAT Last administered on 06/14/18at 00:52; Start 06/14/18 at 00:45 Insulin Glargine (Lantus) 5 units 1X ONCE SQ Last administered on 06/14/18at 00 :58; Start 06/14/18 at 01:00; Stop 06/14/18 at 01:01; Status DC Oxycodone HCl (OxyCONTIN) 10 mg Q12HR PO Last administered on 06/17/18at 20:43; Start 06/14/18 at 10:00 Docusate Sodium (Colace) 100 mg PRN DAILY PRN PO HARD STOOLS Last administered on 06/16/18at 20:50; Start 06/14/18 at 09:45 Polyethylene Glycol (miraLAX PACKET) 17 gm PRN DAILY PRN PO CONSTIPATION; Start 06/14/18 at 09:45 Albuterol/ Ipratropium (Duoneb) 3 ml RTQID NEB Last administered on 06/15/18at 20:18; Start 06/15/18 at 08:00; Stop 06/15/18 at 21:51; Status DC Albuterol/ Ipratropium (Duoneb) 3 ml Q4HRS W/A NEB Last administered on at 19:37; Start 06/15/18 at 22:00 Vancomycin HCl (Vanco Per Pharmacy) 1 each PRN DAILY PRN MC SEE COMMENTS Last administered on 06/16/18at 00:03; Start 06/15/18 at 22:00; Stop 06/16/18 at 09:36 ; Status DC Piperacillin Sod/ Tazobactam Sod (Zosyn Per Pharmacy) 1 each PRN DAILY PRN MC SEE COMMENTS; Start 06/15/18 at 22:00 Budesonide (Pulmicort) 0.5 mg RTBID NEB Last administered on 06/17/18at 19:37; Start 06/16/18 at 08:00 Budesonide (Pulmicort) 0.5 mg 1X ONCE NEB ; Start 06/15/18 at 22:00; Stop 06/15 at 22:01; Status DC Piperacillin Sod/ Tazobactam Sod 3.375 gm/Sodium Chloride 50 ml @ 100 mls/hr Q6HRS IV Last administered on 06/17/18at 23:19; Start 06/15/18 at 22:00 Vancomycin HCl 1.75 gm/Sodium Chloride 500 ml @ 250 mls/hr 1X ONCE IV Last administered on 06/15/18at 22:49; Start 06/15/18 at 23:00; Stop 06/16/18 at 00:59 ; Status DC Acetaminophen (Tylenol) 650 mg PRN Q6HRS PRN PO temp Last administered on at 20:50; Start 06/15/18 at 22:15 Vancomycin HCl 1 gm/Sodium Chloride 250 ml @ 250 mls/hr Q24H IV ; Start at 23:00; Stop 06/16/18 at 23:00; Status DC Vancomycin HCl (Vancomycin Trough Level) 1 each 1X ONCE MC ; Start 06/17/18 at 22:30; Stop 06/17/18 at 22:30; Status DC Amino Acids/ Glycerin/ Electrolytes 1,000 ml @ 80 mls/hr [id number] IV Last administered on 06/17/18at 20:43; Start 06/16/18 at 14:00 Lactobacillus Rhamnosus (Culturelle) 1 cap BID PO Last administered on at 20:42; Start 06/16/18 at 21:00 Insulin Human Lispro (HumaLOG) 6 units 1X ONCE SQ Last administered on at 09:46; Start 06/17/18 at 09:45; Stop 06/17/18 at 09:46; Status DC Diclofenac Sodium (Voltaren) 100 anshu PRN QID PRN TP PAIN Last administered on at 20:43; Start 06/17/18 at 17:00 Active Scripts Active Reported Voltaren (Diclofenac Sodium) 100 Gm Gel..gram. 100 Gm TP QID PRN Tylenol (Acetaminophen) 325 Mg Tablet 650 Mg PO Q6HRS PRN Ibuprofen 800 Mg Tablet 800 Mg PO BID PRN Gabapentin 600 Mg Tablet 900 Mg PO TID Aspirin 81 Mg Tab.chew 81 Mg PO DAILY Spironolactone 25 Mg Tablet 25 Mg PO DAILY Amlodipine Besylate 10 Mg Tablet 10 Mg PO DAILY Coreg (Carvedilol) 12.5 Mg Tablet 12.5 Mg PO BIDWMEALS Atorvastatin Calcium 20 Mg Tablet 20 Mg PO HS Melatonin 3 Mg Tablet 1 Tab PO QHS Novolog Mix 70-30 Vial (Insuln Asp Prt/Insulin Aspart) 100 Unit/1 Ml Vial 0 SQ BIDAC Lisinopril 40 Mg Tablet 40 Mg PO DAILY Xanax (Alprazolam) 2 Mg Tablet 1 Tab PO TID PRN Vitals/I & O Vital Sign - Last 24 Hours 06/17/18 06/17/18 06/17/18 06/17/18 07:30 07:50 08:00 08:45 Temp 97.8 97.8 Pulse 91 95 Resp 20 B/P (MAP) 116/59 (78) 103/55 (71) Pulse Ox 92 92 O2 Delivery Nasal Cannula Nasal Cannula Nasal Cannula O2 Flow Rate 6.0 6.0 6.0 06/17/18 06/17/18 06/17/18 06/17/18 10:38 10:40 10:50 10:59 Temp 98.1 98.1 Pulse 89 90 90 89 Resp 20 20 20 18 B/P (MAP) 109/58 (75) 99/55 (70) 100/58 (72) 92/54 (67) Pulse Ox 97 100 99 100 O2 Delivery Nasal Cannula Nasal Cannula Nasal Cannula Nasal Cannula O2 Flow Rate 6.0 5.0 5.0 5.0 06/17/18 06/17/18 06/17/18 06/17/18 11:38 14:38 16:33 19:16 Temp 97.9 98.1 97.9 98.1 Pulse 88 92 Resp 20 18 B/P (MAP) 96/59 (71) 113/61 (78) Pulse Ox 99 99 98 98 O2 Delivery Nasal Cannula Nasal Cannula Nasal Cannula Nasal Cannula O2 Flow Rate 5.0 6.0 5.0 4.0 06/17/18 06/17/18 06/17/18 06/17/18 19:35 19:37 20:43 22:07 Temp 98.0 98.0 Pulse 100 Resp 20 18 B/P (MAP) 155/68 (97) Pulse Ox 100 98 O2 Delivery Nasal Cannula Nasal Cannula Nasal Cannula Nasal Cannula O2 Flow Rate 6.0 5.0 5.0 4.0 Intake and Output 06/17/18 06/17/18 06/18/18 15:00 23:00 07:00 Intake Total 500 ml 120 ml Output Total 1050 ml 1900 ml Balance -1050 ml -1400 ml 120 ml Nutrition Consultation Dietary Evaluation: Recommendations by RD: Increase Calorie Intake, Protein supplementation, PPN/ TPN Comments: Continue w/PPN for nutrition needs while pt remains on full liquid diet w/poor PO intake Will add Ensure clear BID Expected Outcomes/Goals: diet adv/ tolerance to meet > 75% est nutr needs - not met, goal ongoing Interpretation of weight loss: >7.5% in 3 months Malnutrition Findings: Food and Nutrition Intake (Sev: <50% est energy req 5days Body Fat Depletion (Non Severe: Mild Depletion Weight Status: Underweight FLORINDA LEIVA MD Jun 18, 2018 00:58
[2018-06-18 02:43] VITALS: BP 149/68
[2018-06-18] MEDS: AMINO AC 3%/ELECTROLYTE/GLYCER 1,000 ML IV SCH ×2 (03:30→08:05)
[2018-06-18] MEDS: PIPERACILLIN/TAZOBACTAM 3.375 GM in IV NORMAL SALINE 50ML 50 ML IV SCH (05:27)
[2018-06-18] MEDS: IPRATRPIUM/ALBUTEROL 0.5/2.5MG 3 ML NEBU. NEB SCH ×5 (07:04→22:00)
[2018-06-18] MEDS: BUDESONIDE 0.5 MG/2 ML NEBU. NEB SCH ×2 (07:04→19:43)
[2018-06-18 07:31] VITALS: BP 141/67
[2018-06-18] MEDS: NICOTINE 21MG PATCH. TD SCH (08:03)
[2018-06-18] MEDS: ASPIRIN CHEWABLE 81 MG TABLET. PO SCH (08:03)
[2018-06-18] MEDS: PANTOPRAZOLE IV PUSH 40 MG VIAL. IVP SCH (08:03)
[2018-06-18] MEDS: LACTOBACILLUS RHAMNOSUS GG 1 CAPSULE. PO SCH ×2 (08:04→20:45)
[2018-06-18] MEDS: CARVEDILOL 12.5 MG TABLET. PO SCH ×2 (08:04→18:09)
[2018-06-18] MEDS: GABAPENTIN 300 MG CAPSULE. PO SCH ×4 (08:04→20:45)
[2018-06-18] MEDS: DICLOFENAC SODIUM 1% TOPICAL GEL 100GM TUBE. TP PRN ×2 (08:05→20:46)
[2018-06-18] MEDS: SUCRALFATE 1 GM/10 ML ORAL.SUSP. PEG SCH ×3 (08:06→20:44)
[2018-06-18] MEDS: INSULIN LISPRO 300 UNITS/3 ML INSULN.PEN. SQ SCH ×7 (08:16→20:46)
--- NOTE | 2018-06-18 08:35 | PDOC ---
SUBJECTIVE Subjective S: had 1L pl eff serosang tapped 18 may, seems confused this am, didn't know where he was at 0530 O: Physical exam: Gen.: 52s man, drowsy, sleeping in bed Lungs: Breathing comfortably on NCO2 w/o e/o resp distress Psychiatric: Pleasant Labs: pl fluid cytology pending Assessment and Plan: He is a 53-year-old male with clinical esophageal cancer, bx was suspicious for but not diagnostic based on EGD, pending EUS, admitted for pain with pneumonia on antibiotics, s/p thoracentesis Pain: OxyContin twice a day 10 mg may be too much for him w/ MS changes? may need to hold w/ prn pain meds only, cont bowel regimen as needed, GI cocktail prn, PPI Concern for esophageal cancer: Pending EUS if pl fluid cyto is neg, and would order PET as well, if pl fluid + would treat palliatively and would not need PET or EUS. OK for d/c from our standpoint, can f/u as outpt based on cyto results if dc'd prior to results. substance abuse: Recommend no tobacco, alcohol, marijuana, or any other substance abuse at this time Peripheral arterial disease: Consider elective intervention after treatment of esophagus Prophylaxis: Lovenox Dysphagia: Consider feeding tube if dysphagia becomes problematic dispo: per others, will f/u as outpt prn Thank you kindly and please do not hesitate to call with questions. OBJECTIVE Vital Signs Vital Signs Date Time Temp Pulse Resp B/P (MAP) Pulse Ox O2 Delivery O2 Flow Rate FiO2 06/18/18 08:04 95 06/18/18 07:31 98.9 96 18 141/67 (91) 96 Nasal Cannula 3.0 98.9 06/18/18 07:06 95 Nasal Cannula 3.0 06/18/18 02:43 98.0 72 18 149/68 (95) 93 Nasal Cannula 3.0 98.0 06/17/18 22:07 98.0 100 18 155/68 (97) 98 Nasal Cannula 4.0 98.0 06/17/18 20:43 20 Nasal Cannula 5.0 06/17/18 19:37 100 Nasal Cannula 5.0 06/17/18 19:35 Nasal Cannula 6.0 06/17/18 19:16 98.1 92 18 113/61 (78) 98 Nasal Cannula 4.0 98.1 06/17/18 16:33 98 Nasal Cannula 5.0 06/17/18 14:38 97.9 88 20 96/59 (71) 99 Nasal Cannula 6.0 97.9 06/17/18 11:38 99 Nasal Cannula 5.0 06/17/18 10:59 89 18 92/54 (67) 100 Nasal Cannula 5.0 06/17/18 10:50 90 20 100/58 (72) 99 Nasal Cannula 5.0 06/17/18 10:40 90 20 99/55 (70) 100 Nasal Cannula 5.0 06/17/18 10:38 98.1 89 20 109/58 (75) 97 Nasal Cannula 6.0 98.1 06/17/18 08:45 95 103/55 (71) I & O Intake and Output 06/18/18 06:59 Intake Total 1780 ml Output Total 4350 ml Balance -2570 ml Intake Oral 820 ml IV Total 960 ml Output Urine Total 3300 ml Drainage Total 1050 ml COMMENT Lab Laboratory Tests Test 06/17/18 11:23 06/17/18 16:35 06/17/18 20:25 06/17/18 21:25 Glucose (Fingerstick) 336 mg/dL (70-99) 167 mg/dL (70-99) 262 mg/dL (70-99) 290 mg/dL (70-99) Test 06/18/18 06:53 Glucose (Fingerstick) 398 mg/dL (70-99) Nutrition Consultation Dietary Evaluation: Recommendations by RD: Increase Calorie Intake, Protein supplementation, PPN/ TPN Comments: Continue w/PPN for nutrition needs while pt remains on full liquid diet w/poor PO intake Will add Ensure clear BID Expected Outcomes/Goals: diet adv/ tolerance to meet > 75% est nutr needs - not met, goal ongoing Interpretation of weight loss: >7.5% in 3 months Malnutrition Findings: Food and Nutrition Intake (Sev: <50% est energy req 5days Body Fat Depletion (Non Severe: Mild Depletion Weight Status: Underweight COREY BRITTON MD Jun 18, 2018 08:35
--- NOTE | 2018-06-18 08:39 | PDOC ---
Infectious Disease Note Subjective Subjective sleepy, confused at night per and RN ROS ROS no n/v/d/sob Vital Sign Vital Signs Vital Signs Date Time Temp Pulse Resp B/P (MAP) Pulse Ox O2 Delivery O2 Flow Rate FiO2 06/18/18 08:04 95 06/18/18 07:31 98.9 18 141/67 (91) 96 Nasal Cannula 3.0 98.9 Physical Exam PHYSICAL EXAM GENERAL APPEARANCE: The patient is propped up in bed, alert, in no apparent distress. HEENT: Normal conjunctivae. Oral cavity: Pharynx pink and dry. No lesions. In dentures. NECK: Supple. LUNGS: Diminished aeration in the bases. Nonlabored. HEART: S1, S2. ABDOMEN: Nondistended, soft and nontender with bowel sounds present. GENITOURINARY: Aparicio in place. EXTREMITIES: No gross edema or cyanosis. SKIN: Warm without rash. Multiple tattoos. NEUROLOGIC: Alert. Responds appropriately. LINES: Peripheral IV. Labs Lab Laboratory Tests Test 06/17/18 11:23 06/17/18 16:35 06/17/18 20:25 06/17/18 21:25 Glucose (Fingerstick) 336 mg/dL (70-99) 167 mg/dL (70-99) 262 mg/dL (70-99) 290 mg/dL (70-99) Test 06/18/18 06:53 Glucose (Fingerstick) 398 mg/dL (70-99) Micro Microbiology 06/15/18 Blood Culture - Preliminary, Resulted NO GROWTH AFTER 1 DAY Objective Assessment 1. Sepsis. 2. Fever. 3. Right pleural effusion. 4. Acute kidney injury on chronic kidney disease. 5. 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 6. Coronary artery disease status post cardiac catheterization on 05/30/2018. 7. Chronic diastolic heart failure. 8. Type 2 diabetes mellitus. 9. Tobacco dependency. Plan Plan of Care change zosyn to po augmentin Urine and blood cultures pending Repeat labs in am Supportive care d/w nursing d/w JULIAN HUBBARD MD Jun 18, 2018 08:39
[2018-06-18] MEDS: amLODIPine BESYLATE 10 MG TABLET PO SCH (09:00)
[2018-06-18 09:04] LABS: HEMATOCRIT 24.1 % (39.0-53.0); HEMOGLOBIN 8.2 g/dL (13.0-17.5); RED BLOOD COUNT 2.74 x10^6/uL (4.30-5.70); RED CELL DISTRIBUTION WIDTH 13.1 % (11.5-14.5); WHITE BLOOD COUNT 9.7 x10^3/uL (4.0-11.0)
[2018-06-18 09:34] LABS: CALCIUM 7.5 mg/dL (8.5-10.1); GFR 35.4; POTASSIUM 4.8 mmol/L (3.5-5.1)
--- NOTE | 2018-06-18 09:38 | PDOC ---
PULMONARY PROGRESS NOTES Subjective no soa no more fever Vitals Vital Signs Date Time Temp Pulse Resp B/P (MAP) Pulse Ox O2 Delivery O2 Flow Rate FiO2 06/18/18 08:04 95 06/18/18 07:31 98.9 18 141/67 (91) 96 Nasal Cannula 3.0 98.9 ROS: No Nausea General: Alert, No acute distress HEENT: Other (nc at perrl) Lungs: Other (dull r base) Cardiovascular: S1, S2 Abdomen: Soft, Non-tender Neuro Exam: Alert Extremities: No Edema Skin: Warm Labs Laboratory Tests Test 06/16/18 11:00 06/16/18 15:28 06/16/18 16:29 06/16/18 17:42 Glucose (Fingerstick) 284 mg/dL (70-99) 227 mg/dL (70-99) 231 mg/dL (70-99) Urine Sodium <60 mmol/L (Not Estab.) Urine Potassium 63.2 mmol/L (Not Estab.) Urine Chloride <60 mmol/L (Not Estab.) Test 06/16/18 20:56 06/17/18 04:05 06/17/18 07:03 06/17/18 08:26 Glucose (Fingerstick) 281 mg/dL (70-99) 516 mg/dL (70-99) 450 mg/dL (70-99) White Blood Count 13.8 x10^3/uL (4.0-11.0) Red Blood Count 2.97 x10^6/uL (4.30-5.70) Hemoglobin 8.8 g/dL (13.0-17.5) Hematocrit 26.4 % (39.0-53.0) Mean Corpuscular Volume 89 fL (79-100) Mean Corpuscular Hemoglobin 30 pg (25-35) Mean Corpuscular Hemoglobin Concent 33 g/dL (31-37) Red Cell Distribution Width 13.5 % (11.5-14.5) Platelet Count 276 x10^3/uL (140-400) Neutrophils (%) (Auto) 84 % (31-73) Lymphocytes (%) (Auto) 9 % (24-48) Monocytes (%) (Auto) 6 % (0-9) Eosinophils (%) (Auto) 1 % (0-3) Basophils (%) (Auto) 0 % (0-3) Neutrophils # (Auto) 11.6 x10^3uL (1.8-7.7) Lymphocytes # (Auto) 1.3 x10^3/uL (1.0-4.8) Monocytes # (Auto) 0.8 x10^3/uL (0.0-1.1) Eosinophils # (Auto) 0.2 x10^3/uL (0.0-0.7) Basophils # (Auto) 0.0 x10^3/uL (0.0-0.2) Sodium Level 125 mmol/L (136-145) Potassium Level 5.3 mmol/L (3.5-5.1) Chloride Level 93 mmol/L (98-107) Carbon Dioxide Level 24 mmol/L (21-32) Anion Gap 8 (6-14) Blood Urea Nitrogen 40 mg/dL (8-26) Creatinine 2.8 mg/dL (0.7-1.3) Estimated GFR (Cockcroft-Gault) 24.0 BUN/Creatinine Ratio 14 (6-20) Glucose Level 479 mg/dL (70-99) Calcium Level 7.5 mg/dL (8.5-10.1) Phosphorus Level 4.0 mg/dL (2.6-4.7) Magnesium Level 2.2 mg/dL (1.8-2.4) Total Bilirubin 0.2 mg/dL (0.2-1.0) Aspartate Amino Transf (AST/SGOT) 11 U/L (15-37) Alanine Aminotransferase (ALT/SGPT) 11 U/L (16-63) Alkaline Phosphatase 99 U/L (46-116) Total Protein 5.6 g/dL (6.4-8.2) Albumin 1.5 g/dL (3.4-5.0) Albumin/Globulin Ratio 0.4 (1.0-1.7) Test 06/17/18 08:28 06/17/18 10:10 06/17/18 11:23 06/17/18 16:35 Prothrombin Time 14.6 SEC (11.7-14.0) Prothromb Time International Ratio 1.2 (0.8-1.1) Activated Partial Thromboplast Time 39 SEC (24-38) Body Fluid Total Protein 2.8 g/dL (.) Body Fluid Lactate Dehydrogenase 88 IU/L (.) Glucose (Fingerstick) 336 mg/dL (70-99) 167 mg/dL (70-99) Test 06/17/18 20:25 06/17/18 21:25 06/18/18 06:53 06/18/18 08:55 Glucose (Fingerstick) 262 mg/dL (70-99) 290 mg/dL (70-99) 398 mg/dL (70-99) White Blood Count 9.7 x10^3/uL (4.0-11.0) Red Blood Count 2.74 x10^6/uL (4.30-5.70) Hemoglobin 8.2 g/dL (13.0-17.5) Hematocrit 24.1 % (39.0-53.0) Mean Corpuscular Volume 88 fL (79-100) Mean Corpuscular Hemoglobin 30 pg (25-35) Mean Corpuscular Hemoglobin Concent 34 g/dL (31-37) Red Cell Distribution Width 13.1 % (11.5-14.5) Platelet Count 294 x10^3/uL (140-400) Sodium Level 126 mmol/L (136-145) Potassium Level 4.8 mmol/L (3.5-5.1) Chloride Level 94 mmol/L (98-107) Carbon Dioxide Level 26 mmol/L (21-32) Anion Gap 6 (6-14) Blood Urea Nitrogen 31 mg/dL (8-26) Creatinine 2.0 mg/dL (0.7-1.3) Estimated GFR (Cockcroft-Gault) 35.4 Glucose Level 388 mg/dL (70-99) Calcium Level 7.5 mg/dL (8.5-10.1) Laboratory Tests Test 06/17/18 10:10 06/17/18 11:23 06/17/18 16:35 06/17/18 20:25 Body Fluid Total Protein 2.8 g/dL (.) Body Fluid Lactate Dehydrogenase 88 IU/L (.) Glucose (Fingerstick) 336 mg/dL (70-99) 167 mg/dL (70-99) 262 mg/dL (70-99) Test 06/17/18 21:25 06/18/18 06:53 06/18/18 08:55 Glucose (Fingerstick) 290 mg/dL (70-99) 398 mg/dL (70-99) White Blood Count 9.7 x10^3/uL (4.0-11.0) Red Blood Count 2.74 x10^6/uL (4.30-5.70) Hemoglobin 8.2 g/dL (13.0-17.5) Hematocrit 24.1 % (39.0-53.0) Mean Corpuscular Volume 88 fL (79-100) Mean Corpuscular Hemoglobin 30 pg (25-35) Mean Corpuscular Hemoglobin Concent 34 g/dL (31-37) Red Cell Distribution Width 13.1 % (11.5-14.5) Platelet Count 294 x10^3/uL (140-400) Sodium Level 126 mmol/L (136-145) Potassium Level 4.8 mmol/L (3.5-5.1) Chloride Level 94 mmol/L (98-107) Carbon Dioxide Level 26 mmol/L (21-32) Anion Gap 6 (6-14) Blood Urea Nitrogen 31 mg/dL (8-26) Creatinine 2.0 mg/dL (0.7-1.3) Estimated GFR (Cockcroft-Gault) 35.4 Glucose Level 388 mg/dL (70-99) Calcium Level 7.5 mg/dL (8.5-10.1) Medications Active Scripts Medications Dose Route/Sig Max Daily Dose Days Date Category Ibuprofen 800 Mg Tablet 800 Mg PO BID PRN 06/13/18 Reported Gabapentin 600 Mg Tablet 900 Mg PO TID 05/16/18 Reported Aspirin 81 Mg Tab.chew 81 Mg PO DAILY 05/16/18 Reported Spironolactone 25 Mg Tablet 25 Mg PO DAILY 05/16/18 Reported Amlodipine Besylate 10 Mg Tablet 10 Mg PO DAILY 05/16/18 Reported Coreg (Carvedilol) 12.5 Mg Tablet 12.5 Mg PO BIDWMEALS 05/16/18 Reported Atorvastatin Calcium 20 Mg Tablet 20 Mg PO HS 05/16/18 Reported Melatonin 3 Mg Tablet 1 Tab PO QHS 05/13/18 Reported Novolog Mix 70-30 Vial (Insuln Asp Prt/Insulin Aspart) 100 Unit/1 Ml Vial 0 SQ BIDAC 05/13/18 Reported Lisinopril 40 Mg Tablet 40 Mg PO DAILY 12/11/18 Reported Xanax (Alprazolam) 2 Mg Tablet 1 Tab PO TID PRN 04/04/14 Reported Comments reviewed cxr, Bibasilar infiltrates, left greater than right. small right pleural effusion. Impression . IMPRESSION: 1. The patient with progressive dysphagia and ongoing weight loss and abnormal CT chest, suggesting esophageal malignancy. His previous EGD showed high-grade dysplasia suspicious for adenocarcinoma. He now has unchanged moderate right pleural effusion and a small left pleural effusion. This could be related to malignancy versus related to low oncotic pressure from hypoalbuminemia. He is now s/p thoracentesis 2. Ongoing tobaccoism, suspect underlying chronic obstructive pulmonary disease. 3. Abnormal CT chest, cxr, has new infilt, fever, hypoxemia, suspect pneumonia , aspiration. has dysphagia 4. Mild renal insufficiency. 5. Severe protein-calorie malnutrition. Albumin level is 2.0. 6. High grade dysplasia on EGD, ? adeno Ca Plan . RECOMMENDATIONS: 1. us-guided right thoracentesis for diagnosis. done 06/17, cyto pending, transudate 2. If the effusion is not malignant, then he would require another EGD or EUS to confirm a diagnosis of esophageal cancer. will need to go to for EUS 3. Follow Oncology recommendations. 4. Follow GI recommendations. 5. Smoking cessation counseling provided. 6. oxygen titration 7. bronchodilators. cont abx, fu blood cx, aspiration precaution 8. No further fever, BC no growth so far ok with dc pulmonary desai. follow results of pleural cytology discussed w JULITO Everett MD Jun 18, 2018 09:38
[2018-06-18] MEDS: AMOXICILLIN/K CLAV 875/125MG TABLET. PO SCH ×2 (09:59→20:45)
[2018-06-18] MEDS: oxyCODONE ER 10 MG TAB.ER.12H PO SCH ×2 (09:59→20:45)
[2018-06-18 10:40] VITALS: BP 112/65
--- NOTE | 2018-06-18 11:54 | PDOC ---
SUBJECTIVE ROS no soa, stable OBJECTIVE Vital Signs Vital Signs Date Time Temp Pulse Resp B/P (MAP) Pulse Ox O2 Delivery O2 Flow Rate FiO2 06/18/18 11:27 Nasal Cannula 3.0 06/18/18 10:40 97.6 94 20 112/65 (81) 94 97.6 I & 0 Intake and Output 06/18/18 07:00 Intake Total 1780 ml Output Total 4350 ml Balance -2570 ml Intake Oral 820 ml IV Total 960 ml Output Urine Total 3300 ml Drainage Total 1050 ml PHYSICAL EXAM Physical Exam General: Alert, No acute distress HEENT: Other (nc at perrl) Lungs: Other (dull r base) Cardiovascular: S1, S2 Abdomen: Soft, Non-tender Neuro Exam: Alert Extremities: No Edema Skin: Warm Aparicio + DIAGNOSIS/ASSESSMENT Assessment & Plan LENNOX - Improving this am from 2.8-->2.0 Dehydration --> ATN Holding home Aldactone, Ibuprofen and Lisinopril UOP Good, has Aparicio Now , Monitor for Polyuria and Dehydration CKD STAGE 3- Cr OF 1.3-1.7 likely sec to Diab nephrosclerosis ESOPHAGEAL CANCER- Pending EUS DM II- High Blood Sugars- 200's to 500's As per primary ANEMIA- Hgb stable HYPONATREMIA- Corrected for Glucose Mildly Low PO intake is only clear fluids Start IV NS Pleural effusion- s/p Thoracentesis 1050 ml removed MALNUTRITION- dc PPN Monitor, Discuss with RN COMMENT/RELEVANT DATA Meds Current Medications Medications (Trade) Dose Ordered Sig/Adrien Start Time Stop Time Status Last Admin Dose Admin Acetaminophen (Tylenol) 650 mg PRN Q6HRS PRN 06/15/18 22:15 06/16/18 20:50 650 MG Albuterol/ Ipratropium (Duoneb) 3 ml Q4HRS W/A 06/15/18 22:00 06/18/18 11:26 3 ML Alprazolam (Xanax) 2 mg PRN TID PRN 06/13/18 09:30 06/18/18 00:56 2 MG Amino Acids/ Glycerin/ Electrolytes 1,000 ml @ 80 mls/hr [id number] 06/16/18 14:00 06/18/18 08:05 80 MLS/HR Amlodipine Besylate (Norvasc) 10 mg DAILY 06/13/18 10:00 06/15/18 08:26 10 MG Amoxicillin/ Clavulanate Potassium (Augmentin 875/ 125mg) 1 tab BID 06/18/18 09:30 06/18/18 09:59 1 TAB Aspirin (Children'S Aspirin) 81 mg DAILY 06/13/18 10:00 06/18/18 08:03 81 MG Atorvastatin Calcium (Lipitor) 20 mg HS 06/13/18 21:00 06/17/18 20:42 20 MG Budesonide (Pulmicort) 0.5 mg 1X ONCE 06/15/18 22:00 06/15/18 22:01 DC Carvedilol (Coreg) 12.5 mg BIDWMEALS 06/13/18 10:00 06/18/18 08:04 12.5 MG Dextrose (Dextrose 50%-Water Syringe) 12.5 gm PRN Q15MIN PRN 06/14/18 00:30 Diclofenac Sodium (Voltaren) 1 anshu PRN QID PRN 06/18/18 09:30 Docusate Sodium (Colace) 100 mg PRN DAILY PRN 06/14/18 09:45 06/16/18 20:50 100 MG Enoxaparin Sodium (Lovenox 40mg Syringe) 40 mg Q24H 06/13/18 16:00 06/17/18 18:13 40 MG Fentanyl Citrate (Fentanyl 2ml Vial) 50 mcg PRN Q2HR PRN 06/13/18 18:15 06/17/18 08:34 50 MCG Gabapentin (Neurontin) 900 mg TID 06/13/18 10:00 06/18/18 08:04 900 MG Hydromorphone HCl (Dilaudid) 0.5 mg PRN Q15MIN PRN 06/12/18 21:30 06/13/18 12:44 DC 06/12/18 22:55 0.5 MG Info (CONTRAST GIVEN -- Rx MONITORING) 1 each PRN DAILY PRN 06/13/18 14:30 06/15/18 14:29 DC Insulin Glargine (Lantus) 5 units 1X ONCE 06/14/18 01:00 06/14/18 01:01 DC 06/14/18 00:58 5 UNITS Insulin Human Lispro (HumaLOG) 6 units 1X ONCE 06/17/18 09:45 06/17/18 09:46 DC 06/17/18 09:46 6 UNITS Iohexol (Omnipaque 240 Mg/ml) 30 ml 1X ONCE 06/13/18 14:30 06/13/18 14:31 DC 06/13/18 14:30 30 ML Iohexol (Omnipaque 300 Mg/ml) 60 ml 1X ONCE 06/13/18 14:30 06/13/18 14:31 DC 06/13/18 15:23 60 ML Lactobacillus Rhamnosus (Culturelle) 1 cap BID 06/16/18 21:00 06/18/18 08:04 1 CAP Lisinopril (Prinivil) 40 mg DAILY 06/13/18 10:00 06/16/18 11:15 DC 06/15/18 08:27 40 MG Multi-Ingredient Mouthwash/Gargle (Gi Cocktail) 20 ml PRN QID PRN 06/13/18 13:45 06/17/18 13:25 20 ML Nicotine (Nicoderm Cq 21mg) 1 patch DAILY 06/13/18 09:00 06/18/18 08:03 1 PATCH Non-Formulary Medication (Melatonin ) 1 tab QHS 06/13/18 21:00 UNV Ondansetron HCl (Zofran) 4 mg PRN Q6HRS PRN 06/13/18 18:15 06/16/18 12:34 4 MG Oxycodone HCl (OxyCONTIN) 10 mg Q12HR 06/14/18 10:00 06/18/18 09:59 10 MG Pantoprazole Sodium (PROTONIX VIAL for IV PUSH) 40 mg DAILYAC 06/13/18 16:30 06/18/18 10:27 DC 06/18/18 08:03 40 MG Pantoprazole Sodium (Protonix) 40 mg DAILYAC 06/19/18 07:30 Piperacillin Sod/ Tazobactam Sod (Zosyn Per Pharmacy) 1 each PRN DAILY PRN 06/15/18 22:00 06/18/18 08:42 DC Piperacillin Sod/ Tazobactam Sod 3.375 gm/Sodium Chloride 50 ml @ 100 mls/hr Q6HRS 06/15/18 22:00 06/18/18 08:40 DC 06/18/18 05:27 100 MLS/HR Polyethylene Glycol (miraLAX PACKET) 17 gm PRN DAILY PRN 06/14/18 09:45 Sodium Chloride 1,000 ml @ 125 mls/hr Q8H 06/12/18 22:30 06/13/18 22:29 DC 06/13/18 14:28 125 MLS/HR Spironolactone (Aldactone) 25 mg DAILY 06/13/18 10:00 06/16/18 11:15 DC 06/16/18 07:52 25 MG Sucralfate (Carafate) 1 gm BID 06/13/18 21:00 06/18/18 08:06 1 GM Throat Lozenges (Cepacol Sore Throat Lozenge) 1 sarabjit PRN Q2HRS PRN 06/14/18 00:45 06/14/18 00:52 1 SARABJIT Vancomycin HCl (Vanco Per Pharmacy) 1 each PRN DAILY PRN 06/15/18 22:00 06/16/18 09:36 DC 06/16/18 00:03 1 EACH Vancomycin HCl (Vancomycin Trough Level) 1 each 1X ONCE 06/17/18 22:30 06/17/18 22:30 DC Vancomycin HCl 1.75 gm/Sodium Chloride 500 ml @ 250 mls/hr 1X ONCE 06/15/18 23:00 06/16/18 00:59 DC 06/15/18 22:49 250 MLS/HR Vancomycin HCl 1 gm/Sodium Chloride 250 ml @ 250 mls/hr Q24H 06/16/18 23:00 06/16/18 23:00 DC Lab Laboratory Tests Test 06/17/18 16:35 06/17/18 20:25 06/17/18 21:25 06/18/18 06:53 Glucose (Fingerstick) 167 mg/dL (70-99) 262 mg/dL (70-99) 290 mg/dL (70-99) 398 mg/dL (70-99) Test 06/18/18 08:55 06/18/18 11:31 White Blood Count 9.7 x10^3/uL (4.0-11.0) Red Blood Count 2.74 x10^6/uL (4.30-5.70) Hemoglobin 8.2 g/dL (13.0-17.5) Hematocrit 24.1 % (39.0-53.0) Mean Corpuscular Volume 88 fL (79-100) Mean Corpuscular Hemoglobin 30 pg (25-35) Mean Corpuscular Hemoglobin Concent 34 g/dL (31-37) Red Cell Distribution Width 13.1 % (11.5-14.5) Platelet Count 294 x10^3/uL (140-400) Sodium Level 126 mmol/L (136-145) Potassium Level 4.8 mmol/L (3.5-5.1) Chloride Level 94 mmol/L (98-107) Carbon Dioxide Level 26 mmol/L (21-32) Anion Gap 6 (6-14) Blood Urea Nitrogen 31 mg/dL (8-26) Creatinine 2.0 mg/dL (0.7-1.3) Estimated GFR (Cockcroft-Gault) 35.4 Glucose Level 388 mg/dL (70-99) Calcium Level 7.5 mg/dL (8.5-10.1) Glucose (Fingerstick) 347 mg/dL (70-99) Results All relevant outside records, renal labs, imaging studies, telemetry/EKG's were reviewed. VELMA UPTON MD Jun 18, 2018 11:54
--- NOTE | 2018-06-18 12:22 | NUR ---
SS following up with discharge planning. PT/OT evaluated pt and recommended retirement unit. SS met with pt and ex- in room to discuss discharge planning and retirement unit. Pt adamantly declined retirement unit stating that he would return home. Pt's ex- reported that she could stay with him at home. Pt agreeable to home healthcare at discharge. Rosi, from [facility], ; fax [phone], meeting with pt and pt's ex- to provide education on home healthcare. Pt's RN notified. Pt will need six minute walk prior to discharge.
[2018-06-18] MEDS: IV NORMAL SALINE 1000ML BAG 1,000 ML IV SCH (12:23)
--- NOTE | 2018-06-18 12:33 | PDOC ---
Subjective: Subjective: Breathing better, tolerating PO. Objective: Objective: Per RN - DC vs palliative care discussion pending thoracentesis results, was confused overnight. Vital Signs: Vital Signs Date Time Temp Pulse Resp B/P (MAP) Pulse Ox O2 Delivery O2 Flow Rate FiO2 06/18/18 11:27 Nasal Cannula 3.0 06/18/18 10:40 97.6 94 20 112/65 (81) 94 97.6 Labs: Laboratory Tests Test 06/17/18 16:35 06/17/18 20:25 06/17/18 21:25 06/18/18 06:53 Glucose (Fingerstick) 167 mg/dL 262 mg/dL 290 mg/dL 398 mg/dL Test 06/18/18 08:55 06/18/18 11:31 White Blood Count 9.7 x10^3/uL Red Blood Count 2.74 x10^6/uL Hemoglobin 8.2 g/dL Hematocrit 24.1 % Mean Corpuscular Volume 88 fL Mean Corpuscular Hemoglobin 30 pg Mean Corpuscular Hemoglobin Concent 34 g/dL Red Cell Distribution Width 13.1 % Platelet Count 294 x10^3/uL Sodium Level 126 mmol/L Potassium Level 4.8 mmol/L Chloride Level 94 mmol/L Carbon Dioxide Level 26 mmol/L Anion Gap 6 Blood Urea Nitrogen 31 mg/dL Creatinine 2.0 mg/dL Estimated GFR (Cockcroft-Gault) 35.4 Glucose Level 388 mg/dL Calcium Level 7.5 mg/dL Glucose (Fingerstick) 347 mg/dL URINE CULTURE Final Final report URINE CULTURE RES 1 Final No growth BLOOD CULTURE Preliminary NO GROWTH AFTER 2 DAYS Imaging: CXR 06/17 IMPRESSION: 1.Resolution of layering right-sided pleural effusion following thoracentesis 2. Persistent left basilar infiltrate. Probable small left pleural effusion. PE: GEN: up to chair eating soup LUNGS: NC HEART: RRR ABD: S/ND/NT NEURO/PSYCH: appropriate A/P: Suspected esophageal cancer - tolerating PO Pleural effusion - s/p thoracentesis (1L) 06/17 Anemia, CKD, DM Confusion overnight -- Await pending results, continue plans per oncology. When discharged, would send with PPI, GI cocktail, and Carafate. EDE SCHMIDT Jun 18, 2018 12:33
[2018-06-18 14:47] VITALS: BP 123/62
--- NOTE | 2018-06-18 16:20 | PDOC ---
PROGRESS NOTES Chief Complaint Chief Complaint 1. 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 2. Ongoing tobaccoism, suspect underlying chronic obstructive pulmonary disease. 3. sepsis, fevers 4. Mild renal insufficiency. 5. Severe protein-calorie malnutrition. Albumin level is 2.0. 6. Right pleural effusion 7. CAD s/p cardiac cath on 05/30/2018 8. Chronic diastolic HF 9. Type 2 DM 10. Tobacco dependency Plan: Follow cytology Plans for probable discharge in the a.m. 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, if we get malignancy from pleural effusion this probably won't be necessary History of Present Illness History of Present Illness No acute events reported overnight GI has him on liquid diet so far no orders of advance diet as tolerated to the patient very full very quickly due to the stricture in his suspicious for GI malignancy Thoracentesis done yesterday no complications awaiting for cytology results Also plan for endoscopic ultrasound [facility] by oncology Vitals Vitals Vital Signs Date Time Temp Pulse Resp B/P (MAP) Pulse Ox O2 Delivery O2 Flow Rate FiO2 06/18/18 15:26 Nasal Cannula 3.0 06/18/18 14:47 98.0 88 20 123/62 (82) 98 98.0 Physical Exam Physical Exam GENERAL APPEARANCE: The patient is propped up in bed, alert, in no apparent distress. HEENT: Normal conjunctivae. Oral cavity: Pharynx pink and dry. No lesions. In dentures. NECK: Supple. LUNGS: Diminished aeration in the bases. Nonlabored. HEART: S1, S2. ABDOMEN: Nondistended, soft and nontender with bowel sounds present. GENITOURINARY: Aparicio in place. EXTREMITIES: No gross edema or cyanosis. SKIN: Warm without rash. Multiple tattoos. NEUROLOGIC: Alert. Responds appropriately. LINES: Peripheral IV. General: Alert, Oriented X3, Cooperative, No acute distress Heart: Regular rate, Normal S1, Normal S2 Lungs: Other (dull r base) Abdomen: Normal bowel sounds, Soft Extremities: No clubbing, No cyanosis Skin: No breakdown Labs LABS Laboratory Tests Test 06/17/18 16:35 06/17/18 20:25 06/17/18 21:25 06/18/18 06:53 Glucose (Fingerstick) 167 mg/dL (70-99) 262 mg/dL (70-99) 290 mg/dL (70-99) 398 mg/dL (70-99) Test 06/18/18 08:55 06/18/18 11:31 06/18/18 13:17 White Blood Count 9.7 x10^3/uL (4.0-11.0) Red Blood Count 2.74 x10^6/uL (4.30-5.70) Hemoglobin 8.2 g/dL (13.0-17.5) Hematocrit 24.1 % (39.0-53.0) Mean Corpuscular Volume 88 fL (79-100) Mean Corpuscular Hemoglobin 30 pg (25-35) Mean Corpuscular Hemoglobin Concent 34 g/dL (31-37) Red Cell Distribution Width 13.1 % (11.5-14.5) Platelet Count 294 x10^3/uL (140-400) Sodium Level 126 mmol/L (136-145) Potassium Level 4.8 mmol/L (3.5-5.1) Chloride Level 94 mmol/L (98-107) Carbon Dioxide Level 26 mmol/L (21-32) Anion Gap 6 (6-14) Blood Urea Nitrogen 31 mg/dL (8-26) Creatinine 2.0 mg/dL (0.7-1.3) Estimated GFR (Cockcroft-Gault) 35.4 Glucose Level 388 mg/dL (70-99) Calcium Level 7.5 mg/dL (8.5-10.1) Glucose (Fingerstick) 347 mg/dL (70-99) Ammonia 18 mcmol/L (11-34) Assessment and Plan Assessmemt and Plan Problems Medical Problems: (1) Chest pain Status: Acute (2) Intractable abdominal pain Status: Acute Comment Review of Relevant I have reviewed the following items tasneem (where applicable) has been applied. Labs Laboratory Tests Test 06/16/18 16:29 06/16/18 17:42 06/16/18 20:56 06/17/18 04:05 Glucose (Fingerstick) 231 mg/dL (70-99) 281 mg/dL (70-99) Urine Sodium <60 mmol/L (Not Estab.) Urine Potassium 63.2 mmol/L (Not Estab.) Urine Chloride <60 mmol/L (Not Estab.) White Blood Count 13.8 x10^3/uL (4.0-11.0) Red Blood Count 2.97 x10^6/uL (4.30-5.70) Hemoglobin 8.8 g/dL (13.0-17.5) Hematocrit 26.4 % (39.0-53.0) Mean Corpuscular Volume 89 fL (79-100) Mean Corpuscular Hemoglobin 30 pg (25-35) Mean Corpuscular Hemoglobin Concent 33 g/dL (31-37) Red Cell Distribution Width 13.5 % (11.5-14.5) Platelet Count 276 x10^3/uL (140-400) Neutrophils (%) (Auto) 84 % (31-73) Lymphocytes (%) (Auto) 9 % (24-48) Monocytes (%) (Auto) 6 % (0-9) Eosinophils (%) (Auto) 1 % (0-3) Basophils (%) (Auto) 0 % (0-3) Neutrophils # (Auto) 11.6 x10^3uL (1.8-7.7) Lymphocytes # (Auto) 1.3 x10^3/uL (1.0-4.8) Monocytes # (Auto) 0.8 x10^3/uL (0.0-1.1) Eosinophils # (Auto) 0.2 x10^3/uL (0.0-0.7) Basophils # (Auto) 0.0 x10^3/uL (0.0-0.2) Sodium Level 125 mmol/L (136-145) Potassium Level 5.3 mmol/L (3.5-5.1) Chloride Level 93 mmol/L (98-107) Carbon Dioxide Level 24 mmol/L (21-32) Anion Gap 8 (6-14) Blood Urea Nitrogen 40 mg/dL (8-26) Creatinine 2.8 mg/dL (0.7-1.3) Estimated GFR (Cockcroft-Gault) 24.0 BUN/Creatinine Ratio 14 (6-20) Glucose Level 479 mg/dL (70-99) Calcium Level 7.5 mg/dL (8.5-10.1) Phosphorus Level 4.0 mg/dL (2.6-4.7) Magnesium Level 2.2 mg/dL (1.8-2.4) Total Bilirubin 0.2 mg/dL (0.2-1.0) Aspartate Amino Transf (AST/SGOT) 11 U/L (15-37) Alanine Aminotransferase (ALT/SGPT) 11 U/L (16-63) Alkaline Phosphatase 99 U/L (46-116) Total Protein 5.6 g/dL (6.4-8.2) Albumin 1.5 g/dL (3.4-5.0) Albumin/Globulin Ratio 0.4 (1.0-1.7) Test 06/17/18 07:03 06/17/18 08:26 06/17/18 08:28 06/17/18 10:10 Glucose (Fingerstick) 516 mg/dL (70-99) 450 mg/dL (70-99) Prothrombin Time 14.6 SEC (11.7-14.0) Prothromb Time International Ratio 1.2 (0.8-1.1) Activated Partial Thromboplast Time 39 SEC (24-38) Body Fluid Total Protein 2.8 g/dL (.) Body Fluid Lactate Dehydrogenase 88 IU/L (.) Test 06/17/18 11:23 06/17/18 16:35 06/17/18 20:25 06/17/18 21:25 Glucose (Fingerstick) 336 mg/dL (70-99) 167 mg/dL (70-99) 262 mg/dL (70-99) 290 mg/dL (70-99) Test 06/18/18 06:53 06/18/18 08:55 06/18/18 11:31 06/18/18 13:17 Glucose (Fingerstick) 398 mg/dL (70-99) 347 mg/dL (70-99) White Blood Count 9.7 x10^3/uL (4.0-11.0) Red Blood Count 2.74 x10^6/uL (4.30-5.70) Hemoglobin 8.2 g/dL (13.0-17.5) Hematocrit 24.1 % (39.0-53.0) Mean Corpuscular Volume 88 fL (79-100) Mean Corpuscular Hemoglobin 30 pg (25-35) Mean Corpuscular Hemoglobin Concent 34 g/dL (31-37) Red Cell Distribution Width 13.1 % (11.5-14.5) Platelet Count 294 x10^3/uL (140-400) Sodium Level 126 mmol/L (136-145) Potassium Level 4.8 mmol/L (3.5-5.1) Chloride Level 94 mmol/L (98-107) Carbon Dioxide Level 26 mmol/L (21-32) Anion Gap 6 (6-14) Blood Urea Nitrogen 31 mg/dL (8-26) Creatinine 2.0 mg/dL (0.7-1.3) Estimated GFR (Cockcroft-Gault) 35.4 Glucose Level 388 mg/dL (70-99) Calcium Level 7.5 mg/dL (8.5-10.1) Ammonia 18 mcmol/L (11-34) Laboratory Tests Test 06/17/18 16:35 06/17/18 20:25 06/17/18 21:25 06/18/18 06:53 Glucose (Fingerstick) 167 mg/dL (70-99) 262 mg/dL (70-99) 290 mg/dL (70-99) 398 mg/dL (70-99) Test 06/18/18 08:55 06/18/18 11:31 06/18/18 13:17 White Blood Count 9.7 x10^3/uL (4.0-11.0) Red Blood Count 2.74 x10^6/uL (4.30-5.70) Hemoglobin 8.2 g/dL (13.0-17.5) Hematocrit 24.1 % (39.0-53.0) Mean Corpuscular Volume 88 fL (79-100) Mean Corpuscular Hemoglobin 30 pg (25-35) Mean Corpuscular Hemoglobin Concent 34 g/dL (31-37) Red Cell Distribution Width 13.1 % (11.5-14.5) Platelet Count 294 x10^3/uL (140-400) Sodium Level 126 mmol/L (136-145) Potassium Level 4.8 mmol/L (3.5-5.1) Chloride Level 94 mmol/L (98-107) Carbon Dioxide Level 26 mmol/L (21-32) Anion Gap 6 (6-14) Blood Urea Nitrogen 31 mg/dL (8-26) Creatinine 2.0 mg/dL (0.7-1.3) Estimated GFR (Cockcroft-Gault) 35.4 Glucose Level 388 mg/dL (70-99) Calcium Level 7.5 mg/dL (8.5-10.1) Glucose (Fingerstick) 347 mg/dL (70-99) Ammonia 18 mcmol/L (11-34) Microbiology 06/15/18 Blood Culture - Preliminary, Resulted NO GROWTH AFTER 2 DAYS 06/17/18 Anaerobic/Aerobic Culture, Resulted Pending 06/17/18 Anaerobic Culture Result 1 (ESTELITA), Resulted Pending 06/17/18 Aerobic Culture, Resulted Pending 06/17/18 Aerobic Culture Result 1 (ESTELITA), Resulted Pending 06/17/18 Gram Stain - Final, Resulted 06/17/18 Gram Stain Result 1 (ESTELITA) - Final, Resulted 06/17/18 Gram Stain Result 2 (ESTELITA) - Final, Resulted 06/16/18 - Final, Resulted 06/16/18 - Final, Resulted 06/16/18 - Final, Resulted 06/16/18 - Final, Resulted 06/16/18 - Final, Resulted 06/16/18 - Final, Resulted 06/16/18 Gram Stain Evaluation - Final, Resulted 06/16/18 Sputum Culture, Resulted Pending 06/15/18 Urine Culture - Final, Complete 06/15/18 Urine Culture Result 1 (ESTELITA) - Final, Complete Medications Current Medications Aspirin (Children'S Aspirin) 324 mg 1X ONCE PO Last administered on 06/12/18at 22:02; Start 06/12/18 at 22:00; Stop 06/12/18 at 22:01; Status DC Hydromorphone HCl (Dilaudid) 0.5 mg PRN Q15MIN PRN IV/SQ PAIN GREATER THAN 3/ 10 Last administered on 06/12/18at 22:55; Start 06/12/18 at 21:30; Stop 06/13/18 at 12:44; Status DC Sodium Chloride 1,000 ml @ 1,000 mls/hr Q1H IV Last administered on 06/12/18at 22:08; Start 06/12/18 at 22:00; Stop 06/12/18 at 22:59; Status DC Ondansetron HCl (Zofran) 4 mg 1X ONCE IV Last administered on 06/12/18at 22:05 ; Start 06/12/18 at 22:30; Stop 06/12/18 at 22:31; Status DC Ondansetron HCl (Zofran) 4 mg STK-MED ONCE .ROUTE ; Start 06/12/18 at 22:03; Stop 06/12/18 at 22:04; Status DC Ondansetron HCl (Zofran) 4 mg PRN Q8HRS PRN IV NAUSEA/VOMITING 1ST CHOICE Last administered on 06/13/18 12:24; Start 06/12/18 at 22:15; Stop 06/13/18 at 18:17 ; Status DC Fentanyl Citrate (Fentanyl 2ml Vial) 50 mcg PRN Q1HR PRN IV SEVERE PAIN Last administered on 06/13/18 17:37; Start 06/12/18 at 22:15; Stop 06/13/18 at 18:17 ; Status DC Sodium Chloride 1,000 ml @ 125 mls/hr Q8H IV Last administered on 06/13/18 14 :28; Start 06/12/18 at 22:30; Stop 06/13/18 at 22:29; Status DC Nicotine (Nicoderm Cq 21mg) 1 patch DAILY TD Last administered on 06/18/18 08: 03; Start 06/13/18 at 09:00 Amlodipine Besylate (Norvasc) 10 mg DAILY PO Last administered on 06/15/18 08: 26; Start 06/13/18 at 10:00 Atorvastatin Calcium (Lipitor) 20 mg HS PO Last administered on 06/17/18 20:42 ; Start 06/13/18 at 21:00 Carvedilol (Coreg) 12.5 mg BIDWMEALS PO Last administered on 06/18/18 08:04; Start 06/13/18 at 10:00 Alprazolam (Xanax) 2 mg PRN TID PRN PO ANXIETY / AGITATION Last administered on 06/18/18 00:56; Start 06/13/18 at 09:30 Gabapentin (Neurontin) 900 mg TID PO Last administered on 06/17/18 20:42; Start 06/13/18 at 10:00 Lisinopril (Prinivil) 40 mg DAILY PO Last administered on 06/15/18 08:27; Start 06/13/18 at 10:00; Stop 06/16/18 at 11:15; Status DC Non-Formulary Medication (Melatonin ) 1 tab QHS PO ; Start 06/13/18 at 21:00; Status UNV Spironolactone (Aldactone) 25 mg DAILY PO Last administered on 06/16/18at 07:52 ; Start 06/13/18 at 10:00; Stop 06/16/18 at 11:15; Status DC Aspirin (Children'S Aspirin) 81 mg DAILY PO Last administered on 06/18/18 08: 03; Start 06/13/18 at 10:00 Pantoprazole Sodium (PROTONIX VIAL for IV PUSH) 40 mg DAILYAC IVP Last administered on 06/18/18 08:03; Start 06/13/18 at 16:30; Stop 06/18/18 at 10:27 ; Status DC Multi-Ingredient Mouthwash/Gargle (Gi Cocktail) 20 ml PRN QID PRN PO CHEST PAIN Last administered on 06/17/18at 13:25; Start 06/13/18 at 13:45 Sucralfate (Carafate) 1 gm BID PEG Last administered on 06/18/18at 08:06; Start 06/13/18 at 21:00 Iohexol (Omnipaque 300 Mg/ml) 60 ml 1X ONCE IV Last administered on 06/13/18at 15:23; Start 06/13/18 at 14:30; Stop 06/13/18 at 14:31; Status DC Iohexol (Omnipaque 240 Mg/ml) 30 ml 1X ONCE PO Last administered on 06/13/18at 14:30; Start 06/13/18 at 14:30; Stop 06/13/18 at 14:31; Status DC Info (CONTRAST GIVEN -- Rx MONITORING) 1 each PRN DAILY PRN MC SEE COMMENTS; Start 06/13/18 at 14:30; Stop 06/15/18 at 14:29; Status DC Enoxaparin Sodium (Lovenox 40mg Syringe) 40 mg Q24H SQ Last administered on at 18:13; Start 06/13/18 at 16:00 Insulin Human Lispro (HumaLOG) 0-5 UNITS TIDWMEALS SQ Last administered on 06/13at 17:33; Start 06/13/18 at 17:00; Stop 06/14/18 at 00:14; Status DC Dextrose (Dextrose 50%-Water Syringe) 12.5 gm PRN Q15MIN PRN IV SEE COMMENTS; Start 06/13/18 at 16:00; Stop 06/14/18 at 00:16; Status DC Fentanyl Citrate (Fentanyl 2ml Vial) 50 mcg PRN Q2HR PRN IV PAIN Last administered on 06/17/18 08:34; Start 06/13/18 at 18:15 Ondansetron HCl (Zofran) 4 mg PRN Q6HRS PRN IV NAUSEA/VOMITING Last administered on 06/16/18at 12:34; Start 06/13/18 at 18:15 Insulin Human Lispro (HumaLOG) 0-9 UNITS TIDWMEALHC SQ ; Start 06/14/18 at 08:00 ; Status Cancel Dextrose (Dextrose 50%-Water Syringe) 12.5 gm PRN Q15MIN PRN IV SEE COMMENTS; Start 06/14/18 at 00:15; Stop 06/14/18 at 00:35; Status DC Dextrose (Dextrose 50%-Water Syringe) 12.5 gm PRN Q15MIN PRN IV SEE COMMENTS; Start 06/14/18 at 00:15; Status UNV Insulin Human Lispro (HumaLOG) 0-9 UNITS TIDWMEALHC SQ Last administered on at 12:35; Start 06/14/18 at 01:00 Dextrose (Dextrose 50%-Water Syringe) 12.5 gm PRN Q15MIN PRN IV SEE COMMENTS; Start 06/14/18 at 00:30 Insulin Human Lispro (HumaLOG) 5 units TIDAC SQ Last administered on 06/18/18at 12:34; Start 06/14/18 at 07:30 Throat Lozenges (Cepacol Sore Throat Lozenge) 1 josé miguel PRN Q2HRS PRN PO SORE THROAT Last administered on 06/14/18 00:52; Start 06/14/18 at 00:45 Insulin Glargine (Lantus) 5 units 1X ONCE SQ Last administered on 06/14/18at 00 :58; Start 06/14/18 at 01:00; Stop 06/14/18 at 01:01; Status DC Oxycodone HCl (OxyCONTIN) 10 mg Q12HR PO Last administered on 06/18/18at 09:59; Start 06/14/18 at 10:00 Docusate Sodium (Colace) 100 mg PRN DAILY PRN PO HARD STOOLS Last administered on 06/16/18at 20:50; Start 06/14/18 at 09:45 Polyethylene Glycol (miraLAX PACKET) 17 gm PRN DAILY PRN PO CONSTIPATION; Start 06/14/18 at 09:45 Albuterol/ Ipratropium (Duoneb) 3 ml RTQID NEB Last administered on 06/15/18at 20:18; Start 06/15/18 at 08:00; Stop 06/15/18 at 21:51; Status DC Albuterol/ Ipratropium (Duoneb) 3 ml Q4HRS W/A NEB Last administered on at 15:25; Start 06/15/18 at 22:00 Vancomycin HCl (Vanco Per Pharmacy) 1 each PRN DAILY PRN MC SEE COMMENTS Last administered on 06/16/18at 00:03; Start 06/15/18 at 22:00; Stop 06/16/18 at 09:36 ; Status DC Piperacillin Sod/ Tazobactam Sod (Zosyn Per Pharmacy) 1 each PRN DAILY PRN MC SEE COMMENTS; Start 06/15/18 at 22:00; Stop 06/18/18 at 08:42; Status DC Budesonide (Pulmicort) 0.5 mg RTBID NEB Last administered on 06/18/18at 07:04; Start 06/16/18 at 08:00 Budesonide (Pulmicort) 0.5 mg 1X ONCE NEB ; Start 06/15/18 at 22:00; Stop 06/15 at 22:01; Status DC Piperacillin Sod/ Tazobactam Sod 3.375 gm/Sodium Chloride 50 ml @ 100 mls/hr Q6HRS IV Last administered on 06/18/18at 05:27; Start 06/15/18 at 22:00; Stop at 08:40; Status DC Vancomycin HCl 1.75 gm/Sodium Chloride 500 ml @ 250 mls/hr 1X ONCE IV Last administered on 06/15/18at 22:49; Start 06/15/18 at 23:00; Stop 06/16/18 at 00:59 ; Status DC Acetaminophen (Tylenol) 650 mg PRN Q6HRS PRN PO temp Last administered on at 20:50; Start 06/15/18 at 22:15 Vancomycin HCl 1 gm/Sodium Chloride 250 ml @ 250 mls/hr Q24H IV ; Start at 23:00; Stop 06/16/18 at 23:00; Status DC Vancomycin HCl (Vancomycin Trough Level) 1 each 1X ONCE MC ; Start 06/17/18 at 22:30; Stop 06/17/18 at 22:30; Status DC Amino Acids/ Glycerin/ Electrolytes 1,000 ml @ 80 mls/hr [id number] IV Last administered on 06/18/18at 08:05; Start 06/16/18 at 14:00; Stop 06/18/18 at 12:05 ; Status DC Lactobacillus Rhamnosus (Culturelle) 1 cap BID PO Last administered on at 08:04; Start 06/16/18 at 21:00 Insulin Human Lispro (HumaLOG) 6 units 1X ONCE SQ Last administered on at 09:46; Start 06/17/18 at 09:45; Stop 06/17/18 at 09:46; Status DC Diclofenac Sodium (Voltaren) 100 anshu PRN QID PRN TP PAIN Last administered on at 08:05; Start 06/17/18 at 17:00; Stop 06/18/18 at 09:18; Status DC Amoxicillin/ Clavulanate Potassium (Augmentin 875/ 125mg) 1 tab BID PO Last administered on 06/18/18at 09:59; Start 06/18/18 at 09:30 Diclofenac Sodium (Voltaren) 1 anshu PRN QID PRN TP PAIN; Start 06/18/18 at 09:30 Pantoprazole Sodium (Protonix) 40 mg DAILYAC PO ; Start 06/19/18 at 07:30 Sodium Chloride 1,000 ml @ 75 mls/hr [id number] IV Last administered on at 12:23; Start 06/18/18 at 12:15 Active Scripts Active Reported Voltaren (Diclofenac Sodium) 100 Gm Gel..gram. 100 Gm TP QID PRN Tylenol (Acetaminophen) 325 Mg Tablet 650 Mg PO Q6HRS PRN Ibuprofen 800 Mg Tablet 800 Mg PO BID PRN Gabapentin 600 Mg Tablet 900 Mg PO TID Aspirin 81 Mg Tab.chew 81 Mg PO DAILY Spironolactone 25 Mg Tablet 25 Mg PO DAILY Amlodipine Besylate 10 Mg Tablet 10 Mg PO DAILY Coreg (Carvedilol) 12.5 Mg Tablet 12.5 Mg PO BIDWMEALS Atorvastatin Calcium 20 Mg Tablet 20 Mg PO HS Melatonin 3 Mg Tablet 1 Tab PO QHS Novolog Mix 70-30 Vial (Insuln Asp Prt/Insulin Aspart) 100 Unit/1 Ml Vial 0 SQ BIDAC Lisinopril 40 Mg Tablet 40 Mg PO DAILY Xanax (Alprazolam) 2 Mg Tablet 1 Tab PO TID PRN Vitals/I & O Vital Sign - Last 24 Hours 06/17/18 06/17/18 06/17/18 06/17/18 16:33 19:16 19:35 19:37 Temp 98.1 98.1 Pulse 92 Resp 18 B/P (MAP) 113/61 (78) Pulse Ox 98 98 100 O2 Delivery Nasal Cannula Nasal Cannula Nasal Cannula Nasal Cannula O2 Flow Rate 5.0 4.0 6.0 5.0 06/17/18 06/17/18 06/18/18 06/18/18 20:43 22:07 02:43 07:06 Temp 98.0 98.0 98.0 98.0 Pulse 100 72 Resp 20 18 18 B/P (MAP) 155/68 (97) 149/68 (95) Pulse Ox 98 93 95 O2 Delivery Nasal Cannula Nasal Cannula Nasal Cannula Nasal Cannula O2 Flow Rate 5.0 4.0 3.0 3.0 06/18/18 06/18/18 06/18/18 06/18/18 07:31 08:04 08:05 10:40 Temp 98.9 97.6 98.9 97.6 Pulse 96 95 94 Resp 18 20 B/P (MAP) 141/67 (91) 112/65 (81) Pulse Ox 96 94 O2 Delivery Nasal Cannula Nasal Cannula Nasal Cannula O2 Flow Rate 3.0 3.0 3.0 06/18/18 06/18/18 06/18/18 11:27 14:47 15:26 Temp 98.0 98.0 Pulse 88 Resp 20 B/P (MAP) 123/62 (82) Pulse Ox 98 O2 Delivery Nasal Cannula Nasal Cannula Nasal Cannula O2 Flow Rate 3.0 3.0 3.0 Intake and Output 06/17/18 06/17/18 06/18/18 15:00 23:00 07:00 Intake Total 500 ml 1280 ml Output Total 1050 ml 1900 ml 1400 ml Balance -1050 ml -1400 ml -120 ml Nutrition Consultation Dietary Evaluation: Recommendations by RD: Increase Calorie Intake, Protein supplementation, PPN/ TPN Comments: Continue w/PPN for nutrition needs while pt remains on full liquid diet w/poor PO intake Will add Ensure clear BID Expected Outcomes/Goals: diet adv/ tolerance to meet > 75% est nutr needs - not met, goal ongoing Interpretation of weight loss: >7.5% in 3 months Malnutrition Findings: Food and Nutrition Intake (Sev: <50% est energy req 5days Body Fat Depletion (Non Severe: Mild Depletion Weight Status: Underweight FLORINDA LEIVA MD Jun 18, 2018 16:20
[2018-06-18] MEDS: ENOXAPARIN 40 MG/0.4 ML SYRINGE. SQ SCH (18:09)
[2018-06-18 19:00] VITALS: BP 133/73
[2018-06-18] MEDS: ATORVASTATIN CALCIUM 20 MG TABLET PO SCH (20:45)
[2018-06-18 22:57] VITALS: BP 139/71
[2018-06-19] MEDS: oxyCODONE ER 10 MG TAB.ER.12H PO SCH (00:45)
[2018-06-19] MEDS: IV NORMAL SALINE 1000ML BAG 1,000 ML IV SCH ×2 (01:20→13:07)
[2018-06-19 03:00] VITALS: BP 134/65
[2018-06-19 07:20] VITALS: BP 128/60
[2018-06-19] MEDS ORDERED: PANTOPRAZOLE 40 MG TABLET.DR. PO SCH (07:30)
[2018-06-19] MEDS: BUDESONIDE 0.5 MG/2 ML NEBU. NEB SCH (08:11)
[2018-06-19] MEDS: IPRATRPIUM/ALBUTEROL 0.5/2.5MG 3 ML NEBU. NEB SCH ×3 (08:11→15:27)
--- NOTE | 2018-06-19 08:13 | PDOC ---
SUBJECTIVE Subjective S: pl fluid path pending, sleeping this am, still getting confused, will dc oxycontin O: Physical exam: Gen.: 52s man, sleeping in bed, NAD Lungs: Breathing comfortably w/o e/o resp distress Psychiatric: Pleasant Labs: pl fluid cytology pending Assessment and Plan: He is a 53-year-old male with clinical esophageal cancer, bx was suspicious for but not diagnostic based on EGD, pending EUS, admitted for pain with pneumonia on antibiotics, s/p thoracentesis, path pending Pain: will dc OxyContin twice a day 10 mg due to MS changes (combative last night), rec dc w/ prn pain meds, cont bowel regimen as needed, GI cocktail prn, PPI Concern for esophageal cancer: Pending EUS if pl fluid cyto is neg, and would order PET as well, if pl fluid + would treat palliatively and would not need PET or EUS. OK for d/c from our standpoint, can f/u as outpt based on cyto results if dc'd prior to results. substance abuse: Recommend no tobacco, alcohol, marijuana, or any other substance abuse at this time Peripheral arterial disease: Consider elective intervention after treatment of esophagus Prophylaxis: Lovenox Dysphagia: Consider feeding tube if dysphagia becomes problematic dispo: per others, will f/u as outpt prn Thank you kindly and please do not hesitate to call with questions. OBJECTIVE Vital Signs Vital Signs Date Time Temp Pulse Resp B/P (MAP) Pulse Ox O2 Delivery O2 Flow Rate FiO2 06/19/18 07:20 98.5 95 24 128/60 (82) 92 Room Air 98.5 06/19/18 04:45 Nasal Cannula 2.0 06/19/18 03:00 98.6 96 18 134/65 (88) 97 Nasal Cannula 3.0 98.6 06/19/18 00:45 Room Air 3.0 06/18/18 22:57 97.9 101 18 139/71 (93) 91 Nasal Cannula 3.0 97.9 06/18/18 20:45 Nasal Cannula 2.0 06/18/18 19:50 Nasal Cannula 2.0 06/18/18 19:28 90 Nasal Cannula 2.0 06/18/18 19:00 97.9 102 18 133/73 (93) 91 Nasal Cannula 3.0 97.9 06/18/18 18:09 90 3/19/19 15:26 Nasal Cannula 3.0 06/18/18 14:47 98.0 88 20 123/62 (82) 98 Nasal Cannula 3.0 98.0 06/18/18 11:27 Nasal Cannula 3.0 06/18/18 10:40 97.6 94 20 112/65 (81) 94 Nasal Cannula 3.0 97.6 I & O Intake and Output 06/19/18 07:00 Intake Total 1500 ml Output Total 2400 ml Balance -900 ml Intake Oral 500 ml IV Total 1000 ml Output Urine Total 2400 ml COMMENT Lab Laboratory Tests Test 06/18/18 08:55 06/18/18 11:31 06/18/18 13:17 06/18/18 16:42 White Blood Count 9.7 x10^3/uL (4.0-11.0) Red Blood Count 2.74 x10^6/uL (4.30-5.70) Hemoglobin 8.2 g/dL (13.0-17.5) Hematocrit 24.1 % (39.0-53.0) Mean Corpuscular Volume 88 fL (79-100) Mean Corpuscular Hemoglobin 30 pg (25-35) Mean Corpuscular Hemoglobin Concent 34 g/dL (31-37) Red Cell Distribution Width 13.1 % (11.5-14.5) Platelet Count 294 x10^3/uL (140-400) Sodium Level 126 mmol/L (136-145) Potassium Level 4.8 mmol/L (3.5-5.1) Chloride Level 94 mmol/L (98-107) Carbon Dioxide Level 26 mmol/L (21-32) Anion Gap 6 (6-14) Blood Urea Nitrogen 31 mg/dL (8-26) Creatinine 2.0 mg/dL (0.7-1.3) Estimated GFR (Cockcroft-Gault) 35.4 Glucose Level 388 mg/dL (70-99) Calcium Level 7.5 mg/dL (8.5-10.1) Glucose (Fingerstick) 347 mg/dL (70-99) 231 mg/dL (70-99) Ammonia 18 mcmol/L (11-34) Test 06/18/18 20:28 06/19/18 07:35 Glucose (Fingerstick) 158 mg/dL (70-99) 255 mg/dL (70-99) Nutrition Consultation Dietary Evaluation: Recommendations by RD: Increase Calorie Intake, Protein supplementation, PPN/ TPN Comments: Continue w/PPN for nutrition needs while pt remains on full liquid diet w/poor PO intake Will add Ensure clear BID Expected Outcomes/Goals: diet adv/ tolerance to meet > 75% est nutr needs - not met, goal ongoing Interpretation of weight loss: >7.5% in 3 months Malnutrition Findings: Food and Nutrition Intake (Sev: <50% est energy req 5days Body Fat Depletion (Non Severe: Mild Depletion Weight Status: Underweight COREY BRITTON MD Jun 19, 2018 08:13
--- NOTE | 2018-06-19 08:20 | PDOC ---
Infectious Disease Note Subjective Subjective swollen left upper ext ROS ROS no n/v/d/sob Vital Sign Vital Signs Vital Signs Date Time Temp Pulse Resp B/P (MAP) Pulse Ox O2 Delivery O2 Flow Rate FiO2 06/19/18 07:20 98.5 95 24 128/60 (82) 92 Room Air 98.5 06/19/18 04:45 2.0 Physical Exam PHYSICAL EXAM GENERAL APPEARANCE: The patient is propped up in bed, alert, in no apparent distress. HEENT: Normal conjunctivae. Oral cavity: Pharynx pink and dry. No lesions. In dentures. NECK: Supple. LUNGS: Diminished aeration in the bases. Nonlabored. HEART: S1, S2. ABDOMEN: Nondistended, soft and nontender with bowel sounds present. GENITOURINARY: Aparicio in place. EXTREMITIES: No gross edema or cyanosis. SKIN: Warm without rash. Multiple tattoos. NEUROLOGIC: Alert. Responds appropriately. LINES: Peripheral IV. Labs Lab Laboratory Tests Test 06/18/18 08:55 06/18/18 11:31 06/18/18 13:17 06/18/18 16:42 White Blood Count 9.7 x10^3/uL (4.0-11.0) Red Blood Count 2.74 x10^6/uL (4.30-5.70) Hemoglobin 8.2 g/dL (13.0-17.5) Hematocrit 24.1 % (39.0-53.0) Mean Corpuscular Volume 88 fL (79-100) Mean Corpuscular Hemoglobin 30 pg (25-35) Mean Corpuscular Hemoglobin Concent 34 g/dL (31-37) Red Cell Distribution Width 13.1 % (11.5-14.5) Platelet Count 294 x10^3/uL (140-400) Sodium Level 126 mmol/L (136-145) Potassium Level 4.8 mmol/L (3.5-5.1) Chloride Level 94 mmol/L (98-107) Carbon Dioxide Level 26 mmol/L (21-32) Anion Gap 6 (6-14) Blood Urea Nitrogen 31 mg/dL (8-26) Creatinine 2.0 mg/dL (0.7-1.3) Estimated GFR (Cockcroft-Gault) 35.4 Glucose Level 388 mg/dL (70-99) Calcium Level 7.5 mg/dL (8.5-10.1) Glucose (Fingerstick) 347 mg/dL (70-99) 231 mg/dL (70-99) Ammonia 18 mcmol/L (11-34) Test 06/18/18 20:28 06/19/18 07:35 Glucose (Fingerstick) 158 mg/dL (70-99) 255 mg/dL (70-99) Micro Microbiology 06/15/18 Blood Culture - Preliminary, Resulted NO GROWTH AFTER 1 DAY Objective Assessment 1. Sepsis. 2. Fever. 3. Right pleural effusion. 4. Acute kidney injury on chronic kidney disease. 5. 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 6. Coronary artery disease status post cardiac catheterization on 05/30/2018. 7. Chronic diastolic heart failure. 8. Type 2 diabetes mellitus. 9. Tobacco dependency. Plan Plan of Care po augmentin Urine and blood cultures and pleural cultures neg Repeat labs in am Supportive care left upper ext ultrasound d/w nursing d/w JULIAN HUBBARD MD Jun 19, 2018 08:20
[2018-06-19] MEDS: NICOTINE 21MG PATCH. TD SCH (09:04)
[2018-06-19] MEDS: DICLOFENAC SODIUM 1% TOPICAL GEL 100GM TUBE. TP PRN (09:05)
[2018-06-19] MEDS: AMOXICILLIN/K CLAV 875/125MG TABLET. PO SCH (09:07)
[2018-06-19] MEDS: GABAPENTIN 300 MG CAPSULE. PO SCH ×2 (09:07→13:07)
[2018-06-19] MEDS: ASPIRIN CHEWABLE 81 MG TABLET. PO SCH (09:07)
[2018-06-19] MEDS: SUCRALFATE 1 GM/10 ML ORAL.SUSP. PEG SCH (09:07)
[2018-06-19] MEDS: amLODIPine BESYLATE 10 MG TABLET PO SCH (09:07)
[2018-06-19] MEDS: CARVEDILOL 12.5 MG TABLET. PO SCH ×2 (09:07→17:27)
[2018-06-19] MEDS: LACTOBACILLUS RHAMNOSUS GG 1 CAPSULE. PO SCH (09:07)
[2018-06-19] MEDS: ALPRAZolam 1 MG TABLET PO PRN (09:09)
[2018-06-19] MEDS: INSULIN LISPRO 300 UNITS/3 ML INSULN.PEN. SQ SCH ×6 (09:19→17:43)
--- NOTE | 2018-06-19 10:30 | RAD ---
Left upper extremity venous duplex study 06/19/2018 Clinical History: left upper extremity edema pain Technique: Using a combination of real time ultrasound imaging and color-flow and pulse Doppler imaging techniques, including spectral analysis, graded compression and augmentation, duplex evaluation of the deep venous system of the left upper extremity was performed. Multiple images were obtained. Findings: There is no sonographic evidence of deep venous thrombosis involving the visualized deep venous structures of the left upper extremity. Subcutaneous upper extremity edema noted. Impression: No evidence of deep venous thrombosis involving the left upper extremity Electronically signed by: Enmanuel Melgar MD (06/19/2018 10:27 AM) [id number]
--- NOTE | 2018-06-19 10:59 | PDOC ---
PULMONARY PROGRESS NOTES Subjective no soa no more fever Vitals Vital Signs Date Time Temp Pulse Resp B/P (MAP) Pulse Ox O2 Delivery O2 Flow Rate FiO2 06/19/18 09:07 95 128/60 06/19/18 08:32 Nasal Cannula 2.0 06/19/18 08:11 97 06/19/18 07:20 98.5 24 98.5 ROS: No Nausea General: Alert, No acute distress HEENT: Other (nc at perrl) Lungs: Other (dull r base) Cardiovascular: S1, S2 Abdomen: Soft, Non-tender Neuro Exam: Alert Extremities: No Edema Skin: Warm Labs Laboratory Tests Test 06/17/18 11:23 06/17/18 16:35 06/17/18 20:25 06/17/18 21:25 Glucose (Fingerstick) 336 mg/dL (70-99) 167 mg/dL (70-99) 262 mg/dL (70-99) 290 mg/dL (70-99) Test 06/18/18 06:53 06/18/18 08:55 06/18/18 11:31 06/18/18 13:17 Glucose (Fingerstick) 398 mg/dL (70-99) 347 mg/dL (70-99) White Blood Count 9.7 x10^3/uL (4.0-11.0) Red Blood Count 2.74 x10^6/uL (4.30-5.70) Hemoglobin 8.2 g/dL (13.0-17.5) Hematocrit 24.1 % (39.0-53.0) Mean Corpuscular Volume 88 fL (79-100) Mean Corpuscular Hemoglobin 30 pg (25-35) Mean Corpuscular Hemoglobin Concent 34 g/dL (31-37) Red Cell Distribution Width 13.1 % (11.5-14.5) Platelet Count 294 x10^3/uL (140-400) Sodium Level 126 mmol/L (136-145) Potassium Level 4.8 mmol/L (3.5-5.1) Chloride Level 94 mmol/L (98-107) Carbon Dioxide Level 26 mmol/L (21-32) Anion Gap 6 (6-14) Blood Urea Nitrogen 31 mg/dL (8-26) Creatinine 2.0 mg/dL (0.7-1.3) Estimated GFR (Cockcroft-Gault) 35.4 Glucose Level 388 mg/dL (70-99) Calcium Level 7.5 mg/dL (8.5-10.1) Ammonia 18 mcmol/L (11-34) Test 06/18/18 16:42 06/18/18 20:28 06/19/18 07:35 Glucose (Fingerstick) 231 mg/dL (70-99) 158 mg/dL (70-99) 255 mg/dL (70-99) Laboratory Tests Test 06/18/18 11:31 06/18/18 13:17 06/18/18 16:42 06/18/18 20:28 Glucose (Fingerstick) 347 mg/dL (70-99) 231 mg/dL (70-99) 158 mg/dL (70-99) Ammonia 18 mcmol/L (11-34) Test 06/19/18 07:35 Glucose (Fingerstick) 255 mg/dL (70-99) Medications Active Scripts Medications Dose Route/Sig Max Daily Dose Days Date Category Ibuprofen 800 Mg Tablet 800 Mg PO BID PRN 06/13/18 Reported Gabapentin 600 Mg Tablet 900 Mg PO TID 05/16/18 Reported Aspirin 81 Mg Tab.chew 81 Mg PO DAILY 05/16/18 Reported Spironolactone 25 Mg Tablet 25 Mg PO DAILY 05/16/18 Reported Amlodipine Besylate 10 Mg Tablet 10 Mg PO DAILY 05/16/18 Reported Coreg (Carvedilol) 12.5 Mg Tablet 12.5 Mg PO BIDWMEALS 05/16/18 Reported Atorvastatin Calcium 20 Mg Tablet 20 Mg PO HS 05/16/18 Reported Melatonin 3 Mg Tablet 1 Tab PO QHS 05/13/18 Reported Novolog Mix 70-30 Vial (Insuln Asp Prt/Insulin Aspart) 100 Unit/1 Ml Vial 0 SQ BIDAC 05/13/18 Reported Lisinopril 40 Mg Tablet 40 Mg PO DAILY 03/12/18 Reported Xanax (Alprazolam) 2 Mg Tablet 1 Tab PO TID PRN 04/04/14 Reported Comments reviewed cxr, Bibasilar infiltrates, left greater than right. small right pleural effusion. Impression . IMPRESSION: 1. The patient with progressive dysphagia and ongoing weight loss and abnormal CT chest, suggesting esophageal malignancy. His previous EGD showed high-grade dysplasia suspicious for adenocarcinoma. He now has unchanged moderate right pleural effusion and a small left pleural effusion. This could be related to malignancy versus related to low oncotic pressure from hypoalbuminemia. He is now s/p thoracentesis 2. Ongoing tobaccoism, suspect underlying chronic obstructive pulmonary disease. 3. Abnormal CT chest, cxr, has new infilt, fever, hypoxemia, suspect pneumonia , aspiration. has dysphagia 4. Mild renal insufficiency. 5. Severe protein-calorie malnutrition. Albumin level is 2.0. 6. High grade dysplasia on EGD, ? adeno Ca Plan . RECOMMENDATIONS: 1. us-guided right thoracentesis for diagnosis. done 06/17, cyto pending, transudate 2. If the effusion is not malignant, then he would require another EGD or EUS to confirm a diagnosis of esophageal cancer. will need to go to for EUS 3. Follow Oncology recommendations. 4. Follow GI recommendations. 5. Smoking cessation counseling provided. 6. oxygen titration 7. bronchodilators. cont PO abx, fu blood cx, aspiration precaution 8. No further fever, BC no growth so far ok with dc pulmonary desai. follow results of pleural cytology discussed w JULITO Everett MD Jun 19, 2018 10:59
[2018-06-19 11:00] VITALS: BP 104/59
--- NOTE | 2018-06-19 11:13 | NUR ---
medellin catheter removed at 1110
--- NOTE | 2018-06-19 13:55 | PDOC ---
Subjective: Subjective: Swallowing okay. Thinks he gets to go home today. EUS scheduled for 07/02/18. Objective: Vital Signs: Vital Signs Date Time Temp Pulse Resp B/P (MAP) Pulse Ox O2 Delivery O2 Flow Rate FiO2 06/19/18 11:42 93 Nasal Cannula 1.0 06/19/18 11:00 98.0 93 12 104/59 (74) 98.0 Labs: Laboratory Tests Test 06/18/18 16:42 06/18/18 20:28 06/19/18 07:35 06/19/18 11:30 Glucose (Fingerstick) 231 mg/dL 158 mg/dL 255 mg/dL 261 mg/dL Imaging: UE US Impression: No evidence of deep venous thrombosis involving the left upper extremity PE: GEN: NAD LUNGS: room air HEART: RRR ABD: S/ND/NT NEURO/PSYCH: A & O 3 A/P: Suspected esophageal cancer - tolerating PO Pleural effusion s/p thoracentesis -- DC per primary, follow-up w/ [facility] as planned. EDE SCHMIDT Jun 19, 2018 13:55
[2018-06-19] MEDS ORDERED: AMOX1TAB11 PO (14:02)
[2018-06-19] MEDS ORDERED: LACT1CAP19 PO (14:02)
[2018-06-19] MEDS ORDERED: Pantoprazole PO (14:02)
[2018-06-19] MEDS ORDERED: SUCR1ORA5 PEG (14:02)
--- NOTE | 2018-06-19 14:10 | PDOC3 ---
Discharge Summary Visit Information Date of Admission: Jun 13, 2018 Date of Discharge: Jun 19, 2018 Admitting Diagnosis Comment: INTRACTABLE SEVERE PAIN Distal esophageal biopsies showed high grade dysplasia with focal changes highly suspicious for invasive adenocarcinoma. Mural thickening involving the distal esophagus or a hiatal hernia. A neoplastic etiology cannot be excluded. There is a persistent mass effect in the region of the distal esophagus. Chest pain, Uncontrolled DM2 Chronic diastolic CHF HTN Severe PAD with left LESLIE CAD HLD Nicotine dependence Final Diagnosis 1. 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 2. Ongoing tobaccoism, suspect underlying chronic obstructive pulmonary disease. 3. sepsis, fevers 4. Mild renal insufficiency. 5. Severe protein-calorie malnutrition. Albumin level is 2.0. 6. Right pleural effusion 7. CAD s/p cardiac cath on 05/30/2018 8. Chronic diastolic HF 9. Type 2 DM 10. Tobacco dependency Brief Hospital Course Allergies Allergies Coded Allergies Type Severity Reaction Last Updated Verified No Known Drug Allergies 09/05/13 No Vital Signs Vital Signs Date Time Temp Pulse Resp B/P (MAP) Pulse Ox O2 Delivery O2 Flow Rate FiO2 06/19/18 11:42 93 Nasal Cannula 1.0 06/19/18 11:00 98.0 93 12 104/59 (74) 98.0 Lab Results Laboratory Tests Test 06/17/18 16:35 06/17/18 20:25 06/17/18 21:25 06/18/18 06:53 Glucose (Fingerstick) 167 mg/dL (70-99) 262 mg/dL (70-99) 290 mg/dL (70-99) 398 mg/dL (70-99) Test 06/18/18 08:55 06/18/18 11:31 06/18/18 13:17 06/18/18 16:42 White Blood Count 9.7 x10^3/uL (4.0-11.0) Red Blood Count 2.74 x10^6/uL (4.30-5.70) Hemoglobin 8.2 g/dL (13.0-17.5) Hematocrit 24.1 % (39.0-53.0) Mean Corpuscular Volume 88 fL (79-100) Mean Corpuscular Hemoglobin 30 pg (25-35) Mean Corpuscular Hemoglobin Concent 34 g/dL (31-37) Red Cell Distribution Width 13.1 % (11.5-14.5) Platelet Count 294 x10^3/uL (140-400) Sodium Level 126 mmol/L (136-145) Potassium Level 4.8 mmol/L (3.5-5.1) Chloride Level 94 mmol/L (98-107) Carbon Dioxide Level 26 mmol/L (21-32) Anion Gap 6 (6-14) Blood Urea Nitrogen 31 mg/dL (8-26) Creatinine 2.0 mg/dL (0.7-1.3) Estimated GFR (Cockcroft-Gault) 35.4 Glucose Level 388 mg/dL (70-99) Calcium Level 7.5 mg/dL (8.5-10.1) Glucose (Fingerstick) 347 mg/dL (70-99) 231 mg/dL (70-99) Ammonia 18 mcmol/L (11-34) Test 06/18/18 20:28 06/19/18 07:35 06/19/18 11:30 Glucose (Fingerstick) 158 mg/dL (70-99) 255 mg/dL (70-99) 261 mg/dL (70-99) Laboratory Tests Test 06/18/18 16:42 06/18/18 20:28 06/19/18 07:35 06/19/18 11:30 Glucose (Fingerstick) 231 mg/dL (70-99) 158 mg/dL (70-99) 255 mg/dL (70-99) 261 mg/dL (70-99) Brief Hospital Course He is a 53-year-old male admitted with chest and abdominal and back pain with nausea and vomiting and dysphagia, also with weight loss, on disability due to depression and anxiety, peripheral artery disease and other comorbidities, EGD showed biopsies reported consistent with high-grade dysplasia suspicious for adenocarcinoma, and on CT scan he is noted to have diffuse mild thickening of the distal esophagus with right pleural effusion and pain is chronic, worsening over time, up to 10/10, constant, initially noted before [facility], associated with dysphagia and weight loss, and improved with fentanyl and at the epigastric region radiating up the esophagus. Procedure in consultation by GI pulmonary and also oncology. Patient does not have a definitive diagnosis at the present time on his chest x-ray there was a right pleural effusion which served as portal of entry to retrieve pleural fluid with hopes of making a diagnosis. Pathology at the time my discharge is unavailable. The patient is already set up with [facility] to have an endoscopic ultrasonography and oriented to try to 2 at a proper biopsy from his esophageal lesion seen on CAT scan. Fortunately patient is unable to eat solid food except for the quit. Signs and symptoms of alarm were discussed with the patient and his family member at bedside. All concerns were addressed to the best of my abilities prior to dismissal. Discharge Information Condition at Discharge: Stable Follow Up: Weeks (K US scheduled) Disposition/Orders: D/C to Home Scheduled Amlodipine Besylate (Amlodipine Besylate) 10 Mg Tablet, 10 MG PO DAILY for hypertension, (Reported) Entered as Reported by: SHERRY CHENG on 05/16/181511 Last Action: Continued on 06/13/18904 by SHERRY CHENG Amoxicillin/Potassium Clav (Amox Tr-K Clv 875-125 Mg Tab) 1 Each Tablet, 1 TAB PO BID for antibacterial for 7 Days, #14 Prescribed by: FLORINDA LEIVA MD on 06/19/18 1402 Aspirin (Aspirin) 81 Mg Tab.chew, 81 MG PO DAILY for heart health, (Reported) Entered as Reported by: SHERRY CHENG on 05/16/181514 Last Action: Continued on 06/13/18 1003 by HARPREET HERRERA Atorvastatin Calcium (Atorvastatin Calcium) 20 Mg Tablet, 20 MG PO HS for FOR CHOLESTEROL, #30 Ref 0 (Reported) Entered as Reported by: SHERRY CHENG on 05/16/18 1509 Last Action: Continued on 06/13/18904 by SHERRY CHENG Carvedilol (Coreg ) 12.5 Mg Tablet, 12.5 MG PO BIDWMEALS for CARDIAC, ( Reported) Entered as Reported by: SHERRY CHENG on 05/16/181509 Last Action: Continued on 06/13/18904 by SHERRY CHENG Gabapentin (Gabapentin) 600 Mg Tablet, 900 MG PO TID for NEUROGENIC PAIN, ( Reported) Entered as Reported by: SHERRY CHENG on 05/16/181515 Last Action: Converted on 06/13/18904 by SHERRY CHENG Insuln Asp Prt/Insulin Aspart (Novolog Mix 70-30 Vial) 100 Unit/1 Ml Vial, 0 SQ BIDAC for diabetes, (Reported) Entered as Reported by: FEDERICO JARQUIN on 05/13/18 104 Last Action: Reviewed on 06/13/18 0832 by SHERRY CHENG Lactobacillus Rhamnosus Gg (Culturelle) 1 Each Cap.sprink, 1 CAP PO BID for probiotic for 30 Days, #60 Prescribed by: FLORINDA LEIVA MD on 06/19/18 1402 Lisinopril (Lisinopril) 40 Mg Tablet, 40 MG PO DAILY for HTN, (Reported) Entered as Reported by: MAGNUS POLLARD on 03/12/18 0326 Last Action: Converted on 06/13/18904 by SHERRY CHENG Melatonin (Melatonin) 3 Mg Tablet, 1 TAB PO QHS for insomnia, #30 Ref 2 ( Reported) Entered as Reported by: FEDERICO JARQUIN on 05/13/18 104 Last Action: Converted on 06/13/18904 by SHERRY CHENG Spironolactone (Spironolactone) 25 Mg Tablet, 25 MG PO DAILY for hypertension, diuretic, (Reported) Entered as Reported by: SHERRY CHENG on 05/16/18 1514 Last Action: Converted on 06/13/18904 by SHERRY CHENG Sucralfate (Carafate) 1 Gm/10 Ml Oral.susp, 1 GM PEG BID for PUD for 30 Days, # 30 Prescribed by: FLORINDA LEIVA MD on 06/19/18 1402 [Pantoprazole] 40 MG TABLET.DR, 40 MG PO DAILYAC for PUD for 30 Days, #30 Prescribed by: FLORINDA LEIVA MD on 06/19/18 1402 Scheduled PRN Acetaminophen (Tylenol) 325 Mg Tablet, 650 MG PO Q6HRS PRN for FEVER > 100.5'F, (Reported) Entered as Reported by: DENIZ HOOPER on 06/15/182210 Last Action: New Order on 06/15/182210 by DENIZ HOOPER Alprazolam (Xanax) 2 Mg Tablet, 1 TAB PO TID PRN for ANXIETY / AGITATION, #90 ( Reported) Entered as Reported by: GEMA MCWILLIAMS on 04/04/14 0402 Last Action: Converted on 06/13/18904 by SHERRY CHENG Diclofenac Sodium (Voltaren) 100 Gm Gel..gram., 100 GM TP QID PRN for PAIN, ( Reported) Entered as Reported by: SHERRY CHENG on 06/17/181652 Last Action: Continued on 06/17/181653 by SHERRY CHENG Ibuprofen (Ibuprofen) 800 Mg Tablet, 800 MG PO BID PRN for INFLAMMATION, ( Reported) Entered as Reported by: SHERRY CHENG on 06/13/18831 Last Action: New Order on 06/13/18831 by FLORINDA HARDING MD Jun 19, 2018 14:10
[2018-06-19 14:54] VITALS: BP 143/76
--- NOTE | 2018-06-19 17:09 | PATHOLOGY ---
Note [facility] Accession Number: [id number] TESTS RESULT FLAG UNITS REF RANGE LAB Clinician Provided Cytology Information No. of containers..01 Other (Miscellaneous) Source: RT PLERUAL FLUID DIAGNOSIS: RT PLERUAL FLUID NEGATIVE FOR MALIGNANT CELLS. FOCALLY REACTIVE MESOTHELIAL CELLS, NEUTROPHILS, AND CHRONIC INFLAMMATORY CELLS PRESENT. THIS INTERPRETATION INCLUDES EVALUATION OF A CELL BLOCK. Signed out by: 02 Boyd Hercules MD, Pathologist NPI- [id number] Performed by: Lexus Encinas, Publications Designer ([facility]) Gross description: 01 30ML, YELLOW, CLOUDY /LCS FLAG LEGEND: L-Low Normal,H-High Normal,LL-Alert Low,HH-Alert High <-Panic Low,>-Panic High,A-Abnormal,AA-Critical Abnormal Performed at: [facility] [address] [place] [address] Johan Robert MD, 02 [facility] [address] [place] [address] Boyd Hercules MD, Specimen Comment: A courtesy copy of this report has been sent to Specimen Comment: [phone], , , . Specimen Comment: Report sent to DR NJ,DR BRITTON,DR WRIGHT / DR HAYES Specimen Comment: A duplicate report has been generated due to demographic updates. Performed at: [address], [place], [place] [id number] MD Johan Robert MD Phone: [phone]
[2018-06-19 17:27] VITALS: BP 143/76
[2018-06-19] MEDS: ENOXAPARIN 40 MG/0.4 ML SYRINGE. SQ SCH (17:28)
--- NOTE | 2018-06-19 17:44 | NUR ---
15 units of humalog given at dinner time per dr mendoza on the sliding scale.
--- NOTE | 2018-06-19 18:28 | NUR ---
pt is discharged home with home health at 1742 via wheelchair via viri campo. pt is in stable condition. pt has all belongings with him. pt received discharge instructions and prescriptions and stated he had no further questions for me. pt did not qualify for home oxygen. pt walker was delivered here so pt was able to take walker home with him.
[2018-06-19] MEDS ORDERED: GABAPENTIN 300 MG CAPSULE. PO SCH (21:00)
[2018-07-26] MEDS ORDERED: VANC1VIA3 MC (11:27)
[2018-07-26] MEDS ORDERED: PIPE4.5F2 IV (11:27)
[2018-07-26] MEDS ORDERED: AZIT250T6 PO (11:29)
== END 2018-06-19 17:42 | disposition home health service (06) | DRG 871 ==
LOC: ER 21:00 → 2 SOUTH 22:03
PROVIDERS: ADMIT Internal Medicine; ATTEND Internal Medicine
PROC: 0W993ZZ Drainage of Right Pleural Cavity, Percutaneous Approach (ICD-10-PCS; principal; 2018-06-17)
DX: A41.9 Sepsis, unspecified organism (principal); E43 Unspecified severe protein-calorie malnutrition; C15.5 Malignant neoplasm of lower third of esophagus; I50.32 Chronic diastolic (congestive) heart failure; C15.9 Malignant neoplasm of esophagus, unspecified; E87.1 Hypo-osmolality and hyponatremia; I13.0 Hypertensive heart and chronic kidney disease with heart failure and stage 1 through stage 4 chronic kidney disease, or unspecified chronic kidney disease; J98.11 Atelectasis; N17.9 Acute kidney failure, unspecified; D63.1 Anemia in chronic kidney disease; E11.22 Type 2 diabetes mellitus with diabetic chronic kidney disease; E11.51 Type 2 diabetes mellitus with diabetic peripheral angiopathy without gangrene; E11.65 Type 2 diabetes mellitus with hyperglycemia; E78.5 Hyperlipidemia, unspecified; E86.0 Dehydration; F12.90 Cannabis use, unspecified, uncomplicated; F17.210 Nicotine dependence, cigarettes, uncomplicated; F32.9 Major depressive disorder, single episode, unspecified; F41.9 Anxiety disorder, unspecified; I25.10 Atherosclerotic heart disease of native coronary artery without angina pectoris; I70.1 Atherosclerosis of renal artery; J44.9 Chronic obstructive pulmonary disease, unspecified; M19.90 Unspecified osteoarthritis, unspecified site; E11.42 Type 2 diabetes mellitus with diabetic polyneuropathy; K21.0 Gastro-esophageal reflux disease with esophagitis; K44.9 Diaphragmatic hernia without obstruction or gangrene; N18.3 Chronic kidney disease, stage 3 (moderate); N28.89 Other specified disorders of kidney and ureter; R09.02 Hypoxemia; R13.10 Dysphagia, unspecified; Z82.49 Family history of ischemic heart disease and other diseases of the circulatory system; Z85.01 Personal history of malignant neoplasm of esophagus; Z79.4 Long term (current) use of insulin; Z68.21 Body mass index [BMI] 21.0-21.9, adult
CPT/HCPCS: 32555; 36415; 36600; 71045; 71260; 74177; 80048; 80053; 81001; 82140; 82436; 82805; 82962; 83605; 83615; 83690; 83735; 83880; 83935; 84100; 84133; 84157; 84300; 84484; 85007; 85025; 85027; 85610; 85730; 87040; 87070; 87071; 87075; 87086; 87205; 87804; 88112; 88305; 93005; 93971; 94618; 94640; 94760; 96361; 96374; C9113; J1170; J1650; J1815; J2405; J2543; J3010; J3370; J7030; J7040; J7620; J7626; Q9966; Q9967; 97110; 97116; 97535; 99285-25

== ENCOUNTER → 2018-07-04 | Outpatient (CLI) | payer MEDICARE ==
[2018-06-19 17:27] VITALS: BP 143/76
[~2018-07-04] MED LIST changes: +ACET325T9 PO; +AMOX1TAB11 PO; +AZIT250T6 PO; +IBUP-1060 PO; +LACT1CAP19 PO; +PIPE4.5F2 IV; +Pantoprazole PO; +SUCR1ORA5 PEG; +VANC1VIA3 MC
--- NOTE | 2018-07-04 14:50 | RAD ---
FDG tumor localization scan, PET/CT, 07/04/2018: History: Esophageal cancer, initial staging Following IV injection of 14.9 mCi of 18 F-FDG, imaging was performed from the skull base to the proximal thighs. The noncontrast CT component was performed for attenuation correction and anatomic localization purposes rather than for primary diagnosis. The patient's blood glucose level at the time of injection was 83 MG/DL. Physiologic activity is evident in the neck. No hypermetabolic neck mass is seen. Symmetrically increased activity in the paraspinous muscles bilaterally is physiologic. There is markedly increased activity in a long segment of the distal esophagus extending into the medial wall of the stomach at the GE junction level. The maximum SUV at the distal esophageal level is 24. The appearance is that of a large esophageal malignancy. There is dilatation of the esophagus superior to this level with a large amount of retained food debris in the esophagus. A lymph node along the anterior margin of the proximal right main bronchus is mildly hypermetabolic. The node measures 11 mm and demonstrates a maximum SUV 3.2. No other hypermetabolic mediastinal or hilar nodes are seen. The CT component demonstrates a small amount of right-sided pleural fluid which has decreased since 06/13/2018 and a moderate volume of left-sided pleural fluid which has increased. There is mild underlying atelectasis posteriorly in the lung bases. No hypermetabolic pulmonary mass is seen. Normal GI tract and urinary tract activity is present in the abdomen and pelvis. The left adrenal gland is mildly hypermetabolic demonstrate a maximum SUV of 4.1. It is only slightly thickened. No other hypermetabolic intra-abdominal or pelvic lesion is seen. There is symmetrically increased activity in the paraspinous and gluteal musculature bilaterally which is presumably physiologic. Small foci of slightly increased activity in the subcutaneous soft tissues of the anterior abdominal wall bilaterally are probably injection sites. IMPRESSION: 1. Large hypermetabolic distal esophageal mass extending to involve the medial aspect of the stomach at the GE junction. 2. Minimal hypermetabolic mediastinal adenopathy in the right paratracheal region. 3. Mildly hypermetabolic thickened left adrenal gland. An adrenal metastasis is a possibility. 4. Bilateral pleural effusions.
== END | disposition home or self-care (01) ==
LOC: PETSC 10:37
PROVIDERS: ATTEND Internal Medicine Hematology & Oncology
DX: C15.5 Malignant neoplasm of lower third of esophagus (principal); J90 Pleural effusion, not elsewhere classified; R59.0 Localized enlarged lymph nodes
CPT/HCPCS: 78815; A9552

== ENCOUNTER 2018-07-25 14:25 | Inpatient (IN) | payer MEDICARE ==
[~2018-07-25] VITALS: Ht 177.8 cm; Wt 68.3 kg
[~2018-07-25 14:25] MED LIST changes: -AZIT250T6 PO; -PIPE4.5F2 IV; -VANC1VIA3 MC
[2018-07-25] MEDS ORDERED: IV NORMAL SALINE 1000ML BAG 1,000 ML IV SCH (14:54)
[2018-07-25] MEDS ORDERED: ACETAMINOPHEN 325 MG TABLET. PO ONE (15:00)
[2018-07-25] MEDS ORDERED: IV NORMAL SALINE 1000ML BAG 1,000 ML IV ONE (15:00)
[2018-07-25] MEDS ORDERED: IPRATRPIUM/ALBUTEROL 0.5/2.5MG 3 ML NEBU. NEB ONE (15:00)
[2018-07-25] MEDS ORDERED: PIPERACILLIN/TAZOBACTAM 3.375 GM in IV NORMAL SALINE 50ML 50 ML IV ONE (15:00)
[2018-07-25 15:08] LABS: BASO % 0 % (0-3); EOS # 0.1 x10^3/uL (0.0-0.7); EOS % 1 % (0-3); HEMATOCRIT 28.4 % (39.0-53.0); HEMOGLOBIN 9.5 g/dL (13.0-17.5); LYMPH # 1.1 x10^3/uL (1.0-4.8); LYMPH % 9 % (24-48); MEAN CORPUSCULAR HEMOGLOBIN 29 pg (25-35); MEAN CORPUSCULAR HGB CONC 33 g/dL (31-37); MEAN CORPUSCULAR VOLUME 86 fL (79-100); MONO # 0.8 x10^3/uL (0.0-1.1); MONO % 7 % (0-9); NEUT # 9.9 x10^3uL (1.8-7.7); NEUT % 83 % (31-73); PLATELET COUNT 337 x10^3/uL (140-400); RED BLOOD COUNT 3.29 x10^6/uL (4.30-5.70); RED CELL DISTRIBUTION WIDTH 13.5 % (11.5-14.5); WHITE BLOOD COUNT 11.9 x10^3/uL (4.0-11.0)
--- NOTE | 2018-07-25 15:11 | EKG ---
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
[2018-07-25 15:17] LABS: PROTHROMBIN TIME PATIENT 12.7 SEC (11.7-14.0)
[2018-07-25 15:21] LABS: CALCIUM 8.8 mg/dL (8.5-10.1); CREATININE 1.3 mg/dL (0.7-1.3); GFR 58.2; POTASSIUM 3.7 mmol/L (3.5-5.1)
[2018-07-25 15:26] LABS: ALBUMIN 2.3 g/dL (3.4-5.0); ALBUMIN/GLOBULIN RATIO 0.5 (1.0-1.7); TOTAL BILIRUBIN 0.3 mg/dL (0.2-1.0)
[2018-07-25 15:35] LABS: INFLUENZA A PATIENT NEGATIVE (NEGATIVE); INFLUENZA B PATIENT NEGATIVE (NEGATIVE)
[2018-07-25] MEDS ORDERED: VANCOMYCIN 1GM IVPB FOR OMNI 250 ML IV ONE (15:45)
--- NOTE | 2018-07-25 15:47 | RAD ---
PORTABLE CHEST 1V Clinical indications: FEVER AND WEAK COMPARISON: June 17, 2018. Findings: There is a new right midlung zone infiltrate. There is an increase in right infrahilar infiltrate. There has been interval clearing of the left lung base and left midlung zone infiltrate and associated left-sided pleural effusion. No pneumothorax is seen. Right IJ Port-A-Cath tip is seen within the lower SVC at the junction with the right atrium. Old granulomatous disease is seen. The heart size and mediastinum and pulmonary vasculature and both von are unremarkable otherwise. IMPRESSION: Worsening right lung field infiltrates. Interval clearing of left lung field infiltrate and left-sided pleural effusion. Electronically signed by: Gilson Ly MD (07/25/2018 3:44 PM) [facility]
--- NOTE | 2018-07-25 15:53 | PHYS DOC ---
Past Medical History Past Medical History: Cancer, Diabetes-Type II, Hypertension, Other Additional Past Medical Histor: PAD, ESOPHAGEAL CANCER Past Surgical History: Other Additional Past Surgical Histo: BILATERAL EYES, PORT TO R CHEST FOR CA, FEEDING TUBE LLQ Additional Information: 1/2 PACK/DAY Alcohol Use: None Drug Use: None Social History Narrative: PREVIOUSLY MARIJUANA Adult General Chief Complaint Chief Complaint: FEVER HPI HPI Patient is a 53 year old male who brought in by EMS because of fever. Patient's girlfriend called EMS and states he had fever since this morning. Patient is somnolent and a poor historian. Patient had temperature of 103 at arrival to ER. Review of Systems Review of Systems Unable to obtain because of medical condition Current Medications Current Medications Current Medications Medications (Trade) Dose Ordered Sig/Adrien Start Time Stop Time Status Last Admin Dose Admin Acetaminophen (Tylenol) 1,000 mg 1X ONCE 07/25/18 15:00 07/25/18 15:02 DC 07/25/18 15:38 1,000 MG Albuterol/ Ipratropium (Duoneb) 3 ml 1X ONCE 07/25/18 15:00 07/25/18 15:02 DC 07/25/18 15:48 3 ML Piperacillin Sod/ Tazobactam Sod 3.375 gm/Sodium Chloride 50 ml @ 100 mls/hr 1X ONCE 07/25/18 15:00 07/25/18 15:29 DC 07/25/18 15:50 100 MLS/HR Sodium Chloride 1,000 ml @ 1,000 mls/hr 1X ONCE 07/25/18 15:00 07/25/18 15:59 DC 07/25/18 15:35 1,000 MLS/HR Allergies Allergies Allergies Coded Allergies Type Severity Reaction Last Updated Verified No Known Drug Allergies 09/05/13 No Physical Exam Physical Exam Constitutional: Mild acute distress, somnolent, indicating, febrile, poor hygiene. HENT: Normocephalic, atraumatic, oropharynx dry. Eyes: PERRLA, EOMI, conjunctiva normal, no discharge. [] Neck: Soft, no tenderness, supple, no stridor. [] Cardiovascular: Tachycardia, no murmur [] Lungs & Thorax: Bilateral rhonchi and decrease of air movement, maild r espiratory distress distress. Abdomen: Bowel sounds normal, soft Skin: No erythema, no rash. [] ] Extremities: No tenderness, ROM intact, lateral lower extremity 1+ edema. [] Neurologic: Somnolent, moving all extremities, answering the questions with short answers Psychologic: Unable to evaluate Current Patient Data Vital Signs Vital Signs Date Time Temp Pulse Resp B/P (MAP) Pulse Ox O2 Delivery O2 Flow Rate FiO2 07/25/18 14:39 103.1 106 20 175/82 (113) 87 Room Air 103.1 Lab Values Laboratory Tests Test 07/25/18 14:40 07/25/18 15:00 White Blood Count 11.9 x10^3/uL (4.0-11.0) H Red Blood Count 3.29 x10^6/uL (4.30-5.70) L Hemoglobin 9.5 g/dL (13.0-17.5) L Hematocrit 28.4 % (39.0-53.0) L Mean Corpuscular Volume 86 fL (79-100) Mean Corpuscular Hemoglobin 29 pg (25-35) Mean Corpuscular Hemoglobin Concent 33 g/dL (31-37) Red Cell Distribution Width 13.5 % (11.5-14.5) Platelet Count 337 x10^3/uL (140-400) Neutrophils (%) (Auto) 83 % (31-73) H Lymphocytes (%) (Auto) 9 % (24-48) L Monocytes (%) (Auto) 7 % (0-9) Eosinophils (%) (Auto) 1 % (0-3) Basophils (%) (Auto) 0 % (0-3) Neutrophils # (Auto) 9.9 x10^3uL (1.8-7.7) H Lymphocytes # (Auto) 1.1 x10^3/uL (1.0-4.8) Monocytes # (Auto) 0.8 x10^3/uL (0.0-1.1) Eosinophils # (Auto) 0.1 x10^3/uL (0.0-0.7) Basophils # (Auto) 0.0 x10^3/uL (0.0-0.2) Prothrombin Time 12.7 SEC (11.7-14.0) Prothrombin Time INR 1.0 (0.8-1.1) Sodium Level 131 mmol/L (136-145) L Potassium Level 3.7 mmol/L (3.5-5.1) Chloride Level 95 mmol/L (98-107) L Carbon Dioxide Level 32 mmol/L (21-32) Anion Gap 4 (6-14) L Blood Urea Nitrogen 15 mg/dL (8-26) Creatinine 1.3 mg/dL (0.7-1.3) Estimated GFR (Cockcroft-Gault) 58.2 BUN/Creatinine Ratio 12 (6-20) Glucose Level 141 mg/dL (70-99) H Lactic Acid Level 1.1 mmol/L (0.4-2.0) Calcium Level 8.8 mg/dL (8.5-10.1) Total Bilirubin 0.3 mg/dL (0.2-1.0) Aspartate Amino Transferase (AST) 16 U/L (15-37) Alanine Aminotransferase (ALT) 15 U/L (16-63) L Alkaline Phosphatase 132 U/L (46-116) H Creatine Kinase 44 U/L (39-308) Troponin I Quantitative 0.089 ng/mL (0.000-0.055) Total Protein 7.0 g/dL (6.4-8.2) Albumin 2.3 g/dL (3.4-5.0) L Albumin/Globulin Ratio 0.5 (1.0-1.7) L Lipase 34 U/L (73-393) L Ethyl Alcohol Level < 10 mg/dL (0-10) Influenza Type A Antigen Negative (NEGATIVE) Influenza Type B Antigen Negative (NEGATIVE) Laboratory Tests 07/25/18 14:40 Laboratory Tests 07/25/18 14:40 EKG EKG EKG interpreted by me. EKG at 1509 showed sinus tachycardia at rate of 103, normal AK and QT interval, no acute ST and T-wave abnormalities. Radiology/Procedures Radiology/Procedures [][facility] [address] [place], [place] [id number] IMAGING REPORT Signed PATIENT: DANIELITO MONTANA ACCOUNT: [id number] : 1965 LOCATION: ER AGE: 53 SEX: M EXAM STATUS: PRE ER ORD. PHYSICIAN: MARIA C FARMER MD REASON: fever PROCEDURE: PORTABLE CHEST 1V PORTABLE CHEST 1V Clinical indications: FEVER AND WEAK COMPARISON: June 17, 2018. Findings: There is a new right midlung zone infiltrate. There is an increase in right infrahilar infiltrate. There has been interval clearing of the left lung base and left midlung zone infiltrate and associated left-sided pleural effusion. No pneumothorax is seen. Right IJ Port-A-Cath tip is seen within the lower SVC at the junction with the right atrium. Old granulomatous disease is seen. The heart size and mediastinum and pulmonary vasculature and both von are unremarkable otherwise. IMPRESSION: Worsening right lung field infiltrates. Interval clearing of left lung field infiltrate and left-sided pleural effusion. Electronically signed by: Danielito Ly MD (07/25/2018 3:44 PM) [facility] DICTATED and SIGNED BY: DANIELITO LY MD DATE: 07/25/18 1543 Course & Med Decision Making Course & Med Decision Making Pertinent Labs and Imaging studies reviewed. (See chart for details) Evaluation of patient in ER showed 53-year-old male patient brought in by EMS because of fever. Patient was febrile at arrival to ER with blood pressure of 170s and heart rate of 110 and O2 sat of high 80s. Patient did not have oxygen at home and started on nasal cannula with improvement of O2 sat. Patient did not have elevation of lactic acid. Chest x-ray showed infiltrate. ABG showed hypoxia patient was started on nonrebreathing mask. Patient treated with IV fluid and antibiotic. Patient has history of CHF with elevation of BNP is 4000 and mild elevation of troponin and plan to repeat troponin.Patient requiring admission for further evaluation and treatment. Discussed with Dr. Sousa who is in agreement with admission. Discussed findings and plan with patient and janna granado, who acknowledge understanding and agreement. Dragon Disclaimer Dragon Disclaimer This electronic medical record was generated, in whole or in part, using a voice recognition dictation system. Departure Departure Impression: Primary Impression: Sepsis Additional Impressions: Elevated troponin Anemia Fever Pneumobilia History of throat cancer Hypoxemia Disposition: 09 ADMITTED INPATIENT (at 1544) Admitting Physician: Holly Sousa (accepted admission at 1543) Condition: GUARDED Referrals: NATALIO HAYES PA-C (PCP) Critical Care Time Critical care time was 80 minutes exclusive of procedures. Problem Qualifiers Primary Impression: Sepsis Sepsis type: sepsis due to unspecified organism Qualified Codes: A41.9 - Sepsis, unspecified organism Additional Impressions: Anemia Anemia type: unspecified type Qualified Codes: D64.9 - Anemia, unspecified Fever Fever type: unspecified Qualified Codes: R50.9 - Fever, unspecified MARIA C FARMER MD Jul 25, 2018 15:52
[2018-07-25 16:24] LABS: BASE EXCESS ABG 4 mmol/L (-3-3); HCO3 ABG 27 mmol/L (21-28); PCO2 ABG 33 mmHg (35-46); SAT O2 ABG 86 % (92-99)
--- NOTE | 2018-07-25 16:41 | RAD ---
CT HEAD WO CONTRAST Indication: Fever. ALOC. Exposure: One or more of the following individualized dose reduction techniques were utilized for this examination: 1. Automated exposure control 2. Adjustment of the mA and/or kV according to patient size 3. Use of iterative reconstruction technique. Technique: Standard imaging without intravenous contrast. Posterior fossa appears unremarkable. No evidence of acute intracranial hemorrhage, mass effect, midline shift or abnormal extra-axial fluid collection. Mild prominence of ventricles and sulci compatible with atrophy. The orbits appear grossly unremarkable. No large scalp hematoma. The partially visualized sinuses demonstrate mild mucosal thickening or fluid level within the right sphenoid sinus. Intracranial arterial calcifications are noted. No evidence of acute skull abnormality. IMPRESSION: 1. Mild atrophy. 2. No evidence of acute intracranial hemorrhage or mass effect. 3. Mild right sphenoid sinus disease. Electronically signed by: Lopez Cardenas MD (07/25/2018 4:38 PM) [id number]
[2018-07-25 16:46] LABS: FIO2 ABG 28; PO2 ABG 44 mmHg (75-108)
--- NOTE | 2018-07-25 17:09 | PDOC1 ---
History and Physical Date of Admission Date of Admission DATE: 07/25/18 TIME: 17:05 Identification/Chief Complaint Chief Complaint Fevers, SOA, phlegm Source Source: Caregiver, Chart review, Patient History of Present Illness History of Present Illness 53-year-old white male history of esophageal cancer, comes in for fever, productive cough, phlegm. Flu negative, etoh levels negative. Some elevated LFTs - mild in the 100s. Afebrile in the ER. But WBC 11 with hemoglobin 9. Mild hyponatremia 131. He is trying to quit smoking BNP 4100 mild elevation troponin 0.08 and with no chest discomfort. Pneumonia on x-ray. We will admit fulfilling sepsis criteria TRIAGE NOTE": PT PRESENTS PER EMS AND REPORT STATES THAT PT'S GIRLFRIEND CALLED EMS DUE TO 101 FEVER IN PT. EMS GOT 102 TEMP AND UPON ARRIVAL TO ED - 103.1. PT REPORTS FEELING POOR IN GENERAL THE LAST 2 DAYS, BUT NO SPECIFIC PAIN. PT CURRENTLY RECEIVING CHEMO AND RADIATION FOR ESOPHAGEAL CA.` Past Medical History Cardiovascular: HTN, Other Pulmonary: No pertinent hx CENTRAL NERVOUS SYSTEM: Periperal neuropathy GI: No pertinent hx Heme/Onc: No pertinent hx Hepatobiliary: No pertinent hx Psych: Anxiety, Depression Musculoskeletal: Osteoarthritis Rheumatologic: No pertinent hx Infectious disease: No pertinent hx Renal/: No pertinent hx Endocrine: Diabetes Past Surgical History Past Surgical History: Other Family History Family History: Coronary Artery Disease, Hypertension Social History Smoke: <1 pack per day ALCOHOL: social Drugs: Marijuana Current Problem List Problem List Problems Medical Problems: (1) Anemia Status: Acute (2) Fever Status: Acute (3) History of throat cancer Status: Acute (4) Pneumobilia Status: Acute (5) Sepsis Status: Acute Current Medications Current Medications Current Medications Acetaminophen (Tylenol) 1,000 mg 1X ONCE PO Last administered on 07/25/18at 15:38; Start 07/25/18 at 15:00; Stop 07/25/18 at 15:02; Status DC Sodium Chloride 1,000 ml @ 1,000 mls/hr Q1H IV Last administered on 07/25/18at 15:30; Start 07/25/18 at 14:54; Stop 07/25/18 at 15:53; Status DC Albuterol/ Ipratropium (Duoneb) 3 ml 1X ONCE NEB Last administered on 07/25/18at 15:48; Start 07/25/18 at 15:00; Stop 07/25/18 at 15:02; Status DC Sodium Chloride 1,000 ml @ 1,000 mls/hr 1X ONCE IV Last administered on 07/02 08/18at 15:35; Start 07/25/18 at 15:00; Stop 07/25/18 at 15:59; Status DC Piperacillin Sod/ Tazobactam Sod 3.375 gm/Sodium Chloride 50 ml @ 100 mls/hr 1X ONCE IV Last administered on 07/25/18at 15:50; Start 07/25/18 at 15:00; Stop 07/25/18 at 15:29; Status DC Sodium Chloride 1,000 ml @ 150 mls/hr Q6H40M IV ; Start 07/25/18 at 15:45; Stop 07/26/18 at 15:44 Vancomycin HCl 250 ml @ 250 mls/hr 1X ONCE IV ; Start 07/25/18 at 15:45; Stop 07/25/18 at 16:44; Status DC Active Scripts Active Culturelle (Lactobacillus Rhamnosus Gg) 1 Each Cap.sprink 1 Cap PO BID 30 Days [Pantoprazole] 40 MG Tablet.dr 40 Mg PO DAILYAC 30 Days Carafate (Sucralfate) 1 Gm/10 Ml Oral.susp 1 Gm PEG BID 30 Days Amox Tr-K Clv 875-125 Mg Tab (Amoxicillin/Potassium Clav) 1 Each Tablet 1 Tab PO BID 7 Days Reported Voltaren (Diclofenac Sodium) 100 Gm Gel..gram. 100 Gm TP QID PRN Tylenol (Acetaminophen) 325 Mg Tablet 650 Mg PO Q6HRS PRN Ibuprofen 800 Mg Tablet 800 Mg PO BID PRN Gabapentin 600 Mg Tablet 900 Mg PO TID Aspirin 81 Mg Tab.chew 81 Mg PO DAILY Spironolactone 25 Mg Tablet 25 Mg PO DAILY Amlodipine Besylate 10 Mg Tablet 10 Mg PO DAILY Coreg (Carvedilol) 12.5 Mg Tablet 12.5 Mg PO BIDWMEALS Atorvastatin Calcium 20 Mg Tablet 20 Mg PO HS Melatonin 3 Mg Tablet 1 Tab PO QHS Novolog Mix 70-30 Vial (Insuln Asp Prt/Insulin Aspart) 100 Unit/1 Ml Vial 0 SQ BIDAC Lisinopril 40 Mg Tablet 40 Mg PO DAILY Xanax (Alprazolam) 2 Mg Tablet 1 Tab PO TID PRN Allergies Allergies: Coded Allergies: No Known Drug Allergies (Unverified , 09/05/13) ROS Review of System As per history of present illness, the rest of ROS 14 point negative Physical Exam General: No acute distress HEENT: Atraumatic, PERRLA Lungs: Normal air movement, Other (decreased breath sounds, diminished at the bases but no wheezing) Heart: S1S2, RRR, no thrills, no rubs, no gallops, no murmurs Cardiovascular: S1, S2 Abdomen: Normal bowel sounds, Soft, No tenderness, No hepatosplenomegaly, No masses Male Genitals Exam: normal genitalia, normal prostate Rectal Exam: not examined PELVIC: Nml ext genitalia Extremities: No clubbing, No cyanosis, No edema, Normal pulses, No tenderness/swelling Skin: No rashes, No breakdown, No significant lesion Neuro: Normal gait, Normal speech, Strength at 5/5 X4 ext, Normal tone, Sensation intact, Cranial nerves 3-12 NL, Reflexes 2+ Psych/Mental Status: Mental status NL, Mood NL Vitals Vitals Vital Signs Date Time Temp Pulse Resp B/P (MAP) Pulse Ox O2 Delivery O2 Flow Rate FiO2 07/25/18 15:48 97 Nasal Cannula 2.0 07/25/18 14:39 103.1 106 20 175/82 (113) 103.1 Labs Labs Laboratory Tests Test 07/25/18 14:40 07/25/18 15:00 07/25/18 15:45 07/25/18 16:10 White Blood Count 11.9 x10^3/uL (4.0-11.0) Red Blood Count 3.29 x10^6/uL (4.30-5.70) Hemoglobin 9.5 g/dL (13.0-17.5) Hematocrit 28.4 % (39.0-53.0) Mean Corpuscular Volume 86 fL (79-100) Mean Corpuscular Hemoglobin 29 pg (25-35) Mean Corpuscular Hemoglobin Concent 33 g/dL (31-37) Red Cell Distribution Width 13.5 % (11.5-14.5) Platelet Count 337 x10^3/uL (140-400) Neutrophils (%) (Auto) 83 % (31-73) Lymphocytes (%) (Auto) 9 % (24-48) Monocytes (%) (Auto) 7 % (0-9) Eosinophils (%) (Auto) 1 % (0-3) Basophils (%) (Auto) 0 % (0-3) Neutrophils # (Auto) 9.9 x10^3uL (1.8-7.7) Lymphocytes # (Auto) 1.1 x10^3/uL (1.0-4.8) Monocytes # (Auto) 0.8 x10^3/uL (0.0-1.1) Eosinophils # (Auto) 0.1 x10^3/uL (0.0-0.7) Basophils # (Auto) 0.0 x10^3/uL (0.0-0.2) Prothrombin Time 12.7 SEC (11.7-14.0) Prothromb Time International Ratio 1.0 (0.8-1.1) Sodium Level 131 mmol/L (136-145) Potassium Level 3.7 mmol/L (3.5-5.1) Chloride Level 95 mmol/L (98-107) Carbon Dioxide Level 32 mmol/L (21-32) Anion Gap 4 (6-14) Blood Urea Nitrogen 15 mg/dL (8-26) Creatinine 1.3 mg/dL (0.7-1.3) Estimated GFR (Cockcroft-Gault) 58.2 BUN/Creatinine Ratio 12 (6-20) Glucose Level 141 mg/dL (70-99) Lactic Acid Level 1.1 mmol/L (0.4-2.0) Calcium Level 8.8 mg/dL (8.5-10.1) Total Bilirubin 0.3 mg/dL (0.2-1.0) Aspartate Amino Transf (AST/SGOT) 16 U/L (15-37) Alanine Aminotransferase (ALT/SGPT) 15 U/L (16-63) Alkaline Phosphatase 132 U/L (46-116) Creatine Kinase 44 U/L (39-308) Troponin I Quantitative 0.089 ng/mL (0.000-0.055) Total Protein 7.0 g/dL (6.4-8.2) Albumin 2.3 g/dL (3.4-5.0) Albumin/Globulin Ratio 0.5 (1.0-1.7) Lipase 34 U/L (73-393) Ethyl Alcohol Level < 10 mg/dL (0-10) Influenza Type A Antigen Negative (NEGATIVE) Influenza Type B Antigen Negative (NEGATIVE) EA-Mod-V-Type Natriuretic Peptide 4110 pg/mL (0-124) Ammonia 14 mcmol/L (11-34) Test 07/25/18 16:30 O2 Saturation 86 % (92-99) Arterial Blood pH 7.53 (7.35-7.45) Arterial Blood pCO2 at Patient Temp 33 mmHg (35-46) Arterial Blood pO2 at Patient Temp 44 mmHg (75-108) Arterial Blood HCO3 27 mmol/L (21-28) Arterial Blood Base Excess 4 mmol/L (-3-3) FiO2 28 Laboratory Tests Test 07/25/18 14:40 07/25/18 15:00 07/25/18 15:45 07/25/18 16:10 White Blood Count 11.9 x10^3/uL (4.0-11.0) Red Blood Count 3.29 x10^6/uL (4.30-5.70) Hemoglobin 9.5 g/dL (13.0-17.5) Hematocrit 28.4 % (39.0-53.0) Mean Corpuscular Volume 86 fL (79-100) Mean Corpuscular Hemoglobin 29 pg (25-35) Mean Corpuscular Hemoglobin Concent 33 g/dL (31-37) Red Cell Distribution Width 13.5 % (11.5-14.5) Platelet Count 337 x10^3/uL (140-400) Neutrophils (%) (Auto) 83 % (31-73) Lymphocytes (%) (Auto) 9 % (24-48) Monocytes (%) (Auto) 7 % (0-9) Eosinophils (%) (Auto) 1 % (0-3) Basophils (%) (Auto) 0 % (0-3) Neutrophils # (Auto) 9.9 x10^3uL (1.8-7.7) Lymphocytes # (Auto) 1.1 x10^3/uL (1.0-4.8) Monocytes # (Auto) 0.8 x10^3/uL (0.0-1.1) Eosinophils # (Auto) 0.1 x10^3/uL (0.0-0.7) Basophils # (Auto) 0.0 x10^3/uL (0.0-0.2) Prothrombin Time 12.7 SEC (11.7-14.0) Prothromb Time International Ratio 1.0 (0.8-1.1) Sodium Level 131 mmol/L (136-145) Potassium Level 3.7 mmol/L (3.5-5.1) Chloride Level 95 mmol/L (98-107) Carbon Dioxide Level 32 mmol/L (21-32) Anion Gap 4 (6-14) Blood Urea Nitrogen 15 mg/dL (8-26) Creatinine 1.3 mg/dL (0.7-1.3) Estimated GFR (Cockcroft-Gault) 58.2 BUN/Creatinine Ratio 12 (6-20) Glucose Level 141 mg/dL (70-99) Lactic Acid Level 1.1 mmol/L (0.4-2.0) Calcium Level 8.8 mg/dL (8.5-10.1) Total Bilirubin 0.3 mg/dL (0.2-1.0) Aspartate Amino Transf (AST/SGOT) 16 U/L (15-37) Alanine Aminotransferase (ALT/SGPT) 15 U/L (16-63) Alkaline Phosphatase 132 U/L (46-116) Creatine Kinase 44 U/L (39-308) Troponin I Quantitative 0.089 ng/mL (0.000-0.055) Total Protein 7.0 g/dL (6.4-8.2) Albumin 2.3 g/dL (3.4-5.0) Albumin/Globulin Ratio 0.5 (1.0-1.7) Lipase 34 U/L (73-393) Ethyl Alcohol Level < 10 mg/dL (0-10) Influenza Type A Antigen Negative (NEGATIVE) Influenza Type B Antigen Negative (NEGATIVE) XB-Ewm-N-Type Natriuretic Peptide 4110 pg/mL (0-124) Ammonia 14 mcmol/L (11-34) Test 07/25/18 16:30 O2 Saturation 86 % (92-99) Arterial Blood pH 7.53 (7.35-7.45) Arterial Blood pCO2 at Patient Temp 33 mmHg (35-46) Arterial Blood pO2 at Patient Temp 44 mmHg (75-108) Arterial Blood HCO3 27 mmol/L (21-28) Arterial Blood Base Excess 4 mmol/L (-3-3) FiO2 28 VTE Prophylaxis Ordered VTE Prophylaxis Devices: Yes VTE Pharmacological Prophylaxi: Yes Assessment/Plan Assessment/Plan Pneumonia in a smoker Hyponatremia in a COPDer Hypochloremia Sepsis with no organ dysfunction Flu negative Elevated LFTs mild, of unknown clinical significance Leukocytosis 11 Hypertension controlled PLAN: Admit 2 midnights CAP Coverage Nicotine patch I'm waiting for home meds so that I can reconcile Might need more coverage than CAP Because of history esophageal cancer on treatment counselling nicotine cessation one-to-one less than 30 minutes done today Normal saline for the hyponatremia recheck tomorrow Seen at ER Full code BENSON MAHMOOD MD Jul 25, 2018 17:09
[2018-07-25] MEDS ORDERED: TEMAZEPAM 7.5 MG CAPSULE PO PRN (17:15)
[2018-07-25] MEDS ORDERED: DICLOFENAC SODIUM 1% TOPICAL GEL 100GM TUBE. TP PRN (17:15)
[2018-07-25] MEDS ORDERED: ONDANSETRON ODT 4 MG TAB.RAPDIS. PO PRN (17:15)
[2018-07-25] MEDS ORDERED: guaiFENesin DM 200MG/20MG 10 ML SYRUP PO PRN (17:15)
[2018-07-25] MEDS ORDERED: ACETAMINOPHEN 500 MG TABLET PO PRN (17:15)
[2018-07-25] MEDS ORDERED: ONDANSETRON PF 4 MG/2 ML VIAL. IV PRN (17:15)
[2018-07-25] MEDS ORDERED: ACETAMINOPHEN/CODEINE 300/30MG TABLET. PO PRN (17:15)
[2018-07-25] MEDS ORDERED: NICOTINE 21MG PATCH. TD PRN (17:15)
[2018-07-25] MEDS ORDERED: ACETAMINOPHEN 325 MG TABLET. PO PRN (17:15)
[2018-07-25] MEDS ORDERED: DEXTROSE 50% 25 GM / 50ML DISP.SYRIN. IV PRN (17:15)
[2018-07-25] MEDS ORDERED: AZITHROMYCIN 250 MG TABLET. PO SCH (17:30)
[2018-07-25] MEDS ORDERED: IBUPROFEN 400 MG TABLET. PO PRN (17:30)
[2018-07-25] MEDS ORDERED: ALPRAZolam 1 MG TABLET PO PRN (17:30)
[2018-07-25] MEDS ORDERED: cefTRIAXone IV Push 1 GM VIAL. IVP ONE (17:45)
[2018-07-25] MEDS: CARVEDILOL 12.5 MG TABLET. PO SCH (18:00)
[2018-07-25 18:41] LABS: BASE EXCESS ABG 5 mmol/L (-3-3); HCO3 ABG 29 mmol/L (21-28); PCO2 ABG 43 mmHg (35-46); PO2 ABG 194 mmHg (75-108); SAT O2 ABG 99 % (92-99)
[2018-07-25 18:43] LABS: FIO2 ABG 100
[2018-07-25] MEDS: IPRATRPIUM/ALBUTEROL 0.5/2.5MG 3 ML NEBU. NEB SCH (19:31)
[2018-07-25] MEDS: SUCRALFATE 1 GM TABLET. PO SCH (21:00)
[2018-07-25] MEDS ORDERED: ACETAMINOPHEN/CODEINE 120/12MG 5 ML SOLUTION. PO PRN (21:00)
[2018-07-25] MEDS: BENZONATATE 100 MG CAPSULE. PO SCH (21:00)
[2018-07-25] MEDS: LACTOBACILLUS RHAMNOSUS GG 1 CAPSULE. PO SCH (21:00)
[2018-07-25] MEDS ORDERED: NON FORMULARY ITEM (Melatonin 1 TAB) PO SCH (21:00)
[2018-07-25] MEDS: GABAPENTIN 300 MG CAPSULE. PO SCH (21:00)
[2018-07-25] MEDS ORDERED: ACETAMINOPHEN 650 MG/20.3 ML SOLUTION. PEG PRN (21:00)
[2018-07-25 21:30] VITALS: BP 146/83
[2018-07-25] MEDS: IV NORMAL SALINE 1000ML BAG 1,000 ML IV SCH ×2 (21:43→22:25)
[2018-07-25 22:57] LABS: BILIRUBIN,URINE NEGATIVE (NEG); CLARITY,URINE CLEAR; COLOR,URINE YELLOW; NITRITE,URINE NEGATIVE (NEG); PH,URINE 7.5; PROTEIN,URINE >=300 mg/dL (NEG-TRACE)
[2018-07-25 23:04] LABS: BARBITURATES NEG (NEG); BENZODIAZEPINES POS (NEG); CANNABINOIDS NEG (NEG); COCAINE NEG (NEG); METHADONE NEG (NEG); OPIATES POS (NEG); PHENCYCLIDINE NEG (NEG)
[2018-07-25 23:05] LABS: AMPHETAMINE/METHAMPHETAMINE NEG (NEG)
[2018-07-25 23:09] LABS: BACTERIA,URINE FEW /HPF (0-FEW); SQUAMOUS EPITHELIAL CELL,UR OCC /LPF
[2018-07-25 23:20] VITALS: BP 135/78
[2018-07-25] MEDS ORDERED: AZITHROMYCIN 250 MG in IV NORMAL SALINE 250ML 250 ML IV SCH (23:30)
[2018-07-26] MEDS: MORPHINE SULFATE 2 MG/ML VIAL. IV PRN ×3 (01:55→10:37)
--- NOTE | 2018-07-26 03:15 | NUR ---
Pt admitted during the noc, pt unable to answer most of the admission questions. Pt was able to inform this nurse that he puts formula daily in pegtube however he did not know how much and how often. Pt did state that he takes his meds through his tube. Asked pt if he was able to eat or drink and he states no. came in a few minutes later with her boyfriend and she became upset when this nurse started asking her admission questions about medications and what type of formula pt takes. states all the information should already be in the computer. Informed pt and of process however still states it should be there. Informed that this nurse will get information about medications from pharmacy however just want to ask basic questions of the admission. Pt calm and cooperative however states he wants to do whatever his states. Left the room for a few minutes and returned and states she wanted him to be discharged and go to since his Cancer Physician is there. Informed pt and of possible complications and filling out AMA papers. Left room and came back and changed her mind. Informed pt and of current plan of care and at the time verbalized understanding. Pt and indecisive and states son wants pt discharged. Spoke to another family member over the phone and informed of plan of care and states she will attempt to talk with and inform of situation. Left room to give family time to decide. Returned to room and no one was in room with the pt. Asked pt of current plan and pt looking confused and not knowing. Informed pt at this time will start current plan of care not unless he is ready to discharge. Pt states ok and verbalizes understanding. A few minutes later 's boyfriend enters room and he states he does not know where she went and the current plan is for pt to stay.
[2018-07-26 03:20] VITALS: BP 141/72
[2018-07-26 05:30] LABS: CALCIUM 7.5 mg/dL (8.5-10.1); CREATININE 1.1 mg/dL (0.7-1.3); GFR 70.6; POTASSIUM 3.5 mmol/L (3.5-5.1)
[2018-07-26] MEDS: IV NORMAL SALINE 1000ML BAG 1,000 ML IV SCH ×2 (06:10→14:34)
[2018-07-26] MEDS: IPRATRPIUM/ALBUTEROL 0.5/2.5MG 3 ML NEBU. NEB SCH ×2 (07:12→10:38)
[2018-07-26 07:20] VITALS: BP 132/72
[2018-07-26] MEDS ORDERED: PANTOPRAZOLE 40 MG TABLET.DR. PO SCH (07:30)
[2018-07-26] MEDS: CARVEDILOL 12.5 MG TABLET. PO SCH (08:00)
[2018-07-26] MEDS: INSULIN LISPRO 300 UNITS/3 ML INSULN.PEN. SQ SCH ×2 (08:19→12:00)
[2018-07-26] MEDS: SUCRALFATE 1 GM TABLET. PO SCH (08:20)
[2018-07-26] MEDS: GABAPENTIN 300 MG CAPSULE. PO SCH ×2 (08:20→14:00)
[2018-07-26] MEDS: LACTOBACILLUS RHAMNOSUS GG 1 CAPSULE. PO SCH (08:20)
[2018-07-26] MEDS: BENZONATATE 100 MG CAPSULE. PO SCH ×2 (08:21→14:00)
[2018-07-26] MEDS ORDERED: POTASSIUM CHLORIDE 20 MEQ/15 ML ORAL LIQUID. PEG ONE (08:45)
[2018-07-26] MEDS ORDERED: amLODIPine BESYLATE 10 MG TABLET PO SCH (09:00)
[2018-07-26] MEDS ORDERED: ASPIRIN CHEWABLE 81 MG TABLET. PO SCH (09:00)
[2018-07-26] MEDS ORDERED: LISINOPRIL 20 MG TABLET PO SCH (09:00)
[2018-07-26] MEDS ORDERED: SPIRONOLACTONE 25 MG TABLET PO SCH (09:00)
--- NOTE | 2018-07-26 09:17 | PDOC2 ---
GI CONSULT Reason For Consult: PEG not functioning HPI: HPI: 53 y/o male who we have seen several times. H/o esophageal cancer - has most recently been seen at . Not a great historian this morning - says he doesn't remember much about yesterday except he "freaked out" and had a fever. Thinks he is to start chemo next week. Can't remember procedures he has had at but would like to be transferred there. Per RN, can't access PEG tube. He says he uses tube for nutrition and some meds, also takes some liquids PO. Outside records: EUS 07/15/18 (Dr. Renner): -mass in lower esophagus starting at 34cm and extending into GEJ and into cardia causing narrowing of the lumen, large hiatal hernia, retroflexion revealed submucosal mass in the cardia. -examination of esophageal and cardia mass revealed a hypoechoic mass arising from mucosa and extending to muscularis propria (c/w T3 lesion), multiple hypoechoic lymph nodes and perigastric lymph nodes, perigastric varices, no significant pathology in the left hepatic lbe, no significant pathology in entire pancreas, sludge in gallbladder. -esophagus biopsy @ 30cm: superficial fragments of al least intramucosal adenocarcinoma in the background of high-grade dysplasia. PET 07/04/18: large hypermetabolic distal esophageal mass extending to involve medial aspect of the stomach, minimal mediastinal adenopathy, mildly thickened left adrenal gland. CT C/A/P 07/12/18: known esophageal carcinoma w/ obstruction, infectious pneumonitis vs mets, several prominent periportal and retroperitoneal lymph nodes, cholelithiasis. MRI abd 07/12/18: stable non-specific left adrenal thickening, large distal esophageal mass extending to stomach, cholelithiasis. ?J tube placement staging laparoscopy - pelvic washings negative PMH: PMH: CAD, PAD, HTN, HLD, COPD, OA, ?CKD, peripheral neuropathy, depression, anxiety, GERD, DVT, DM, UTI, retinopathy, LLE angioplasty, cardiac cath, left knee surgery, left arm surgery, thoracentesis, retinal detachment repair FH: Family History: DM Social History: Smoke: <1 pack per day ALCOHOL: other (heavy in the past, none now) Drugs: Marijuana ROS: GEN: +fever HEENT: Denies blurred vision, sore throat CV: Denies chest pain RESP: +SOA GI: Per HPI : Denies hematuria, dysuria ENDO: +weight loss NEURO: Denies confusion, dizziness MSK: +weakness SKIN: Denies jaundice, pruritus Vitals: Vitals: Vital Signs Date Time Temp Pulse Resp B/P (MAP) Pulse Ox O2 Delivery O2 Flow Rate FiO2 07/26/18 07:59 Nasal Cannula 2.0 07/26/18 07:20 98.8 84 14 132/72 (92) 98 98.8 Labs: Labs: Laboratory Tests Test 07/25/18 14:40 07/25/18 15:00 07/25/18 15:45 07/25/18 16:10 White Blood Count 11.9 x10^3/uL (4.0-11.0) Red Blood Count 3.29 x10^6/uL (4.30-5.70) Hemoglobin 9.5 g/dL (13.0-17.5) Hematocrit 28.4 % (39.0-53.0) Mean Corpuscular Volume 86 fL (79-100) Mean Corpuscular Hemoglobin 29 pg (25-35) Mean Corpuscular Hemoglobin Concent 33 g/dL (31-37) Red Cell Distribution Width 13.5 % (11.5-14.5) Platelet Count 337 x10^3/uL (140-400) Neutrophils (%) (Auto) 83 % (31-73) Lymphocytes (%) (Auto) 9 % (24-48) Monocytes (%) (Auto) 7 % (0-9) Eosinophils (%) (Auto) 1 % (0-3) Basophils (%) (Auto) 0 % (0-3) Neutrophils # (Auto) 9.9 x10^3uL (1.8-7.7) Lymphocytes # (Auto) 1.1 x10^3/uL (1.0-4.8) Monocytes # (Auto) 0.8 x10^3/uL (0.0-1.1) Eosinophils # (Auto) 0.1 x10^3/uL (0.0-0.7) Basophils # (Auto) 0.0 x10^3/uL (0.0-0.2) Prothrombin Time 12.7 SEC (11.7-14.0) Prothromb Time International Ratio 1.0 (0.8-1.1) Sodium Level 131 mmol/L (136-145) Potassium Level 3.7 mmol/L (3.5-5.1) Chloride Level 95 mmol/L (98-107) Carbon Dioxide Level 32 mmol/L (21-32) Anion Gap 4 (6-14) Blood Urea Nitrogen 15 mg/dL (8-26) Creatinine 1.3 mg/dL (0.7-1.3) Estimated GFR (Cockcroft-Gault) 58.2 BUN/Creatinine Ratio 12 (6-20) Glucose Level 141 mg/dL (70-99) Lactic Acid Level 1.1 mmol/L (0.4-2.0) Calcium Level 8.8 mg/dL (8.5-10.1) Total Bilirubin 0.3 mg/dL (0.2-1.0) Aspartate Amino Transf (AST/SGOT) 16 U/L (15-37) Alanine Aminotransferase (ALT/SGPT) 15 U/L (16-63) Alkaline Phosphatase 132 U/L (46-116) Creatine Kinase 44 U/L (39-308) Troponin I Quantitative 0.089 ng/mL (0.000-0.055) Total Protein 7.0 g/dL (6.4-8.2) Albumin 2.3 g/dL (3.4-5.0) Albumin/Globulin Ratio 0.5 (1.0-1.7) Lipase 34 U/L (73-393) Ethyl Alcohol Level < 10 mg/dL (0-10) Influenza Type A Antigen Negative (NEGATIVE) Influenza Type B Antigen Negative (NEGATIVE) CW-Izy-G-Type Natriuretic Peptide 4110 pg/mL (0-124) Ammonia 14 mcmol/L (11-34) Test 07/25/18 16:30 07/25/18 18:37 07/25/18 21:10 07/25/18 22:51 O2 Saturation 86 % (92-99) 99 % (92-99) Arterial Blood pH 7.53 (7.35-7.45) 7.45 (7.35-7.45) Arterial Blood pCO2 at Patient Temp 33 mmHg (35-46) 43 mmHg (35-46) Arterial Blood pO2 at Patient Temp 44 mmHg (75-108) 194 mmHg (75-108) Arterial Blood HCO3 27 mmol/L (21-28) 29 mmol/L (21-28) Arterial Blood Base Excess 4 mmol/L (-3-3) 5 mmol/L (-3-3) FiO2 28 100 Glucose (Fingerstick) 85 mg/dL (70-99) Urine Collection Type Unknown Urine Color Yellow Urine Clarity Clear Urine pH 7.5 Urine Specific [place] 1.020 Urine Protein >=300 mg/dL (NEG-TRACE) Urine Glucose (UA) 250 mg/dL (NEG) Urine Ketones (Stick) Negative mg/dL (NEG) Urine Blood Small (NEG) Urine Nitrite Negative (NEG) Urine Bilirubin Negative (NEG) Urine Urobilinogen Dipstick 1.0 mg/dL (0.2 mg/dL) Urine Leukocyte Esterase Small (NEG) Urine RBC 6-10 /HPF (0-2) Urine WBC 11-20 /HPF (0-4) Urine Squamous Epithelial Cells Occ /LPF Urine Bacteria Few /HPF (0-FEW) Urine Opiates Screen Pos (NEG) Urine Methadone Screen Neg (NEG) Urine Barbiturates Neg (NEG) Urine Phencyclidine Screen Neg (NEG) Urine Amphetamine/Methamphetamine Neg (NEG) Urine Benzodiazepines Screen Pos (NEG) Urine Cocaine Screen Neg (NEG) Urine Cannabinoids Screen Neg (NEG) Urine Ethyl Alcohol Neg (NEG) Test 07/26/18 04:00 07/26/18 07:26 Erythrocyte Sedimentation Rate 80 (0-15) Sodium Level 134 mmol/L (136-145) Potassium Level 3.5 mmol/L (3.5-5.1) Chloride Level 101 mmol/L (98-107) Carbon Dioxide Level 27 mmol/L (21-32) Anion Gap 6 (6-14) Blood Urea Nitrogen 14 mg/dL (8-26) Creatinine 1.1 mg/dL (0.7-1.3) Estimated GFR (Cockcroft-Gault) 70.6 Glucose Level 99 mg/dL (70-99) Calcium Level 7.5 mg/dL (8.5-10.1) Troponin I Quantitative 0.085 ng/mL (0.000-0.055) Glucose (Fingerstick) 85 mg/dL (70-99) Allergies: Coded Allergies: No Known Drug Allergies (Unverified , 09/05/13) Medications: Current Medications Medications (Trade) Dose Ordered Sig/Adrien Route PRN Reason Start Time Stop Time Status Last Admin Dose Admin Acetaminophen (Tylenol) 1,000 mg 1X ONCE PO 07/25/18 15:00 07/25/18 15:02 DC 07/25/18 15:38 Sodium Chloride 1,000 ml @ 1,000 mls/hr Q1H IV 07/25/18 14:54 07/25/18 15:53 DC 07/25/18 15:30 Albuterol/ Ipratropium (Duoneb) 3 ml 1X ONCE NEB 07/25/18 15:00 07/25/18 15:02 DC 07/25/18 15:48 Sodium Chloride 1,000 ml @ 1,000 mls/hr 1X ONCE IV 07/25/18 15:00 07/25/18 15:59 DC 07/25/18 15:35 Piperacillin Sod/ Tazobactam Sod 3.375 gm/Sodium Chloride 50 ml @ 100 mls/hr 1X ONCE IV 07/25/18 15:00 07/25/18 15:29 DC 07/25/18 15:50 Sodium Chloride 1,000 ml @ 150 mls/hr Q6H40M IV 07/25/18 15:45 07/26/18 15:44 07/26/18 06:10 Vancomycin HCl 250 ml @ 250 mls/hr 1X ONCE IV 07/25/18 15:45 07/25/18 16:44 DC 07/25/18 21:44 Albuterol/ Ipratropium (Duoneb) 3 ml RTQID NEB 07/25/18 20:00 07/26/18 07:12 Ceftriaxone Sodium (Rocephin) 1 gm ONCE ONCE IVP 07/25/18 17:45 07/25/18 17:47 DC 07/25/18 22:04 Azithromycin 250 mg/Sodium Chloride 250 ml @ 250 mls/hr Q24H IV 07/25/18 23:30 07/25/18 23:48 Morphine Sulfate (Morphine Sulfate) 1 mg PRN Q4HRS PRN IV SEVERE PAIN 07/26/18 01:30 07/26/18 06:11 Imaging: Imaging: CXR IMPRESSION: Worsening right lung field infiltrates. Interval clearing of left lung field infiltrate and left-sided pleural effusion. CT head IMPRESSION: 1. Mild atrophy. 2. No evidence of acute intracranial hemorrhage or mass effect. 3. Mild right sphenoid sinus disease. PE: GEN: NAD HEENT: Atraumatic, PERRL LUNGS: NC HEART: RRR, port ABD: NABS, S/ND, ?J tube just above level of umbilicus to right EXTREMITY: No edema SKIN: pale, tattoos NEURO/PSYCH: appropriate but forgetful A/P: A/P: Confusion, fever, leukocytosis Esophageal cancer - workup @ as above ?J tube in place Chronic anemia -- Will review tube situation w/ Dr. Rivera. Possible transfer to . EDE SCHMIDT Jul 26, 2018 09:17
--- NOTE | 2018-07-26 09:20 | PDOC ---
Infectious Disease Note Vital Sign Vital Signs Vital Signs Date Time Temp Pulse Resp B/P (MAP) Pulse Ox O2 Delivery O2 Flow Rate FiO2 07/26/18 07:59 Nasal Cannula 2.0 07/26/18 07:20 98.8 84 14 132/72 (92) 98 98.8 Labs Lab Laboratory Tests Test 07/25/18 14:40 07/25/18 15:00 07/25/18 15:45 07/25/18 16:10 White Blood Count 11.9 x10^3/uL (4.0-11.0) Red Blood Count 3.29 x10^6/uL (4.30-5.70) Hemoglobin 9.5 g/dL (13.0-17.5) Hematocrit 28.4 % (39.0-53.0) Mean Corpuscular Volume 86 fL (79-100) Mean Corpuscular Hemoglobin 29 pg (25-35) Mean Corpuscular Hemoglobin Concent 33 g/dL (31-37) Red Cell Distribution Width 13.5 % (11.5-14.5) Platelet Count 337 x10^3/uL (140-400) Neutrophils (%) (Auto) 83 % (31-73) Lymphocytes (%) (Auto) 9 % (24-48) Monocytes (%) (Auto) 7 % (0-9) Eosinophils (%) (Auto) 1 % (0-3) Basophils (%) (Auto) 0 % (0-3) Neutrophils # (Auto) 9.9 x10^3uL (1.8-7.7) Lymphocytes # (Auto) 1.1 x10^3/uL (1.0-4.8) Monocytes # (Auto) 0.8 x10^3/uL (0.0-1.1) Eosinophils # (Auto) 0.1 x10^3/uL (0.0-0.7) Basophils # (Auto) 0.0 x10^3/uL (0.0-0.2) Prothrombin Time 12.7 SEC (11.7-14.0) Prothromb Time International Ratio 1.0 (0.8-1.1) Sodium Level 131 mmol/L (136-145) Potassium Level 3.7 mmol/L (3.5-5.1) Chloride Level 95 mmol/L (98-107) Carbon Dioxide Level 32 mmol/L (21-32) Anion Gap 4 (6-14) Blood Urea Nitrogen 15 mg/dL (8-26) Creatinine 1.3 mg/dL (0.7-1.3) Estimated GFR (Cockcroft-Gault) 58.2 BUN/Creatinine Ratio 12 (6-20) Glucose Level 141 mg/dL (70-99) Lactic Acid Level 1.1 mmol/L (0.4-2.0) Calcium Level 8.8 mg/dL (8.5-10.1) Total Bilirubin 0.3 mg/dL (0.2-1.0) Aspartate Amino Transf (AST/SGOT) 16 U/L (15-37) Alanine Aminotransferase (ALT/SGPT) 15 U/L (16-63) Alkaline Phosphatase 132 U/L (46-116) Creatine Kinase 44 U/L (39-308) Troponin I Quantitative 0.089 ng/mL (0.000-0.055) Total Protein 7.0 g/dL (6.4-8.2) Albumin 2.3 g/dL (3.4-5.0) Albumin/Globulin Ratio 0.5 (1.0-1.7) Lipase 34 U/L (73-393) Ethyl Alcohol Level < 10 mg/dL (0-10) Influenza Type A Antigen Negative (NEGATIVE) Influenza Type B Antigen Negative (NEGATIVE) BN-Yur-F-Type Natriuretic Peptide 4110 pg/mL (0-124) Ammonia 14 mcmol/L (11-34) Test 07/25/18 16:30 07/25/18 18:37 07/25/18 21:10 07/25/18 22:51 O2 Saturation 86 % (92-99) 99 % (92-99) Arterial Blood pH 7.53 (7.35-7.45) 7.45 (7.35-7.45) Arterial Blood pCO2 at Patient Temp 33 mmHg (35-46) 43 mmHg (35-46) Arterial Blood pO2 at Patient Temp 44 mmHg (75-108) 194 mmHg (75-108) Arterial Blood HCO3 27 mmol/L (21-28) 29 mmol/L (21-28) Arterial Blood Base Excess 4 mmol/L (-3-3) 5 mmol/L (-3-3) FiO2 28 100 Glucose (Fingerstick) 85 mg/dL (70-99) Urine Collection Type Unknown Urine Color Yellow Urine Clarity Clear Urine pH 7.5 Urine Specific [place] 1.020 Urine Protein >=300 mg/dL (NEG-TRACE) Urine Glucose (UA) 250 mg/dL (NEG) Urine Ketones (Stick) Negative mg/dL (NEG) Urine Blood Small (NEG) Urine Nitrite Negative (NEG) Urine Bilirubin Negative (NEG) Urine Urobilinogen Dipstick 1.0 mg/dL (0.2 mg/dL) Urine Leukocyte Esterase Small (NEG) Urine RBC 6-10 /HPF (0-2) Urine WBC 11-20 /HPF (0-4) Urine Squamous Epithelial Cells Occ /LPF Urine Bacteria Few /HPF (0-FEW) Urine Opiates Screen Pos (NEG) Urine Methadone Screen Neg (NEG) Urine Barbiturates Neg (NEG) Urine Phencyclidine Screen Neg (NEG) Urine Amphetamine/Methamphetamine Neg (NEG) Urine Benzodiazepines Screen Pos (NEG) Urine Cocaine Screen Neg (NEG) Urine Cannabinoids Screen Neg (NEG) Urine Ethyl Alcohol Neg (NEG) Test 07/26/18 04:00 07/26/18 07:26 Erythrocyte Sedimentation Rate 80 (0-15) Sodium Level 134 mmol/L (136-145) Potassium Level 3.5 mmol/L (3.5-5.1) Chloride Level 101 mmol/L (98-107) Carbon Dioxide Level 27 mmol/L (21-32) Anion Gap 6 (6-14) Blood Urea Nitrogen 14 mg/dL (8-26) Creatinine 1.1 mg/dL (0.7-1.3) Estimated GFR (Cockcroft-Gault) 70.6 Glucose Level 99 mg/dL (70-99) Calcium Level 7.5 mg/dL (8.5-10.1) Troponin I Quantitative 0.085 ng/mL (0.000-0.055) Glucose (Fingerstick) 85 mg/dL (70-99) Objective Assessment Fever Leukocytosis ? UTI - POA Port a cath Esophageal CA Sphenoid disease Plan Plan of Care Vanc/zosyn/Fluconazole - given recent Augmentin. Has not had Chemo or XRT yet F/u labs and cults May need additional imaging if worsens Thank you # [id number] ALENA VÁSQUEZ MD Jul 26, 2018 09:20
--- NOTE | 2018-07-26 09:31 | NUR ---
JACOB responding to a referral regarding pt wants to transfer to . Chart reviewed and DW RN. RN reported Pt's Physicians are at and would like to transfer. JACOB made an inpatient transfer request to and spoke with industrial equipment mechanic, Sophia. All clinicals faxed and imaging clouded to . JACOB provided Physician number for Physician report. Pt acceptance and admission pending. Will continue to follow. CAMILA Physician.
[2018-07-26] MEDS ORDERED: VANCOMYCIN 1.75 GM in IV NORMAL SALINE 500ML BAG 500 ML IV ONE (10:00)
[2018-07-26] MEDS ORDERED: PANTOPRAZOLE IV PUSH 40 MG VIAL. IVP SCH (10:30)
[2018-07-26] MEDS ORDERED: FLUCONAZOLE 400MG/200ML PREMIX 200 ML IV SCH (11:00)
[2018-07-26 11:16] VITALS: BP 130/72
[2018-07-26] MEDS ORDERED: VANC1VIA3 MC (11:27)
[2018-07-26] MEDS ORDERED: PIPE4.5F2 IV (11:27)
[2018-07-26] MEDS ORDERED: AZIT250T6 PO (11:29)
--- NOTE | 2018-07-26 11:30 | SNU/HH DC ---
DISCHARGE ORDERS DISCHARGE INFORMATION: DISCHARGE DATE: Jul 26, 2018 FINAL DIAGNOSIS Problems Medical Problems: (1) Anemia Status: Acute (2) Fever Status: Acute (3) History of throat cancer Status: Acute (4) Hypoxemia Status: Acute (5) Pneumobilia Status: Acute (6) Sepsis Status: Acute CONDITION ON DISCHARGE: Stable CODE STATUS: Code Status: Full POST DISCHARGE ORDERS: ACTIVITY ORDERS: Activity as tolerated WEIGHT BEARING STATUS: As tolerated DIET AFTER DISCHARGE: NPO (j tube feeds) CHECKS AFTER DISCHARGE: CHECKS AFTER DISCHARGE: Check blood press - daily, Weigh Yourself Daily TREATMENT/EQUIPMENT ORDERS: ADAPTIVE EQUIPMENT NEEDED: [facility] For: Evalulation/Treatment DISCHARGE MEDICATIONS: Home Meds Active Scripts Azithromycin (AZITHROMYCIN TABLET) 250 Mg Tablet, 250 MG PO DAILY for ANTI- BIOTIC for 7 Days, #7 TAB 0 Refills Prov:LEE WRIGHT MD 07/26/18 Ukiykyhdjakx-Kynr-Cqdmkjnf,Iso (ZOSYN 4.5 GM GALAXY BAG) 4.5 Gm/100 Ml Froz.piggy, 4.5 GM IV Q6HRS for HCAP, #60 EACH Prov:LEE WRIGHT MD 07/26/18 Vancomycin Hcl (VANCOMYCIN HCL) 1 Gm Vial, 1 EACH MC PRN DAILY PRN for SEE COMMENTS, #14 EACH Prov:LEE WRIGHT MD 07/26/18 Lactobacillus Rhamnosus Gg (CULTURELLE) 1 Each Cap.sprink, 1 CAP PO BID for probiotic for 30 Days, #60 CAP Prov:FLORINDA LEIVA MD 06/19/18 [Pantoprazole] 40 [address]T.DR Jackson Conflict Check, 40 MG PO DAILYAC for PUD for 30 Days, #30 Prov:FLORINDA LEIVA MD 06/19/18 Sucralfate (CARAFATE) 1 Gm/10 Ml Oral.susp, 1 GM PEG BID for PUD for 30 Days, #30 MISC Prov:FLORINDA LEIVA MD 06/19/18 Reported Medications Diclofenac Sodium (VOLTAREN) 100 Gm Gel..gram., 100 GM TP QID PRN for PAIN, EACH 06/17/18 Acetaminophen (TYLENOL) 325 Mg Tablet, 650 MG PO Q6HRS PRN for FEVER > 100.5'F, TAB 06/15/18 Gabapentin (GABAPENTIN) 600 Mg Tablet, 900 MG PO TID for NEUROGENIC PAIN, TAB 2/14/19 Aspirin (ASPIRIN) 81 Mg Tab.chew, 81 MG PO DAILY for heart health, TAB.CHEW 05/16/18 Spironolactone (SPIRONOLACTONE) 25 Mg Tablet, 25 MG PO DAILY for hypertension, diuretic, TAB 05/16/18 Amlodipine Besylate (AMLODIPINE BESYLATE) 10 Mg Tablet, 10 MG PO DAILY for hypertension, TAB 05/16/18 Carvedilol (COREG ) 12.5 Mg Tablet, 12.5 MG PO BIDWMEALS for CARDIAC, TAB 05/16/18 Atorvastatin Calcium (ATORVASTATIN CALCIUM) 20 Mg Tablet, 20 MG PO HS for FOR CHOLESTEROL, #30 TAB 0 Refills 05/16/18 Melatonin (MELATONIN) 3 Mg Tablet, 1 TAB PO QHS for insomnia, #30 TAB 2 Refills 05/13/18 Insuln Asp Prt/Insulin Aspart (NOVOLOG MIX 70-30 VIAL) 100 Unit/1 Ml Vial, 0 SQ BIDAC for diabetes, VIAL 05/13/18 Lisinopril (Lisinopril) 40 Mg Tablet, 40 MG PO DAILY for HTN, TAB 03/12/18 Alprazolam (XANAX) 2 Mg Tablet, 1 TAB PO TID PRN for ANXIETY / AGITATION, #90 TAB 04/04/14 Discontinued Reported Medications Ibuprofen (IBUPROFEN) 800 Mg Tablet, 800 MG PO BID PRN for INFLAMMATION, TAB 06/13/18 Discontinued Scripts Amoxicillin/Potassium Clav (AMOX TR-K CLV 875-125 MG TAB) 1 Each Tablet, 1 TAB PO BID for antibacterial for 7 Days, #14 TAB Prov:FLORINDA LEIVA MD 06/19/18 LEE WRIGHT MD Jul 26, 2018 11:30
[2018-07-26] MEDS ORDERED: PIPERACILLIN/TAZOBACTAM 3.375 GM in IV NORMAL SALINE 50ML 50 ML IV SCH (12:00)
[2018-07-26] MEDS: VANCOMYCIN PER PHARMACY MC PRN ×2 (12:29→12:35)
--- NOTE | 2018-07-26 12:31 | NUR ---
Pharmacy Vancomycin Dosing Note S:Consulted to monitor and dose vancomycin started 07/26/18. O:DANIELITO MONTANA is a 53 year old M with Sepsis Pneumonia Neutropenic Fever . Height: 5 feet, 10 inches Weight: 68.009711 kg [place] Body Weight: 73.00 Adjusted Body Weight: 71.00 Dosing Weight: Actual Other Antibiotics: ZOSYN 07/26 - AZITH 07/26 - CTX 07/25 - 07/26 LABS: Last BUN: 14 Last Creatinine: 1.1 Creatinine Clearance: 76 mL/min Last WBC: 11.9 Last Procalcitonin: - Tmax (past 24 hours): 103.1 Microbiology: 07/26 PENDING I/O: 2049/- Drug Levels: Last level: on at Last dose given 07/26/18 at 1030 Vancomycin Dosing: Loading Dose: 1750 mg x1 Dosing Weight: Actual Target Trough: 15-20 A: Based on: weight, crcl~76, P: 1. Initiate Vancomycin 1000 mg IV q12h after 1750 mg loading dose. 2. Follow up Trough level on 07/27/18 at 2200 3. Pharmacy will continue to monitor, follow and adjust therapy as needed. RAIZA WILKINS [facility]MERLY [facility] [place], 07/26/18 [id number]
[2018-07-26] MEDS ORDERED: POTASSIUM CHLORIDE 10MEQ 100 ML IV SCH (13:00)
--- NOTE | 2018-07-26 13:09 | NUR ---
SW following pt. Pt has been accepted at and has an assigned bed. SW arranged transportation via [facility] and they are on their way to picker feeder pt. Packet on chart. RN notified.
--- NOTE | 2018-07-26 14:35 | NUR ---
Meds held on may for pt NPO and received orders for pt to go to [facility] after vanco infused iv's stopped to prepare for arrival of EMS. Report called to receiving nurse Quincy at [facility]. Pt dissmissed to [facility] per EMS at 1438. Transfer orders sent with Drivers.
--- NOTE | 2018-07-26 20:01 | PDOC3 ---
Discharge Summary Visit Information Date of Admission: Jul 25, 2018 Date of Discharge: Jul 26, 2018 Admitting Diagnosis: sepsis Final Diagnosis Pneumonia - treated as HCAP sepsis Hyponatremia transaminitis malnutrition, severe esophageal cancer weakness and debility tobacco use disorder, ongoing Problems Medical Problems: (1) Anemia Status: Acute (2) Fever Status: Acute (3) History of throat cancer Status: Acute (4) Hypoxemia Status: Acute (5) Pneumobilia Status: Acute (6) Sepsis Status: Acute Brief Hospital Course Allergies Allergies Coded Allergies Type Severity Reaction Last Updated Verified No Known Drug Allergies 09/05/13 No Vital Signs Vital Signs Date Time Temp Pulse Resp B/P (MAP) Pulse Ox O2 Delivery O2 Flow Rate FiO2 07/26/18 11:16 98.0 88 18 130/72 (91) 94 Nasal Cannula 2.0 98.0 Lab Results Laboratory Tests Test 07/25/18 14:40 07/25/18 15:00 07/25/18 15:45 07/25/18 16:10 White Blood Count 11.9 x10^3/uL (4.0-11.0) Red Blood Count 3.29 x10^6/uL (4.30-5.70) Hemoglobin 9.5 g/dL (13.0-17.5) Hematocrit 28.4 % (39.0-53.0) Mean Corpuscular Volume 86 fL (79-100) Mean Corpuscular Hemoglobin 29 pg (25-35) Mean Corpuscular Hemoglobin Concent 33 g/dL (31-37) Red Cell Distribution Width 13.5 % (11.5-14.5) Platelet Count 337 x10^3/uL (140-400) Neutrophils (%) (Auto) 83 % (31-73) Lymphocytes (%) (Auto) 9 % (24-48) Monocytes (%) (Auto) 7 % (0-9) Eosinophils (%) (Auto) 1 % (0-3) Basophils (%) (Auto) 0 % (0-3) Neutrophils # (Auto) 9.9 x10^3uL (1.8-7.7) Lymphocytes # (Auto) 1.1 x10^3/uL (1.0-4.8) Monocytes # (Auto) 0.8 x10^3/uL (0.0-1.1) Eosinophils # (Auto) 0.1 x10^3/uL (0.0-0.7) Basophils # (Auto) 0.0 x10^3/uL (0.0-0.2) Prothrombin Time 12.7 SEC (11.7-14.0) Prothromb Time International Ratio 1.0 (0.8-1.1) Sodium Level 131 mmol/L (136-145) Potassium Level 3.7 mmol/L (3.5-5.1) Chloride Level 95 mmol/L (98-107) Carbon Dioxide Level 32 mmol/L (21-32) Anion Gap 4 (6-14) Blood Urea Nitrogen 15 mg/dL (8-26) Creatinine 1.3 mg/dL (0.7-1.3) Estimated GFR (Cockcroft-Gault) 58.2 BUN/Creatinine Ratio 12 (6-20) Glucose Level 141 mg/dL (70-99) Lactic Acid Level 1.1 mmol/L (0.4-2.0) Calcium Level 8.8 mg/dL (8.5-10.1) Total Bilirubin 0.3 mg/dL (0.2-1.0) Aspartate Amino Transf (AST/SGOT) 16 U/L (15-37) Alanine Aminotransferase (ALT/SGPT) 15 U/L (16-63) Alkaline Phosphatase 132 U/L (46-116) Creatine Kinase 44 U/L (39-308) Troponin I Quantitative 0.089 ng/mL (0.000-0.055) Total Protein 7.0 g/dL (6.4-8.2) Albumin 2.3 g/dL (3.4-5.0) Albumin/Globulin Ratio 0.5 (1.0-1.7) Lipase 34 U/L (73-393) Ethyl Alcohol Level < 10 mg/dL (0-10) Influenza Type A Antigen Negative (NEGATIVE) Influenza Type B Antigen Negative (NEGATIVE) FF-Zhi-V-Type Natriuretic Peptide 4110 pg/mL (0-124) Ammonia 14 mcmol/L (11-34) Test 07/25/18 16:30 07/25/18 18:37 07/25/18 21:10 07/25/18 22:51 O2 Saturation 86 % (92-99) 99 % (92-99) Arterial Blood pH 7.53 (7.35-7.45) 7.45 (7.35-7.45) Arterial Blood pCO2 at Patient Temp 33 mmHg (35-46) 43 mmHg (35-46) Arterial Blood pO2 at Patient Temp 44 mmHg (75-108) 194 mmHg (75-108) Arterial Blood HCO3 27 mmol/L (21-28) 29 mmol/L (21-28) Arterial Blood Base Excess 4 mmol/L (-3-3) 5 mmol/L (-3-3) FiO2 28 100 Glucose (Fingerstick) 85 mg/dL (70-99) Urine Collection Type Unknown Urine Color Yellow Urine Clarity Clear Urine pH 7.5 Urine Specific [place] 1.020 Urine Protein >=300 mg/dL (NEG-TRACE) Urine Glucose (UA) 250 mg/dL (NEG) Urine Ketones (Stick) Negative mg/dL (NEG) Urine Blood Small (NEG) Urine Nitrite Negative (NEG) Urine Bilirubin Negative (NEG) Urine Urobilinogen Dipstick 1.0 mg/dL (0.2 mg/dL) Urine Leukocyte Esterase Small (NEG) Urine RBC 6-10 /HPF (0-2) Urine WBC 11-20 /HPF (0-4) Urine Squamous Epithelial Cells Occ /LPF Urine Bacteria Few /HPF (0-FEW) Urine Opiates Screen Pos (NEG) Urine Methadone Screen Neg (NEG) Urine Barbiturates Neg (NEG) Urine Phencyclidine Screen Neg (NEG) Urine Amphetamine/Methamphetamine Neg (NEG) Urine Benzodiazepines Screen Pos (NEG) Urine Cocaine Screen Neg (NEG) Urine Cannabinoids Screen Neg (NEG) Urine Ethyl Alcohol Neg (NEG) Test 07/26/18 04:00 07/26/18 07:26 07/26/18 11:59 Erythrocyte Sedimentation Rate 80 (0-15) Sodium Level 134 mmol/L (136-145) Potassium Level 3.5 mmol/L (3.5-5.1) Chloride Level 101 mmol/L (98-107) Carbon Dioxide Level 27 mmol/L (21-32) Anion Gap 6 (6-14) Blood Urea Nitrogen 14 mg/dL (8-26) Creatinine 1.1 mg/dL (0.7-1.3) Estimated GFR (Cockcroft-Gault) 70.6 Glucose Level 99 mg/dL (70-99) Calcium Level 7.5 mg/dL (8.5-10.1) Troponin I Quantitative 0.085 ng/mL (0.000-0.055) Glucose (Fingerstick) 85 mg/dL (70-99) 114 mg/dL (70-99) Laboratory Tests Test 07/25/18 21:10 07/25/18 22:51 07/26/18 04:00 07/26/18 07:26 Glucose (Fingerstick) 85 mg/dL (70-99) 85 mg/dL (70-99) Urine Collection Type Unknown Urine Color Yellow Urine Clarity Clear Urine pH 7.5 Urine Specific [place] 1.020 Urine Protein >=300 mg/dL (NEG-TRACE) Urine Glucose (UA) 250 mg/dL (NEG) Urine Ketones (Stick) Negative mg/dL (NEG) Urine Blood Small (NEG) Urine Nitrite Negative (NEG) Urine Bilirubin Negative (NEG) Urine Urobilinogen Dipstick 1.0 mg/dL (0.2 mg/dL) Urine Leukocyte Esterase Small (NEG) Urine RBC 6-10 /HPF (0-2) Urine WBC 11-20 /HPF (0-4) Urine Squamous Epithelial Cells Occ /LPF Urine Bacteria Few /HPF (0-FEW) Urine Opiates Screen Pos (NEG) Urine Methadone Screen Neg (NEG) Urine Barbiturates Neg (NEG) Urine Phencyclidine Screen Neg (NEG) Urine Amphetamine/Methamphetamine Neg (NEG) Urine Benzodiazepines Screen Pos (NEG) Urine Cocaine Screen Neg (NEG) Urine Cannabinoids Screen Neg (NEG) Urine Ethyl Alcohol Neg (NEG) Erythrocyte Sedimentation Rate 80 (0-15) Sodium Level 134 mmol/L (136-145) Potassium Level 3.5 mmol/L (3.5-5.1) Chloride Level 101 mmol/L (98-107) Carbon Dioxide Level 27 mmol/L (21-32) Anion Gap 6 (6-14) Blood Urea Nitrogen 14 mg/dL (8-26) Creatinine 1.1 mg/dL (0.7-1.3) Estimated GFR (Cockcroft-Gault) 70.6 Glucose Level 99 mg/dL (70-99) Calcium Level 7.5 mg/dL (8.5-10.1) Troponin I Quantitative 0.085 ng/mL (0.000-0.055) Test 07/26/18 11:59 Glucose (Fingerstick) 114 mg/dL (70-99) Brief Hospital Course Mr. Sharp is a 53 old male, admit with fever, sepsis, RML pneumonia treated, broad abx, ID consulted, vanc, zosyn, azitho pt requested transfer to Discharge Information Condition at Discharge: Stable Disposition/Orders: D/C to Another Facility Scheduled Amlodipine Besylate (Amlodipine Besylate) 10 Mg Tablet, 10 MG PO DAILY for hypertension, (Reported) Entered as Reported by: SHERRY CHENG on 05/16/181511 Last Action: Continued on 07/25/181711 by BENSON MAHMOOD Aspirin (Aspirin) 81 Mg Tab.chew, 81 MG PO DAILY for heart health, (Reported) Entered as Reported by: SHERRY CHENG on 05/16/181514 Last Action: Continued on 07/25/181711 by BENSON MAHMOOD Atorvastatin Calcium (Atorvastatin Calcium) 20 Mg Tablet, 20 MG PO HS for FOR CHOLESTEROL, #30 Ref 0 (Reported) Entered as Reported by: SHERRY CHENG on 05/16/18 1509 Azithromycin (Azithromycin Tablet) 250 Mg Tablet, 250 MG PO DAILY for ANTI- BIOTIC for 7 Days, #7 Ref 0 Prescribed by: LEE WRIGHT on 07/26/18 1129 Carvedilol (Coreg ) 12.5 Mg Tablet, 12.5 MG PO BIDWMEALS for CARDIAC, (Reported) Entered as Reported by: SHERRY CHENG on 05/16/18 151 Last Action: Continued on 07/25/181711 by BENSON MAHMOOD Gabapentin (Gabapentin) 600 Mg Tablet, 900 MG PO TID for NEUROGENIC PAIN, (Reported) Entered as Reported by: SHERRY CHENG on 05/16/181515 Last Action: Converted on 07/25/181711 by BENSON MAHMOOD Insuln Asp Prt/Insulin Aspart (Novolog Mix 70-30 Vial) 100 Unit/1 Ml Vial, 0 SQ BIDAC for diabetes, (Reported) Entered as Reported by: FEDERICO JARQUIN on 05/13/18 1045 Last Action: Reviewed on 07/25/181711 by BENSON MAHMOOD Lactobacillus Rhamnosus Gg (Culturelle) 1 Each Cap.sprink, 1 CAP PO BID for probiotic for 30 Days, #60 Prescribed by: FLORINDA LEIVA MD on 06/19/181401 Last Action: Continued on 07/25/181711 by BENSON MAHMOOD Lisinopril (Lisinopril) 40 Mg Tablet, 40 MG PO DAILY for HTN, (Reported) Entered as Reported by: MAGNUS POLLARD on 03/12/18 0326 Last Action: Converted on 07/25/181711 by BENSON MAHMOOD Melatonin (Melatonin) 3 Mg Tablet, 1 TAB PO QHS for insomnia, #30 Ref 2 (Reported) Entered as Reported by: FEDERICO JARQUIN on 05/13/18 1045 Last Action: Converted on 07/25/181711 by BENSON MAHMOOD Swbeaqylscmc-Zzis-Nadfjzem,Iso (Zosyn 4.5 Gm Galaxy Bag) 4.5 Gm/100 Ml Froz.piggy, 4.5 GM IV Q6HRS for HCAP, #60 Prescribed by: LEE WRIGHT on 07/26/18 1127 Spironolactone (Spironolactone) 25 Mg Tablet, 25 MG PO DAILY for hypertension, diuretic, (Reported) Entered as Reported by: SHERRY CHENG on 05/16/18 1514 Last Action: Converted on 07/25/181711 by BENSON MAHMOOD Sucralfate (Carafate) 1 Gm/10 Ml Oral.susp, 1 GM PEG BID for PUD for 30 Days, #30 Prescribed by: FLORINDA LEIVA MD on 06/19/181401 Last Action: Converted on 07/25/181711 by BENSON MAHMOOD [Pantoprazole] 40 MG TABLET.DR, 40 MG PO DAILYAC for PUD for 30 Days, #30 Prescribed by: FLORINDA LEIVA MD on 06/19/18 140 Last Action: Converted on 07/25/181711 by BENSON MAHMOOD Scheduled PRN Acetaminophen (Tylenol) 325 Mg Tablet, 650 MG PO Q6HRS PRN for FEVER > 100.5'F, (Reported) Entered as Reported by: DENIZ HOOPER on 06/15/18 2211 Last Action: Continued on 07/25/181711 by BENSON MAHMOOD Alprazolam (Xanax) 2 Mg Tablet, 1 TAB PO TID PRN for ANXIETY / AGITATION, #90 (Reported) Entered as Reported by: GEMA MCWILLIAMS on 04/04/14 040 Last Action: Converted on 07/25/181711 by BENSON MAHMOOD Diclofenac Sodium (Voltaren) 100 Gm Gel..gram., 100 GM TP QID PRN for PAIN, (Reported) Entered as Reported by: SHERRY CHENG on 06/17/18 1653 Last Action: Continued on 07/25/181711 by BENSON MAHMOOD Vancomycin Hcl (Vancomycin Hcl) 1 Gm Vial, 1 EACH MC PRN DAILY PRN for SEE COMMENTS, #14 Prescribed by: LEE WRIGHT on 07/26/18 1127 Discontinued Medications Amoxicillin/Potassium Clav (Amox Tr-K Clv 875-125 Mg Tab) 1 Each Tablet, 1 TAB PO BID for antibacterial for 7 Days, #14 Prescribed by: FLORINDA LEIVA MD on 06/19/18 1402 Last Action: HELD on 07/25/181711 by BENSON MAHMOOD Ibuprofen (Ibuprofen) 800 Mg Tablet, 800 MG PO BID PRN for INFLAMMATION, (Reported) Entered as Reported by: SHERRY CHENG on 06/13/18 0832 Last Action: Converted on 07/25/181711 by BENSON MAHMOOD Patient Instructions Patient Instructions > 30 min face to face and coordination of care with LEE Jeffrey MD Jul 26, 2018 20:01
[2018-07-26] MEDS ORDERED: cefTRIAXone IV Push 1 GM VIAL. IVP SCH (21:00)
[2018-07-26] MEDS ORDERED: VANCOMYCIN 1 GM in IV NORMAL SALINE 250ML 250 ML IV SCH (22:30)
[2018-07-27] MEDS ORDERED: PANTOPRAZOLE IV PUSH 40 MG VIAL. IVP SCH (07:30)
--- NOTE | 2018-07-27 10:58 | CONS ---
DATE OF CONSULTATION: 07/26/2018 ROOM: 662. REQUESTING PHYSICIAN: Dr. Barry. REASON FOR CONSULTATION: Sepsis, pneumonia. HISTORY OF PRESENT ILLNESS: The patient is a 53-year-old gentleman recently diagnosed with esophageal adenocarcinoma and has a G-tube in place as well as a Port-A-Cath that was placed about a week or so ago. He recently was admitted to [facility] in May. He was found to have a right pleural effusion as well as type 2 diabetes. Cultures from blood, pleural and urine were all negative. He was discharged home on Augmentin. He was brought to [facility] Emergency Room on 07/25/2018 secondary to mental status change and fever. He does not remember any of the events that brought him to the hospital, but he did have a temperature of 103.1 on arrival. Additionally, his white blood cell count was 11.9. Urinalysis had 11-20 wbc's, occasional squamous, small leukocyte esterase. Nitrite was negative. Chest x-ray had some worsening right lung infiltrates, interval clearing of the left lung infiltrate and left-sided pleural effusion. CT scan of the head showed some mild atrophy, no evidence of intracranial hemorrhage or mass effect, mild right sphenoid disease. He had been given a dose of Zosyn, vancomycin. He is on azithromycin and Rocephin. Rocephin has been continued as well as azithromycin. Currently, he is lying in bed, appears little bit better. Denies any active fevers. There is a little bit of a headache. No gross sinus issues. Has occasional sore throat. Does cough with occasional sputum production and discomfort. Denies any hemoptysis. He has a Port-A-Cath in the right chest. He has had some on and off abdominal pain, so nothing unusual for him. Denies any cramps or diarrhea. Denies any dysuria or frequency. No falls or rashes. PAST MEDICAL HISTORY: Positive for invasive adenocarcinoma of the esophagus. He has coronary artery disease with previous catheterization, congestive heart failure, type 2 diabetes, tobacco dependence, chronic diastolic heart failure, history of right-sided pleural effusions status post thoracentesis, anxiety, history of seizures, retinopathy, left renal artery stenosis, osteoarthritis, and hyperlipidemia. PAST SURGICAL HISTORY: Positive for left lower extremity angioplasty, cardiac catheterization, cataract extraction, left knee and left forearm surgery. REVIEW OF SYSTEMS: Otherwise negative. SOCIAL HISTORY: He is . He has a girlfriend, smokes marijuana. He is on disability. Also, tobacco use. FAMILY HISTORY: Positive for hypertension and coronary artery disease. CURRENT MEDICATIONS: He is on azithromycin. He received a dose of Zosyn, a dose of vancomycin and currently on ceftriaxone. Xanax, Norvasc, baby aspirin, Tessalon Perles, Coreg, Neurontin, insulin, DuoNebs, lactobacillus, Prinivil, Protonix, Aldactone and Carafate. PHYSICAL EXAMINATION: VITAL SIGNS: T-max was 103.1, currently at 98.8, pulse 84, respirations 14, blood pressure 132/72, satting 98% on 2 liters. CONSTITUTIONAL: He is lying in bed. He is cooperative. He is in no acute distress. Does look a little bit tired. HEENT: Pupils are equal and reactive. He has normal conjunctivae. Oral cavity, pharynx is clear without signs or thrush. NECK: Supple, no JVD. LUNGS: Mild rhonchi at the base. No gross wheeze. CARDIOVASCULAR: Heart was S1, S2. ABDOMEN: Flat, soft. ____ is in place. He has some mild discomfort. EXTREMITIES: Without clubbing, cyanosis or gross edema. SKIN: Warm to touch without signs of rash. He has multiple tattoos. NEUROLOGIC: He is alert and responds appropriately. Peripheral IV is clean. Also, has a right-sided Port-A-Cath without signs of any complications. LABORATORY DATA: White count on arrival was 11.9, hemoglobin 9.5, platelets of 337, neutrophils 83. Sed rate was 80, today creatinine of 1.1, glucose of 99. Troponins elevated at 0.085, was 0.089 on arrival. AST of 16, ALT 15, alkaline phosphatase 132 on arrival. Urinalysis reviewed in history of present illness. Influenza screen was negative. IMPRESSION: 1. Fever. 2. Leukocytosis. 3. Questionable urinary tract infection, present admission. 4. Port-A-Cath. 5. Esophageal cancer. 6. Sphenoid disease on CT scan. RECOMMENDATIONS: We will add vancomycin and Zosyn given the fact that he has recently been on Augmentin. He has a Port-A-Cath in place. Additionally, with the previous antibiotics, we will add fluconazole. He has not received any chemo or radiation as of yet. Follow up labs and cultures. May need additional imaging if worsens. Dr. Barry, thank you for asking us to participate in this patient's care. If you have any questions, please do not hesitate to contact me. ALENA VÁSQUEZ MD DR: KRISS/jennifer JOB#: [id number] / [id number]
== END 2018-07-26 14:40 | disposition short-term general hospital (02) | DRG 871 ==
LOC: ER 14:25 → ED HOLD 15:44 → 6 SOUTH 20:06
PROVIDERS: ADMIT Internal Medicine; ATTEND Internal Medicine
DX: A41.9 Sepsis, unspecified organism (principal); J18.9 Pneumonia, unspecified organism; E43 Unspecified severe protein-calorie malnutrition; E87.1 Hypo-osmolality and hyponatremia; C15.9 Malignant neoplasm of esophagus, unspecified; I13.0 Hypertensive heart and chronic kidney disease with heart failure and stage 1 through stage 4 chronic kidney disease, or unspecified chronic kidney disease; I50.32 Chronic diastolic (congestive) heart failure; J44.0 Chronic obstructive pulmonary disease with (acute) lower respiratory infection; N39.0 Urinary tract infection, site not specified; F17.210 Nicotine dependence, cigarettes, uncomplicated; D64.9 Anemia, unspecified; E11.22 Type 2 diabetes mellitus with diabetic chronic kidney disease; E11.319 Type 2 diabetes mellitus with unspecified diabetic retinopathy without macular edema; E11.42 Type 2 diabetes mellitus with diabetic polyneuropathy; E78.5 Hyperlipidemia, unspecified; E87.8 Other disorders of electrolyte and fluid balance, not elsewhere classified; F32.9 Major depressive disorder, single episode, unspecified; M19.90 Unspecified osteoarthritis, unspecified site; F41.9 Anxiety disorder, unspecified; G47.00 Insomnia, unspecified; I25.10 Atherosclerotic heart disease of native coronary artery without angina pectoris; I70.1 Atherosclerosis of renal artery; K21.9 Gastro-esophageal reflux disease without esophagitis; N18.9 Chronic kidney disease, unspecified; R09.02 Hypoxemia; Y95 Nosocomial condition; Z79.82 Long term (current) use of aspirin; Z79.899 Other long term (current) drug therapy; Z82.49 Family history of ischemic heart disease and other diseases of the circulatory system; Z85.01 Personal history of malignant neoplasm of esophagus; Z85.819 Personal history of malignant neoplasm of unspecified site of lip, oral cavity, and pharynx; Z93.1 Gastrostomy status; Z83.3 Family history of diabetes mellitus; Z68.21 Body mass index [BMI] 21.0-21.9, adult
CPT/HCPCS: 36415; 36600; 70450; 71045; 80048; 80053; 80307; 81001; 82140; 82550; 82805; 82962; 83605; 83690; 83880; 84484; 85025; 85610; 85651; 87040; 87086; 87804; 93005; 94640; 94760; 96365; 96366; 99292; C9113; G0480; J0456; J0696; J2270; J2543; J3370; J7030; J7040; J7050; J7620; 99291-25